=== PATIENT | male | born 1950 | race Caucasian/White ===

== ENCOUNTER 2016-12-21 23:02 | Inpatient (IN) | payer MEDICARE, OTHER ==
[2016-12-21] MEDS ORDERED: SODIUM CHLORIDE 0.9% 1,000 ML IV SCH (23:45)
--- NOTE | 2016-12-21 23:51 | ED ---
Abdominal Pain HPI - General Chief Complaint: Abdominal Pain Stated Complaint: abd pain Time Seen by Provider: 12/21/16 23:02 Source: patient, RN/MD, EMS, RN notes reviewed, old records reviewed Mode of arrival: EMS Limitations: no limitations - History of Present Illness Initial Comments: This is a 66-year-old male who was transferred from [facility] after it was discovered that he had a perforated viscus. Patient complained of abdominal pain earlier today he was seen at [facility] a workup was done those lab work was within normal limits he was found have free air under the diaphragm. CT was done and showed evidence of thickening of the sigmoid colon this may be the possible etiology. He was given IV antibiotics and transferred here for further evaluation. I did discuss case with Dr. Irwin. Patient has arrived and I did review all of his lab work and x-rays. Patient does state his pain is about 5/10 in severity his other complaints at this time he does have multiple history of joint replacements but no major medical issues. MD Complaint: abdominal pain, other - Related Data Home Medications Medication Instructions Recorded Confirmed Ascorbic Acid [Vitamin C] 1,000 mg PO DAILY 12/21/16 12/21/16 Aspirin 81 mg PO DAILY 12/21/16 12/21/16 Atorvastatin [Lipitor] 40 mg PO HS 12/21/16 12/21/16 Cholecalciferol [Vitamin D3] 5,000 unit PO DAILY 12/21/16 12/21/16 Glucosamine Sulfate 2,000 mg PO DAILY 12/21/16 12/21/16 Loratadine-Pseudoeph 10-240 mg 1 tab PO DAILY 12/21/16 12/21/16 [Claritin-D 24 Hr] Naproxen Sodium [Aleve] 220 mg PO DAILY 12/21/16 12/21/16 Pyridoxine [Vitamin B-6] 50 mg PO DAILY 12/21/16 12/21/16 Sildenafil Citrate [Sildenafil] 20 mg PO ONCE PRN 12/21/16 12/21/16 Vitamin E 1,000 unit PO DAILY 12/21/16 12/21/16 amLODIPine BESYLATE/BENAZEPRIL 1 cap PO DAILY 12/21/16 12/21/16 [amLODIPine BESYLATE/BENAZEPRIL 5-10 mg] Allergies Allergy/AdvReac Type Severity Reaction Status Date / Time amoxicillin Allergy Unknown Verified 12/21/16 23:25 Childhood Penicillins Allergy Unknown Verified 12/21/16 23:24 Childhood Review of Systems ROS Statement: Those systems with pertinent positive or pertinent negative responses have been documented in the HPI. ROS Other: All systems not noted in ROS Statement are negative. Past Medical History History of Any Multi-Drug Resistant Organisms: None Reported Past Psychological History: No Psychological Hx Reported Smoking Status: Never smoker Past Alcohol Use History: None Reported Past Drug Use History: None Reported General Exam - General Exam Comments Initial Comments: This is a well-developed well-nourished awake alert oriented 3 male he does have an NG tube in place an IV in place. Limitations: no limitations General appearance: alert, in no apparent distress Head exam: Present: atraumatic, normocephalic, normal inspection Eye exam: Present: normal appearance, PERRL, EOMI. Absent: scleral icterus, conjunctival injection, periorbital swelling ENT exam: Present: normal exam, mucous membranes moist, other (Nasogastric tube as mentioned) Neck exam: Present: normal inspection. Absent: tenderness, meningismus, lymphadenopathy Respiratory exam: Present: normal lung sounds bilaterally. Absent: respiratory distress, wheezes, rales, rhonchi, stridor Cardiovascular Exam: Present: regular rate, normal rhythm, normal heart sounds. Absent: systolic murmur, diastolic murmur, rubs, gallop, clicks GI/Abdominal exam: Present: soft, tenderness (Mild lower abdominal tenderness no guarding or rebound.), normal bowel sounds. Absent: distended, guarding, rebound, rigid Rectal exam: Present: deferred Extremities exam: Present: normal inspection, full ROM, normal capillary refill. Absent: tenderness, pedal edema, joint swelling, calf tenderness Back exam: Present: normal inspection Neurological exam: Present: alert, oriented X3, CN II-XII intact Psychiatric exam: Present: normal affect, normal mood Skin exam: Present: warm, dry, intact, normal color. Absent: rash Course Vital Signs 12/21/16 23:08 Temperature 98.8 F Pulse Rate 75 Respiratory 22 Rate Blood Pressure 110/67 O2 Sat by Pulse 98 Oximetry Medical Decision Making - Medical Decision Making I did discuss the findings with Dr. Irwin the patient will be taken the operating room for exploratory laparotomy. The CAT scan was done at [place] the written report was reviewed the radiology department currently is unable to load the disc into our system. Disposition Clinical Impression: Perforated viscus, Acute abdomen Disposition: ADMITTED IP TO THIS HOSP Condition: Serious
[2016-12-21] MEDS ORDERED: HYDROmorphone 1 MG/ML 1 ML SYRINGE IVP STA (23:52)
[2016-12-21] MEDS ORDERED: NALOXONE 0.4 MG/ML 1 ML VIAL IV PRN (23:59)
[2016-12-22] MEDS ORDERED: IV FLUID CONTINUATION 1,000 ML IV ONE ×2 (00:35)
[2016-12-22] MEDS ORDERED: LIDOCAINE 1% INJ 10MG/ML (20 ML MDV) ONE (00:44)
[2016-12-22] MEDS ORDERED: ROCURONIUM BROMIDE 10 MG/ML 10 ML VIAL IV ONE (00:44)
[2016-12-22] MEDS ORDERED: HEPARIN SODIUM,PORCINE 5,000 UNIT/ML 1 ML VIAL ONE (00:44)
[2016-12-22] MEDS ORDERED: ONDANSETRON 4 MG/2 ML VIAL ONE (00:44)
[2016-12-22] MEDS ORDERED: fentaNYL (PF) 50 MCG/ML 2 ML AMP ONE (00:44)
[2016-12-22] MEDS ORDERED: SUCCINYLCHOLINE CHLORIDE 100 MG/5 ML SYR IV ONE (00:44)
[2016-12-22] MEDS ORDERED: PHENYLEPHRINE-0.9% NACL SYG 1 MG/10 ML SYRINGE ONE (00:44)
[2016-12-22] MEDS ORDERED: KETOROLAC 30 MG/ML 1 ML VIAL ONE (00:44)
[2016-12-22] MEDS ORDERED: MIDAZOLAM 2 MG/2 ML VIAL ONE (00:44)
[2016-12-22] MEDS ORDERED: DEXAMETHASONE SOD PHOS (MDV) 100 MG/10 ML VIAL ONE (00:44)
[2016-12-22] MEDS ORDERED: PROPOFOL 10 MG/ML 20 ML VIAL IV ONE (00:44)
--- NOTE | 2016-12-22 00:46 | P.GSHP ---
History of Present Illness H&P Date: 12/22/16 Chief Complaint: Abdominal pain 66 years old male presented with acute onset of abdominal pain around 3 PM. Pain is described as severe, 10 out of 10. No nausea or vomiting. Patient has known inguinal hernias but chose not to have surgery. Denies any fever or chills or rigors. Last colonoscopy several years ago which was normal as per patient. He went to the Hospital around 5 PM and had computed tomography scan of the abdomen and pelvis which showed free air and hence transferred to [facility] for further management - Review of Systems Comment: Constitutional: Denies fever, weight loss or loss of appetite HEENT: No difficulty in vision or hearing. Denies dysphagia. Cardiovascular: Denies chest pain, palpitations, dizziness, shortness of breath. Respiratory: No cough or shortness of breath Gastrointestinal: Last bowel movement was 2 days ago Genitourinary: No urinary incontinence, hematuria or dysuria Neurologic: No seizures, denies weakness in upper or lower extremities Past Medical History History of Any Multi-Drug Resistant Organisms: None Reported Past Psychological History: No Psychological Hx Reported Smoking Status: Never smoker Past Alcohol Use History: None Reported Past Drug Use History: None Reported Medications and Allergies Home Medications Medication Instructions Recorded Confirmed Type Ascorbic Acid [Vitamin C] 1,000 mg PO DAILY 12/21/16 12/21/16 History Aspirin 81 mg PO DAILY 12/21/16 12/21/16 History Atorvastatin [Lipitor] 40 mg PO HS 12/21/16 12/21/16 History Cholecalciferol [Vitamin D3] 5,000 unit PO DAILY 12/21/16 12/21/16 History Glucosamine Sulfate 2,000 mg PO DAILY 12/21/16 12/21/16 History Loratadine-Pseudoeph 10-240 mg 1 tab PO DAILY 12/21/16 12/21/16 History [Claritin-D 24 Hr] Naproxen Sodium [Aleve] 220 mg PO DAILY 12/21/16 12/21/16 History Pyridoxine [Vitamin B-6] 50 mg PO DAILY 12/21/16 12/21/16 History Sildenafil Citrate [Sildenafil] 20 mg PO ONCE PRN 12/21/16 12/21/16 History Vitamin E 1,000 unit PO DAILY 12/21/16 12/21/16 History amLODIPine BESYLATE/BENAZEPRIL 1 cap PO DAILY 12/21/16 12/21/16 History [amLODIPine BESYLATE/BENAZEPRIL 5-10 mg] Allergies Allergy/AdvReac Type Severity Reaction Status Date / Time amoxicillin Allergy Unknown Verified 12/21/16 23:25 Childhood Penicillins Allergy Unknown Verified 12/21/16 23:24 Childhood Surgical - Exam Vital Signs Temp Pulse Resp BP Pulse Ox 98.8 F 75 22 110/67 98 12/21/16 23:08 12/21/16 23:08 12/21/16 23:08 12/21/16 23:08 12/21/16 23:08 General: Patient is alert and oriented to time, place and person and cooperative with exam and in acute distress secondary to pain HEENT: No pallor, no icterus Chest: Bilateral equal breath sounds present. No wheezes, no crackles. Cardiovascular: Regular rate and rhythm. Abdomen: Markedly distended abdomen with guarding and rigidity and diffuse peritonitis.Bilateral nonreducible inguinal hernia Neurologic: Cranial nerves II-XII intact. Strength upper and lower extremities 5/5. Results - Imaging CT scan - abdomen: other (Computed tomography scan abdomen and pelvis reviewed from [facility]. Free intra-abdominal air. Bilateral large inguinal hernia containing colon with fecal stasis.) Assessment and Plan (1) Acute abdomen Status: Acute (2) Perforated viscus Status: Acute (3) Peritonitis (acute) generalized Status: Acute (4) Inguinal hernia of left side with obstruction Status: Acute Plan: Patient examining ED Acute abdomen with generalized peritonitis with hollow viscus perforation, known bilateral inguinal hernias Plan for exploratory laparotomy, possible bowel resection, possible ostomy, possible second look surgery with wound VAC application Informed consent obtained from the patient and after explaining the risks, benefits and potential complications including bleeding, infection, intra- abdominal abscess, prolonged ventilation, ICU admission, pulmonary and cardiac perioperative complications. IV antibiotics Chavez catheter insertion Heparin 5000 units subcu injection 1 Bilateral SCDs
[2016-12-22] MEDS ORDERED: HEPARIN SODIUM,PORCINE 5,000 UNIT/ML 1 ML VIAL SQ STA (00:47)
[2016-12-22] MEDS ORDERED: ONDANSETRON 4 MG/2 ML VIAL IVP PRN (00:50)
[2016-12-22] MEDS ORDERED: METOCLOPRAMIDE 5 MG/ML 2 ML VIAL IVP PRN (00:50)
[2016-12-22] MEDS: metroNIDAZOLE-NS PMX 500 MG in SALINE 1 100ML.BAG IVPB SCH ×4 (01:26→23:40)
[2016-12-22] MEDS: LEVOFLOXACIN 750MG-D5W PMX 750 MG in DEXTROSE/WATER 1 150ML.BAG IVPB SCH ×2 (01:27→22:10)
[2016-12-22] MEDS ORDERED: LACTATED RINGERS 1,000 ML IV ONE ×7 (01:30→11:37)
--- NOTE | 2016-12-22 03:06 | P.OP ---
Date of Procedure: 12/22/16 Preoperative Diagnosis: 1. Perforated hollow viscus 2. Diffuse abdominal peritonitis 3. Sepsis secondary to above 4. Bilateral inguinal hernia Postoperative Diagnosis: Same Procedure(s) Performed: Exploratory laparotomy Washout of abdomen using 9 L of irrigation Armani procedure(sigmoid colectomy and end ostomy) Anesthesia: MAGDALENA Surgeon: Melida Irwin Estimated Blood Loss (ml): 100 IV fluids (ml): 100 Pathology: other Condition: other (ASA 3) Disposition: PACU Indications for Procedure: 66 years old male presenting with acute onset of abdominal pain for 1 day duration presents with generalized abdominal peritonitis. Computed tomography scan which was done at [facility] showed free air and bilateral inguinal hernias. Informed consent obtained from patient and family and he elected to undergo exploratory laparotomy, possible bowel resection, possible ostomy and all indicated procedures Operative Findings: 2 cm open defect in the sigmoid colon with gross contamination of abdominal cavity with stool in all 4 quadrants Both inguinal hernia were reduced at induction of anesthesia Description of Procedure: The patient was brought to the operating room and placed in supine position with both arms out. Gen. anesthesia with endotracheal intubation was performed. A timeout was performed to verify correct patient, correct procedure and correct site. Patient was confirmed to receive perioperative IV antibiotics and heparin 5000 units subcutaneous injection. Bilateral SCDs were placed. A Chavez catheter was inserted under sterile aseptic precautions The abdomen was prepped with ChloraPrep. Ioban dressing was applied. A vertical midline incision was made and was deepened through the subcutaneous tissue and the fascia was opened in the midline. There was gross fecal contamination with stool in all 4 quadrants of the peritoneal cavity. Aerobic and anaerobic cultures sent. A hole was immediately identified in the sigmoid colon which measured approximately 2 cm. A segmental resection was performed using DAYAN 75. The mesocolon was taken using LigaSure device. Attention was then focused towards washout of the abdomen. All solid gross stool particles were evacuated. 9 L of warm saline irrigation was used to wash out the abdominal cavity including hepatorenal and splenorenal fossa is and perihepatic and perisplenic spaces. Nasogastric tube was checked to be in good position. Bilateral inguinal hernias identified but no incarceration or obstruction noted. The small bowel was run from ligament of Treitz to terminal ileum. Large amount of fecal matter throughout the colon. An opening was made in the rectus fascia in the left lower quadrant. The muscle fibers was split along its longitudinal directions. The posterior rectus sheath was also divided. The proximal end of the stapled colon was brought out through this opening to mature descending colon ostomy. The fascia was closed using double-stranded PDS 2. The subcutaneous tissue was washed with additional 1 L of normal saline. No wound protection device was used since there was gross contamination to begin with. A Blue drain was left in the subcutis tissue and spike were applied. The stapled end of the descending colon was opened up using Bovie electrocautery. The ostomy was matured using interrupted sutures of 3-0 Vicryl. A finger could be easily allowed through the ostomy beyond the fascia. An ostomy bag was applied. Clean dressings were applied in the midline. The sponge, instrument and needle count were correct 2. Patient tolerated procedure well and was taken to post anesthetic care unit in stable condition
[2016-12-22 05:33] LABS: Aty Lym Flag Moderate; CH 31.6; CHCM 31.3; HCT 42.4 % (39.0-53.0); HDW 2.38; HGB 13.3 gm/dL (13.0-17.5); Immature Gran Flag Marked; MCH 31.9 pg (25.0-35.0); MCHC 31.4 g/dL (31.0-37.0); MCV 101.5 fL (80.0-100.0); Macrocytosis Slight; Mean Platelet Volume 6.8; RBC 4.18 m/uL (4.30-5.90); RDW 13.8 % (11.5-15.5); WBC (Perox) 2.12
[2016-12-22] MEDS ORDERED: ACETAMINOPHEN IV (For NPO) 1,000 MG/100 ML VIAL IVPB ONE ×2 (05:59→12:02)
[2016-12-22] MEDS: ACETAMINOPHEN IV (For NPO) 1,000 MG in EMPTY BAG 1 BAG IVPB SCH ×4 (06:04→23:39)
[2016-12-22 06:16] LABS: Anion Gap 9 mmol/L; Calcium 8.2 mg/dL (8.4-10.2); Carbon Dioxide 17 mmol/L (22-30); Chloride 112 mmol/L (98-107); Glucose 90 mg/dL (74-99); Non-African American GFR(MDRD) >60 (>60 ml/min/1.73 sqM); Sodium 138 mmol/L (137-145); Total Bilirubin 1.6 mg/dL (0.2-1.3); Total Protein 4.5 g/dL (6.3-8.2)
[2016-12-22 06:19] LABS: Add Differential Manual Differential
[2016-12-22 06:29] LABS: Band Neutrophils % 34.5 %; Nucleated Red Blood Cells 0 /100 WBC (0-0); Total Cells Counted 200
[2016-12-22 06:30] LABS: Manual Review Performed
[2016-12-22 06:49] LABS: Potassium 4.3 mmol/L (3.5-5.1)
[2016-12-22 06:50] LABS: ALT 44 U/L (21-72); AST 39 U/L (17-59); Alkaline Phosphatase 58 U/L (38-126); Blood Urea Nitrogen 22 mg/dL (9-20)
[2016-12-22] MEDS ORDERED: HEPARIN SODIUM,PORCINE 5,000 UNIT/ML 1 ML VIAL SQ ONE (07:03)
[2016-12-22] MEDS ORDERED: PROPOFOL 10 MG/ML 50 ML VIAL IV ONE (07:06)
[2016-12-22] MEDS ORDERED: ALVIMOPAN 12 MG CAPSULE PO ONE (07:40)
[2016-12-22] MEDS: LACTATED RINGERS 1,000 ML IV SCH ×3 (07:58→16:34)
[2016-12-22] MEDS: ALVIMOPAN 12 MG CAPSULE PO SCH ×2 (09:00→22:09)
[2016-12-22] MEDS: FAMOTIDINE 20 MG/2 ML VIAL IV SCH ×2 (09:00→22:10)
[2016-12-22] MEDS ORDERED: SILDENAFIL 20 MG TAB PO PRN (09:42)
[2016-12-22 09:48] LABS: Glucose,Whole Blood 82 mg/dL (75-99)
[2016-12-22] MEDS ORDERED: SODIUM CHLORIDE 0.9% 1,000 ML IV ONE (09:58)
--- NOTE | 2016-12-22 10:11 | P.CNPUL ---
History of Present Illness Consult date: 12/22/16 Reason for consult: other Chief complaint: Perforated viscus, sepsis. History of present illness: This is a 66-year-old male who presented to the emergency department and [place]. He apparently was found have a perforated viscus. He was transferred down from [place] to our ER where he was evaluated and he had surgery yesterday. There is air under the diaphragm. The patient apparently had a colostomy with a Schreiber's procedure for the perforation. The concern here is that he will develop peritonitis and sepsis. He is currently extended stay area. On nasal O2 and receiving fluids. I didn't ask the nurse Gurdeep to give another liter of fluid. He is borderline hypotensive. His respiratory status is stable though. He appears to have a history of hyperlipidemia as well as hypertension. Review of Systems A 12 point review of system is positive for abdominal pain. The rest of the 12 point review of system is unremarkable. Past Medical History History of Any Multi-Drug Resistant Organisms: None Reported Past Psychological History: No Psychological Hx Reported Smoking Status: Never smoker Past Alcohol Use History: None Reported Past Drug Use History: None Reported Medications and Allergies Home Medications Medication Instructions Recorded Confirmed Type Ascorbic Acid [Vitamin C] 1,000 mg PO DAILY 12/21/16 12/21/16 History Aspirin 81 mg PO DAILY 12/21/16 12/21/16 History Atorvastatin [Lipitor] 40 mg PO HS 12/21/16 12/21/16 History Cholecalciferol [Vitamin D3] 5,000 unit PO DAILY 12/21/16 12/21/16 History Glucosamine Sulfate 2,000 mg PO DAILY 12/21/16 12/21/16 History Loratadine-Pseudoeph 10-240 mg 1 tab PO DAILY 12/21/16 12/21/16 History [Claritin-D 24 Hr] Naproxen Sodium [Aleve] 220 mg PO DAILY 12/21/16 12/21/16 History Pyridoxine [Vitamin B-6] 50 mg PO DAILY 12/21/16 12/21/16 History Sildenafil Citrate [Sildenafil] 20 mg PO ONCE PRN 12/21/16 12/21/16 History Vitamin E 1,000 unit PO DAILY 12/21/16 12/21/16 History amLODIPine BESYLATE/BENAZEPRIL 1 cap PO DAILY 12/21/16 12/21/16 History [amLODIPine BESYLATE/BENAZEPRIL 5-10 mg] Allergies Allergy/AdvReac Type Severity Reaction Status Date / Time amoxicillin Allergy Unknown Verified 12/21/16 23:25 Childhood Penicillins Allergy Unknown Verified 12/21/16 23:24 Childhood Physical Exam Osteopathic Statement: *. No significant issues noted on an osteopathic structural exam other than those noted in the History and Physical/Consult. Vitals: Vital Signs Temp Pulse Resp BP Pulse Ox 12/22/16 09:30 90 16 97/58 93 L 12/22/16 08:30 86 16 86/53 94 L 12/22/16 07:22 85 18 81/53 93 L 12/22/16 06:24 86 16 90/53 90 L 12/22/16 05:37 85 16 83/57 93 L 12/22/16 04:30 84 16 93/57 94 L 12/22/16 04:15 84 16 100/62 94 L 12/22/16 04:00 80 16 98/59 94 L 12/22/16 03:45 85 16 107/60 95 12/22/16 03:30 84 16 110/60 94 L 12/22/16 03:15 88 16 108/55 94 L 12/22/16 02:59 97.9 F 94 16 116/63 97 Intake and Output 12/21/16 12/22/16 12/22/16 22:59 06:59 14:59 Intake Total 4050 400 Output Total 500 100 Balance 3550 300 Intake: IV 4050 400 Output: Urine 400 100 Estimated Blood Loss 100 No acute distress, lying in bed. Nasal O2 in place. Appears no acute distress. HEENT examination is unremarkable. Mucous members are moist. No oral lesions. Neck supple. Full range of motion. No adenopathy or thyromegaly. Cardiovascular examination reveals regular rhythm rate. S1-S2 normal. No S3- S4 murmur. Lungs are relatively clear. A few scattered rhonchi. No wheezes. Abdomen soft. No bowel sounds. Extremities are intact. No cyanosis clubbing or edema. Skin is without rash or lesion Neurologic examination is brief but nonfocal. Results - Laboratory Findings CBC and BMP: 12/22/16 05:14 12/22/16 05:14 Abnormal lab findings: Abnormal Labs 12/22/16 12/22/16 05:14 05:14 WBC 2.0 L* RBC 4.18 L MCV 101.5 H Plt Count 117 L Neutrophils # (Manual) 1.2 L Lymphocytes # (Manual) 0.4 L Chloride 112 H Carbon Dioxide 17 L BUN 22 H Calcium 8.2 L Total Bilirubin 1.6 H Total Protein 4.5 L Albumin 2.3 L - Diagnostic Findings Chest x-ray: image reviewed Assessment and Plan (1) Acute abdomen Status: Acute (2) Perforated viscus Status: Acute (3) Peritonitis (acute) generalized Status: Acute Plan: Plan The patient will be transferred up to the ICU for better monitoring and observation. Were concerned about sepsis and peritonitis. I asked the nurse to give him a liter of saline. His blood pressure is borderline about 90 systolic. Continue to watch very carefully. Medications labs and x-rays are all reviewed. Time with Patient: Greater than 30
[2016-12-22] MEDS: HEPARIN SODIUM,PORCINE 5,000 UNIT/ML 1 ML VIAL SQ SCH ×3 (11:44→23:40)
[2016-12-22] MEDS ORDERED: DEXTROSE 50%-WATER 50 ML SYRINGE IVP ONE (12:05)
[2016-12-22 12:06] LABS: Glucose,Whole Blood 63 mg/dL (75-99)
[2016-12-22 12:22] LABS: Glucose,Whole Blood 115 mg/dL (75-99)
--- NOTE | 2016-12-22 14:20 | P.PN ---
Subjective Principal diagnosis: S/P xlap, sigmoid colon resection and Schreiber procedure POD#0 S/P Xlap, sigmoid colectomy and end ostomy BP borderline 90-110 systolic. Pain is well controlled. UO improved after IV fluid bolus Objective - Vital Signs Vital signs: Vital Signs Temp 97.9 F 12/22/16 02:59 Pulse 87 12/22/16 13:22 Resp 18 12/22/16 13:22 BP 104/63 12/22/16 13:22 Pulse Ox 94 L 12/22/16 13:10 Intake & Output 12/21/16 12/22/16 12/22/16 18:59 06:59 18:59 Intake Total 4050 1400 Output Total 500 400 Balance 3550 1000 Intake: IV 4050 1400 Output: Urine 400 400 Estimated Blood Loss 100 - Exam Chest: Bilateral breath sounds present CVS: No tachycardia Abdomen: Ostomy -edematous, no output Neville catheter in place - Labs CBC & Chem 7: 12/22/16 05:14 12/22/16 05:14 Labs: Abnormal Lab Results - Last 24 Hours (Table) 12/22/16 12/22/16 12/22/16 Range/Units 05:14 05:14 12:03 WBC 2.0 L* (3.8-10.6) k/uL RBC 4.18 L (4.30-5.90) m/uL MCV 101.5 H (80.0-100.0) fL Plt Count 117 L (150-450) k/uL Neutrophils # (Manual) 1.2 L (1.3-7.7) k/uL Lymphocytes # (Manual) 0.4 L (1.0-4.8) k/uL Chloride 112 H (98-107) mmol/L Carbon Dioxide 17 L (22-30) mmol/L BUN 22 H (9-20) mg/dL POC Glucose (mg/dL) 63 L (75-99) mg/dL Calcium 8.2 L (8.4-10.2) mg/dL Total Bilirubin 1.6 H (0.2-1.3) mg/dL Total Protein 4.5 L (6.3-8.2) g/dL Albumin 2.3 L (3.5-5.0) g/dL 12/22/16 Range/Units 12:19 WBC (3.8-10.6) k/uL RBC (4.30-5.90) m/uL MCV (80.0-100.0) fL Plt Count (150-450) k/uL Neutrophils # (Manual) (1.3-7.7) k/uL Lymphocytes # (Manual) (1.0-4.8) k/uL Chloride (98-107) mmol/L Carbon Dioxide (22-30) mmol/L BUN (9-20) mg/dL POC Glucose (mg/dL) 115 H (75-99) mg/dL Calcium (8.4-10.2) mg/dL Total Bilirubin (0.2-1.3) mg/dL Total Protein (6.3-8.2) g/dL Albumin (3.5-5.0) g/dL Microbiology - Last 24 Hours (Table) 12/22/16 02:26 Anaerobic Culture - Preliminary Peritoneal Fluid 12/22/16 02:26 Wound Culture - Preliminary Peritoneal Fluid Assessment and Plan (1) Acute abdomen Status: Acute (2) Perforated viscus Status: Acute (3) Peritonitis (acute) generalized Status: Acute (4) Inguinal hernia of left side with obstruction Status: Acute Plan: 1. Continue IVF @150cc/hr 2. Bilateral SCDs 3. Heparin SQ every 8 hrly 4. Continue Levo and Flagyl IV. Cultures pending 5. Transfer to [facility] 6. ID following 7. OK for ice chips and popsicles 8. COntinue NG 7. SINDHU [place] in am
[2016-12-22] MEDS: cefTRIAXone 2,000 MG in SODIUM CHLORIDE 0.9% 100 ML IVPB SCH (17:32)
[2016-12-22 17:48] LABS: Glucose,Whole Blood 77 mg/dL (75-99)
[2016-12-22] MEDS: ATORVASTATIN 40 MG TAB PO SCH (22:09)
--- NOTE | 2016-12-22 22:41 | CONS ---
DATE OF CONSULTATION: 12/22/2016 REASON FOR CONSULTATION: Medical management requested Dr. Irwin. CONSULTATION: This is a pleasant 66-year-old patient being followed by Dr. Landrum. Patient for 3 days was having trouble having a bowel movement and yesterday developed increasingly severe abdominal pain. No nausea. No fever. Landed up in [facility]. CT scan showed free air. Patient was transferred down here. Exploratory laparotomy revealed perforated sigmoid diverticulitis with fecal contamination. Patient did have a Armani's procedure done. Post procedure patient has an NG tube in place, a colostomy bag. Patient is rather hypotensive; received fluid boluses and was transferred out of the surgical floor. Patient is currently lying in bed, awake. He will answer questions. Getting IV fluids. Allowed to have popsicles. Patient's chronic stable medical conditions include hyperlipidemia, hypertension, osteoarthritis. Denies any cardiac history. REVIEW OF SYSTEMS: CONSTITUTIONAL: Tired. HEENT: None. RESPIRATORY: None. CARDIOVASCULAR: None. GASTROINTESTINAL: As above. GENITOURINARY: None. MUSCULOSKELETAL: Aches and pains in the joints, especially in the hands and knees. DERMATOLOGICAL: None. HEMATOLOGICAL: None. LYMPHATICS: None. PSYCHIATRY: None. NEUROLOGICAL: None. PAST HISTORY: 1. Hyperlipidemia. 2. Hypertension. 3. Osteoarthritis. PAST SURGICAL HISTORY: 1. Joint replacement. 2. Bilateral total hips. 3. Left knee arthroscopy. 4. Right shoulder. SOCIAL HISTORY: . Patient is not a smoker. Alcohol occasionally. Does auto repair. FAMILY HISTORY: Parents were healthy. HOME MEDICATIONS: 1. Sildenafil 20 mg p.r.n. 2. Claritin D one tablet p.o. daily. 3. Amlodipine/benazepril 5/10 one tablet p.o. daily. 4. Vitamin D3 5000 units p.o. daily. 5. Lipitor 40 mg at bedtime. 6. Vitamin C 1000 mg p.o. daily. 7. Vitamin B6 50 mg p.o. daily. 8. Aleve 220 mg p.o. daily. 9. Glucosamine 2000 mg p.o. daily. 10. Aspirin 81 mg p.o. daily. ALLERGIES: 1. MORPHINE. 2. PENICILLIN. On examination, temperature 98.8, pulse 75, respiration 22, blood pressure 110/57, pulse ox 98% on 2 L. GENERAL APPEARANCE: Average build. Lying in bed. Tired-appearing. EYES: Pupils equal. Conjunctivae normal. HEENT: External appearance of nose and ears normal. Oral cavity with dry mucous membranes. NG tube in place. NECK: JVD not raised. Mass not palpable. RESPIRATORY: Effort normal. Lungs are clear. CARDIOVASCULAR: First and second sounds normal. No edema. ABDOMEN: Some tenderness present. Bowel sounds are sluggish. Colostomy bag in place. Incision in place. LYMPHATIC: No lymph node palpable in neck or axillae. PSYCHIATRY: Alert and oriented x3. Mood and affect normal. NEUROLOGICAL: Pupils equal. Cranial nerves grossly intact. MUSCULOSKELETAL: Evidence of osteoarthritis, especially in the hands and knees. INVESTIGATIONS: White count 2, hemoglobin 13.3, platelets 117. Potassium 4.3. BUN 22, creatinine 1. Total bilirubin 1.6. Albumin 2.3. ASSESSMENT: 1. Colonic perforation leading to peritoneal contamination leading up to Armani's procedure/sigmoid colectomy and end colostomy. 2. Hyperlipidemia. 3. Essential hypertension. 4. Primary osteoarthritis, especially in the hands and knees. 5. Hypoalbuminemia; could be an acute phase reactant. 6. Patient has low white count; leukopenia that could be from sepsis. Low platelets, but given that patient has also got low platelets, it could be from sepsis. 7. Hypotensive shock from perforated bowel. PLAN: Patient is on IV Levaquin, IV Flagyl, ceftriaxone. I think Levaquin and Flagyl will suffice. Will discuss with Dr. Juarez. Patient's Zestril will be maintained. Will hold off patient's Norvasc for right now. Pain control is in place. Patient will given Venodynes for DVT prophylaxis. Will also discontinue patient's Claritin D. Care was discussed with the patient. Thank you, Dr. Irwin.
[2016-12-23 00:53] LABS: Glucose,Whole Blood 76 mg/dL (75-99)
[2016-12-23] MEDS: LACTATED RINGERS 1,000 ML IV SCH ×4 (04:03→18:53)
[2016-12-23 05:43] LABS: Glucose,Whole Blood 77 mg/dL (75-99)
[2016-12-23 08:02] LABS: CH 32.1; CHCM 34.1; HCT 38.4 % (39.0-53.0); HDW 2.62; HGB 13.2 gm/dL (13.0-17.5); Immature Gran Flag Marked; MCH 32.6 pg (25.0-35.0); MCHC 34.4 g/dL (31.0-37.0); Mean Platelet Volume 6.9; RBC 4.05 m/uL (4.30-5.90); RDW 14.1 % (11.5-15.5); WBC 5.9 k/uL (3.8-10.6); WBC (Perox) 6.57
[2016-12-23 08:04] LABS: ALT 46 U/L (21-72); AST 42 U/L (17-59); Alkaline Phosphatase 84 U/L (38-126); Anion Gap 7 mmol/L; Blood Urea Nitrogen 25 mg/dL (9-20); Calcium 8.2 mg/dL (8.4-10.2); Carbon Dioxide 22 mmol/L (22-30); Chloride 109 mmol/L (98-107); Glucose 70 mg/dL (74-99); Non-African American GFR(MDRD) >60 (>60 ml/min/1.73 sqM); Potassium 4.2 mmol/L (3.5-5.1); Sodium 138 mmol/L (137-145); Total Bilirubin 0.7 mg/dL (0.2-1.3); Total Protein 4.6 g/dL (6.3-8.2)
[2016-12-23 08:06] LABS: MCV 94.9 fL (80.0-100.0)
[2016-12-23 08:46] LABS: Add Differential Manual Differential
[2016-12-23 08:51] LABS: Nucleated Red Blood Cells 0 /100 WBC (0-0); Total Cells Counted 100
[2016-12-23 08:52] LABS: Manual Review Performed; RBC Morphology Normal; Toxic Vacuolation Present
[2016-12-23] MEDS ORDERED: amLODIPine 5 MG TAB PO SCH (09:00)
[2016-12-23] MEDS: HEPARIN SODIUM,PORCINE 5,000 UNIT/ML 1 ML VIAL SQ SCH ×2 (09:28→18:08)
[2016-12-23] MEDS: ALVIMOPAN 12 MG CAPSULE PO SCH ×2 (09:28→22:32)
[2016-12-23] MEDS: LISINOPRIL 10 MG TAB PO SCH (09:29)
[2016-12-23] MEDS: FAMOTIDINE 20 MG/2 ML VIAL IV SCH ×2 (09:29→22:32)
[2016-12-23] MEDS: metroNIDAZOLE-NS PMX 500 MG in SALINE 1 100ML.BAG IVPB SCH ×2 (09:40→18:07)
--- NOTE | 2016-12-23 09:53 | CONS ---
DATE OF CONSULTATION: 12/22/2016 REASON FOR CONSULTATION: Secondary peritonitis. HISTORY OF PRESENT ILLNESS: The patient is a 66 -year-old male who presented to the [facility] ER with acute onset of abdominal pain that staretd around 3 in the afternoon. The patient did have pain, severe, sharp, 5-6 out of 10 and no significant radiation. The patient denied significant nausea or vomiting with it and had no significant diarrhea or constipation. With these symptoms the patient presented to the [facility] ER where the patient has been evaluated by the ER physician. Patient subsequently has been taken to the OR by Dr. Irwin. He was noticed to have perforated sigmoid diverticulitis with diffuse abdominal peritonitis. The patient is status post exploratory laparotomy with wash out of abdominal atwood procedure. The patient has been resuscitated with IV fluids. Of note, patient did have history of PENICILLIN AND AMOXICILLIN ALLERGIES and hence he was given Levaquin and Flagyl for antibiotic and ID was consulted for further recommendation regarding management of antibiotic therapy. REVIEW OF SYSTEMS: CONSTITUTIONAL: Positive for weakness and denies high-grade fever. EYES: No complaint. ENT: No complaint. RESPIRATORY: No complaint. CARDIOVASCULAR: No complaint. GENITOURINARY: No complaint. GASTROINTESTINAL: As per HPI. MUSCULOSKELETAL: No complaint. INTEGUMENTARY: No complaint. PSYCHOLOGICAL: No complaint. ENDOCRINE: No complaint. NEUROLOGIC: No complaint. PAST MEDICAL HISTORY: Hypertension, hyperlipidemia, osteoarthritis. PAST SURGICAL HISTORY: Positive for left knee arthroscopy and right shoulder surgery. SOCIAL HISTORY: The patient is , lives with his , occasionally drinks. No smoking or any drug use. FAMILY HISTORY: No pertinent findings were noticed. ALLERGIES: MORPHINE AND PENICILLIN REACTION IS UNKNOWN. Medications include the patient is currently on: 1. Levaquin. 2. Flagyl. 3. Lipitor. 4. Vitamin D3. 5. Claritin. 6. Aspirin. 7. Duoneb. On examination, blood pressure 94/54 with a pulse of 88, temperature 99.5. He is 94% on 2 L nasal cannula. General description is an elderly male lying in bed in no distress. No tachypnea or accessory muscle of respiration use. HEENT examination, no pallor. There is no scleral icterus. Oral mucosa membranes dry. NECK: Trachea central. There is no thyromegaly. LUNGS: Unlabored breathing. Clear to auscultation anteriorly. HEART: S1, S2 regular rate and rhythm. ABDOMEN: Soft, mild tenderness in the lower quadrant area. No guarding or rigidity. EXTREMITIES: No edema of feet. Skin examination: No rash or mass palpable. NEUROLOGICAL: The patient is awake, alert and oriented x3. Mood and affect normal. LABS: Hemoglobin is 13. White count of 2. BUN of 22 with a creatinine 1.0, electrolytes have been normal. Peritoneal culture obtained, currently pending. DIAGNOSTIC IMPRESSION AND PLAN: 1. Patient admitted to hospital with sepsis and secondary peritonitis from perforated sigmoid diverticulitis. The likely organism will be gram-negative both aerobes and anaerobes in a patient who has not been on antibiotics recently, could be more likely a sensitive pathogen. 2. Patient does have PENICILLIN AND AMOXICILLIN ALLERGIES limiting the number of antibiotics that could be safe to use. PLAN: 1. We will add Rocephin 2 grams IV piggyback daily , it is safe for use in a patient with HISTORY OF PENICILLIN ALLERGIES with unknown reaction. 2. Continue the patient on Flagyl. 3. Will follow up on the clinical condition and cultures to further adjust the medication if needed. Thank you for this consultation. Will follow this patient along with you. AYO
--- NOTE | 2016-12-23 10:14 | P.PN ---
Subjective 66-year-old male who I saw yesterday to extended care. He status post exploratory laparotomy for perforated viscus. He apparently had a colostomy and Schreiber's procedure. Anyway the patient's doing reasonably well. Done on the third floor. NG tube in place. Not receiving any supplemental oxygen. I did tell him the importance of using the incentive spirometer. Initially he was given a come to the ICU but he apparently state and became very stable with his blood pressure and was transferred down to the third floor. I will see him today and then sign off. We'll be available to see him in the future should you need our service. Objective - Vital Signs Vital signs: Vital Signs Temp 98.8 F 12/23/16 07:00 Pulse 102 H 12/23/16 07:00 Resp 16 12/23/16 07:00 BP 122/75 12/23/16 07:00 Pulse Ox 93 L 12/23/16 07:00 Intake & Output 12/22/16 12/23/16 12/23/16 18:59 06:59 18:59 Intake Total 1400 800 Output Total 760 830 Balance 640 -30 Weight 79.379 kg Intake: IV 1400 Intake, IV Titration 800 Amount cefTRIAXone 2,000 mg In 800 Sodium Chloride 0.9% 100 ml @ 100 mls/hr IVPB Q24H [facility] Rx#:[id number] Output: Gastric Drainage 300 Urine 460 830 Uretheral (Chavez) 650 - Exam No acute distress, oriented 3. HEENT examination is grossly unremarkable. Mucous membranes are moist. NG tube in place. Neck supple. Full range of motion. No adenopathy. Cardiovascular examination reveals regular rhythm rate. S1-S2 normal. Lungs are clear breath sounds are equal. No wheezes rhonchi or crackles. Abdomen soft. Extremities are intact. No cyanosis clubbing or edema. Skin without rash. Neurologic examination is prepared nonfocal. - Labs CBC & Chem 7: 12/23/16 06:50 12/23/16 06:50 Labs: Abnormal Lab Results - Last 24 Hours (Table) 12/22/16 12/22/16 12/23/16 Range/Units 12:03 12:19 06:50 RBC 4.05 L (4.30-5.90) m/uL Hct 38.4 L (39.0-53.0) % Plt Count 138 L (150-450) k/uL Lymphocytes # (Manual) 0.4 L (1.0-4.8) k/uL Chloride (98-107) mmol/L BUN (9-20) mg/dL Glucose (74-99) mg/dL POC Glucose (mg/dL) 63 L 115 H (75-99) mg/dL Calcium (8.4-10.2) mg/dL Total Protein (6.3-8.2) g/dL Albumin (3.5-5.0) g/dL 12/23/16 Range/Units 06:50 RBC (4.30-5.90) m/uL Hct (39.0-53.0) % Plt Count (150-450) k/uL Lymphocytes # (Manual) (1.0-4.8) k/uL Chloride 109 H (98-107) mmol/L BUN 25 H (9-20) mg/dL Glucose 70 L (74-99) mg/dL POC Glucose (mg/dL) (75-99) mg/dL Calcium 8.2 L (8.4-10.2) mg/dL Total Protein 4.6 L (6.3-8.2) g/dL Albumin 2.4 L (3.5-5.0) g/dL Microbiology - Last 24 Hours (Table) 12/22/16 02:26 Gram Stain - Preliminary Peritoneal Fluid Wound Culture - Preliminary Group D Enterococcus 12/22/16 02:26 Anaerobic Culture - Preliminary Peritoneal Fluid Assessment and Plan (1) Acute abdomen Status: Acute (2) Perforated viscus Status: Acute (3) Peritonitis (acute) generalized Status: Acute Plan: Plan The patient will be transferred up to the ICU for better monitoring and observation. Were concerned about sepsis and peritonitis. I asked the nurse to give him a liter of saline. His blood pressure is borderline about 90 systolic. Continue to watch very carefully. Medications labs and x-rays are all reviewed. Plan dated 12/23/2016 We recommend that the patient continue to use incentive spirometer. He she uses every hour while awake. We'll continue to follow only as needed. The patient seemed to do relatively well. Initially a problem with low blood pressure. He received adequate lying him. After that, his blood pressure was more in the normal range. Again see only as needed. Thank you in advance for allowing us to participate in the care of this patient. Time with Patient: Less than 30
--- NOTE | 2016-12-23 10:43 | P.PN ---
Subjective Principal diagnosis: S/P xlap, sigmoid colon resection and Schreiber procedure POD#1 S/P Xlap, sigmoid colectomy and end ostomy BP normal. Pain is well controlled. UO improved after IV fluid bolus. No output in ostomy. Tolerating ice chips. Leukopenia secondary shola sepsis , now resolved. Objective - Vital Signs Vital signs: Vital Signs Temp 98.8 F 12/23/16 07:00 Pulse 102 H 12/23/16 07:00 Resp 16 12/23/16 07:00 BP 122/75 12/23/16 07:00 Pulse Ox 93 L 12/23/16 07:00 Intake & Output 12/22/16 12/23/16 12/23/16 18:59 06:59 18:59 Intake Total 1400 800 Output Total 760 830 Balance 640 -30 Weight 79.379 kg Intake: IV 1400 Intake, IV Titration 800 Amount cefTRIAXone 2,000 mg In 800 Sodium Chloride 0.9% 100 ml @ 100 mls/hr IVPB Q24H [facility] Rx#:[id number] Output: Gastric Drainage 300 Urine 460 830 Uretheral ([place]eville) 650 - Exam Chest: Bilateral breath sounds present CVS: No tachycardia Abdomen: Ostomy -edematous, no output . Incision- haydee drain+ Neville catheter in place - Labs CBC & Chem 7: 12/23/16 06:50 12/23/16 06:50 Labs: Abnormal Lab Results - Last 24 Hours (Table) 12/22/16 12/22/16 12/23/16 Range/Units 12:03 12:19 06:50 RBC 4.05 L (4.30-5.90) m/uL Hct 38.4 L (39.0-53.0) % Plt Count 138 L (150-450) k/uL Lymphocytes # (Manual) 0.4 L (1.0-4.8) k/uL Chloride (98-107) mmol/L BUN (9-20) mg/dL Glucose (74-99) mg/dL POC Glucose (mg/dL) 63 L 115 H (75-99) mg/dL Calcium (8.4-10.2) mg/dL Total Protein (6.3-8.2) g/dL Albumin (3.5-5.0) g/dL 12/23/16 Range/Units 06:50 RBC (4.30-5.90) m/uL Hct (39.0-53.0) % Plt Count (150-450) k/uL Lymphocytes # (Manual) (1.0-4.8) k/uL Chloride 109 H (98-107) mmol/L BUN 25 H (9-20) mg/dL Glucose 70 L (74-99) mg/dL POC Glucose (mg/dL) (75-99) mg/dL Calcium 8.2 L (8.4-10.2) mg/dL Total Protein 4.6 L (6.3-8.2) g/dL Albumin 2.4 L (3.5-5.0) g/dL Microbiology - Last 24 Hours (Table) 12/22/16 02:26 Gram Stain - Preliminary Peritoneal Fluid Wound Culture - Preliminary Group D Enterococcus 12/22/16 02:26 Anaerobic Culture - Preliminary Peritoneal Fluid Assessment and Plan (1) Acute abdomen Status: Acute (2) Perforated viscus Status: Acute (3) Peritonitis (acute) generalized Status: Acute (4) Inguinal hernia of left side with obstruction Status: Acute Plan: 1. Continue IVF @150cc/hr 2. Bilateral SCDs 3. Heparin SQ every 8 hrly 4. Cultures - enteroccus 5. Transfer to [facility] 6. ID following 7. OK for ice chips and popsicles 8. COntinue NG 7. DC neville 8. PT/OT 9. Ostomy nurse consult 10. DC NG and start CLD once ostomy has output.
[2016-12-23 11:45] LABS: Glucose,Whole Blood 87 mg/dL (75-99)
[2016-12-23] MEDS ORDERED: PYRIDOXINE 50 MG TAB PO SCH (12:00)
[2016-12-23] MEDS: HYDROmorphone 1 MG/ML 1 ML SYRINGE IVP PRN ×2 (12:20→22:40)
--- NOTE | 2016-12-23 15:30 | CDI ---
In responding to this query, please exercise your independent professional judgment. The [facility] Coding Staff and Clinical Documentation Specialists appreciate your assistance in clarifying documentation, maintaining compliance with coding guidelines, accurately documenting patients condition and capturing severity of illness. The fact that a question is asked does not imply that any particular answer is desired or expected. Communication forms are a method of clarifying documentation and are not made part of the Legal Health Record. Thank you in advance for your clarification. Last Revision, July 2015 Paz Patel [address] [facility] [place] [address] Documentation Clarification Form Date: 12/23/2016 3:24:00 PM From: Allison Garcia Admit Date: 12/22/2016 12:00:00 AM Patient Name: Mario Ren Visit Number: [id number] Dr. Pastor Thomas History/Risk Factors: Bowel Surgery Perforated bowel NPO Clinical Indicators: Labs on admission: Albumin 2.3, Total Protein 4.5 Labs on admission: Albumin 2.4, Total Protein 4.6 Current BMI: 25.8 Treatment: Lab monitoring: In your professional opinion, can you please clarify if these findings signify one of the following conditions? Mild Protein Malnutrition Mild Protein-Calorie Malnutrition Moderate Protein Malnutrition Moderate Protein-Calorie Malnutrition Severe Protein Malnutrition Severe Protein-Calorie Malnutrition Malnutrition following GI surgery Other condition, please specify Unable to determine Please document in your progress notes and discharge summary in order to capture severity of illness and risk of mortality. Include clinical findings that support your diagnosis. FYI: Press F11 to launch patient chart. ____+_ Place X here if this finding has no clinical significance, is not applicable or if you are not able to provide any additional documentation. ALEJOD
[2016-12-23 17:24] LABS: Glucose,Whole Blood 71 mg/dL (75-99)
[2016-12-23] MEDS: DILTIAZEM 125 MG in SODIUM CHLORIDE 0.9% 100 ML IV SCH (18:34)
[2016-12-23] MEDS: cefTRIAXone 2,000 MG in SODIUM CHLORIDE 0.9% 100 ML IVPB SCH (18:49)
[2016-12-23 21:07] LABS: Glucose,Whole Blood 68 mg/dL (75-99)
[2016-12-23 21:39] LABS: Glucose,Whole Blood 84 mg/dL (75-99)
[2016-12-23] MEDS ORDERED: IV VANCOMYCIN PER PHARMACY 1 EACH MISC MISCELLANE PRN (21:53)
[2016-12-23] MEDS: ATORVASTATIN 40 MG TAB PO SCH (22:32)
[2016-12-23] MEDS: VANCOMYCIN 1,500 MG in SODIUM CHLORIDE 0.9% 250 ML IVPB SCH (22:33)
[2016-12-24 00:10] LABS: Glucose,Whole Blood 71 mg/dL (75-99)
[2016-12-24] MEDS: HEPARIN SODIUM,PORCINE 5,000 UNIT/ML 1 ML VIAL SQ SCH ×4 (01:17→23:20)
[2016-12-24] MEDS: metroNIDAZOLE-NS PMX 500 MG in SALINE 1 100ML.BAG IVPB SCH ×4 (01:17→23:20)
[2016-12-24 06:41] LABS: Glucose,Whole Blood 80 mg/dL (75-99)
[2016-12-24] MEDS: LACTATED RINGERS 1,000 ML IV SCH ×3 (06:57→10:53)
[2016-12-24] MEDS: DILTIAZEM 125 MG in SODIUM CHLORIDE 0.9% 100 ML IV SCH ×2 (06:59→10:51)
[2016-12-24] MEDS: HYDROmorphone 1 MG/ML 1 ML SYRINGE IVP PRN (07:31)
[2016-12-24] MEDS: LEVOFLOXACIN 750MG-D5W PMX 750 MG in DEXTROSE/WATER 1 150ML.BAG IVPB SCH (08:36)
[2016-12-24] MEDS ORDERED: LORATADINE-PSEUDOEPH 5-120 MG 1 EACH TAB.ER.12H PO SCH (09:00)
[2016-12-24] MEDS: FAMOTIDINE 20 MG/2 ML VIAL IV SCH ×2 (09:31→20:39)
[2016-12-24] MEDS: VANCOMYCIN 1,500 MG in SODIUM CHLORIDE 0.9% 250 ML IVPB SCH ×2 (09:56→20:40)
[2016-12-24] MEDS: ALVIMOPAN 12 MG CAPSULE PO SCH ×2 (09:57→20:39)
[2016-12-24] MEDS: LISINOPRIL 10 MG TAB PO SCH (09:57)
--- NOTE | 2016-12-24 10:15 | PN ---
DATE OF SERVICE: 12/23/2016 REASON FOR FOLLOWUP: Abdominal abscess from perforated sigmoid diverticulitis. INTERVAL HISTORY: The patient is afebrile, has been breathing comfortably. Denies any significant chest pain or cough. Abdominal pain is currently controlled with pain medication. Did have NG in and was passing gas. On examination, blood pressure 105/67, pulse of 85, temperature 98.9. He is 92% on 2L nasal cannula. General description is an elderly male, lying in bed in no distress. RESPIRATORY SYSTEM: Unlabored breathing. Clear to auscultation anteriorly. HEART: S1, S2. Regular rate and rhythm. ABDOMEN: Soft. No tenderness. EXTREMITIES: No edema of the feet. LABS: Hemoglobin is 13.1, white count of 5.9. BUN of 25, creatinine 1.14. The abdominal culture now showing Enterococcus . DIAGNOSTIC IMPRESSION AND PLAN: Patient with an abdominal abscess from sigmoid diverticulitis, status post diverting colostomy. Culture now showing Enterococcus. THE PATIENT IS ALLERGIC TO PENICILLIN. Will add vancomycin, pharmacy to dose, in addition to Rocephin and Flagyl and will continue to monitor his clinical course closely. MTDD
--- NOTE | 2016-12-24 10:28 | P.PN ---
Subjective Patient is a 66-year-old gentleman postop day #2 exploratory lap sigmoid colectomy and Schreiber's procedure the patient was noted on the floor to be tachycardic and he was transferred to a monitored unit. The patient is followed by medicine for some irregular heartbeat and tachycardia. He remains hemodynamically stable with a blood pressure of 125/75. The patient has no complaints. He has not yet passed flatus and his ostomy. Objective - Vital Signs Vital signs: Vital Signs Temp 99.5 F 12/24/16 04:00 Pulse 117 H 12/24/16 04:00 Resp 18 12/24/16 04:00 BP 125/75 12/24/16 04:00 Pulse Ox 92 L 12/24/16 04:00 Intake & Output 12/23/16 12/24/16 12/24/16 18:59 06:59 18:59 Intake Total 1754.167 Output Total 800 525 400 Balance -800 1229.167 -400 Weight 79.379 kg 86.1 kg Intake: IV 1630 Diltiazem 125 mg In 80 Sodium Chloride 0.9% 100 ml @ 10 MG/HR 10 mls/hr IV .[id number] [facility] Rx#: [id number] Lactated Ringers 1,000 ml 1200 @ 150 mls/hr IV .[id number] [facility] Rx#:[id number] Vancomycin 1,500 mg In 250 Sodium Chloride 0.9% 250 ml @ 125 mls/hr IVPB Q12HR [facility] Rx#:[id number] metroNIDAZOLE-NS PMX 500 100 mg In Saline 1 100ml.bag @ 100 mls/hr IVPB Q8HR [facility] Rx#:[id number] Intake, IV Titration 124.167 Amount Diltiazem 125 mg In 124.167 Sodium Chloride 0.9% 100 ml @ 10 MG/HR 10 mls/hr IV .[id number] [facility] Rx#: [id number] Output: Gastric Drainage 100 Urine 800 525 300 Uretheral (Chavez) 400 Other: Voiding Method Urinal Urinal # Voids 1 - Constitutional General appearance: Present: average body habitus, no acute distress - Respiratory Details: Decreased breath sounds at the bases - Cardiovascular Details: medicine heartbeat with some tachycardia patient is to be followed by medicine - Gastrointestinal Gastrointestinal Comment(s): Ostomy pink Incision clean and dry General gastrointestinal: Present: decreased bowel sounds - Psychiatric Psychiatric: Present: A&O x's 3, appropriate affect, intact judgment & insight - Labs CBC & Chem 7: 12/23/16 06:50 12/23/16 06:50 Labs: Abnormal Lab Results - Last 24 Hours (Table) 12/23/16 12/23/16 12/24/16 Range/Units 17:21 20:54 00:06 POC Glucose (mg/dL) 71 L 68 L 71 L (75-99) mg/dL Microbiology - Last 24 Hours (Table) 12/22/16 16:43 Blood Culture - Preliminary Blood No Growth after 24 hours 12/22/16 02:26 Gram Stain - Preliminary Peritoneal Fluid Wound Culture - Preliminary Group D Enterococcus Assessment and Plan Plan: Impression/plan: 1. 66-year-old gentleman status post Schreiber's procedure for perforated viscus 2. Tachycardia with some irregular heartbeat followed by medicine 3. Ostomy pink no flatus at this time ostomy nurse consult placed 4. Await return of bowel function
--- NOTE | 2016-12-24 11:09 | PN ---
DATE OF SERVICE: 12/23/2016 PRESENTING COMPLAINT: Abdominal surgery. INTERVAL HISTORY: This is a patient who presented with perforated sigmoid colon resulting in a Armani's procedure. Patient has a NG tube in place. I saw this patient earlier today. Abdominal binder in place. Patient has got a colostomy bag in place. Tired, lying in bed. Review of systems done for constitutional, cardiovascular, GI, pulmonary; relevant findings as above. Current medications are reviewed that include IV ceftriaxone, Flagyl, vanco. On examination, temperature 98.9, pulse 85, respirations 16, blood pressure 105/67, pulse ox 92% on 2 L. GENERAL APPEARANCE: Lying in bed, tired-appearing. EYES: Pupils equal, conjunctivae normal. NECK: JVD not raised. Mass not palpable. Respiratory effort normal. LUNGS: Clear. CARDIOVASCULAR: First and second sounds normal. No edema. ABDOMEN: Some tenderness present, colostomy bag in place. Bowel sounds sluggish. PSYCHIATRY: Alert and oriented x3. Mood and affect normal. INVESTIGATIONS: White count 5.9, potassium 4.2. BUN 25, creatinine 1.14. Accu-Cheks noted. ASSESSMENT: 1. Colonic perforation leading to peritoneal contamination leading up to Armani's procedure with end colostomy and sigmoid colectomy. 2. Hyperlipidemia. 3. Essential hypertension. 4. Primary osteoarthritis in multiple joints in hands and knees. 5. Hypoalbuminemia, likely an acute phase reactant. 6. Leukopenia likely from sepsis. 7. Thrombocytopenia, likely from sepsis. 8. Hypotensive shock from perforated bowel on presentation. PLAN: Continue current medication and treatment plan. Antibiotics, fluids. ( ) call that patient's heart rate was irregular, ( ) for the EKG that came back to be atrial flutter fibrillation with heart rate going up to 120. Patient being transferred up to cardiology/selective floor with consultation to Cardiology.
[2016-12-24 12:06] LABS: Glucose,Whole Blood 97 mg/dL (75-99)
[2016-12-24] MEDS: DEXTROSE 5%-0.9% NACL 1,000 ML IV SCH (14:06)
--- NOTE | 2016-12-24 14:42 | P.CRDCN ---
History of Present Illness Consult date: 12/24/16 Reason for Consult (text): New A-fib with RVR Chief complaint: abdominal pain History of present illness: A pleasant 66-year-old gentleman with a history of hypertension. Presented to Dr. Koch emergency department with complaints of abdominal pain and was found to have free air in his abdomen. Was transferred to [facility] and underwent sigmoid colon resection with Armani procedure and colostomy. Cardiology was consulted yesterday evening after the patient was found to be in atrial fibrillation with rapid ventricular response. He was transferred to the telemetry unit and started on a Cardizem drip. He remains in atrial fibrillation with a heart rate of low 100s to 110's. Upon examination, patient is sitting up in a chair. He is feeling fairly well has minimal complaints of abdominal incisional pain. He does have an NG tube to low intermittent suction for which she is complaining of some throat discomfort from. He has been taking oral medications however is nothing by mouth otherwise. He denies complaints of palpitations, shortness of breath, chest discomfort, or syncope.. He did have some complaints of lightheadedness upon arising this morning when he got up to get into a chair. He is not currently anticoagulated. Past Medical History Past Medical History: Hyperlipidemia, Hypertension, Osteoarthritis (OA) Additional Past Medical History / Comment(s): arthritis bilateral hips/hands, bilateral inguinal hernias History of Any Multi-Drug Resistant Organisms: None Reported Past Surgical History: Bowel Resection, Joint Replacement, Orthopedic Surgery Additional Past Surgical History / Comment(s): 12/22/16 Exploratory lapartomy for perforated hollow viscus, diffuse abdominal peritonitis/sepsis secondary to this-abdominal washout/atwood's procedure with colectomy and end ostomy. Other hx: Bilateral total hips, colonoscopies, L knee arthroscopy, R shoulder had Ecoli infection-surgery to clean it out. Past Anesthesia/Blood Transfusion Reactions: No Reported Reaction Past Psychological History: No Psychological Hx Reported Additional Psychological History / Comment(s): Pt resides with his spouse. He uses no assistive device. He is independent. He drives. Smoking Status: Never smoker Past Alcohol Use History: Occasional Past Drug Use History: None Reported - Past Family History Father Family Medical History: No Reported History Additional Family Medical History / Comment(s): Father was healthy. He at the age of 82yrs. Mother Family Medical History: Cancer Additional Family Medical History / Comment(s): Mother had lymphoma. She of throat cancer at the age of 83yrs. Medications and Allergies Home Medications Medication Instructions Recorded Confirmed Type Ascorbic Acid [Vitamin C] 1,000 mg PO DAILY 12/21/16 12/21/16 History Aspirin 81 mg PO DAILY 12/21/16 12/21/16 History Atorvastatin [Lipitor] 40 mg PO HS 12/21/16 12/21/16 History Cholecalciferol [Vitamin D3] 5,000 unit PO DAILY 12/21/16 12/21/16 History Glucosamine Sulfate 2,000 mg PO DAILY 12/21/16 12/21/16 History Loratadine-Pseudoeph 10-240 mg 1 tab PO DAILY 12/21/16 12/21/16 History [Claritin-D 24 Hr] Naproxen Sodium [Aleve] 220 mg PO DAILY 12/21/16 12/21/16 History Pyridoxine [Vitamin B-6] 50 mg PO DAILY 12/21/16 12/21/16 History Sildenafil Citrate [Sildenafil] 20 mg PO ONCE PRN 12/21/16 12/21/16 History Vitamin E 1,000 unit PO DAILY 12/21/16 12/21/16 History amLODIPine BESYLATE/BENAZEPRIL 1 cap PO DAILY 12/21/16 12/21/16 History [amLODIPine BESYLATE/BENAZEPRIL 5-10 mg] Allergies Allergy/AdvReac Type Severity Reaction Status Date / Time amoxicillin Allergy Unknown Verified 12/21/16 23:25 Childhood Penicillins Allergy Unknown Verified 12/21/16 23:24 Childhood Physical Exam Vitals: Vital Signs Temp Pulse Pulse Resp BP Pulse Ox 12/24/16 12:00 97.5 F L 118 H 18 124/70 93 L 12/24/16 08:00 98.3 F 122 H 18 129/74 91 L 12/24/16 04:00 99.5 F 117 H 18 125/75 92 L 12/24/16 00:00 99.0 F 128 H 18 110/70 92 L 12/23/16 20:00 100.3 F H 134 H 20 118/71 92 L 12/23/16 18:15 160 H 16 136/73 90 L 12/23/16 15:00 98.9 F 85 16 105/67 92 L Intake and Output 12/23/16 12/24/16 12/24/16 22:59 06:59 14:59 Intake Total 1754.167 38.667 Output Total 400 525 400 Balance -400 1229.167 -361.333 Intake: IV 1630 Diltiazem 125 mg In 80 Sodium Chloride 0.9% 100 ml @ 10 MG/HR 10 mls/hr IV .[id number] [facility] Rx#: [id number] Lactated Ringers 1,000 ml 1200 @ 150 mls/hr IV .[id number] [facility] Rx#:[id number] Vancomycin 1,500 mg In 250 Sodium Chloride 0.9% 250 ml @ 125 mls/hr IVPB Q12HR [facility] Rx#:[id number] metroNIDAZOLE-NS PMX 500 100 mg In Saline 1 100ml.bag @ 100 mls/hr IVPB Q8HR [facility] Rx#:[id number] Intake, IV Titration 124.167 38.667 Amount Diltiazem 125 mg In 124.167 38.667 Sodium Chloride 0.9% 100 ml @ 10 MG/HR 10 mls/hr IV .[id number] [facility] Rx#: [id number] Output: Gastric Drainage 100 Urine 400 525 300 Other: Voiding Method Urinal Urinal # Voids 1 Weight 79.379 kg 86.1 kg PHYSICAL EXAMINATION: HEENT: Head is atraumatic, normocephalic. Pupils equal, round. Neck is supple. There is no elevated jugular venous pressure. HEART EXAMINATION: Heart sounds irregularly irregular, S1 and S2 normal. No murmur or gallop heard. CHEST EXAMINATION: Lungs are clear to auscultation and precussion. No chest wall tenderness is noted on palpation or with deep breathing. ABDOMEN: Soft, nontender. NG tube to low intermittent suction. No organomegaly noted. EXTREMITIES: 2+ peripheral pulses with no evidence of peripheral edema and no calf tenderness noted. NEUROLOGIC patient is awake, alert and oriented x3. . Results 12/23/16 06:50 12/23/16 06:50 Current Medications Generic Name Dose Route Start Last Admin Trade Name Freq PRN Reason Stop Dose Admin Acetaminophen 325 mg 12/23/16 21:20 Tylenol Tab PO Q4HR PRN Fever and/ or Mild Pain Alvimopan 12 mg 12/22/16 09:00 12/24/16 09:57 Entereg PO 12/28/16 21:01 12 mg BID [facility] Administration Atorvastatin Calcium 40 mg 12/22/16 21:00 12/23/16 22:32 Lipitor PO 40 mg HS [facility] Administration Famotidine 20 mg 12/22/16 09:00 12/24/16 09:31 Pepcid IV 12/24/16 23:59 20 mg BID [facility] Administration Famotidine 20 mg 12/25/16 09:00 Pepcid PO BID [facility] Heparin Sodium (Porcine) 5,000 unit 12/22/16 08:00 12/24/16 09:31 Heparin SQ 5,000 unit Q8HR [facility] Administration Hydromorphone HCl 1 mg 12/22/16 00:50 12/24/16 07:31 Dilaudid IVP 1 mg Q3HR PRN Administration Severe Pain Metronidazole 500 mg/ IV 100 mls @ 100 mls/hr 12/22/16 01:00 12/24/16 09:31 Solution IVPB 100 mls/hr Q8HR [facility] Administration Ceftriaxone Sodium 2,000 mg/ 100 mls @ 100 mls/hr 12/22/16 17:00 12/23/16 18: 49 Sodium Chloride IVPB 100 mls/hr Q24H [facility] Administration Diltiazem HCl 125 mg/ Sodium 125 mls @ 10 mls/hr 12/23/16 18:15 12/24/16 10: 51 Chloride IV 10 mg/hr .[id number] [facility] 10 mls/hr Protocol Administration 10 MG/HR Vancomycin HCl 1,500 mg/ 250 mls @ 125 mls/hr 12/23/16 22:00 12/24/16 09:56 Sodium Chloride IVPB 125 mls/hr Q12HR [facility] Administration Dextrose/Sodium Chloride 1,000 mls @ 100 mls/hr 12/24/16 13:00 12/24/16 14:06 Dextrose 5%-Ns Iv Soln IV 100 mls/hr .Q10H [facility] Administration Lisinopril 10 mg 12/23/16 09:00 12/24/16 09:57 Zestril PO 10 mg DAILY [facility] Administration Metoclopramide HCl 10 mg 12/22/16 00:50 Reglan IVP Q6HR PRN Nausea and Vomiting Metoprolol Tartrate 25 mg 12/24/16 14:15 Lopressor PO BID [facility] Miscellaneous Information 0 each 12/25/16 08:00 Vancomycin Trough Due MISCELLANE 12/25/16 08:01 DIRECTED ONE Naloxone HCl 0.2 mg 12/21/16 23:59 Narcan IV Q2M PRN Opioid Reversal Ondansetron HCl 4 mg 12/22/16 00:50 Zofran IVP Q8HR PRN Nausea And Vomiting Intake and Output 12/23/16 12/24/16 12/24/16 22:59 06:59 14:59 Intake Total 1754.167 38.667 Output Total 400 525 400 Balance -400 1229.167 -361.333 Intake: IV 1630 Diltiazem 125 mg In 80 Sodium Chloride 0.9% 100 ml @ 10 MG/HR 10 mls/hr IV .[id number] [facility] Rx#: [id number] Lactated Ringers 1,000 ml 1200 @ 150 mls/hr IV .[id number] [facility] Rx#:[id number] Vancomycin 1,500 mg In 250 Sodium Chloride 0.9% 250 ml @ 125 mls/hr IVPB Q12HR [facility] Rx#:[id number] metroNIDAZOLE-NS PMX 500 100 mg In Saline 1 100ml.bag @ 100 mls/hr IVPB Q8HR [facility] Rx#:[id number] Intake, IV Titration 124.167 38.667 Amount Diltiazem 125 mg In 124.167 38.667 Sodium Chloride 0.9% 100 ml @ 10 MG/HR 10 mls/hr IV .[id number] [facility] Rx#: [id number] Output: Gastric Drainage 100 Urine 400 525 300 Other: Voiding Method Urinal Urinal # Voids 1 Weight 79.379 kg 86.1 kg 12/23/16 06:50 12/23/16 06:50 EKG Interpretations (text) Atrial fibrillation with rapid ventricular response Assessment and Plan Plan: Assessment and plan #1 abdominal pain, perforated viscus, status post sigmoid colon resection #2 hypertension #3 new onset atrial fibrillation with rapid ventricular response, this was discovered less than 24 hours ago therefore unable to determine whether it is paroxysmal, persistent or chronic. From cardiology's standpoint, we'll obtain a 2-D echo. We will start the patient on metoprolol 25 mg by mouth twice a day. We will start anticoagulation when cleared by the surgical team. Further recommendations to follow. FI[facility] GROWER note has been reviewed, I agree with a documented findings and plan of care. Patient was seen and examined.
--- NOTE | 2016-12-24 15:42 | ECHOF ---
Referral Reason:A-fib MEASUREMENTS -------- HEIGHT: 175.3 cm WEIGHT: 85.7 kg BP: 140/60 RVIDd: 2.5 cm (< 3.3) IVSd: 1.0 cm (0.6 - 1.1) LVIDd: 4.1 cm (3.9 - 5.3) LVPWd: 1.2 cm (0.6 - 1.1) IVSs: 1.5 cm LVIDs: 2.9 cm LVPWs: 1.2 cm LA Diam: 4.1 cm (2.7 - 3.8) Ao Diam: 3.4 cm (2.0 - 3.7) AV Cusp: 2.0 cm (1.5 - 2.6) LA Diam: 3.6 cm (2.7 - 3.8) MV EXCURSION: 19.089 mm (> 18.000) MV EF SLOPE: 98 mm/s (70 - 150) EPSS: 0.5 cm RAP: 5.00 mmHg RVSP: 40.91 mmHg FINDINGS -------- Atrial fibrillation. This was a technically good study. Left ventricular wall thickness is normal. Overall left ventricular systolic function is normal with, an EF between 60 - 65 %. The right ventricle is normal in size. The left atrial size is normal. The right atrial size is normal. There is mild aortic valve sclerosis. There is no evidence of aortic regurgitation. Mild mitral annular calcification present. Mild mitral regurgitation is present. Mild tricuspid regurgitation present. There is mild pulmonary hypertension. The right ventricular systolic pressure, as measured by Doppler, is 40.91mmHg. Trace/mild (physiologic) pulmonic regurgitation. The aortic root size is normal. There is no pericardial effusion. CONCLUSIONS -------- 1. Left ventricular wall thickness is normal. 2. There is no pericardial effusion. 3. Overall left ventricular systolic function is normal with, an EF between 60 - 65 %. 4. There is mild aortic valve sclerosis. 5. Mild mitral annular calcification present. 6. Mild mitral regurgitation is present. 7. Mild tricuspid regurgitation present. 8. There is mild pulmonary hypertension. 9. The right ventricular systolic pressure, as measured by Doppler, is 40.91mmHg. 10. Trace/mild (physiologic) pulmonic regurgitation. NURSES' AIDE: Louisa Guo RDCS
[2016-12-24] MEDS: METOPROLOL TARTRATE 25 MG TAB PO SCH ×2 (16:08→20:39)
--- NOTE | 2016-12-24 16:23 | PN ---
DATE OF SERVICE: 12/24/2016 PRESENTING COMPLAINT: Abdominal surgery. INTERVAL HISTORY: This is a patient with perforated sigmoid colon resulting in Armani procedure, has an NG tube in place. Patient moved to selective/cardiology floor for atrial fibrillation on the Cardizem drip. Patient has passed some flatus in colostomy bag. is at the bedside. NG tube remains in place. Sitting up in chair. Review of systems done for constitutional, GI, pulmonary; relevant findings as above. The patient had felt a bit dizzy earlier when this happened. Current medications are reviewed and include: 1. IV ceftriaxone. 2. IV Cardizem. 3. IV Flagyl and 4. Vancomycin. On examination, temperature 99, pulse 120, respiration 18, blood pressure 125/75, pulse ox 92% on 4L. GENERAL APPEARANCE: Sitting up in a chair. EYES: Pupils equal. Conjunctivae normal. NECK: JVD not raised. Mass not palpable. RESPIRATORY: Effort normal. LUNGS: Decreased breath sounds. CARDIOVASCULAR: Heart sounds irregular. No edema. ABDOMEN: Tender. Colostomy bag in place. Bowel sounds are sluggish. PSYCHIATRIC: Alert and oriented x3. Mood and affect normal. ENT: NG tube in place. INVESTIGATIONS: Accu-Cheks are noted, low side. ASSESSMENT: 1. Colonic perforation leading to peritoneal contamination leading up to Armani procedure with end colostomy and sigmoid colectomy. 2. Hyperlipidemia. 3. Essential hypertension. 4. Primary osteoarthritis in multiple joints and hands and knees. 5. Hypoalbuminemia, an acute phase reactant. 6. Leukopenia from sepsis. 7. Thrombocytopenia from sepsis. 8. Hypotensive shock from perforated bowel on presentation. 9. New onset atrial fibrillation with rate uncontrolled. PLAN: Continue current medication and treatment plan. Since sugars are running low, will switch the patient to D5W from LR. Continue with antibiotics. Continue with IV Cardizem drip. Cardiology was consulted.
[2016-12-24] MEDS: cefTRIAXone 2,000 MG in SODIUM CHLORIDE 0.9% 100 ML IVPB SCH (17:10)
[2016-12-24 18:05] LABS: Glucose,Whole Blood 93 mg/dL (75-99)
[2016-12-24] MEDS: ATORVASTATIN 40 MG TAB PO SCH (20:39)
[2016-12-24] MEDS: ACETAMINOPHEN TAB 325 MG TAB PO PRN (23:20)
[2016-12-25] MEDS: DEXTROSE 5%-0.9% NACL 1,000 ML IV SCH ×2 (00:22→13:51)
[2016-12-25 01:49] LABS: Glucose,Whole Blood 117 mg/dL (75-99)
[2016-12-25 06:16] LABS: Glucose,Whole Blood 110 mg/dL (75-99)
[2016-12-25 07:21] LABS: Anion Gap 7 mmol/L; Blood Urea Nitrogen 20 mg/dL (9-20); Calcium 7.9 mg/dL (8.4-10.2); Carbon Dioxide 22 mmol/L (22-30); Chloride 112 mmol/L (98-107); Glucose 109 mg/dL (74-99); Non-African American GFR(MDRD) >60 (>60 ml/min/1.73 sqM); Potassium 3.3 mmol/L (3.5-5.1); Sodium 141 mmol/L (137-145)
--- NOTE | 2016-12-25 07:27 | P.PN ---
Subjective Patient is a 66-year-old gentleman postop day #3 exploratory lap sigmoid colectomy and Schreiber's procedure the patient was noted on the floor to be tachycardic and he was transferred to a monitored unit. Patient is noted to have atrial fibrillation and is being followed by cardiology. The patient is on a Cardizem drip. The patient has passed flatus and has a small amount of stool in his ostomy. Objective - Vital Signs Vital signs: Vital Signs Temp 99.5 F 12/25/16 04:00 Pulse 108 H 12/25/16 04:00 Resp 16 12/25/16 04:00 BP 111/75 12/25/16 04:00 Pulse Ox 90 L 12/25/16 04:00 Intake & Output 12/24/16 12/25/16 12/25/16 18:59 06:59 18:59 Intake Total 2198.667 1270 Output Total 1225 600 200 Balance 973.667 670 -200 Weight 86.8 kg Intake: IV 2160 1270 Dextrose 5%-0.9% NaCl 1, 300 950 000 ml @ 100 mls/hr IV . Q10H [facility] Rx#:[id number] Diltiazem 125 mg In 110 95 Sodium Chloride 0.9% 100 ml @ 10 MG/HR 10 mls/hr IV .[id number] [facility] Rx#: [id number] Lactated Ringers 1,000 ml 1200 @ 150 mls/hr IV .[id number] [facility] Rx#:[id number] Vancomycin 1,500 mg In 250 125 Sodium Chloride 0.9% 250 ml @ 125 mls/hr IVPB Q12HR [facility] Rx#:[id number] cefTRIAXone 2,000 mg In 100 Sodium Chloride 0.9% 100 ml @ 100 mls/hr IVPB Q24H [facility] Rx#:[id number] metroNIDAZOLE-NS PMX 500 200 100 mg In Saline 1 100ml.bag @ 100 mls/hr IVPB Q8HR [facility] Rx#:[id number] Intake, IV Titration 38.667 Amount Diltiazem 125 mg In 38.667 Sodium Chloride 0.9% 100 ml @ 10 MG/HR 10 mls/hr IV .[id number] [facility] Rx#: [id number] Output: Gastric Drainage 300 Urine 925 600 200 Other: Voiding Method Urinal # Voids 1 - Constitutional General appearance: Present: average body habitus, no acute distress - Respiratory Details: Decreased breath sounds at bases - Cardiovascular Details: Atrial fibrillation on a Cardizem drip, have discussed anticoagulation will most likely wait till tomorrow Heart sounds: normal: S1, S2 - Gastrointestinal Gastrointestinal Comment(s): Ostomy pink positive flatus and stool in ostomy bag Incision clean and dry General gastrointestinal: Present: decreased bowel sounds - Psychiatric Psychiatric: Present: A&O x's 3, appropriate affect, intact judgment & insight - Labs CBC & Chem 7: 12/23/16 06:50 12/23/16 06:50 Labs: Abnormal Lab Results - Last 24 Hours (Table) 12/25/16 12/25/16 Range/Units 01:47 06:14 POC Glucose (mg/dL) 117 H 110 H (75-99) mg/dL Microbiology - Last 24 Hours (Table) 12/22/16 16:43 Blood Culture - Preliminary Blood No Growth after 48 hours 12/22/16 02:26 Gram Stain - Final Peritoneal Fluid Wound Culture - Final Enterococcus faecalis Assessment and Plan Plan: Impression/plan: 1. 66-year-old gentleman status post Schreiber's procedure for perforated viscus 2. Atrial fibrillation/followed by cardiology 3. Ostomy pink positive flatus and small amount of stool 4. We will clamp NG tube and if tolerates will DC 5. Have discussed anticoagulation will most likely start this tomorrow 6. Potassium replacement for potassium of 3.3
[2016-12-25] MEDS ORDERED: Potassium Replacement Protocol 1 EACH MISC MISCELLANE PRN (07:30)
[2016-12-25 07:58] LABS: Basophils % (A) 0 %; CH 31.9; Eosinophils % (A) 0 %; HCT 37.1 % (39.0-53.0); HDW 2.68; Luc # (Auto) 0.19; Luc % (Auto) 2; Lymphocytes # (A) 0.5 k/uL (1.0-4.8); Lymphocytes % (A) 5 %; MCH 31.4 pg (25.0-35.0); MCHC 32.2 g/dL (31.0-37.0); MCV 97.5 fL (80.0-100.0); Mean Platelet Volume 7.7; Monocytes # (A) 0.6 k/uL (0-1.0); Monocytes % (A) 5 %; Neutrophils # (A) 10.4 k/uL (1.3-7.7); Neutrophils % (A) 88 %; RBC 3.81 m/uL (4.30-5.90); RDW 14.6 % (11.5-15.5); WBC 11.7 k/uL (3.8-10.6); WBC (Perox) 12.38
[2016-12-25] MEDS ORDERED: VANCOMYCIN TROUGH DUE 1 EACH MISC MISCELLANE ONE ×2 (08:00→20:00)
[2016-12-25] MEDS: LISINOPRIL 10 MG TAB PO SCH (08:42)
[2016-12-25] MEDS: METOPROLOL TARTRATE 25 MG TAB PO SCH ×3 (08:42→20:47)
[2016-12-25] MEDS: FAMOTIDINE 20 MG TAB PO SCH ×2 (08:42→20:48)
[2016-12-25] MEDS: HEPARIN SODIUM,PORCINE 5,000 UNIT/ML 1 ML VIAL SQ SCH ×2 (08:42→16:30)
[2016-12-25] MEDS: ALVIMOPAN 12 MG CAPSULE PO SCH ×2 (08:42→20:48)
[2016-12-25] MEDS: metroNIDAZOLE-NS PMX 500 MG in SALINE 1 100ML.BAG IVPB SCH ×2 (08:43→16:30)
[2016-12-25] MEDS: POTASSIUM CHLORIDE 10 MEQ, LIDOCAINE 2% INJ 10 MG in SODIUM CHLORIDE 0.9% 100 ML IV SCH ×4 (08:43→18:56)
[2016-12-25] MEDS: VANCOMYCIN 1,500 MG in SODIUM CHLORIDE 0.9% 250 ML IVPB SCH ×2 (09:57→22:00)
--- NOTE | 2016-12-25 12:33 | XR ---
EXAMINATION TYPE: XR chest 2V DATE OF EXAM: 12/25/2016 12:23 PM COMPARISON: NONE HISTORY: Shortness of breath and abdominal pain TECHNIQUE: Frontal and lateral views of the chest are obtained. FINDINGS: Bilateral small layering pleural effusions, right greater than left obscuring the hemidiap hragms and costophrenic angles identified. Additionally there is mild pulmonary vascular congestion a nd cardiac enlargement. There is elevation of the right minor fissure from right hemithorax volume lo ss and right perihilar atelectasis. Right apical pleural parenchymal scarring is noted. Subtle nodular opacity measuring approximately 1.3 cm present overlying the posterior fourth rib and scapula in the left midlung and is not identifiable on the lateral image. Enteric tube courses beyond the hemidiaphragms with its radiolucent portion also beyond the gastroesophageal junction and its di stal aspect projecting off of the distal field of view. Degenerative changes are appreciated of the t horacic spine, glenohumeral joints, and acromioclavicular joints. IMPRESSION: 1. Mild pulmonary vascular congestion, small layering pleural effusions, and cardiomegaly favoring de compensated congestive heart failure. 2. Nodular opacity in the left upper lung measuring approximately 1.[address] thorax is re commended for further evaluation. 3. Enteric tube placed beyond the distal [id number] with its radiolucent portion beyond the gastro esophageal junction, appropriately placed.
[2016-12-25 12:45] LABS: Glucose,Whole Blood 112 mg/dL (75-99)
[2016-12-25] MEDS: DILTIAZEM 125 MG in SODIUM CHLORIDE 0.9% 100 ML IV SCH (14:00)
[2016-12-25] MEDS: ACETAMINOPHEN TAB 325 MG TAB PO PRN ×2 (16:34→22:08)
[2016-12-25 16:36] LABS: Glucose,Whole Blood 106 mg/dL (75-99)
[2016-12-25] MEDS: cefTRIAXone 2,000 MG in SODIUM CHLORIDE 0.9% 100 ML IVPB SCH ×2 (17:46→18:55)
--- NOTE | 2016-12-25 19:35 | P.PN ---
Subjective Principal diagnosis: Perforated viscus , colostomy, atrial fibrillation and congestive heart failure This patient is admitted with acute abdomen and ruptured viscus. Patient underwent surgery. Patient also developed atrial fibrillation with RVR. Patient is currently being maintained on IV Cardizem and also by mouth metoprolol. Patient appeared to be tachypneic. Is a lungs show scattered rales and rhonchi. Chest x-ray showed evidence of CHF and pleural effusions. I 'm going Back the IV fluids to 50 mL an hour. I'm going to give him a dose of Lasix 40 mg. Patient is also slightly hypokalemic. Will give additional potassium supplements. Additional dose of Lasix to be followed depending upon the response. BMP in a.m. His echo Cardigan showed good LV function. He is a CHF could be from fluid overload and also diastolic dysfunction Objective - Vital Signs Vital signs: Vital Signs Temp 99 F 12/25/16 17:53 Pulse 101 H 12/25/16 16:00 Resp 16 12/25/16 16:00 BP 130/81 12/25/16 16:00 Pulse Ox 94 L 12/25/16 16:00 Intake & Output 12/25/16 12/25/16 12/26/16 06:59 18:59 06:59 Intake Total 1270 1450 Output Total 600 775 Balance 670 675 Weight 86.8 kg Intake: IV 1270 1325 Dextrose 5%-0.9% NaCl 1, 950 700 000 ml @ 100 mls/hr IV . Q10H [facility] Rx#:[id number] Diltiazem 125 mg In 95 75 Sodium Chloride 0.9% 100 ml @ 10 MG/HR 10 mls/hr IV .[id number] [facility] Rx#: [id number] Potassium Chloride 10 meq 200 Lidocaine 2% Inj 10 mg In Sodium Chloride 0.9% 100 ml @ 100 mls/hr IV Q1HR [facility] Rx#:[id number] Vancomycin 1,500 mg In 125 250 Sodium Chloride 0.9% 250 ml @ 125 mls/hr IVPB Q12HR [facility] Rx#:[id number] metroNIDAZOLE-NS PMX 500 100 100 mg In Saline 1 100ml.bag @ 100 mls/hr IVPB Q8HR [facility] Rx#:[id number] Intake, IV Titration 125 Amount Diltiazem 125 mg In 125 Sodium Chloride 0.9% 100 ml @ 10 MG/HR 10 mls/hr IV .[id number] [facility] Rx#: [id number] Output: Urine 600 725 Stool 50 Other: Voiding Method Urinal # Voids 1 - Exam GENERAL EXAM: Patient is alert and oriented and he appears to be tachypneic and in mild distress HEENT: Normocephalic. Normal reaction of pupils, equal size, normal range of extraocular motion. No erythema or exudates in the throat. NECK: No masses, no nuchal rigidity. CHEST: No chest wall deformity. LUNGS: Diminished breath sounds with scattered rhonchi and rales HEART: Regular heart sounds ABDOMEN: Postsurgical SKIN: No rashes CENTRAL NERVOUS SYSTEM: No focal deficits. EXTREMITIES: No cyanosis, clubbing or edema. - Labs CBC & Chem 7: 12/25/16 06:42 12/25/16 15:44 Labs: Abnormal Lab Results - Last 24 Hours (Table) 12/25/16 12/25/16 12/25/16 Range/Units 01:47 06:14 06:42 WBC (3.8-10.6) k/uL RBC (4.30-5.90) m/uL Hgb (13.0-17.5) gm/dL Hct (39.0-53.0) % Plt Count (150-450) k/uL Neutrophils # (1.3-7.7) k/uL Lymphocytes # (1.0-4.8) k/uL Potassium 3.3 L (3.5-5.1) mmol/L Chloride 112 H (98-107) mmol/L Glucose 109 H (74-99) mg/dL POC Glucose (mg/dL) 117 H 110 H (75-99) mg/dL Calcium 7.9 L (8.4-10.2) mg/dL 12/25/16 12/25/16 12/25/16 Range/Units 06:42 12:43 16:34 WBC 11.7 H (3.8-10.6) k/uL RBC 3.81 L (4.30-5.90) m/uL Hgb 12.0 L (13.0-17.5) gm/dL Hct 37.1 L (39.0-53.0) % Plt Count 148 L (150-450) k/uL Neutrophils # 10.4 H (1.3-7.7) k/uL Lymphocytes # 0.5 L (1.0-4.8) k/uL Potassium (3.5-5.1) mmol/L Chloride (98-107) mmol/L Glucose (74-99) mg/dL POC Glucose (mg/dL) 112 H 106 H (75-99) mg/dL Calcium (8.4-10.2) mg/dL Microbiology - Last 24 Hours (Table) 12/22/16 16:43 Blood Culture - Preliminary Blood No Growth after 72 hours 12/22/16 02:26 Anaerobic Culture - Final Peritoneal Fluid Anaerobic Gm Negative Bacilli Anaerobic Gm Negative Bacilli#2 Assessment and Plan (1) Acute diastolic CHF (congestive heart failure) Status: Acute (2) Postoperative atrial fibrillation Status: Acute (3) Perforated viscus Status: Acute (4) Peritonitis (acute) generalized Status: Acute Plan: Will cut back on IV fluids. We'll give him one dose of IV Lasix 40 mg. Correct hypokalemia. Further recommendations will depend upon the clinical course. Follow-up chest x-ray and BMP tomorrow
[2016-12-25] MEDS ORDERED: FUROSEMIDE 10 MG/ML 4 ML VIAL IV STA (19:52)
[2016-12-25] MEDS: ATORVASTATIN 40 MG TAB PO SCH (20:48)
--- NOTE | 2016-12-25 21:18 | PN ---
DATE OF SERVICE: 12/25/2016 PRESENTING COMPLAINT: Abdominal surgery. INTERVAL HISTORY: This is a patient with perforated sigmoid colon resulting in Armani's procedure, has been in atrial fibrillation. NG-tube remains in place. Patient has passed some flatus through the colostomy bag. Still weak and tired. Lying in bed. Review of systems done for constitutional, cardiovascular, GI, pulmonary; relevant findings as above. Current medications are reviewed that include IV Cardizem and IV vancomycin, ( ) and ceftriaxone. On examination, temperature 98.3, pulse 87, respiration 16, blood pressure 123/79, pulse ox 96% on 4 liters. GENERAL APPEARANCE: Sitting in bed awake. EYES: Pupils equal. Conjunctivae normal. HEENT: NG tube in place. RESPIRATORY: Effort normal. LUNGS: Diminished breath sounds. CARDIOVASCULAR: Heart sounds irregular. No edema. ABDOMEN: Tender, colostomy bag in place. Bowel sounds sluggish. PSYCHIATRY: Alert and oriented x3. Mood and affect tired -appearing. INVESTIGATIONS: White count 11.7, hemoglobin 12. Potassium 3.3. BUN and creatinine are normal. Accu-Cheks are noted. ASSESSMENT: 1. Sigmoid perforation leading to ( ) contamination leading to Armani procedure with end colostomy. 2. Hyperlipidemia. 3. Essential hypertension. 4. Primary osteoarthritis multiple joints of the hands and knees. 5. Hypoalbuminemia because of acute phase reactant. 6. Leukopenia from sepsis. 7. Thrombocytopenia from sepsis. 8. Hypertension. 9. ( ) perforated bowel on presentation. 10. New onset atrial fibrillation, rate better controlled. PLAN: Continue with IV antibiotics. Also patient on Cardizem drip and p.o. Lopressor. Heart rate is , controlled. Anticoagulation per cardiology. Follow.
[2016-12-25] MEDS: POTASSIUM CHLORIDE 10 MEQ, LIDOCAINE 2% INJ 10 MG in SODIUM CHLORIDE 0.9% 100 ML IVPB SCH (22:02)
[2016-12-25 23:26] LABS: Glucose,Whole Blood 101 mg/dL (75-99)
[2016-12-26] MEDS: POTASSIUM CHLORIDE 10 MEQ, LIDOCAINE 2% INJ 10 MG in SODIUM CHLORIDE 0.9% 100 ML IVPB SCH (00:06)
[2016-12-26] MEDS: DILTIAZEM 125 MG in SODIUM CHLORIDE 0.9% 100 ML IV SCH ×2 (00:08→08:20)
[2016-12-26] MEDS: HEPARIN SODIUM,PORCINE 5,000 UNIT/ML 1 ML VIAL SQ SCH ×2 (00:09→08:20)
[2016-12-26] MEDS: metroNIDAZOLE-NS PMX 500 MG in SALINE 1 100ML.BAG IVPB SCH ×3 (00:10→16:35)
[2016-12-26 07:08] LABS: Anion Gap 8 mmol/L; Carbon Dioxide 23 mmol/L (22-30); Chloride 112 mmol/L (98-107); Non-African American GFR(MDRD) >60 (>60 ml/min/1.73 sqM); Sodium 143 mmol/L (137-145)
[2016-12-26 07:22] LABS: Glucose,Whole Blood 98 mg/dL (75-99)
[2016-12-26 07:29] LABS: Blood Urea Nitrogen 23 mg/dL (9-20); Potassium 4.6 mmol/L (3.5-5.1)
[2016-12-26] MEDS: DEXTROSE 5%-0.9% NACL 1,000 ML IV SCH ×2 (07:46→08:13)
--- NOTE | 2016-12-26 08:28 | P.PN ---
Subjective Principal diagnosis: S/P xlap, sigmoid colon resection and Schreiber procedure S/P Xlap, sigmoid colectomy and end ostomy Afib on Cardizem drip. Congestive heart failure - on lasix Leukopenia secondary to sepsis , now resolved. Ostomy working well Objective - Vital Signs Vital signs: Vital Signs Temp 97.9 F 12/26/16 04:00 Pulse 111 H 12/26/16 04:00 Resp 22 12/26/16 04:00 BP 126/84 12/26/16 04:00 Pulse Ox 93 L 12/26/16 04:00 Intake & Output 12/25/16 12/26/16 12/26/16 18:59 06:59 18:59 Intake Total 1450 1070.667 Output Total 775 2600 450 Balance 675 -1529.333 -450 Weight 85.8 kg Intake: IV 1325 1020 Dextrose 5%-0.9% NaCl 1, 700 450 000 ml @ 50 mls/hr IV . Q20H [facility] Rx#:[id number] Diltiazem 125 mg In 75 45 Sodium Chloride 0.9% 100 ml @ 10 MG/HR 10 mls/hr IV .[id number] [facility] Rx#: [id number] Potassium Chloride 10 meq 200 300 Lidocaine 2% Inj 10 mg In Sodium Chloride 0.9% 100 ml @ 100 mls/hr IV Q1HR [facility] Rx#:[id number] Vancomycin 1,500 mg In 250 125 Sodium Chloride 0.9% 250 ml @ 125 mls/hr IVPB Q12HR [facility] Rx#:[id number] cefTRIAXone 2,000 mg In 100 Sodium Chloride 0.9% 100 ml @ 100 mls/hr IVPB Q24H [facility] Rx#:[id number] metroNIDAZOLE-NS PMX 500 100 mg In Saline 1 100ml.bag @ 100 mls/hr IVPB Q8HR [facility] Rx#:[id number] Intake, IV Titration 125 50.667 Amount Diltiazem 125 mg In 125 50.667 Sodium Chloride 0.9% 100 ml @ 10 MG/HR 10 mls/hr IV .[id number] [facility] Rx#: [id number] Output: Urine 725 2500 Stool 50 100 450 - Exam Chest: Bilateral breath sounds present, decreased at bases CVS:A fib Abdomen: Ostomy -stool present . Incision- haydee drain+ Extremities: No edema - Labs CBC & Chem 7: 12/25/16 06:42 12/26/16 05:57 Labs: Abnormal Lab Results - Last 24 Hours (Table) 12/25/16 12/25/16 12/25/16 Range/Units 12:43 16:34 23:25 Chloride (98-107) mmol/L BUN (9-20) mg/dL POC Glucose (mg/dL) 112 H 106 H 101 H (75-99) mg/dL 12/26/16 Range/Units 05:57 Chloride 112 H (98-107) mmol/L BUN 23 H (9-20) mg/dL POC Glucose (mg/dL) (75-99) mg/dL Microbiology - Last 24 Hours (Table) 12/22/16 16:43 Blood Culture - Preliminary Blood No Growth after 72 hours 12/22/16 02:26 Anaerobic Culture - Final Peritoneal Fluid Anaerobic Gm Negative Bacilli Anaerobic Gm Negative Bacilli#2 Assessment and Plan (1) Acute abdomen Status: Acute (2) Perforated viscus Status: Acute (3) Peritonitis (acute) generalized Status: Acute (4) Inguinal hernia of left side with obstruction Status: Acute (5) Acute diastolic CHF (congestive heart failure) Status: Acute (6) Postoperative atrial fibrillation Status: Acute Plan: 1. Heplock IV 2. Bilateral SCDs 3. Heparin SQ every 8 hrly 4. Cultures - enteroccus 5. Lasix IV 6. ID following - ? oral antibiotics at dicharge 7. Regular diet 8. Incentive spirometry use
[2016-12-26] MEDS: LISINOPRIL 10 MG TAB PO SCH (08:29)
[2016-12-26] MEDS: ALVIMOPAN 12 MG CAPSULE PO SCH (08:30)
[2016-12-26] MEDS: FAMOTIDINE 20 MG TAB PO SCH ×2 (08:30→22:05)
[2016-12-26] MEDS: METOPROLOL TARTRATE 25 MG TAB PO SCH (08:30)
[2016-12-26] MEDS ORDERED: DOCUSATE 100 MG CAP PO SCH (09:00)
--- NOTE | 2016-12-26 09:05 | XR ---
EXAMINATION TYPE: XR chest 2V DATE OF EXAM: 12/26/2016 8:57 AM COMPARISON: Chest x-ray from yesterday. HISTORY: Shortness of breath. History of recent surgery. TECHNIQUE: Frontal and lateral views of the chest are obtained. FINDINGS: There is interval removal of nasogastric tube. There is persistent bibasilar opacity consi stent with small to moderate-sized bilateral pleural effusions and associated bibasilar atelectasis a nd/or infiltrate. Upper lungs remain clear without pneumothorax. Nodular opacity left upper lung on p rior study laterally is not as well seen on current exam. Would still advise nonemergent CT evaluatio n. Cardiac silhouette size is stable and within normal limits. Multilevel spurring in the spine is pr esent. There are gas prominent bowel loops with air-fluid levels in the visualized abdomen, favor pos toperative ileus. IMPRESSION: Persistent small to moderate-sized bilateral pleural effusions with associated bibasilar atelectasis and/or infiltrate, consider fluid overload state. No significant change from one day cyn ier.
[2016-12-26] MEDS: VANCOMYCIN 1,500 MG in SODIUM CHLORIDE 0.9% 250 ML IVPB SCH ×2 (09:57→22:04)
[2016-12-26] MEDS ORDERED: METOPROLOL TARTRATE 25 MG TAB PO ONE (10:15)
--- NOTE | 2016-12-26 10:28 | PN ---
DATE OF SERVICE: 12/25/2016 Reason for follow-up is abdominal abscess and secondary peritonitis. INTERVAL HISTORY: The patient did have low grade fever. However, currently the patient is afebrile. Has been breathing comfortably. Does have significant pain in the abdominal pain. No nausea, vomiting. Denies any chest pain or shortness of breath or cough. On examination, blood pressure 133/82 with a pulse 104, temperature 98.3. He is 93% on 4 L nasal cannula. GENERAL DESCRIPTION: Elderly male lying in bed in no distress. RESPIRATORY SYSTEM: Unlabored breathing. Clear to auscultation anteriorly. HEART: S1, S2. Regular rate and rhythm. ABDOMEN: Soft, no tenderness. LABS: Hemoglobin 12.7, White count 11.7, BUN of 20 with a creatinine 0.97. The abdominal cultures and anaerobic gram-negative bacilli in addition to Enterococcus faecalis that is sensitive. DIAGNOSTIC IMPRESSION AND PLAN: Patient with abdominal abscess polymicrobial from ruptured diverticulitis. PLAN: At this time is to continue the patient on the vancomycin and also Flagyl in view of his PENICILLIN ALLERGY. The patient will likely need a PICC line and outpatient antibiotic as we do not have any oral option available for the Enterococcus faecalis. Family present at beside. Their questions were answered. AYO
[2016-12-26] MEDS: FUROSEMIDE 40 MG TAB PO SCH (11:05)
[2016-12-26 11:51] LABS: Glucose,Whole Blood 87 mg/dL (75-99)
--- NOTE | 2016-12-26 13:39 | P.PN ---
Subjective Principal diagnosis: Perforated viscus , colostomy, atrial fibrillation and congestive heart failure This patient is admitted with acute abdomen and ruptured viscus. Patient underwent surgery. Patient also developed atrial fibrillation with RVR, he continues to be in atrial fibrillation this morning, heart rate in the the 90s to low 100s. We will discontinue the IV Cardizem and increase the beta marly to 50 mg by mouth 3 times a day. We will also start the patient on oral Lasix today. I did speak with Dr. omid zepeda regarding anticoagulation, patient will be initiated on Eliquis 5 mg one tablet by mouth twice a day today. Patient seen and examined, sitting up in the chair at bedside overall feeling much better today. Objective - Vital Signs Vital signs: Vital Signs Temp 98.0 F 12/26/16 08:00 Pulse 97 12/26/16 08:00 Resp 22 12/26/16 08:44 BP 127/86 12/26/16 08:00 Pulse Ox 90 L 12/26/16 08:44 Intake & Output 12/25/16 12/26/16 12/26/16 18:59 06:59 18:59 Intake Total 1450 1070.667 41 Output Total 775 2600 650 Balance 675 -1529.333 -609 Weight 85.8 kg Intake: IV 1325 1020 Dextrose 5%-0.9% NaCl 1, 700 450 000 ml @ 50 mls/hr IV . Q20H [facility] Rx#:[id number] Diltiazem 125 mg In 75 45 Sodium Chloride 0.9% 100 ml @ 10 MG/HR 10 mls/hr IV .[id number] [facility] Rx#: [id number] Potassium Chloride 10 meq 200 300 Lidocaine 2% Inj 10 mg In Sodium Chloride 0.9% 100 ml @ 100 mls/hr IV Q1HR [facility] Rx#:[id number] Vancomycin 1,500 mg In 250 125 Sodium Chloride 0.9% 250 ml @ 125 mls/hr IVPB Q12HR [facility] Rx#:[id number] cefTRIAXone 2,000 mg In 100 Sodium Chloride 0.9% 100 ml @ 100 mls/hr IVPB Q24H [facility] Rx#:[id number] metroNIDAZOLE-NS PMX 500 100 mg In Saline 1 100ml.bag @ 100 mls/hr IVPB Q8HR [facility] Rx#:[id number] Intake, IV Titration 125 50.667 41 Amount Diltiazem 125 mg In 125 50.667 41 Sodium Chloride 0.9% 100 ml @ 10 MG/HR 10 mls/hr IV .[id number] [facility] Rx#: [id number] Output: Urine 725 2500 Stool 50 100 650 - Exam PHYSICAL EXAMINATION: HEENT: Head is atraumatic, normocephalic. Pupils equal, round. Neck is supple. There is no elevated jugular venous pressure. HEART EXAMINATION: S1 and S2 irregularly irregular CHEST EXAMINATION: Lungs reveal fine rales to bilateral bases ABDOMEN: Soft, mild generalized tenderness, post surgical. Bowel sounds are heard. No organomegaly noted. EXTREMITIES: 2+ peripheral pulses with no evidence of peripheral edema and no calf tenderness noted. NEUROLOGIC patient is awake, alert and oriented -3. . - Labs CBC & Chem 7: 12/25/16 06:42 12/26/16 05:57 Labs: Abnormal Lab Results - Last 24 Hours (Table) 12/25/16 12/25/16 12/26/16 Range/Units 16:34 23:25 05:57 Chloride 112 H (98-107) mmol/L BUN 23 H (9-20) mg/dL POC Glucose (mg/dL) 106 H 101 H (75-99) mg/dL Microbiology - Last 24 Hours (Table) 12/22/16 16:43 Blood Culture - Preliminary Blood No Growth after 72 hours 12/22/16 02:26 Anaerobic Culture - Final Peritoneal Fluid Anaerobic Gm Negative Bacilli Anaerobic Gm Negative Bacilli#2 Assessment and Plan (1) Acute abdomen Status: Acute (2) Acute diastolic CHF (congestive heart failure) Status: Acute (3) Perforated viscus Status: Acute (4) Peritonitis (acute) generalized Status: Acute (5) Postoperative atrial fibrillation Status: Acute Plan: From cardiology's perspective, we will change the patient over to oral diuretics today. Increase beta marly to 50 mg by mouth 3 times a day, discontinue Cardizem drip. We will also start the patient on Eliquis 5 mg one tablet by mouth twice a day. Check lytes BUN and creatinine in the morning. DNP note has been reviewed, I agree with a documented findings and plan of care. Patient was seen and examined.
[2016-12-26] MEDS: APIXABAN 5 MG TAB PO SCH ×2 (15:01→22:05)
[2016-12-26] MEDS: METOPROLOL TARTRATE 50 MG TAB PO SCH ×2 (16:35→22:05)
[2016-12-26] MEDS: cefTRIAXone 2,000 MG in SODIUM CHLORIDE 0.9% 100 ML IVPB SCH (17:53)
[2016-12-26] MEDS: FUROSEMIDE 10 MG/ML 4 ML VIAL IV SCH ×2 (17:54→22:05)
[2016-12-26 17:57] LABS: Anion Gap 8 mmol/L; Blood Urea Nitrogen 21 mg/dL (9-20); Calcium 7.6 mg/dL (8.4-10.2); Carbon Dioxide 23 mmol/L (22-30); Chloride 107 mmol/L (98-107); Glucose 111 mg/dL (74-99); Magnesium 1.8 mg/dL (1.6-2.3); Non-African American GFR(MDRD) >60 (>60 ml/min/1.73 sqM); Sodium 138 mmol/L (137-145)
[2016-12-26 18:02] LABS: Potassium 2.9 mmol/L (3.5-5.1)
[2016-12-26 18:21] LABS: Glucose,Whole Blood 122 mg/dL (75-99)
[2016-12-26] MEDS: POTASSIUM CHLORIDE ER 20 MEQ TAB.ER PO SCH ×3 (18:49→23:54)
[2016-12-26] MEDS: ATORVASTATIN 40 MG TAB PO SCH (22:05)
[2016-12-27] MEDS: metroNIDAZOLE-NS PMX 500 MG in SALINE 1 100ML.BAG IVPB SCH ×3 (01:16→19:52)
--- NOTE | 2016-12-27 06:39 | PN ---
DATE OF SERVICE: 12/26/2016 PRESENTING COMPLAINT: Abdominal surgery. INTERVAL HISTORY: The patient with perforated sigmoid colon resulting in Armani procedure. Patient remains in atrial fibrillation though controlled. NG tube out. Patient's diet has been advanced. Patient made stool in the ileostomy bag, has been up to the bathroom. Review of systems done for constitutional, cardiovascular, GI, pulmonary; relevant findings as above. Current medications are reviewed that include IV ceftriaxone, IV Flagyl, IV vancomycin. For rate control the patient is on Lopressor. Cardizem drip is off. On examination, temperature 98.5, pulse 98, respiratory 22, blood pressure 114/79, pulse ox 92% on 2 liters. GENERAL APPEARANCE: Sitting on the bed awake. EYES: Pupils equal. Conjunctivae normal. NECK: JVD not raised. RESPIRATORY: Decreased breath sounds. CARDIOVASCULAR: Heart sounds irregular, no edema. ABDOMEN: Some tenderness. Colostomy bag in place. Stool in place. Bowel sounds are present. PSYCHIATRY: Alert and oriented x3. Mood and affect normal. INVESTIGATIONS: Potassium 4.6. BUN 23, creatinine 1.47. Accu-Cheks are noted. ASSESSMENT: 1. Sigmoid perforation leading to peritoneal contamination leading to Armani procedure and colostomy. Patient now having stool in the bag. 2. Hyperlipidemia. 3. Essential hypertension. 4. Primary osteoarthritis of multiple joints of the hands and knees. 5. Hypoalbuminemia because of acute phase reactant. 6. Leukopenia from sepsis. 7. Thrombocytopenia from sepsis. 8. New onset atrial fibrillation now persistent. 9. Bilateral pleural effusion, probably from IV fluids and the patient probably from being in atrial fibrillation. PLAN: Continue current medication and treatment plan. Heart rate is better controlled. Anticoagulation as per Cardiology. Care was discussed with the patient. Chest x-ray reviewed by me shows bilateral pleural effusion. Will give the patient IV Lasix one dose now and one dose in the morning. Hopefully this will improve patient's pulse ox.
[2016-12-27 06:40] LABS: Glucose,Whole Blood 93 mg/dL (75-99)
[2016-12-27 07:01] LABS: Anion Gap 10 mmol/L; Blood Urea Nitrogen 23 mg/dL (9-20); Calcium 7.8 mg/dL (8.4-10.2); Carbon Dioxide 26 mmol/L (22-30); Chloride 103 mmol/L (98-107); Glucose 92 mg/dL (74-99); Non-African American GFR(MDRD) >60 (>60 ml/min/1.73 sqM); Sodium 139 mmol/L (137-145)
--- NOTE | 2016-12-27 08:59 | PN ---
DATE OF SERVICE: 12/26/2016 Reason for follow up is secondary peritonitis from ruptured bowel. INTERVAL HISTORY: Patient is afebrile. Has been breathing comfortably. Denies any significant chest pain. No cough. No abdominal pain. No nausea, vomiting or any diarrhea. On examination, blood pressure 129/53 with a pulse of 120, temperature 97.6. He is 91% on 1 L nasal cannula. General description is an elderly male lying in bed in no distress. RESPIRATORY SYSTEM: Unlabored breathing. Clear to auscultation anteriorly. HEART: S1, S2. Regular rate and rhythm. ABDOMEN: Soft, no tenderness. LABS: BUN of 21, creatinine 1.03. The peritoneal fluid culture with Enterococcus faecalis and ( ) bacilli. DIAGNOSTIC IMPRESSION AND PLAN: Patient with polymicrobial abdominal abscess from ruptured sigmoid diverticulitis, status post diverting colostomy and drainage of the abscess and the patient is ALLERGIC TO PENICILLIN. Hence, we cannot use Unasyn or oral Augmentin on discharge. Patient will get a PICC line and will be continued on IV vancomycin, pharmacy to dose, another 2 weeks along with oral Cipro and Flagyl. Continue supportive care.
[2016-12-27] MEDS: POTASSIUM CHLORIDE ER 20 MEQ TAB.ER PO SCH ×4 (09:22→23:30)
[2016-12-27] MEDS: APIXABAN 5 MG TAB PO SCH (09:22)
[2016-12-27] MEDS: FUROSEMIDE 40 MG TAB PO SCH (09:23)
[2016-12-27] MEDS: FAMOTIDINE 20 MG TAB PO SCH ×2 (09:23→21:48)
[2016-12-27] MEDS: METOPROLOL TARTRATE 50 MG TAB PO SCH ×3 (09:23→21:48)
[2016-12-27] MEDS: LISINOPRIL 10 MG TAB PO SCH (10:05)
[2016-12-27] MEDS: VANCOMYCIN 1,500 MG in SODIUM CHLORIDE 0.9% 250 ML IVPB SCH ×2 (10:42→21:48)
[2016-12-27 11:33] LABS: Glucose,Whole Blood 125 mg/dL (75-99)
[2016-12-27] MEDS: MAGNESIUM SULFATE-D5W PMX 1 GM in DEXTROSE/WATER 1 100ML.BAG IVPB SCH ×2 (12:19→17:42)
--- NOTE | 2016-12-27 15:20 | PN ---
DATE OF SERVICE: 12/27/2016 Reason for followup is abdominal abscess. INTERVAL HISTORY: The patient is afebrile. Has been breathing comfortably. Denies significant chest pain, no cough. No abdominal pain, nausea, vomiting or any diarrhea. On examination, blood pressure 103/59 with a pulse of 100, temperature 98, he is 95% on 1 L nasal cannula. General description is an elderly male, lying in bed in no distress. RESPIRATORY SYSTEM: Unlabored breathing. Clear to auscultation anteriorly. HEART: S1, S2, regular rate and rhythm. ABDOMEN: Soft, no tenderness. LABS: BUN of 23 with a creatinine of 1.19 with urine cultures with Enterococcus faecalis and anaerobic gram-negative. DIAGNOSTIC IMPRESSION AND PLAN: Patient with polymicrobial abdominal abscess secondary to Diverticulitis, status post sigmoid diverting colostomy. Patient allergic to PENICILLIN and has been on vancomycin which she will need to continue for another 10 days to 2 weeks. A PICC line to be placed as the patient is already on Eliquis, to conform with the Cardiology that we can hold Eliquis for another 24 hours, so he is going to get a PICC line tomorrow. Rocephin to continue and Flagyl will be switch to p.o. for the same duration with outpatient followup. AYO
--- NOTE | 2016-12-27 15:37 | P.PN ---
Subjective Principal diagnosis: Perforated viscus , colostomy, atrial fibrillation and congestive heart failure This patient is admitted with acute abdomen and ruptured viscus. Patient underwent surgery. Patient also developed atrial fibrillation with RVR, he continues to be in atrial fibrillation this morning, heart rate in the the 90s, patient did have one episode where his heart rate went up into the 120s. May back down to the 90 range. Patient was initiated on Eliquis yesterday, the plan is for him to have a PICC line placed tomorrow therefore the Eliquis has been placed on hold. We will resume the following his PICC line placement. Potassium level today 3.0, creatinine 1.1. Overall the patient feels very well. Remaining afebrile. Objective - Vital Signs Vital signs: Vital Signs Temp 98.9 F 12/27/16 04:00 Pulse 104 H 12/27/16 11:07 Resp 18 12/27/16 11:07 BP 103/59 12/27/16 11:07 Pulse Ox 95 12/27/16 11:07 Intake & Output 12/26/16 12/27/16 12/27/16 18:59 06:59 18:59 Intake Total 1528 575 950 Output Total 2775 3550 400 Balance -1247 -2975 550 Weight 82.4 kg Intake: IV 157 575 350 Dextrose 5%-0.9% NaCl 1, 18 000 ml @ 50 mls/hr IV . Q20H [facility] Rx#:[id number] Invasive Line 4 10 Vancomycin 1,500 mg In 129 475 250 Sodium Chloride 0.9% 250 ml @ 125 mls/hr IVPB Q12HR [facility] Rx#:[id number] metroNIDAZOLE-NS PMX 500 100 100 mg In Saline 1 100ml.bag @ 100 mls/hr IVPB Q8HR [facility] Rx#:[id number] Intake, IV Titration 41 Amount Diltiazem 125 mg In 41 Sodium Chloride 0.9% 100 ml @ 10 MG/HR 10 mls/hr IV .[id number] [facility] Rx#: [id number] Oral 1330 600 Output: Urine 300 3075 200 Stool 2475 475 200 Other: Voiding Method Urinal Urinal Urinal # Voids 7 1 - Exam PHYSICAL EXAMINATION: HEENT: Head is atraumatic, normocephalic. Pupils equal, round. Neck is supple. There is no elevated jugular venous pressure. HEART EXAMINATION: S1 and S2 irregularly irregular CHEST EXAMINATION: Lungs reveal fine rales to bilateral bases ABDOMEN: Soft, mild generalized tenderness, post surgical. Bowel sounds are heard. No organomegaly noted. EXTREMITIES: 2+ peripheral pulses with no evidence of peripheral edema and no calf tenderness noted. NEUROLOGIC patient is awake, alert and oriented -3. . - Labs CBC & Chem 7: 12/25/16 06:42 12/27/16 05:47 Labs: Abnormal Lab Results - Last 24 Hours (Table) 12/26/16 12/26/16 12/27/16 Range/Units 17:33 18:18 05:47 Potassium 2.9 L* 3.0 L* (3.5-5.1) mmol/L BUN 21 H 23 H (9-20) mg/dL Glucose 111 H (74-99) mg/dL POC Glucose (mg/dL) 122 H (75-99) mg/dL Calcium 7.6 L 7.8 L (8.4-10.2) mg/dL 12/27/16 Range/Units 11:31 Potassium (3.5-5.1) mmol/L BUN (9-20) mg/dL Glucose (74-99) mg/dL POC Glucose (mg/dL) 125 H (75-99) mg/dL Calcium (8.4-10.2) mg/dL Microbiology - Last 24 Hours (Table) 12/22/16 16:43 Blood Culture - Preliminary Blood No Growth after 96 hours Assessment and Plan (1) Acute abdomen Status: Acute (2) Acute diastolic CHF (congestive heart failure) Status: Acute (3) Perforated viscus Status: Acute (4) Peritonitis (acute) generalized Status: Acute (5) Postoperative atrial fibrillation Status: Acute Plan: From cardiology's perspective, continue current dose of diuretics. Continue current dose of beta marly 50 mg by mouth 3 times a day. Replace potassium. Hold Eliquis until the PICC line is placed and then resume it following. DNP note has been reviewed, I agree with a documented findings and plan of care. Patient was seen and examined.
[2016-12-27 16:27] LABS: Glucose,Whole Blood 131 mg/dL (75-99)
[2016-12-27] MEDS: cefTRIAXone 2,000 MG in SODIUM CHLORIDE 0.9% 100 ML IVPB SCH (19:53)
--- NOTE | 2016-12-27 20:54 | PN ---
DATE OF SERVICE: 12/27/2016 PRESENTING COMPLAINT: Abdominal surgery. INTERVAL HISTORY: The patient presented with a perforated sigmoid colon resulting in a Armani's procedure. Patient remains in atrial fibrillation, uncontrolled. NG tube is out. Patient's diet has been advanced. Patient is making stool in the colostomy bag and has been up to the bathroom. Review of systems done for constitutional, cardiovascular, GI, pulmonary; relevant findings as above. Current medications reviewed include: 1. IV ceftriaxone. 2. IV Flagyl. 3. IV vancomycin. 4. For rate control, the patient is currently on Lopressor. On exam, temperature 98.9, pulse 83, respirations 18, blood pressure 94/70, pulse ox 95% on 1 L nasal cannula. GENERAL APPEARANCE: Patient is awake, sitting up, eating his lunch. EYES: Pupils equal. Conjunctivae normal. NECK: JVD not raised. RESPIRATORY: Decreased breath sounds bilaterally. CARDIOVASCULAR: Heart sounds are irregular. No edema. ABDOMEN: Some tenderness. Colostomy bag in place. Stool is in the bag. Bowel sounds are present. PSYCHIATRY: Alert and oriented x3. Mood and affect normal. INVESTIGATIONS: White blood cell count 11.7, hemoglobin 12.0. Sodium 139, potassium 3.0, for which it was supplemented. INR 1.4. BUN 26, creatinine 1.19. ASSESSMENT: 1. Sigmoid perforation leading to peritoneal contamination leading to Armani's procedure and colostomy. Patient is now having stool in the colostomy bag. 2. Hyperlipidemia. 3. Essential hypertension. 4. Primary osteoarthritis of multiple joints of the hands and knees. 5. Hypoalbuminemia because of acute-phase reactant. 6. Leukopenia from sepsis. 7. Thrombocytopenia from sepsis. 8. New-onset atrial fibrillation, uncontrolled. Currently on metoprolol. 9. Bilateral pleural effusion, probably from IV fluid and the patient being in atrial fibrillation; today has shown improvement. PLAN: Continue current medication and treatment plan. Heart rate is better controlled but still remains uncontrolled. Anticoagulation per Cardiology. Care was discussed with the patient. Chest x-ray reviewed and shows bilateral pleural effusion with some improvement.
[2016-12-27 21:24] LABS: Glucose,Whole Blood 96 mg/dL (75-99)
[2016-12-27 21:40] LABS: Magnesium 2.1 mg/dL (1.6-2.3); Potassium 3.2 mmol/L (3.5-5.1)
[2016-12-27] MEDS: ATORVASTATIN 40 MG TAB PO SCH (21:48)
[2016-12-27] MEDS: HYDROcodone/APAP 5-325MG 1 EACH TAB PO PRN (21:49)
[2016-12-28] MEDS: metroNIDAZOLE-NS PMX 500 MG in SALINE 1 100ML.BAG IVPB SCH ×2 (00:15→08:41)
[2016-12-28] MEDS: POTASSIUM CHLORIDE ER 20 MEQ TAB.ER PO SCH ×3 (00:16→10:57)
[2016-12-28 06:22] LABS: Glucose,Whole Blood 102 mg/dL (75-99)
[2016-12-28 07:49] LABS: Anion Gap 9 mmol/L; Blood Urea Nitrogen 27 mg/dL (9-20); Calcium 7.7 mg/dL (8.4-10.2); Carbon Dioxide 23 mmol/L (22-30); Chloride 105 mmol/L (98-107); Glucose 86 mg/dL (74-99); Non-African American GFR(MDRD) 59 (>60 ml/min/1.73 sqM); Potassium 3.4 mmol/L (3.5-5.1); Sodium 137 mmol/L (137-145)
[2016-12-28] MEDS: FUROSEMIDE 40 MG TAB PO SCH (09:17)
[2016-12-28] MEDS: FAMOTIDINE 20 MG TAB PO SCH ×2 (09:17→21:43)
[2016-12-28] MEDS: METOPROLOL TARTRATE 50 MG TAB PO SCH ×3 (09:18→21:43)
[2016-12-28] MEDS: LISINOPRIL 10 MG TAB PO SCH (09:18)
[2016-12-28] MEDS: VANCOMYCIN 1,500 MG in SODIUM CHLORIDE 0.9% 250 ML IVPB SCH ×2 (10:56→21:43)
--- NOTE | 2016-12-28 15:43 | P.PN ---
Subjective Principal diagnosis: Perforated viscus , colostomy, atrial fibrillation and congestive heart failure This patient is admitted with acute abdomen and ruptured viscus. Patient underwent surgery. Patient also developed atrial fibrillation with RVR, he continues to be in atrial fibrillation this morning, heart rate in the the 90s, patient did have one episode where his heart rate went up into the 120s. May back down to the 90 range. Patient was initiated on Eliquis , which is now on hold, , the plan is for him to have a PICC line placed today. We will resume the following his PICC line placement. Juan Manuel for possible discharge home tomorrow if stable. Objective - Vital Signs Vital signs: Vital Signs Temp 99.4 F 12/28/16 12:00 Pulse 73 12/28/16 12:00 Resp 16 12/28/16 12:00 BP 109/70 12/28/16 12:00 Pulse Ox 95 12/28/16 12:00 Intake & Output 12/27/16 12/28/16 12/28/16 18:59 06:59 18:59 Intake Total 1240 950 480 Output Total 700 1000 600 Balance 540 -50 -120 Weight 84.6 kg Intake: IV 350 350 Vancomycin 1,500 mg In 250 250 Sodium Chloride 0.9% 250 ml @ 125 mls/hr IVPB Q12HR [facility] Rx#:[id number] metroNIDAZOLE-NS PMX 500 100 100 mg In Saline 1 100ml.bag @ 100 mls/hr IVPB Q8HR [facility] Rx#:[id number] Intake, IV Titration 50 Amount Magnesium Sulfate-D5w Pmx 50 1 gm In Dextrose/Water 1 100ml.bag @ 100 mls/hr IVPB Q1H [facility] Rx#: [id number] Oral 840 600 480 Output: Urine 500 600 600 Stool 200 400 Other: Voiding Method Urinal Urinal # Voids 1 1 - Exam PHYSICAL EXAMINATION: HEENT: Head is atraumatic, normocephalic. Pupils equal, round. Neck is supple. There is no elevated jugular venous pressure. HEART EXAMINATION: S1 and S2 irregularly irregular CHEST EXAMINATION: Lungs reveal fine rales to bilateral bases ABDOMEN: Soft, mild generalized tenderness, post surgical. Bowel sounds are heard. No organomegaly noted. EXTREMITIES: 2+ peripheral pulses with no evidence of peripheral edema and no calf tenderness noted. NEUROLOGIC patient is awake, alert and oriented -3. . - Labs CBC & Chem 7: 12/25/16 06:42 12/28/16 13:09 Labs: Abnormal Lab Results - Last 24 Hours (Table) 12/27/16 12/27/16 12/28/16 Range/Units 16:25 21:15 06:20 Potassium 3.2 L (3.5-5.1) mmol/L BUN (9-20) mg/dL POC Glucose (mg/dL) 131 H 102 H (75-99) mg/dL Calcium (8.4-10.2) mg/dL 12/28/16 Range/Units 06:48 Potassium 3.4 L (3.5-5.1) mmol/L BUN 27 H (9-20) mg/dL POC Glucose (mg/dL) (75-99) mg/dL Calcium 7.7 L (8.4-10.2) mg/dL Microbiology - Last 24 Hours (Table) 12/22/16 16:43 Blood Culture - Preliminary Blood No Growth after 120 hours Assessment and Plan (1) Acute abdomen Status: Acute (2) Acute diastolic CHF (congestive heart failure) Status: Acute (3) Perforated viscus Status: Acute (4) Peritonitis (acute) generalized Status: Acute (5) Postoperative atrial fibrillation Status: Acute Plan: From cardiology's perspective, continue current dose of diuretics. Continue current dose of beta marly 50 mg by mouth 3 times a day. . Hold Eliquis until the PICC line is placed and then resume it following. DNP note has been reviewed, I agree with a documented findings and plan of care. Patient was seen and examined.
[2016-12-28] MEDS: cefTRIAXone 2,000 MG in SODIUM CHLORIDE 0.9% 100 ML IVPB SCH (15:47)
[2016-12-28] MEDS: metroNIDAZOLE 500 MG TAB PO SCH (15:47)
[2016-12-28] MEDS: HYDROcodone/APAP 5-325MG 1 EACH TAB PO PRN (18:33)
--- NOTE | 2016-12-28 19:00 | PN ---
DATE OF SERVICE: 12/28/2016 PRESENTING COMPLAINT: Abdominal surgery. INTERVAL HISTORY: The patient presented with a perforated sigmoid colon resulting in a Armani's procedure. Patient is currently in sinus rhythm, rate in the 80s. NG tube is out. Patient's diet has been advanced and he is tolerating it well. Patient is making stool in the colostomy bag and patient been up to the bathroom. Review of systems done for constitutional, cardiovascular, GI, pulmonary; relevant findings as above. Current medications include IV ceftriaxone, IV Flagyl, IV vancomycin and Lopressor. On exam, temperature 99.2, pulse 78, respiratory rate 16, blood pressure 115/72, pulse ox 92% on room air. GENERAL APPEARANCE: Patient is awake. His is at the bedside. Lying down in bed. Looks comfortable. EYES: Pupils equal. Conjunctivae normal. NECK: JVD not raised. RESPIRATORY: Decreased breath sounds bilaterally. CARDIOVASCULAR: Heart sounds are regular. No edema. ABDOMEN: Some tenderness. Colostomy bag in place. Stool in the bag. Bowel sounds present. Serous drainage on dressing. PSYCHIATRY: Alert and oriented x3. Mood and affect are normal. INVESTIGATIONS: Wound culture performed on 12/22/16 revealing Enterococcus faecalis, for which he is receiving antibiotic treatment. All other lab values are within normal limits. ASSESSMENT: 1. Sigmoid perforation leading to peritoneal contamination leading to Armani's procedure and colostomy. Patient is now having stool in the colostomy bag. 2. Hyperlipidemia. 3. Essential hypertension. 4. Primary osteoarthritis of multiple joints of the hands and knees. 5. Hypoalbuminemia because of acute-phase reactant. 6. Leukopenia from sepsis. 7. Thrombocytopenia from sepsis. 8. New-onset atrial fibrillation, uncontrolled, currently in normal sinus rhythm. Remains on metoprolol. 9. Bilateral pleural effusions, probably from IV fluid and the patient being in atrial fibrillation. Again, patient is in sinus rhythm. X-ray shows improvement. PLAN: Continue current medication and treatment plan. Heart rate is better controlled today and in sinus rhythm. Anticoagulation per Cardiology. Care was discussed with the patient and his . Chest x-ray reviewed and shows bilateral pleural effusions with some improvement. A history and physical was performed on the patient by me/nurse practitioner and attending/Dr. Thomas. The relevant points of the history/physical/diagnoses/plan were discussed and are as dictated above.
--- NOTE | 2016-12-28 21:08 | PN ---
DATE OF SERVICE: 12/27/2016 ADDENDUM: This patient was seen and examined by me. The patient was also seen and examined by nurse practitioner Ms. Cade. The relevant points of the history, physical, diagnoses and plan were discussed with the nurse practitioner and are as dictated in her progress note.
[2016-12-28] MEDS: ATORVASTATIN 40 MG TAB PO SCH (21:43)
[2016-12-29] MEDS: metroNIDAZOLE 500 MG TAB PO SCH ×4 (01:19→23:04)
[2016-12-29] MEDS: HYDROcodone/APAP 5-325MG 1 EACH TAB PO PRN (01:22)
[2016-12-29] MEDS: ACETAMINOPHEN TAB 325 MG TAB PO PRN ×2 (03:02→12:10)
--- NOTE | 2016-12-29 07:14 | PN ---
DATE OF SERVICE: 12/28/2016 Reason for followup is abdominal abscess. INTERVAL HISTORY: The patient is afebrile. Has been breathing comfortably. PICC line could not be placed today as he received Eliquis yesterday. It is scheduled for tomorrow. Patient denies significant chest pain or shortness of breath or cough. No abdominal pain. He is complaining of swelling in his scrotal area. On examination, blood pressure is 115/72 with a pulse of 78. Temperature of 99.2. He is 92% on room air. General description is an elderly male, up in the chair in no distress. RESPIRATORY SYSTEM: Unlabored breathing. Clear to auscultation anteriorly. HEART: S1, S2. Regular rate and rhythm. ABDOMEN: Soft, no tenderness. LABS: BUN of 27 with a creatinine of 1.23. The peritoneal fluid with anaerobic gram-negative bacilli. IMPRESSION AND PLAN: Patient with polymicrobial abdominal abscess from ruptured diverticulitis, status post diverting colostomy. Culture positive for enterococcus faecalis penicillin sensitive along with anaerobic. The patient is allergic to PENICILLIN as the patient is currently on Rocephin, Flagyl and vancomycin. He will get a PICC line tomorrow to continue IV Vanco. Rocephin and Flagyl will switch to p.o. for the same duration with a close outpatient followup. Continue supportive care.
[2016-12-29] MEDS ORDERED: VANCOMYCIN TROUGH DUE 1 EACH MISC MISCELLANE ONE ×2 (08:00→20:00)
[2016-12-29] MEDS: FAMOTIDINE 20 MG TAB PO SCH ×2 (08:05→23:04)
[2016-12-29] MEDS: METOPROLOL TARTRATE 50 MG TAB PO SCH ×3 (08:05→23:04)
[2016-12-29] MEDS: FUROSEMIDE 40 MG TAB PO SCH (08:05)
[2016-12-29 09:42] LABS: Anion Gap 10 mmol/L; Blood Urea Nitrogen 27 mg/dL (9-20); Calcium 7.8 mg/dL (8.4-10.2); Carbon Dioxide 22 mmol/L (22-30); Chloride 105 mmol/L (98-107); Glucose 95 mg/dL (74-99); Non-African American GFR(MDRD) >60 (>60 ml/min/1.73 sqM); Potassium 3.7 mmol/L (3.5-5.1); Sodium 137 mmol/L (137-145)
--- NOTE | 2016-12-29 09:46 | XR ---
EXAMINATION TYPE: XR chest 2V DATE OF EXAM: 12/29/2016 9:18 AM COMPARISON: 12/26/2016 HISTORY: 66 year-old male shortness of breath TECHNIQUE: Frontal and lateral views FINDINGS: Lung volumes are low with trace effusions, slightly improved from prior exam. Adjacent basilar opacit ies especially on the left. Heart is normal size. Pulmonary vasculature and aorta within normal limit s. IMPRESSION: Hypoventilatory changes with trace effusions. Adjacent atelectasis and/or consolidation particularly on the left. Findings show some improvement from 12/26/2016.
[2016-12-29 10:09] LABS: CH 31.5; CHCM 32.7; HCT 39.4 % (39.0-53.0); HDW 2.83; HGB 12.8 gm/dL (13.0-17.5); MCH 31.5 pg (25.0-35.0); MCHC 32.5 g/dL (31.0-37.0); MCV 96.9 fL (80.0-100.0); Mean Platelet Volume 7.5; RBC 4.06 m/uL (4.30-5.90); RDW 14.8 % (11.5-15.5); WBC 23.7 k/uL (3.8-10.6)
[2016-12-29] MEDS: VANCOMYCIN 1,500 MG in SODIUM CHLORIDE 0.9% 250 ML IVPB SCH ×3 (10:39→23:00)
[2016-12-29] MEDS ORDERED: RX INFO: IV CONTRAST WAS GIVEN 1 EACH MISC MISCELLANE PRN ×2 (11:53→12:16)
--- NOTE | 2016-12-29 11:58 | P.PN ---
Subjective Principal diagnosis: Perforated viscus Patient is tolerating well. No nausea or vomiting and tolerating a regular diet. Having normal bowel movements. Frequent loose stool Objective - Vital Signs Vital signs: Vital Signs Temp 100.3 F H 12/29/16 08:00 Pulse 74 12/29/16 08:00 Resp 18 12/29/16 08:00 BP 98/55 12/29/16 08:00 Pulse Ox 93 L 12/29/16 08:00 Intake & Output 12/28/16 12/29/16 12/29/16 18:59 06:59 18:59 Intake Total 805 250 180 Output Total 1400 300 250 Balance -595 -50 -70 Weight 84.7 kg Intake: IV 325 250 Dextrose 5%-0.9% NaCl 1, 0 000 ml @ 50 mls/hr IV . Q20H [facility] Rx#:[id number] Vancomycin 1,500 mg In 125 250 Sodium Chloride 0.9% 250 ml @ 125 mls/hr IVPB Q12HR [facility] Rx#:[id number] cefTRIAXone 2,000 mg In 100 Sodium Chloride 0.9% 100 ml @ 100 mls/hr IVPB Q24H [facility] Rx#:[id number] metroNIDAZOLE-NS PMX 500 100 mg In Saline 1 100ml.bag @ 100 mls/hr IVPB Q8HR [facility] Rx#:[id number] Oral 480 180 Output: Urine 1400 250 Stool 300 Other: Voiding Method Urinal Urinal # Voids 1 - Constitutional General appearance: Present: cooperative - EENT Eyes: Present: PERRLA - Gastrointestinal Gastrointestinal Comment(s): incisions are healing well , abommen is soft. General gastrointestinal: Present: soft - Labs CBC & Chem 7: 12/29/16 08:39 12/29/16 08:39 Labs: Abnormal Lab Results - Last 24 Hours (Table) 12/29/16 12/29/16 Range/Units 08:39 08:39 WBC 23.7 H (3.8-10.6) k/uL RBC 4.06 L (4.30-5.90) m/uL Hgb 12.8 L (13.0-17.5) gm/dL BUN 27 H (9-20) mg/dL Calcium 7.8 L (8.4-10.2) mg/dL Microbiology - Last 24 Hours (Table) 12/22/16 16:43 Blood Culture - Final Blood No Growth after 144 hours Assessment and Plan (1) Leukocytosis Status: Acute (2) Acute abdomen Status: Acute Plan: Doing well. New onset fever and leukopcytosis Will repeat CT scan of abdomen and pelvis Await Picc line. await Dr Sen input
[2016-12-29] MEDS: LISINOPRIL 10 MG TAB PO SCH (12:10)
--- NOTE | 2016-12-29 12:48 | P.PN ---
Subjective Principal diagnosis: Perforated viscus , colostomy, atrial fibrillation and congestive heart failure This patient is admitted with acute abdomen and ruptured viscus. Patient underwent surgery. Patient also developed atrial fibrillation with RVR, he is currently in normal sinus rhythm with a heart rate in the 80s. May back down to the 90 range. Patient was initiated on Eliquis , which is now on hold, , the plan is for him to have a PICC line placed today. And is having diarrhea stools. We will resume the following his PICC line placement. Chest x-ray was repeated today which show significant improvement. Objective - Vital Signs Vital signs: Vital Signs Temp 100.3 F H 12/29/16 08:00 Pulse 74 12/29/16 08:00 Resp 18 12/29/16 08:00 BP 98/55 12/29/16 08:00 Pulse Ox 93 L 12/29/16 08:00 Intake & Output 12/28/16 12/29/16 12/29/16 18:59 06:59 18:59 Intake Total 805 250 180 Output Total 1400 300 250 Balance -595 -50 -70 Weight 84.7 kg Intake: IV 325 250 Dextrose 5%-0.9% NaCl 1, 0 000 ml @ 50 mls/hr IV . Q20H [facility] Rx#:[id number] Vancomycin 1,500 mg In 125 250 Sodium Chloride 0.9% 250 ml @ 125 mls/hr IVPB Q12HR [facility] Rx#:[id number] cefTRIAXone 2,000 mg In 100 Sodium Chloride 0.9% 100 ml @ 100 mls/hr IVPB Q24H [facility] Rx#:[id number] metroNIDAZOLE-NS PMX 500 100 mg In Saline 1 100ml.bag @ 100 mls/hr IVPB Q8HR [facility] Rx#:[id number] Oral 480 180 Output: Urine 1400 250 Stool 300 Other: Voiding Method Urinal Urinal # Voids 1 - Exam PHYSICAL EXAMINATION: HEENT: Head is atraumatic, normocephalic. Pupils equal, round. Neck is supple. There is no elevated jugular venous pressure. HEART EXAMINATION: S1 and S2 irregularly irregular CHEST EXAMINATION: Lungs reveal fine rales to bilateral bases ABDOMEN: Soft, mild generalized tenderness, post surgical. Bowel sounds are heard. No organomegaly noted. EXTREMITIES: 2+ peripheral pulses with no evidence of peripheral edema and no calf tenderness noted. NEUROLOGIC patient is awake, alert and oriented -3. . - Labs CBC & Chem 7: 12/29/16 08:39 12/29/16 08:39 Labs: Abnormal Lab Results - Last 24 Hours (Table) 12/29/16 12/29/16 Range/Units 08:39 08:39 WBC 23.7 H (3.8-10.6) k/uL RBC 4.06 L (4.30-5.90) m/uL Hgb 12.8 L (13.0-17.5) gm/dL BUN 27 H (9-20) mg/dL Calcium 7.8 L (8.4-10.2) mg/dL Microbiology - Last 24 Hours (Table) 12/22/16 16:43 Blood Culture - Final Blood No Growth after 144 hours Assessment and Plan (1) Acute abdomen Status: Acute (2) Acute diastolic CHF (congestive heart failure) Status: Acute (3) Perforated viscus Status: Acute (4) Peritonitis (acute) generalized Status: Acute (5) Postoperative atrial fibrillation Status: Acute Plan: From cardiology's perspective, continue current dose of diuretics. Continue current dose of beta marly 50 mg by mouth 3 times a day. . Hold Eliquis until the PICC line is placed and then resume it following. DNP note has been reviewed, I agree with a documented findings and plan of care. Patient was seen and examined.
[2016-12-29] MEDS ORDERED: LIDOCAINE 2% INJ 20 MG/ML SQ ONE (12:58)
[2016-12-29] MEDS: IOHEXOL 350 MG/ML 25 ML BOTTLE (ORAL USE) PO PRN ×2 (13:32→14:30)
--- NOTE | 2016-12-29 14:01 | IR ---
PICC LINE PLACEMENT: HISTORY: Infection requiring long-term antibiotic therapy PROCEDURE: Ultrasound and fluoroscopic guidance of PICC line placement. COMPLICATIONS: None ANESTHESIA: 1. 1% Lidocaine locally. FINDINGS/TECHNIQUE: The procedure was explained to the patient. The risks, complications, benefits and alternatives were discussed and any questions were answered. Informed consent was obtained. The patient was placed supine on the fluoroscopic table and prepped and draped in the usual sterile fas ion. Utilizing a 21 gauge needle and sonographic and fluoroscopic guidance, access in the vein was achieved and there is placement of a 0.018 guidewire. The vein is patent. A 4-F sheath was placed o rosio the guidewire. The guidewire and dilator were removed and a 4-F. PICC line was placed through th e sheath with the tip at the level of the SVC. The sheath was removed, the catheter was flushed and sutured into position. The patient was stable throughout the procedure and remained stable upon disc harge from the Department of Radiology. The vein puncture was patent under ultrasound. A jones scale image was obtained to document patency of the vein punctured. All elements of the maximal barrier technique were utilized. FLUOROSCOPY TIME: 2.3 minute IMPRESSION: Successful PICC line placement under ultrasound and fluoroscopic guidance.
[2016-12-29] MEDS: cefTRIAXone 2,000 MG in SODIUM CHLORIDE 0.9% 100 ML IVPB SCH (15:59)
--- NOTE | 2016-12-29 18:29 | CT ---
CT CHEST FOR PULMONARY EMBOLISM. EXAMINATION TYPE: CT angio chest DATE OF EXAM: 12/29/2016 3:30 PM INDICATION: Difficulty breathing CT DLP: 2255.00 mGycm, Automated exposure control for dose reduction was used. CONTRAST: Patient injected with 100 mL of Omnipaque 350. COMPARISON: NONE TECHNIQUE: CT of the chest is performed on a spiral scan at 2 mm thick sections. Study is performed with intravenous contrast timed for evaluation for pulmonary embolism. This will limit additional po rtions of the evaluation. 3-D MIP images reconstructed by the technologist are reviewed on the compu ter in the coronal and sagittal planes. FINDINGS: No persistent filling defects are evident to suggest an acute pulmonary embolism. No mediastinal or hilar adenopathy enlarged by CT criteria is evident. There are a few scattered sma ll lymph nodes present. The ascending aorta diameter at the level of the main pulmonary artery is 3.5 cm. The main pulmonary artery diameter at the bifurcation is 2.5 cm. Small bilateral pleural effusions are present. There is consolidation at the posterior dependent lung bases bilaterally. Correlate for compressive atelectasis. Pneumonia is not excluded. Limited CT sections are obtained through the upper abdomen. There is a cyst superior lateral wall lef t kidney measuring 1.7 cm in diameter and -2 Hounsfield units. IMPRESSIONS: 1. No acute pulmonary embolism. 2. Small bilateral pleural effusions with adjacent compressive atelectasis
--- NOTE | 2016-12-29 18:43 | CT ---
EXAMINATION TYPE: CT abdomen pelvis w con DATE OF EXAM: 12/29/2016 3:30 PM COMPARISON: NONE INDICATION: Leukocytosis difficulty breathing abdominal pain DLP: 2255.00 mGycm, Automated exposure control for dose reduction was used. CONTRAST: 100 mL of Omnipaque 350. Study performed with Oral Contrast TECHNIQUE: Axial images were obtained from above the diaphragm to the pubic rami in the axial plane a t 5 mm thick sections. Reconstructed images are reviewed on the computer in the coronal plane. FINDINGS: Limited CT sections are obtained the lung bases. Small bilateral pleural effusions are present. Geetha cent compressive atelectasis is likely present. Note is made of coronary artery calcification.. CT ABDOMEN: Liver: Normal Spleen: Normal Pancreas: Normal Adrenal glands: The adrenal glands are normal. Gallbladder: Normal Kidneys: No masses are evident. No hydronephrosis is present. There is a 1.8 cm cyst on the superio r lateral left kidney measuring -2 Hounsfield units. Left kidney is otherwise unremarkable. Right kid karyna contains a punctate cortical renal cysts. Delayed images were obtained through the kidneys, whic h remain unremarkable. Aorta: Vascular calcification is within the aorta. Inferior vena cava: Normal. There is perineum umbilical inflammatory change. Small amount of air is present at this location. Thi s appears to be a recent incision with surgical skin spike remaining present anteriorly. CT PELVIS: There are some prominent small bowel loops containing fluid within the lower pelvis. The small bowel loops are dilated and are suggestive for some ileus or partial obstruction. There is a large hypodense collection within the left anterior hemipelvis adjacent to small bowel loo ps. This tracks inferior to the ostomy site into the midline pelvis. The lobular extensions extending the posterior mid pelvis and possibly to the right hemipelvis. This appears to extend bilaterally in to the inguinal regions. Small amount of wall enhancement is evident. No contrast appears to be with in the structures. The differential could include abscess and seroma. This anterior portion below the ostomy extending towards the midline area measures 5.3 x 8.8 cm. Small amount of low-density collect ion is adjacent to small bowel loop within the right hemipelvis cannot be clearly identified as commu nicating with the additional suspicious areas. There are loops of bowel which are incompletely distended or lack oral contrast limiting their evalu ation. Colostomy is in the anterior right lower quadrant. Appendix: Normal as visualized. Urinary bladder: Decompressed and cannot be evaluated. This is further limited by significant beam bello rdening artifact lateral hip prostheses. Genitourinary structures: Prostate has limited evaluation. No obvious hypertrophy is evident Osseous structures: Bilateral hip prostheses are present. IMPRESSIONS: 1. Large lobular hypodensity suspicious for abscess along the anterior left abdomen extending into t he midline pelvis and into the bilateral inguinal regions. Some extension across the midline may be p resent into the right lower hemipelvis. Differential diagnosis could include seroma. This appears to be loculated suggesting ascites to be unlikely.
[2016-12-29] MEDS: APIXABAN 5 MG TAB PO SCH (22:47)
[2016-12-29] MEDS: ATORVASTATIN 40 MG TAB PO SCH (23:03)
[2016-12-30 06:31] LABS: INR 1.4 (<1.1); Prothrombin Time 14.1 sec (9.0-12.0)
[2016-12-30 06:32] LABS: Anion Gap 5 mmol/L; Blood Urea Nitrogen 22 mg/dL (9-20); Calcium 7.8 mg/dL (8.4-10.2); Carbon Dioxide 25 mmol/L (22-30); Chloride 105 mmol/L (98-107); Glucose 91 mg/dL (74-99); Non-African American GFR(MDRD) 59 (>60 ml/min/1.73 sqM); Potassium 3.5 mmol/L (3.5-5.1); Sodium 135 mmol/L (137-145)
--- NOTE | 2016-12-30 07:38 | P.PN ---
Subjective Principal diagnosis: Perforated viscus Patient is tolerating well. No nausea or vomiting and tolerating a regular diet. Having normal bowel movements. Frequent loose stool . She had a computed tomography scan yesterday which revealed intra-abdominal abscess Objective - Vital Signs Vital signs: Vital Signs Temp 98.7 F 12/30/16 00:00 Pulse 80 12/30/16 04:00 Resp 18 12/30/16 04:00 BP 106/59 12/30/16 04:00 Pulse Ox 91 L 12/30/16 04:00 Intake & Output 12/29/16 12/30/16 12/30/16 18:59 06:59 18:59 Intake Total 580 510 Output Total 1250 Balance -670 510 Weight 84.7 kg 84 kg Intake: IV 350 Vancomycin 1,500 mg In 250 Sodium Chloride 0.9% 250 ml @ 125 mls/hr IVPB Q12HR [facility] Rx#:[id number] cefTRIAXone 2,000 mg In 100 Sodium Chloride 0.9% 100 ml @ 100 mls/hr IVPB Q24H [facility] Rx#:[id number] Intake, IV Titration 160 Amount Sodium Chloride 0.9% 1, 160 000 ml As IV .[facility] Rx#:[id number] Oral 580 Output: Urine 600 Stool 650 Other: Voiding Method Urinal Urinal - Constitutional General appearance: Present: average body habitus - Gastrointestinal Gastrointestinal Comment(s): The abdomen is soft mildly distended ostomy is viable healthy with solidifying stool incision is clean and healthy General gastrointestinal: Present: soft - Labs CBC & Chem 7: 12/29/16 08:39 12/30/16 06:10 Labs: Abnormal Lab Results - Last 24 Hours (Table) 12/29/16 12/29/16 12/30/16 Range/Units 08:39 08:39 06:10 WBC 23.7 H (3.8-10.6) k/uL RBC 4.06 L (4.30-5.90) m/uL Hgb 12.8 L (13.0-17.5) gm/dL PT (9.0-12.0) sec Sodium 135 L (137-145) mmol/L BUN 27 H 22 H (9-20) mg/dL Calcium 7.8 L 7.8 L (8.4-10.2) mg/dL 12/30/16 Range/Units 06:10 WBC (3.8-10.6) k/uL RBC (4.30-5.90) m/uL Hgb (13.0-17.5) gm/dL PT 14.1 H (9.0-12.0) sec Sodium (137-145) mmol/L BUN (9-20) mg/dL Calcium (8.4-10.2) mg/dL Assessment and Plan (1) Leukocytosis Status: Acute (2) Acute abdomen Status: Acute Plan: Due to the fact that he has large abscess in the abdomen I recommended a CT- guided drainage of the abscess. Interventional radiology has been consulted further recommendations to follow pending the cultures.
--- NOTE | 2016-12-30 07:55 | PN ---
DATE OF SERVICE: 12/29/2016 PRESENTING COMPLAINT: Abdominal surgery. INTERVAL HISTORY: The patient presented with a perforated sigmoid colon resulting in a Armani's procedure. The patient is currently in sinus rhythm rate in the 80s. Patient's diet has been advanced and he is tolerating it well. Patient is making stool in the colostomy bag and patient has been up to the bathroom. Patient appears more tachypneic today. Additionally patient is febrile and has experienced a bump in his white blood cell count on today's lab work. Review of systems is done for constitutional, cardiovascular, GI, pulmonary, relevant findings as above. Current medications include IV ceftriaxone, IV Flagyl, IV vancomycin and Lopressor. PHYSICAL EXAMINATION: VITAL SIGNS: 102.4 temperature, pulse 87, respirations 18, blood pressure 105/59, oxygen saturation 92% on room air. GENERAL APPEARANCE: Patient is awake, alert, taking care of daily needs in the bathroom on arrival. is at the bedside assisting him. Patient lying in the bed. Appears to have more respiratory effort required today, appears tachypneic. EYES: Pupils equal. Conjunctivae normal. NECK: JVD not raised. RESPIRATORY: Decreased breath sounds bilaterally. Patient tachypneic. CARDIOVASCULAR: Heart sounds are regular. No edema. ABDOMEN: Some tenderness noted. Incisional area closed with spike. Slight redness noted to some of the spike. Distal portion of the incision has a little bit of drainage out and small dressing noted to the distal end of the incision. PSYCHIATRY: Alert and oriented x3. Mood and affect are normal. INVESTIGATIONS: White blood cell count 23.7, hemoglobin 12.8. Basic metabolic panel within normal limits. Chest CTA pending. Chest x-ray reveals trace effusions, atelectasis, some consolidation on the left. There is some improvement from 12/26/2016 exam. ASSESSMENT: 1. Sigmoid perforation leading to peritoneal contamination leading to Armani's procedure and colostomy. Patient is now having stool in the colostomy bag. 2. Hyperlipidemia. 3. Essential hypertension. 4. Primary osteoarthritis of multiple joints of the hands and knees. 5. Hypoalbuminemia because of acute phase reactant. 6. Leukocytosis secondary to sepsis. 7. Thrombocytopenia secondary to sepsis. 8. New onset atrial fibrillation, now controlled. Patient is in normal sinus rhythm, heart rate in the 80s. Patient remains on metoprolol. 9. Bilateral pleural effusions, likely from IV fluid and the patient being in atrial fibrillation, which has resolved at this point. Current x-ray shows improvement. 10. Sepsis. Patient has new onset fevers, elevated white blood cell count and was noted to be tachypneic today. Infectious Disease continues to follow the patient. PLAN: Continue current medication and treatment plan. Heart rate is controlled and is in normal sinus rhythm. Anticoagulation per Cardiology. Antibiotics will continue to be managed by Infectious Disease. Care was discussed with the patient and his . History and physical was performed on the patient by me/nurse practitioner and attending/Dr. Thomas. The relevant points of history/physical/diagnoses/plan were discussed and are as dictated above.
[2016-12-30] MEDS: metroNIDAZOLE 500 MG TAB PO SCH ×2 (08:10→16:52)
[2016-12-30] MEDS: APIXABAN 5 MG TAB PO SCH ×2 (08:10→20:26)
[2016-12-30] MEDS: METOPROLOL TARTRATE 50 MG TAB PO SCH ×3 (08:11→20:27)
[2016-12-30] MEDS: LISINOPRIL 10 MG TAB PO SCH (08:11)
[2016-12-30] MEDS: FUROSEMIDE 40 MG TAB PO SCH (08:11)
[2016-12-30] MEDS: FAMOTIDINE 20 MG TAB PO SCH ×2 (08:11→20:27)
--- NOTE | 2016-12-30 09:08 | PN ---
DATE OF SERVICE: 12/29/2016 Reason for follow up is abdominal abscess, polymicrobial. INTERVAL HISTORY: The patient is spiking a fever of 101 to 102 degrees Fahrenheit. He has been complaining of some vague abdominal pain, but no nausea, no vomiting. Denies significant chest pain or shortness of breath or cough and no significant urinary symptoms. On examination, blood pressure 105/57 with a pulse of 87, temperature of 102.4. He is 92% on room air. General description is an elderly male lying in bed in no distress. HEENT EXAMINATION: Pallor, oral mucosa membrane dry. LUNGS: Unlabored breathing. Clear to auscultation anteriorly. HEART: S1, S2. Regular rate and rhythm. ABDOMEN: Soft, slightly distended. No guarding or rigidity. LABS: Hemoglobin is 12.2 with white count 23.7 with BUN of 27 and creatinine 1.13. DIAGNOSTIC IMPRESSION AND PLAN: Patient with polymicrobial abdominal abscess, status post diverting colostomy. Culture with Enterococcus faecalis and aerobic gram-negative now with a new fever. We did order a repeat blood culture. The patient also had a CT angiogram that was negative for pulmonary embolism; however, CT scan abdomen was suspicious for abscess that is more likely the etiology of his new fever and elevated white count. Blood cultures has already been repeated. Patient will likely need drainage of this abscess which should be sent for cultures in order to cure this infection. Continue with the Lisao, Rocio and yl while awaiting for the repeat culture to finalize. Overall prognosis remains to be guarded. Continue supportive care.
--- NOTE | 2016-12-30 14:38 | CT ---
EXAMINATION TYPE: CT guided abscess drainage DATE OF EXAM: 12/30/2016 2:25 PM COMPARISON: NONE HISTORY: Abscess drainage tube placement CT DLP: 723 mGycm The procedure is discussed with the patient, the risks, complications, benefits and alternatives, wer e discussed and any questions were answered. Informed consent was obtained. The patient is placed p christina on the CT table, prepped and draped in the usual sterile fashion. Utilizing a 22-gauge Chiba needle access into the abdominal fluid collection was achieved.. There wa s immediate return of pus. Sample sent to pathology. There is placement of a guidewire. Subsequent se rial dilation to an 8 Jordanian catheter and placement of an 8 Jordanian drainage catheter. Repeat imaging demonstrated ideal placement of a catheter. . All elements of maximal barrier technique were utilized. The patient remained stable throughout t he procedure with no immediate postprocedural complication. IMPRESSION: 1. Successful CT guided abdominal abscess drainage catheter insertion.
--- NOTE | 2016-12-30 15:13 | P.PN ---
Subjective Principal diagnosis: Perforated viscus , colostomy, atrial fibrillation and congestive heart failure This patient is admitted with acute abdomen and ruptured viscus. Patient underwent surgery. Patient also developed atrial fibrillation with RVR, he is currently in normal sinus rhythm with a heart rate in the 80s. . Patient was initiated on Eliquis , which is now on hold, , and had a PICC line placed, now there is suspicion of an abscess which will need to be drained. Eliquis remains on hold. We will follow this patient with you on an as-needed basis only, once he is cleared from a GI perspective the Eliquis will need to be resumed. Objective - Vital Signs Vital signs: Vital Signs Temp 98.8 F 12/30/16 12:00 Pulse 74 12/30/16 13:25 Resp 16 12/30/16 13:41 BP 119/69 12/30/16 13:41 Pulse Ox 94 L 12/30/16 13:41 Intake & Output 12/29/16 12/30/16 12/30/16 18:59 06:59 18:59 Intake Total 580 510 Output Total 1250 800 Balance -670 510 -800 Weight 84.7 kg 84 kg Intake: IV 350 Vancomycin 1,500 mg In 250 Sodium Chloride 0.9% 250 ml @ 125 mls/hr IVPB Q12HR [facility] Rx#:[id number] cefTRIAXone 2,000 mg In 100 Sodium Chloride 0.9% 100 ml @ 100 mls/hr IVPB Q24H [facility] Rx#:[id number] Intake, IV Titration 160 Amount Sodium Chloride 0.9% 1, 160 000 ml As IV [facility] Rx#:[id number] Oral 580 Output: Urine 600 800 Stool 650 Other: Voiding Method Urinal Urinal Urinal # Voids 2 - Exam PHYSICAL EXAMINATION: HEENT: Head is atraumatic, normocephalic. Pupils equal, round. Neck is supple. There is no elevated jugular venous pressure. HEART EXAMINATION: S1 and S2 irregularly irregular CHEST EXAMINATION: Lungs reveal fine rales to bilateral bases ABDOMEN: Soft, mild generalized tenderness, post surgical. Bowel sounds are heard. No organomegaly noted. EXTREMITIES: 2+ peripheral pulses with no evidence of peripheral edema and no calf tenderness noted. NEUROLOGIC patient is awake, alert and oriented -3. . - Labs CBC & Chem 7: 12/29/16 08:39 12/30/16 06:10 Labs: Abnormal Lab Results - Last 24 Hours (Table) 12/30/16 12/30/16 Range/Units 06:10 06:10 PT 14.1 H (9.0-12.0) sec Sodium 135 L (137-145) mmol/L BUN 22 H (9-20) mg/dL Calcium 7.8 L (8.4-10.2) mg/dL Assessment and Plan (1) Acute abdomen Status: Acute (2) Acute diastolic CHF (congestive heart failure) Status: Acute (3) Perforated viscus Status: Acute (4) Peritonitis (acute) generalized Status: Acute (5) Postoperative atrial fibrillation Status: Acute Plan: From cardiology's perspective, continue current dose of diuretics. Continue current dose of beta marly 50 mg by mouth 3 times a day. . And you to hold Eliquis until cleared by GI service. We will follow in an as-needed basis only , please don't hesitate to call with any questions. DNP note has been reviewed, I agree with a documented findings and plan of care. Patient was seen and examined.
[2016-12-30] MEDS: DAPTOmycin 500 MG in SODIUM CHLORIDE 0.9% 50 ML IV SCH (16:43)
[2016-12-30] MEDS: MEROPENEM 1 GM in SODIUM CHLORIDE 0.9% 100 ML IVPB SCH ×2 (17:27→23:29)
[2016-12-30] MEDS ORDERED: VANCOMYCIN 1,500 MG in SODIUM CHLORIDE 0.9% 250 ML IVPB SCH (18:00)
--- NOTE | 2016-12-30 18:06 | P.PN ---
Progress Note - Text Patient seen and evaluated. He reports hunger. His is at bedside. He has moderate flatus and stool in his stoma. Plan to resume regular diet. Continue with CT guided drain.
--- NOTE | 2016-12-30 20:23 | PN ---
DATE OF SERVICE: 12/30/2016 PRESENTING COMPLAINT: Abdominal surgery. INTERVAL HISTORY: Patient presented with a perforated sigmoid colon resulting in a Armani's procedure. Today the patient is in sinus rhythm, heart rate in the 80s. Diet advanced and patient is tolerating well. Patient is making stool in the colostomy bag and patient has been up to the bathroom. Patient appears less tachypneic today. Patient is lying in bed. No acute distress noted or voiced. On 12/29 patient developed a fever and had an elevation in his white blood cell count. On further examination it was discovered on CT scan patient had an abscess which is likely the cause of his current white blood cell count rise and fever. Patient is expecting to have this abscess drained later on today, 12/30/2016. Review of systems is done for constitutional, cardiovascular, GI, pulmonary; relevant findings as above. Current medications include: 1. IV ceftriaxone. 2. IV Flagyl. 3. IV vancomycin. 4. Lopressor. PHYSICAL EXAMINATION: VITAL SIGNS: Temperature 98.8, pulse 64, respiratory rate 18, blood pressure 126/68, oxygen saturation 92% on room air. GENERAL APPEARANCE: Patient is awake, alert, lying in the bed. No acute distress noted or voiced. EYES: Pupils equal. Conjunctivae normal. NECK: JVD not raised. Mass not palpable. RESPIRATORY: Decreased breath sounds bilaterally. CARDIOVASCULAR: S1, S2 are regular. No edema. ABDOMEN: Some tenderness noted. Incisional area closed with spike. Some redness around the spike noted. No drainage noted. Distal portion of the incision has scant amount of drainage out and a small dressing noted to the distal ( ) incision. Colostomy bag to the left abdominal wall with brown stool enclosed. PSYCHIATRY: Alert and oriented x3. Mood and affect are normal. INVESTIGATIONS: Sodium 135. Calcium 7.8. CT-guided abscess drainage procedure performed with successful placement of catheter insertion. ASSESSMENT: 1. Sigmoid perforation leading to peritoneal contamination leading to Armani's procedure and colostomy. Patient is now having stool in the colostomy bag. 2. Hyperlipidemia. 3. Essential hypertension. 4. Primary osteoarthritis of multiple joints of the hands and knees. 5. Hypoalbuminemia because of acute-phase reactant. 6. Leukocytosis secondary to sepsis. 7. Thrombocytopenia secondary to sepsis. 8. New-onset atrial fibrillation, now controlled. Patient continues to be in normal sinus rhythm, heart rate in the 60s. Patient remains on metoprolol and Cardiology continues to follow. 9. Bilateral pleural effusions, likely from IV fluid and the patient being in atrial fibrillation, which has resolved at this point. Current x-ray shows improvement. 10. Sepsis. Patient had new-onset fevers, elevated white blood cell count and was noted to be tachypneic on 12/29/2016. CT scan revealed an abscess, for which the patient was taken to Interventional Radiology and a CT-guided drainage was performed with a catheter insertion today, 12/30/2016. Infectious Disease continues to follow the patient and manage antibiotic coverage. PLAN: Continue current medication and treatment plan. Heart rate is controlled and Cardiology continues to follow and manage treatment. Anticoagulation per cardiology recommendations. Antibiotics will continue to be managed by Infectious Disease. Care was discussed with the patient. Patient was seen and examined by me, nurse practitioner, and attending, Dr. Thomas. The relevant points of the history, physical, diagnoses and plan were discussed and are as dictated above.
--- NOTE | 2016-12-30 22:51 | PN ---
DATE OF SERVICE: 12/30/2016 REASON FOR FOLLOWUP: Abdominal abscess. INTERVAL HISTORY: The patient is afebrile. The patient is status post CT-guided drainage of the abdominal abscess with removal of about 80 mL of pus that has been sent for cultures. the patient tolerated the procedure. Painful abdomen, currently controlled. Denies significant chest pain or shortness of breath or cough. On examination, blood pressure is 117/58 with a pulse of 79, temperature 97. He is 91% on room air. General description is an elderly male, lying in bed in no distress. RESPIRATORY SYSTEM: Unlabored breathing. Clear to auscultation anteriorly. HEART: S1 and S2 with regular rate and rhythm. ABDOMEN: Soft. Some tenderness in the lower abdominal area. The drainage tube with serosanguineous fluid LABS: A BUN of 22 with a creatinine 1.23. Stool for C. diff. is negative. DIAGNOSTIC IMPRESSION AND PLAN: Patient with abdominal abscess, polymicrobial, from a perforated diverticulitis, status post diverting colostomy, now with course complicated by development of another abscess and that has been CT-guided drained at this time. Antibiotic will be brought up to meropenem and daptomycin to cover for the pathogen that was not covered with the previous antibiotic regimen of Rocephin and vancomycin. Antibiotic will be further adjusted on the basis of the repeated cultures. Overall prognosis continues to be guarded. Continue supportive care. MTDD
[2016-12-30] MEDS: ACETAMINOPHEN TAB 325 MG TAB PO PRN (23:41)
[2016-12-31 03:43] LABS: Basophils % (A) 0 %; CH 31.8; CHCM 34.4; Eosinophils # (A) 0.1 k/uL (0-0.7); Eosinophils % (A) 1 %; HCT 32.7 % (39.0-53.0); HDW 3.01; HGB 11.1 gm/dL (13.0-17.5); Luc # (Auto) 0.38; Luc % (Auto) 2; Lymphocytes # (A) 0.9 k/uL (1.0-4.8); Lymphocytes % (A) 6 %; MCH 31.5 pg (25.0-35.0); MCHC 33.9 g/dL (31.0-37.0); MCV 93.1 fL (80.0-100.0); Mean Platelet Volume 7.5; Monocytes # (A) 0.7 k/uL (0-1.0); Monocytes % (A) 4 %; Neutrophils # (A) 14.2 k/uL (1.3-7.7); Neutrophils % (A) 87 %; RBC 3.51 m/uL (4.30-5.90); RDW 14.7 % (11.5-15.5); WBC 16.3 k/uL (3.8-10.6); WBC (Perox) 16.55
[2016-12-31 04:02] LABS: Anion Gap 4 mmol/L; Blood Urea Nitrogen 23 mg/dL (9-20); Calcium 7.7 mg/dL (8.4-10.2); Carbon Dioxide 23 mmol/L (22-30); Chloride 106 mmol/L (98-107); Glucose 102 mg/dL (74-99); Non-African American GFR(MDRD) >60 (>60 ml/min/1.73 sqM); Potassium 3.3 mmol/L (3.5-5.1); Sodium 133 mmol/L (137-145)
[2016-12-31] MEDS: metroNIDAZOLE 500 MG TAB PO SCH ×3 (05:42→17:23)
[2016-12-31] MEDS: MEROPENEM 1 GM in SODIUM CHLORIDE 0.9% 100 ML IVPB SCH ×2 (10:05→17:22)
[2016-12-31] MEDS: HYDROcodone/APAP 5-325MG 1 EACH TAB PO PRN ×3 (10:05→18:58)
[2016-12-31] MEDS: LISINOPRIL 10 MG TAB PO SCH (10:05)
[2016-12-31] MEDS: FAMOTIDINE 20 MG TAB PO SCH (10:07)
[2016-12-31] MEDS: FUROSEMIDE 40 MG TAB PO SCH (10:07)
[2016-12-31] MEDS: POTASSIUM CHLORIDE ER 20 MEQ TAB.ER PO SCH ×2 (10:07→10:54)
[2016-12-31] MEDS: METOPROLOL TARTRATE 50 MG TAB PO SCH ×2 (10:07→17:23)
--- NOTE | 2016-12-31 11:34 | PN ---
DATE OF SERVICE: 12/29/2016 ADDENDUM TO PROGRESS NOTE: I talked with the patient and his . I did tell them I was concerned about his tachypnea and hence will order a CT angiogram of the chest to rule out PE. Also I was concerned about his abdominal distention, jump in his white count, fever; more of a sepsis picture. Earlier CT scan of the abdomen and pelvis was ordered by Surgery. Patient wanted to go home. I told him he needs to stay back until he gets better, which is more important. Will follow.
[2016-12-31 11:39] LABS: Glucose,Whole Blood 100 mg/dL (75-99)
--- NOTE | 2016-12-31 11:59 | P.PN ---
Subjective Principal diagnosis: Perforated viscus The patient is a 66-year-old gentleman status post Schreiber's procedure by Dr. Irwin. He had developed intra-abdominal fluid collection which had been drained yesterday. He reports doing much better today than yesterday. His ostomy is working. He is tolerating regular diet. No reports of fevers or chills. He reports somewhat increased energy. Objective - Vital Signs Vital signs: Vital Signs Temp 99.5 F 12/31/16 09:17 Pulse 70 12/31/16 09:17 Resp 12 12/31/16 09:17 BP 111/56 12/31/16 09:17 Pulse Ox 95 12/31/16 09:17 Intake & Output 12/30/16 12/31/16 12/31/16 18:59 06:59 18:59 Intake Total 240 440 Output Total 1200 850 Balance -960 -410 Weight 84.5 kg Intake: IV 240 NS @ 20 240 Intake, IV Titration 100 Amount Meropenem 1 gm In Sodium 100 Chloride 0.9% 100 ml @ 200 mls/hr IVPB Q8HR [facility] Rx#:[id number] Oral 240 100 Output: Urine 1200 850 Other: Voiding Method Urinal # Voids 1 - Exam GENERAL: Well developed and in no acute distress. Pleasant. HEENT: No sclera icterus. Extraocular movements grossly intact. Moist buccal mucosa. Head is atraumatic, normocephalic. Hears conversational speech. No nasal drainage. Has hoarse voice. NECK: Supple without lymphadenopathy. No JV distention. CHEST: Non-labored respirations and equal bilateral excursions. CARDIOVASCULAR: Palpable 2+ radial pulses. ABDOMEN: Soft, nontender. Nondistended. Ostomy pink patent and viable. Stool and air in ostomy bag. CT-guided drain with minimal yellow output. MUSCULOSKELETAL: No clubbing, cyanosis or edema. NEUROLOGIC: No focal or lateralizing signs. PSYCH: Appropriate affect. Alert and oriented to person, place and time. - Labs CBC & Chem 7: 12/31/16 03:28 12/31/16 03:28 Labs: Abnormal Lab Results - Last 24 Hours (Table) 12/31/16 12/31/16 12/31/16 Range/Units 03:28 03:28 11:38 WBC 16.3 H (3.8-10.6) k/uL RBC 3.51 L (4.30-5.90) m/uL Hgb 11.1 L (13.0-17.5) gm/dL Hct 32.7 L (39.0-53.0) % Neutrophils # 14.2 H (1.3-7.7) k/uL Lymphocytes # 0.9 L (1.0-4.8) k/uL Sodium 133 L (137-145) mmol/L Potassium 3.3 L (3.5-5.1) mmol/L BUN 23 H (9-20) mg/dL Glucose 102 H (74-99) mg/dL POC Glucose (mg/dL) 100 H (75-99) mg/dL Calcium 7.7 L (8.4-10.2) mg/dL Microbiology - Last 24 Hours (Table) 12/30/16 13:30 Gram Stain - Preliminary Aspirate Body Fluid Culture - Preliminary 12/30/16 13:30 Anaerobic Culture - Preliminary Abdominal Fluid 12/29/16 14:01 Blood Culture - Preliminary Blood No Growth after 24 hours 12/29/16 13:53 Blood Culture - Preliminary Blood No Growth after 24 hours Assessment and Plan (1) Intra-abdominal collection Status: Acute (2) Leukocytosis Status: Acute (3) Perforated viscus Status: Acute (4) Peritonitis (acute) generalized Status: Acute Plan: 1. Continue with diet. 2. He has new hypokalemia. Correction via oral and IV route advised as he takes daily lasix. 3. Leukocytosis trending downward. 4. Disposition home pending management of oral versus IV antibiotic as well as resolution of leukocytosis. 5. Pending disposition in 3 to 4 days and discussed with patient. I am rounding on behalf of Dr. Irwin.
[2016-12-31] MEDS: 0.9% NACL WITH KCL 40 MEQ/L 1,000 ML IV SCH (13:40)
[2016-12-31] MEDS: DAPTOmycin 500 MG in SODIUM CHLORIDE 0.9% 50 ML IV SCH (13:40)
[2016-12-31] MEDS: APIXABAN 5 MG TAB PO SCH ×2 (14:13→22:28)
[2016-12-31 15:11] LABS: Phosphorous 3.2 mg/dL (2.5-4.5)
[2016-12-31 17:20] LABS: Glucose,Whole Blood 91 mg/dL (75-99)
[2016-12-31 21:31] LABS: Glucose,Whole Blood 116 mg/dL (75-99)
--- NOTE | 2016-12-31 21:45 | P.PN ---
Progress Note - Text I was called to bedside by the nurse where the patient developed copious amount of purulent drainage from the inferior portion of his midline incision. His is at bedside. Patient seems oriented to self however not oriented to time and place. Patient is status post CT-guided drainage 2 days ago with minimal outputs coming out of the drain. He is postop day #10 status post exploratory laparotomy and Schreiber's procedure. At bedside, 6 spike of the inferior edge was discontinued. Immediately martha non-malodorous purulent drainage was obtained. Inferior edge of wound probed with sterile Q-tip and anaerobic and aerobic cultures were sent. We'll obtain stat CT of the abdomen and pelvis with oral contrast only. Care plan was described to the and nurse which includes imaging study. Plan for wound exploration, drainage of wound and/or intra-abdominal abscess and possible exploratory laparotomy with placement of wound VAC. Additionally, placement of a LITA drain with moderate abdominal washout will be performed. Overall condition is guarded.
[2016-12-31] MEDS: IOHEXOL 350 MG/ML 25 ML BOTTLE (ORAL USE) PO PRN ×2 (22:10→23:02)
[2017-01-01] MEDS: FAMOTIDINE 20 MG TAB PO SCH ×2 (00:03→06:51)
[2017-01-01] MEDS: METOPROLOL TARTRATE 50 MG TAB PO SCH ×3 (00:03→17:41)
[2017-01-01] MEDS: HYDROcodone/APAP 5-325MG 1 EACH TAB PO PRN ×2 (00:04→08:03)
[2017-01-01] MEDS: metroNIDAZOLE 500 MG TAB PO SCH ×2 (00:05→06:51)
[2017-01-01] MEDS: MEROPENEM 1 GM in SODIUM CHLORIDE 0.9% 100 ML IVPB SCH ×3 (00:06→18:32)
--- NOTE | 2017-01-01 00:07 | CT ---
EXAM: CT Abdomen and Pelvis Without Intravenous Contrast CLINICAL HISTORY: Reason: pelvic abscess TECHNIQUE: Axial computed tomography images of the abdomen and pelvis without intravenous contrast. CTDI is 14.60 mGy and DLP is 780.90 mGy-cm This CT exam was performed using one or more of the following dose reduction techniques: automated exposure control, adjustment of the mA and/or kV according to patient size, and/or use of iterative reconstruction technique. COMPARISON: 12/29/16 CT with oral and IV contrast FINDINGS: Lower thorax: There are again small bilateral pleural effusions with underlying atelectasis/infiltrates, and coronary artery calcification. ABDOMEN: Liver: Stable unenhanced liver including small calcification posteriorly within the right lobe. Gallbladder and bile ducts: Stable. No calcified stones. No gross ductal dilation. Pancreas: Stable. No gross ductal dilation. Spleen: Stable. No splenomegaly. Adrenals: Stable. No mass. Kidneys and ureters: Stable unenhanced kidneys including posterior left upper pole renal cyst. No obstructing stones. No hydronephrosis. Stomach and bowel: There are again postsurgical changes in the midline anterior abdominal wall with overlying skin spike, and status post diverting left lower quadrant colostomy. No current evidence of intestinal obstruction. Mild small bowel wall thickening in the mid to lower abdomen and pelvis is unchanged, and may be reactive. Appendix: No findings to suggest acute appendicitis. PELVIS: Bladder: Grossly unremarkable. No stones. Reproductive: Unremarkable as visualized. ABDOMEN and PELVIS: Intraperitoneal space: Interval placement of left pelvic pigtail drainage catheter, with decrease in amount of loculated fluid that was better seen with IV and oral contrast on the prior CT. There is still fluid extending into bilateral inguinal hernias. Bones/joints: There is again artifact with imaging through the pelvis due to bilateral hip replacement hardware. There is again extensive heterotopic ossification about both hips, right more so than left. Advanced multilevel degenerative changes are again seen along with previous lumbar spine surgery, and minor listhesis at L2-3 and L4-5. Vasculature: No abdominal aortic aneurysm. Lymph nodes: No bulky adenopathy. IMPRESSION: 1. Allowing for absence of IV and oral contrast, decreasing amount of loculated fluid within the pelvis following placement of drainage catheter, as above. 2. The balance of the exam is otherwise essentially unchanged.
[2017-01-01] MEDS: POTASSIUM CHLORIDE ER 20 MEQ TAB.ER PO SCH ×3 (06:48→21:58)
[2017-01-01] MEDS: LISINOPRIL 10 MG TAB PO SCH (06:51)
[2017-01-01 07:12] LABS: Basophils % (A) 0 %; CH 31.4; CHCM 33.2; Eosinophils # (A) 0.2 k/uL (0-0.7); Eosinophils % (A) 1 %; HCT 33.1 % (39.0-53.0); HDW 2.84; HGB 10.9 gm/dL (13.0-17.5); Luc # (Auto) 0.41; Luc % (Auto) 3; Lymphocytes # (A) 0.9 k/uL (1.0-4.8); Lymphocytes % (A) 7 %; MCH 31.2 pg (25.0-35.0); MCHC 32.8 g/dL (31.0-37.0); MCV 95.2 fL (80.0-100.0); Mean Platelet Volume 7.1; Monocytes # (A) 0.8 k/uL (0-1.0); Monocytes % (A) 6 %; Neutrophils # (A) 10.7 k/uL (1.3-7.7); Neutrophils % (A) 83 %; RBC 3.48 m/uL (4.30-5.90); RDW 14.8 % (11.5-15.5)
[2017-01-01 07:22] LABS: Anion Gap 6 mmol/L; Blood Urea Nitrogen 23 mg/dL (9-20); Calcium 7.9 mg/dL (8.4-10.2); Carbon Dioxide 23 mmol/L (22-30); Chloride 108 mmol/L (98-107); Glucose 89 mg/dL (74-99); Magnesium 1.9 mg/dL (1.6-2.3); Non-African American GFR(MDRD) >60 (>60 ml/min/1.73 sqM); Phosphorous 3.1 mg/dL (2.5-4.5); Potassium 4.6 mmol/L (3.5-5.1); Sodium 137 mmol/L (137-145)
[2017-01-01] MEDS: 0.9% NACL WITH KCL 40 MEQ/L 1,000 ML IV SCH ×2 (08:02→18:44)
--- NOTE | 2017-01-01 10:28 | P.PN ---
Subjective Principal diagnosis: Perforated viscus The patient is a 66-year-old gentleman status post Schreiber's procedure. He had martha pus emanating from his lower abdominal incision. Wound was probed at bedside with compromise of fascial integrity. Nothing is coming out a CT- guided drain. He has moderate new erythema along the bilateral groin and left flank and thigh. No reports of nausea or vomiting yesterday. Objective - Vital Signs Vital signs: Vital Signs Temp 99.1 F 01/01/17 08:00 Pulse 67 01/01/17 08:00 Resp 16 01/01/17 08:00 BP 107/65 01/01/17 08:00 Pulse Ox 92 L 01/01/17 08:00 Intake & Output 12/31/16 01/01/17 01/01/17 18:59 06:59 18:59 Intake Total 375 240 Output Total 1700 900 550 Balance -1325 -660 -550 Weight 84.4 kg Intake: IV 375 0.9% NaCl with KCl 40 Meq 375 /l 1,000 ml @ 75 mls/hr IV [id number] Rx#: [id number] Oral 240 Output: Drainage 0 0 Left Lower Abdomen 0 0 Urine 1300 900 400 Stool 400 150 Other: Voiding Method Urinal Urinal # Voids 1 - Exam GENERAL: Well developed and in no acute distress. Pleasant. HEENT: No sclera icterus. Extraocular movements grossly intact. Moist buccal mucosa. Head is atraumatic, normocephalic. Hears conversational speech. No nasal drainage. Has hoarse voice. NECK: Supple without lymphadenopathy. No JV distention. CHEST: Non-labored respirations and equal bilateral excursions. CARDIOVASCULAR: Palpable 2+ radial pulses. ABDOMEN: Martha purulence non-malodorous drainage from lower midline incision. Erythema along the bilateral groin and increased erythema along the left thigh and flank. CT-guided drainage with minimal output. Lower abdomen moderately tender. MUSCULOSKELETAL: No clubbing, cyanosis. NEUROLOGIC: No focal or lateralizing signs. Cranial nerves II-12 grossly intact. PSYCH: Alert and oriented to person. - Labs CBC & Chem 7: 01/01/17 06:41 01/01/17 06:41 Labs: Abnormal Lab Results - Last 24 Hours (Table) 12/31/16 12/31/16 01/01/17 Range/Units 11:38 21:30 06:41 WBC (3.8-10.6) k/uL RBC (4.30-5.90) m/uL Hgb (13.0-17.5) gm/dL Hct (39.0-53.0) % Neutrophils # (1.3-7.7) k/uL Lymphocytes # (1.0-4.8) k/uL Chloride 108 H (98-107) mmol/L BUN 23 H (9-20) mg/dL POC Glucose (mg/dL) 100 H 116 H (75-99) mg/dL Calcium 7.9 L (8.4-10.2) mg/dL 01/01/17 Range/Units 06:41 WBC 13.0 H (3.8-10.6) k/uL RBC 3.48 L (4.30-5.90) m/uL Hgb 10.9 L (13.0-17.5) gm/dL Hct 33.1 L (39.0-53.0) % Neutrophils # 10.7 H (1.3-7.7) k/uL Lymphocytes # 0.9 L (1.0-4.8) k/uL Chloride (98-107) mmol/L BUN (9-20) mg/dL POC Glucose (mg/dL) (75-99) mg/dL Calcium (8.4-10.2) mg/dL Microbiology - Last 24 Hours (Table) 12/29/16 14:01 Blood Culture - Preliminary Blood No Growth after 48 hours 12/29/16 13:53 Blood Culture - Preliminary Blood No Growth after 48 hours 12/30/16 13:30 Gram Stain - Preliminary Aspirate Body Fluid Culture - Preliminary - Imaging and Cardiology CT scan - abdomen: report reviewed, image reviewed CT scan - pelvis: report reviewed, image reviewed (Moderate artifact from bilateral hip replacement otherwise fluid collection identified of the left flank and tracking into the bilateral inguinal area consistent with abscess) Assessment and Plan (1) Intra-abdominal collection Status: Acute (2) Leukocytosis Status: Acute (3) Perforated viscus Status: Acute (4) Peritonitis (acute) generalized Status: Acute (5) Intra-abdominal abscess Status: Acute Plan: 1. His is at bedside. He has moderate purulent drainage along the lower midline. CT of the abdomen pelvis consistent with a persistent fluid collection. Fluid collection was tracking and emanating to his lower midline incision and bilateral groin. 2. Surgical intervention with wound exploration with abdominal washout and placement of wound VAC was also described in detail. Possibility of being in the intensive care unit and being on the ventilator was also described. Placement of drains were also reviewed. The had demonstrated understanding of the care plan as well as the patient. 3. Continue with broad-spectrum antibiotics per infectious disease. I'm rounding on behalf of Dr. Irwin.
[2017-01-01] MEDS ORDERED: PROPOFOL 10 MG/ML 20 ML VIAL IV ONE (11:04)
[2017-01-01] MEDS ORDERED: fentaNYL (PF) 50 MCG/ML 2 ML AMP ONE (11:04)
[2017-01-01] MEDS ORDERED: MIDAZOLAM 2 MG/2 ML VIAL ONE (11:04)
[2017-01-01] MEDS ORDERED: NEOSTIGMINE 1 MG/ML 10 ML VIAL ONE (11:04)
[2017-01-01] MEDS ORDERED: ePHEDrine 50 MG/ML 1 ML AMP ONE (11:04)
[2017-01-01] MEDS ORDERED: SUCCINYLCHOLINE CHLORIDE 100 MG/5 ML SYR IV ONE (11:04)
[2017-01-01] MEDS ORDERED: GLYCOPYRROLATE 0.2 MG/ML 2 ML VIAL ONE (11:04)
[2017-01-01] MEDS ORDERED: ROCURONIUM BROMIDE 10 MG/ML 10 ML VIAL IV ONE (11:04)
[2017-01-01] MEDS ORDERED: PHENYLEPHRINE-0.9% NACL SYG 1 MG/10 ML SYRINGE ONE (11:04)
[2017-01-01] MEDS ORDERED: IV FLUID CONTINUATION 1,000 ML IV ONE (11:06)
[2017-01-01] MEDS ORDERED: LACTATED RINGERS 1,000 ML IV ONE ×3 (12:05→14:25)
[2017-01-01 14:13] LABS: ABG Base Excess -3.4 mmol/L; ABG HCO3 21 mmol/L (21-25); ABG Oxygen Saturation 97.2 % (94-97); ABG PCO2 37 mmHg (35-45); ABG PH 7.37 (7.35-7.45); ABG PO2 87 mmHg (83-108)
[2017-01-01] MEDS: HYDROmorphone 1 MG/ML 1 ML SYRINGE IVP ONE ×4 (14:58→15:36)
[2017-01-01] MEDS: FUROSEMIDE 40 MG TAB PO SCH (15:06)
[2017-01-01] MEDS: APIXABAN 5 MG TAB PO SCH (15:06)
--- NOTE | 2017-01-01 15:06 | P.PCN ---
Date of Procedure: 01/01/17 Preoperative Diagnosis: History of sepsis, intra-abdominal abscess, wound dehiscence, history of perforated diverticulitis, history of descending colostomy status Postoperative Diagnosis: Same, multiple intra-abdominal abscesses Procedure(s) Performed: Exploratory laparotomy with lysis of adhesions, drainage of multiple intra- abdominal and interloop abscesses, placement of Luisito-Schroeder drain, placement of PREVENA wound VAC system Anesthesia: MAGDALENA Surgeon: Sara Ayoub Estimated Blood Loss (ml): 200 Pathology: other (Aerobic and anaerobic culture) Condition: critical Disposition: ICU Operative Findings: Immediate purulent drainage along the inferior aspect of the incision. Fascial separation would martha purulence emanating from multiple intra-abdominal abscesses. Multiple areas of adhesion with high risk of small bowel obstruction all lysed. No evidence of small bowel or large bowel leak identified or new perforation.
--- NOTE | 2017-01-01 16:07 | OP ---
DATE OF SERVICE: 01/01/2017 SURGEON: RADHA GONZALEZ MD PREOPERATIVE DIAGNOSES: 1. Personal history of sepsis secondary to perforated viscus. 2. History of intra-abdominal abscess failed CT-guided drainage. 3. History of perforated sigmoid diverticulitis with intra-abdominal abscess. 4. History of descending colostomy status. 5. Hypertension. 6. Osteoarthritis. POSTOPERATIVE DIAGNOSES: 7. Personal history of sepsis secondary to perforated viscus. 8. History of intra-abdominal abscess failed CT-guided drainage. 9. History of perforated sigmoid diverticulitis with intra-abdominal abscess. 10. History of descending colostomy status. 11. Hypertension. 12. Osteoarthritis. 13. Multiple intra-abdominal abscesses along the left lower quadrant and right lower quadrant and lower abdomen. 14. Multiple intra-abdominal peritoneal adhesions. OPERATION: 1. Exploratory laparotomy with extensive lysis of adhesions, over 2.5 hrs 2. Drainage of multiple intra-abdominal and intraloop abscess along the right lower quadrant, left lower quadrant and lower midline. 3. Placement of #19 Luisito-Schroeder drain along the pelvis. 4. Placement of Prevena wound VAC incisional system. ANESTHESIA: General. ESTIMATED BLOOD LOSS: 20 mL. SPECIMENS REMOVED: Aerobic, anaerobic culture intra-abdominal abscesses. CONDITION: Critical. DISPOSITION: To the ICU. FINDINGS: 1. Immediate purulent drainage along the inferior aspect of the incision. 2. Fascial separation with martha purulence emanating from the intra-abdominal cavity. 3. Multiple areas of peritoneal adhesions, with high risk of small bowel obstruction which were all lysed. 4. No evidence of small bowel or large bowel leak identified or new perforation. INDICATIONS: Mairo Ren is a 66-year-old gentleman who presented emergently to the hospital approximately 10 days ago with perforated diverticulitis. He had underwent a Armani's procedure. In fact, he had developed abscess including sepsis. White count was well over 20+ thousand. CT-guided drain was performed approximately 2 days ago, however, within 24 hours, he started to develop new onset purulent drain of the lower midline also consistent with food-like particle highly suspicious for intra-abdominal leak or perforation. Given his imaging studies which was also performed, surgical intervention was described as he had failed CT-guided drainage. Risks of bleeding, infection, need for small bowel resection, placement in the intensive care unit as well as wound VAC system was also described at length to the family. Informed consent was obtained. DESCRIPTION: Patient was brought to the operating room, laid in supine position. After general induction, the abdomen had been prepped and draped in standard sterile fashion. To address his colostomy site, Coloplast was removed and covered with sterile 4 x 4 gauze and then covered with Tegaderm. The rest of the abdomen was also covered with Ioban. A Chavez catheter including nasogastric tube was placed. The patient was on scheduled IV antibiotics as well. Initial attention was brought to the midline whereby the spike were discontinued. The inferior portion of the wound had already been previously discontinued of the first series of 6 spike whereby moderate pus and non-malodorous drainage was identified. The wound was opened using blunt dissection. The fascia of the midline wound was explored, however, along the inferior aspect, martha purulent drainage was identified emanating deep from the abdominal space. At that point the sutures of his midline incision were cut and released. Dense phlegmon reaction of the omentum to the anterior abdominal wall was identified. Carefully the abdomen was entered such that the dense loculations as well as adhesions of the small bowel to the abdominal wall were taken down. Immediately along the right lower quadrant lateral aspect a martha purulent pocket was identified. The space of the cecum was found and the terminal ileum was identified and explored. In a retrograde fashion, the small bowel was mobilized using a combination of blunt including minimal sharp dissection using electro- Bovie cautery energy source. No enterotomies had occurred during this process. Along the lower midline of the incision and pelvis, a dense phlegmonous reaction was found whereby the small bowel was adherent to the defunctionalized rectum at the staple line. A separate interloop abscess of the small bowel was found along the mesentery which was also lysed and freed. Along the right lower quadrant, dense phlegmonous reaction consistent with his extremely large abscess was found. The pigtail catheter was also found; however, not within the space or cavity. The pigtail catheter suture was cut and was discontinued. Next, the rest of the small bowel was carefully evaluated in an antegrade fashion whereby the ligament of Treitz was palpated. Again, dense adhesions were found, especially of the left upper quadrant and left lower quadrant. Carefully the small bowel was bluntly dissected free from its interloop adhesions. At the descending colostomy site, no evidence of leak was found at that portion. The rest of the small bowel serosa again was carefully visualized for any full-thickness enterotomy for which none were found. All abscess pockets were completely decompressed. The abdominal cavity was then copiously irrigated with 6 liters of warm normal saline solution. Of the abscess pocket, a pulse lavage was placed along the abdominal wall to clear the fibrinous exudate. Next, a round #19 drain was entered along the right lower quadrant and placed within the deep pelvis. The previous bilateral inguinal hernias were found to be completely reduced. After the abdominal cavity was completely irrigated, the patient was under complete neuromuscular blockade and relaxed to allow for abdominal closure. His initial peak area pressure was at least 19. Upon closure his peak air abdominal pressures went up to 24. Careful communication with anesthesia providers was performed to minimize risk for abdominal compartment syndrome. The abdomen was closed using double-stranded 0-PDS. The thickness of the subcutaneous tissue was copiously irrigated with at least another 2 liters of normal saline using pulse lavage. 50 mL of hydrogen peroxide was also used. The wound was once again pulse lavaged. As the spike have been discontinued, interrupted 2-0 Vicryl and 2-0 Monocryl was placed along the umbilicus and as to gently reapproximate the wound. A Prevena wound VAC system was secured and placed over the length of the incision. Along the LITA drain site, 2-0 nylon was placed to tack the skin and LITA tubing. Please note that the nasogastric tube had been palpated within the stomach prior to closure of the abdomen as well. At the end of this procedure, needle, sponge, and instrument counts had been verified correct by the surgical orderly. The patient had tolerated the procedure well and was taken to the postanesthesia care unit in stable condition. Aerobic, anaerobic cultures were also sent. Intraoperative findings including multiple abscesses of the abdomen were described to the patient's family. Given the patient's emergent surgery from his index operation he was at risk for re-exploration which they had understood and had been communicated. Separately, I have recommended the patient to be transferred to the intensive care unit as to minimize risk for abdominal compartment syndrome. Should he do well then he will be transferred to a surgical floor. AYO
[2017-01-01] MEDS: MORPHINE SULFATE 4 MG/ML SYRINGE IVP ONE ×2 (16:10→16:17)
[2017-01-01 17:16] LABS: Glucose,Whole Blood 116 mg/dL (75-99)
[2017-01-01] MEDS ORDERED: SODIUM CHLORIDE 0.9% 2,000 ML IV ONE (17:46)
[2017-01-01] MEDS: HYDROmorphone 1 MG/ML 1 ML SYRINGE IVP PRN ×2 (17:53→21:55)
[2017-01-01] MEDS: DAPTOmycin 500 MG in SODIUM CHLORIDE 0.9% 50 ML IV SCH (18:32)
[2017-01-01] MEDS: SODIUM CHLORIDE 0.9% 1,000 ML IV SCH (18:33)
[2017-01-01] MEDS ORDERED: SODIUM CHLORIDE 0.9% 1,000 ML IV ONE (21:37)
[2017-01-01] MEDS ORDERED: NOREPINEPHRIN 16 MG-0.9%NS PMX 16 MG/250 ML ML IV SCH (21:45)
[2017-01-01] MEDS ORDERED: Magnesium Replacement Protocol 1 EACH MISC MISCELLANE PRN (21:53)
[2017-01-01] MEDS ORDERED: Phosphorus Replacement Protoco 1 EACH MISC MISCELLANE PRN (21:53)
[2017-01-02] MEDS: HYDROmorphone 1 MG/ML 1 ML SYRINGE IVP PRN ×9 (00:16→22:58)
[2017-01-02 00:20] LABS: Glucose,Whole Blood 95 mg/dL (75-99)
[2017-01-02] MEDS: MEROPENEM 1 GM in SODIUM CHLORIDE 0.9% 100 ML IVPB SCH ×4 (00:21→23:25)
[2017-01-02] MEDS: HEPARIN SODIUM,PORCINE 5,000 UNIT/ML 1 ML VIAL SQ SCH ×3 (00:21→15:10)
[2017-01-02] MEDS: METOPROLOL TARTRATE 50 MG TAB PO SCH ×3 (00:22→15:10)
[2017-01-02] MEDS: INSULIN LISPRO (humaLOG) 300 UNIT/3 ML VIAL SQ SCH ×4 (00:22→18:32)
[2017-01-02] MEDS: SODIUM CHLORIDE 0.9% 1,000 ML IV SCH ×3 (01:00→21:01)
[2017-01-02] MEDS: metroNIDAZOLE-NS PMX 500 MG in SALINE 1 100ML.BAG IVPB SCH ×3 (01:06→15:10)
[2017-01-02 01:09] LABS: Appearance,Urine Clear (Clear); Bilirubin,Urine Negative (Negative); Glucose,Urine (UA) Negative (Negative); Ketones,Urine Negative (Negative); Leukocyte Esterase,Urine Trace (Negative); Mucus,Urine Rare /hpf; Nitrite,Urine Negative (Negative); PH, Urine 5.5 (5.0-8.0); Particle Count 1686; Protein,Urine Trace (Negative); RBC,Urine 1 /hpf (0-5); Specific Gravity,Urine 1.013 (1.001-1.035); UA Billing (MACRO vs. MICRO) MICRO; Urobilinogen,Urine <2.0 mg/dL (<2.0)
[2017-01-02 05:02] LABS: Basophils # (A) 0.1 k/uL (0-0.2); Basophils % (A) 0 %; CH 31.6; CHCM 33.1; Eosinophils % (A) 0 %; HCT 41.8 % (39.0-53.0); HDW 2.93; HGB 13.6 gm/dL (13.0-17.5); Luc # (Auto) 0.49; Luc % (Auto) 2; Lymphocytes # (A) 0.8 k/uL (1.0-4.8); Lymphocytes % (A) 3 %; MCH 31.3 pg (25.0-35.0); MCHC 32.6 g/dL (31.0-37.0); Monocytes # (A) 1.7 k/uL (0-1.0); Monocytes % (A) 6 %; Neutrophils # (A) 27.8 k/uL (1.3-7.7); Neutrophils % (A) 90 %; RBC 4.35 m/uL (4.30-5.90); RDW 14.7 % (11.5-15.5); WBC (Perox) 30.79
[2017-01-02 05:24] LABS: Anion Gap 9 mmol/L; Blood Urea Nitrogen 25 mg/dL (9-20); Calcium 7.1 mg/dL (8.4-10.2); Carbon Dioxide 16 mmol/L (22-30); Chloride 113 mmol/L (98-107); Glucose 114 mg/dL (74-99); Magnesium 1.6 mg/dL (1.6-2.3); Non-African American GFR(MDRD) 55 (>60 ml/min/1.73 sqM); Phosphorous 4.6 mg/dL (2.5-4.5); Potassium 5.7 mmol/L (3.5-5.1); Sodium 138 mmol/L (137-145)
[2017-01-02] MEDS ORDERED: SODIUM CHLORIDE 0.9% 1,000 ML IV ONE ×4 (06:00→15:54)
[2017-01-02 06:03] LABS: Glucose,Whole Blood 101 mg/dL (75-99)
[2017-01-02] MEDS: MAGNESIUM SULFATE-D5W PMX 1 GM in DEXTROSE/WATER 1 100ML.BAG IVPB SCH ×2 (07:16→09:23)
--- NOTE | 2017-01-02 08:45 | XR ---
EXAMINATION TYPE: XR chest 1V DATE OF EXAM: 01/02/2017 6:43 AM HISTORY: surgery. REFERENCE: Previous study dated 12/29/2016. FINDINGS: An NG tube is been passed. Its tip is within the stomach. The patient has taken a poor inspiration. The heart is upper limits of normal in size. There are smal l bilateral effusions. There is atelectatic change at both lung bases. IMPRESSION: 1. POOR INSPIRATION. 2. BORDERLINE CARDIOMEGALY. 3. SMALL, BILATERAL EFFUSIONS. 4. BIBASILAR ATELECTASIS.
[2017-01-02] MEDS: POTASSIUM CHLORIDE ER 20 MEQ TAB.ER PO SCH (09:24)
[2017-01-02] MEDS: PANTOPRAZOLE 40 MG/10 ML VIAL IVP SCH (09:39)
[2017-01-02 12:48] LABS: Glucose,Whole Blood 110 mg/dL (75-99)
[2017-01-02 13:58] LABS: Hemoglobin A1C 5.4 % (4.2-6.1)
--- NOTE | 2017-01-02 14:59 | P.PN ---
Subjective Principal diagnosis: Abdominal sepsis This is a 66-year-old white male who is status post exploratory laparotomy for perforated viscus back on the of this month. Patient was seen by Dr. Juarez on consultation, and he eventually signed off the patient. Patient has been on antibiotics all along, and apparently , on 01/01/2017, patient developed intra-abdominal abscess and he required exploratory laparotomy again, lysis of adhesions, drainage of multiple intra-abdominal and interloop abscesses, placement of the Luisito-Schroeder drain, placement of wound VAC system. Postoperatively, patient was transferred back to the intensive care unit, and I was asked to see him on consultation. Patient is presently on levo fed at 15 g , and he is receiving fluids at 100 mL per hour. He is also on antibiotics, he seems to be stable from the pulmonary perspective, no cough no wheezing no shortness of breath, hence I recommended more fluid boluses, hoping I could cut down the levo fed to a lower dose. Urine output seems to be also marginal. Antibiotics seem to be appropriate. Labs were all reviewed, his lactic acid was 2.7, CBC showed leukocytosis with WBC count of 31.0. Patient is not in any form of respiratory distress at present. Renal profile was also noted to be slightly abnormal with BUN of 25 creatinine of 1.30. Objective - Vital Signs Vital signs: Vital Signs Temp 98.1 F 01/02/17 12:00 Pulse 86 01/02/17 14:00 Resp 20 01/02/17 14:00 BP 101/53 01/02/17 14:00 Pulse Ox 92 L 01/02/17 14:00 Intake & Output 01/01/17 01/02/17 01/02/17 18:59 06:59 18:59 Intake Total 4450 4376.235 3140.507 Output Total 2085 491 513 Balance 2365 3885.235 2627.507 Weight 93.3 kg 93.3 kg Intake: IV 3450 3275 925 DAPTOmycin 500 mg In 50 Sodium Chloride 0.9% 50 ml @ 100 mls/hr IV Q24H [facility] Rx#:[id number] Meropenem 1 gm In Sodium 100 10 100 Chloride 0.9% 100 ml @ 200 mls/hr IVPB Q8HR [facility] Rx#:[id number] NS @ 20 65 25 Sodium Chloride 0.9% 1, 100 3200 800 000 ml @ 100 mls/hr IV . Q10H [facility] Rx#:[id number] Intake, IV Titration 1000 1341.974 5383.507 Amount Norepinephrin 16 mg-0.9% 1.235 115.507 Ns Pmx 16 mg In 250 ml @ Titrate IV .Q0M [facility] Rx#: [id number] Sodium Chloride 0.9% 1, 1000 000 ml @ 999 mls/hr IV . Q1H1M [facility] Rx#:[id number] Sodium Chloride 0.9% 1, 1000 000 ml @ 999 mls/hr IV . Q1H1M [facility] Rx#:[id number] Sodium Chloride 0.9% 2, 1000 1000 000 ml @ 999 mls/hr IV . Q2H1M [facility] Rx#:[id number] metroNIDAZOLE-NS PMX 500 100 100 mg In Saline 1 100ml.bag @ 100 mls/hr IVPB Q8HR [facility] Rx#:[id number] Output: Drainage 0 50 20 Left Lower Abdomen 0 Right Lower Abdomen 50 20 Urine 1700 401 453 Stool 185 40 40 Estimated Blood Loss 200 Other: Voiding Method Indwelling Catheter Indwelling Catheter Indwelling Catheter ABP, PAP, CO, CI - Last Documented Arterial Blood Pressure 101/56 - Exam Physical Exam: Revealed a 66-year-old in no distress. HEENT:[Neck is supple.] [No neck masses.] [No thyromegaly.] [No JVD.] Chest: [Clear throughout, no crackles, no rhonchi, no wheezes.] Cardiac Exam: [Normal S1 and S2, no S3 gallop, no murmur.] Abdomen: Postsurgical, slightly tender, wound VAC is noted in place, colostomy is also noted to be intact, and LITA drain also noted. Extremities: [No clubbing, no edema, no cyanosis.] Neurological Exam: [No focal neurologic deficit.] - Labs CBC & Chem 7: 01/02/17 04:45 01/02/17 04:45 Labs: Abnormal Lab Results - Last 24 Hours (Table) 01/01/17 01/01/17 01/02/17 Range/Units 17:13 21:45 04:45 WBC (3.8-10.6) k/uL Plt Count (150-450) k/uL Neutrophils # (1.3-7.7) k/uL Lymphocytes # (1.0-4.8) k/uL Monocytes # (0-1.0) k/uL ABG Lactic Acid (0.5-1.6) mmol/L Potassium 5.7 H (3.5-5.1) mmol/L Chloride 113 H (98-107) mmol/L Carbon Dioxide 16 L (22-30) mmol/L BUN 25 H (9-20) mg/dL Creatinine 1.30 H (0.66-1.25) mg/dL Glucose 114 H (74-99) mg/dL POC Glucose (mg/dL) 116 H (75-99) mg/dL Calcium 7.1 L (8.4-10.2) mg/dL Phosphorus 4.6 H (2.5-4.5) mg/dL Urine Protein Trace H (Negative) Ur Leukocyte Esterase Trace H (Negative) Urine Mucus Rare H (None) /hpf 01/02/17 01/02/17 01/02/17 Range/Units 04:45 04:45 06:01 WBC 31.0 H* (3.8-10.6) k/uL Plt Count 497 H (150-450) k/uL Neutrophils # 27.8 H (1.3-7.7) k/uL Lymphocytes # 0.8 L (1.0-4.8) k/uL Monocytes # 1.7 H (0-1.0) k/uL ABG Lactic Acid 2.1 H (0.5-1.6) mmol/L Potassium (3.5-5.1) mmol/L Chloride (98-107) mmol/L Carbon Dioxide (22-30) mmol/L BUN (9-20) mg/dL Creatinine (0.66-1.25) mg/dL Glucose (74-99) mg/dL POC Glucose (mg/dL) 101 H (75-99) mg/dL Calcium (8.4-10.2) mg/dL Phosphorus (2.5-4.5) mg/dL Urine Protein (Negative) Ur Leukocyte Esterase (Negative) Urine Mucus (None) /hpf 01/02/17 01/02/17 Range/Units 11:30 12:47 WBC (3.8-10.6) k/uL Plt Count (150-450) k/uL Neutrophils # (1.3-7.7) k/uL Lymphocytes # (1.0-4.8) k/uL Monocytes # (0-1.0) k/uL ABG Lactic Acid 2.7 H* (0.5-1.6) mmol/L Potassium (3.5-5.1) mmol/L Chloride (98-107) mmol/L Carbon Dioxide (22-30) mmol/L BUN (9-20) mg/dL Creatinine (0.66-1.25) mg/dL Glucose (74-99) mg/dL POC Glucose (mg/dL) 110 H (75-99) mg/dL Calcium (8.4-10.2) mg/dL Phosphorus (2.5-4.5) mg/dL Urine Protein (Negative) Ur Leukocyte Esterase (Negative) Urine Mucus (None) /hpf Microbiology - Last 24 Hours (Table) 01/01/17 21:45 Urine Culture - Preliminary Urine,Catheterized 12/30/16 13:30 Gram Stain - Preliminary Aspirate Body Fluid Culture - Preliminary Gram Positive Bacilli Isolated 12/30/16 13:30 Anaerobic Culture - Preliminary Abdominal Fluid Clostridium species 12/31/16 21:00 Gram Stain - Preliminary Incision Wound Culture - Preliminary 01/01/17 14:00 Gram Stain - Preliminary Peritoneal Fluid Body Fluid Culture - Preliminary 01/01/17 14:00 Anaerobic Culture - Preliminary Peritoneal Fluid 12/29/16 14:01 Blood Culture - Preliminary Blood No Growth after 72 hours 12/29/16 13:53 Blood Culture - Preliminary Blood No Growth after 72 hours Assessment and Plan Plan: Impression: 1 acute abdominal sepsis and septic shock requiring Levophed and abdominal abscess requiring exploratory laparotomy, lysis of adhesions, drainage oh multiple intra-abdominal and interloop abscesses, placement of LITA drain, placement of wound VAC system. Postoperative day #1. 2 status post exploratory laparotomy, Armani's procedure sigmoid colectomy and end ostomy, for perforated hollow viscus on 12/22/2016. 3 postoperative atrial fibrillation 4 history of diastolic congestive heart failure Recommendation: Continue present supportive care measures, fluid boluses will be given hopefully will help discontinue norepinephrine today, continue antibiotics patient is presently on daptomycin and Merrem is also on Flagyl. Continue GI and DVT prophylaxis. Incentive spirometry, and we'll continue to follow. Critical care time is 34 minutes. Time with Patient: Greater than 30
[2017-01-02] MEDS: DAPTOmycin 500 MG in SODIUM CHLORIDE 0.9% 50 ML IV SCH (15:25)
[2017-01-02 15:37] LABS: ALT 35 U/L (21-72); AST 34 U/L (17-59); Alkaline Phosphatase 65 U/L (38-126); Anion Gap 8 mmol/L; Blood Urea Nitrogen 27 mg/dL (9-20); Calcium 7.1 mg/dL (8.4-10.2); Carbon Dioxide 19 mmol/L (22-30); Chloride 115 mmol/L (98-107); Glucose 111 mg/dL (74-99); Magnesium 2.3 mg/dL (1.6-2.3); Non-African American GFR(MDRD) 53 (>60 ml/min/1.73 sqM); Potassium 5.3 mmol/L (3.5-5.1); Sodium 142 mmol/L (137-145); Total Bilirubin 0.9 mg/dL (0.2-1.3); Total Protein 4.3 g/dL (6.3-8.2)
--- NOTE | 2017-01-02 17:14 | P.PN ---
Subjective Principal diagnosis: Perforated viscus The patient is a 66-year-old gentleman status post Schreiber's procedure. He was taken back to the operating room yesterday for multiple intra-abdominal abscesses including wound dehiscence with martha purulence. He is now postop day 1. Intraoperative findings included marked intestinal adhesions with early features of small bowel obstruction. Multiple intra-abdominal adhesions were drain and the abdomen was copiously irrigated. Within 24 hours he received over 9 L of fluid. He is in the intensive care unit with pressors. Additionally, he's being monitored in intensive candidate for abdominal compartment syndrome as he is high risk. His is at bedside. He reports his abdominal pain is well-controlled. Urine output is over 40-50 mL an hour with moderate fluid boluses. Objective - Vital Signs Vital signs: Vital Signs Temp 98.1 F 01/02/17 12:00 Pulse 88 01/02/17 17:00 Resp 28 H 01/02/17 17:00 BP 96/61 01/02/17 17:00 Pulse Ox 92 L 01/02/17 17:00 Intake & Output 01/01/17 01/02/17 01/02/17 18:59 06:59 18:59 Intake Total 4450 4376.235 5811.304 Output Total 2085 491 993 Balance 2365 3885.235 4818.304 Weight 93.3 kg 93.3 kg Intake: IV 3450 3275 1375 DAPTOmycin 500 mg In 50 50 Sodium Chloride 0.9% 50 ml @ 100 mls/hr IV Q24H [facility] Rx#:[id number] Meropenem 1 gm In Sodium 100 10 200 Chloride 0.9% 100 ml @ 200 mls/hr IVPB Q8HR [facility] Rx#:[id number] NS @ 20 65 25 Sodium Chloride 0.9% 1, 100 3200 1100 000 ml @ 100 mls/hr IV . Q10H [facility] Rx#:[id number] Intake, IV Titration 1000 9230.689 7976.304 Amount Norepinephrin 16 mg-0.9% 1.235 118.304 Ns Pmx 16 mg In 250 ml @ Titrate IV .Q0M [facility] Rx#: [id number] Sodium Chloride 0.9% 1, 1000 000 ml @ 999 mls/hr IV . Q1H1M [facility] Rx#:[id number] Sodium Chloride 0.9% 1, 1000 000 ml @ 999 mls/hr IV . Q1H1M [facility] Rx#:[id number] Sodium Chloride 0.9% 1, 1997 000 ml @ 999 mls/hr IV . Q1H1M [facility] Rx#:[id number] Sodium Chloride 0.9% 2, 1000 1000 000 ml @ 999 mls/hr IV . Q2H1M [facility] Rx#:[id number] metroNIDAZOLE-NS PMX 500 100 200 mg In Saline 1 100ml.bag @ 100 mls/hr IVPB Q8HR [facility] Rx#:[id number] Oral 120 Output: Gastric Drainage 200 Drainage 0 50 30 Left Lower Abdomen 0 Right Lower Abdomen 50 30 Urine 1700 401 683 Stool 185 40 80 Estimated Blood Loss 200 Other: Voiding Method Indwelling Catheter Indwelling Catheter Indwelling Catheter ABP, PAP, CO, CI - Last Documented Arterial Blood Pressure 79/58 - Exam GENERAL: Well developed and in no acute distress. Pleasant. HEENT: No sclera icterus. Extraocular movements grossly intact. Moist buccal mucosa. Head is atraumatic, normocephalic. Hears conversational speech. No nasal drainage. Has hoarse voice. NECK: Supple without lymphadenopathy. No JV distention. CHEST: Non-labored respirations and equal bilateral excursions. CARDIOVASCULAR: Palpable 2+ radial pulses. ABDOMEN: Decreased redness along the left flank and upper thigh. LITA serosanguineous. Ostomy pink patent and functioning with fluid. Minimal flatus. Midline incision intact with Prevena wound VAC with minimal serosanguineous draining. No cellulitis or increased tenderness along the midline incision. MUSCULOSKELETAL: No clubbing, cyanosis. Moderate edema of the proximal hands 2 + for moderate fluid boluses. NEUROLOGIC: No focal or lateralizing signs. Cranial nerves II-12 grossly intact. PSYCH: Alert and oriented to person. - Labs CBC & Chem 7: 01/02/17 04:45 01/02/17 15:14 Labs: Abnormal Lab Results - Last 24 Hours (Table) 01/01/17 01/01/17 01/02/17 Range/Units 17:13 21:45 04:45 WBC (3.8-10.6) k/uL Plt Count (150-450) k/uL Neutrophils # (1.3-7.7) k/uL Lymphocytes # (1.0-4.8) k/uL Monocytes # (0-1.0) k/uL ABG Lactic Acid (0.5-1.6) mmol/L Potassium 5.7 H (3.5-5.1) mmol/L Chloride 113 H (98-107) mmol/L Carbon Dioxide 16 L (22-30) mmol/L BUN 25 H (9-20) mg/dL Creatinine 1.30 H (0.66-1.25) mg/dL Glucose 114 H (74-99) mg/dL POC Glucose (mg/dL) 116 H (75-99) mg/dL Plasma Lactic Acid Yonny (0.7-2.0) mmol/L Calcium 7.1 L (8.4-10.2) mg/dL Phosphorus 4.6 H (2.5-4.5) mg/dL Total Protein (6.3-8.2) g/dL Albumin (3.5-5.0) g/dL Urine Protein Trace H (Negative) Ur Leukocyte Esterase Trace H (Negative) Urine Mucus Rare H (None) /hpf 01/02/17 01/02/17 01/02/17 Range/Units 04:45 04:45 06:01 WBC 31.0 H* (3.8-10.6) k/uL Plt Count 497 H (150-450) k/uL Neutrophils # 27.8 H (1.3-7.7) k/uL Lymphocytes # 0.8 L (1.0-4.8) k/uL Monocytes # 1.7 H (0-1.0) k/uL ABG Lactic Acid 2.1 H (0.5-1.6) mmol/L Potassium (3.5-5.1) mmol/L Chloride (98-107) mmol/L Carbon Dioxide (22-30) mmol/L BUN (9-20) mg/dL Creatinine (0.66-1.25) mg/dL Glucose (74-99) mg/dL POC Glucose (mg/dL) 101 H (75-99) mg/dL Plasma Lactic Acid Yonny (0.7-2.0) mmol/L Calcium (8.4-10.2) mg/dL Phosphorus (2.5-4.5) mg/dL Total Protein (6.3-8.2) g/dL Albumin (3.5-5.0) g/dL Urine Protein (Negative) Ur Leukocyte Esterase (Negative) Urine Mucus (None) /hpf 01/02/17 01/02/17 01/02/17 Range/Units 11:30 12:47 15:14 WBC (3.8-10.6) k/uL Plt Count (150-450) k/uL Neutrophils # (1.3-7.7) k/uL Lymphocytes # (1.0-4.8) k/uL Monocytes # (0-1.0) k/uL ABG Lactic Acid 2.7 H* (0.5-1.6) mmol/L Potassium 5.3 H (3.5-5.1) mmol/L Chloride 115 H (98-107) mmol/L Carbon Dioxide 19 L (22-30) mmol/L BUN 27 H (9-20) mg/dL Creatinine 1.34 H (0.66-1.25) mg/dL Glucose 111 H (74-99) mg/dL POC Glucose (mg/dL) 110 H (75-99) mg/dL Plasma Lactic Acid Yonny (0.7-2.0) mmol/L Calcium 7.1 L (8.4-10.2) mg/dL Phosphorus (2.5-4.5) mg/dL Total Protein 4.3 L (6.3-8.2) g/dL Albumin 1.8 L (3.5-5.0) g/dL Urine Protein (Negative) Ur Leukocyte Esterase (Negative) Urine Mucus (None) /hpf 01/02/17 Range/Units 15:14 WBC (3.8-10.6) k/uL Plt Count (150-450) k/uL Neutrophils # (1.3-7.7) k/uL Lymphocytes # (1.0-4.8) k/uL Monocytes # (0-1.0) k/uL ABG Lactic Acid (0.5-1.6) mmol/L Potassium (3.5-5.1) mmol/L Chloride (98-107) mmol/L Carbon Dioxide (22-30) mmol/L BUN (9-20) mg/dL Creatinine (0.66-1.25) mg/dL Glucose (74-99) mg/dL POC Glucose (mg/dL) (75-99) mg/dL Plasma Lactic Acid Yonny 2.2 H* (0.7-2.0) mmol/L Calcium (8.4-10.2) mg/dL Phosphorus (2.5-4.5) mg/dL Total Protein (6.3-8.2) g/dL Albumin (3.5-5.0) g/dL Urine Protein (Negative) Ur Leukocyte Esterase (Negative) Urine Mucus (None) /hpf Microbiology - Last 24 Hours (Table) 12/29/16 14:01 Blood Culture - Preliminary Blood No Growth after 96 hours 12/29/16 13:53 Blood Culture - Preliminary Blood No Growth after 96 hours 01/01/17 21:45 Urine Culture - Preliminary Urine,Catheterized 12/30/16 13:30 Gram Stain - Preliminary Aspirate Body Fluid Culture - Preliminary Gram Positive Bacilli Isolated 12/30/16 13:30 Anaerobic Culture - Preliminary Abdominal Fluid Clostridium species 12/31/16 21:00 Gram Stain - Preliminary Incision Wound Culture - Preliminary 01/01/17 14:00 Gram Stain - Preliminary Peritoneal Fluid Body Fluid Culture - Preliminary 01/01/17 14:00 Anaerobic Culture - Preliminary Peritoneal Fluid Assessment and Plan (1) Intra-abdominal collection Status: Acute (2) Leukocytosis Status: Acute (3) Perforated viscus Status: Acute (4) Peritonitis (acute) generalized Status: Acute (5) Intra-abdominal abscess Status: Acute Plan: 1. His white blood cell count was over 30,000 consistent with reactive leukocytosis. Clinically has not had any recent fevers. 2. He is on pressors which is slowly being weaned as he is now volume repleted. 3. May have ice chips and popsicles. However continue nasogastric tube decompression. 4. He is at high risk for abdominal compartment syndrome however urine output has been moderate of over 40-50 mL without Lasix. 5. Please continue with intensive care unit assessment as his condition and prognosis is guarded. Care plan has been thoroughly discussed with the patient and his at bedside. All questions and concerns were addressed. I'm rounding on behalf of Dr. Irwin.
[2017-01-02 18:00] LABS: Glucose,Whole Blood 112 mg/dL (75-99)
[2017-01-02 18:30] LABS: Glucose,Whole Blood 83 mg/dL (75-99)
--- NOTE | 2017-01-02 21:03 | PN ---
DATE OF SERVICE: 01/02/2017 REASON FOR FOLLOWUP: Abdominal abscess and sepsis. INTERVAL HISTORY: The patient was taken back to the OR by Dr. Ayoub yesterday, where the patient underwent exploratory laparotomy with extensive lysis of adhesions and drainage of multiple intra-abdominal abscesses along the right upper quadrant. The patient did have wound cultures obtained and has been admitted to the ICU, where the patient has been borderline hypotensive and was started on Levophed after multiple fluid boluses. The patient, though, remains afebrile except for a fever of 101.3 on 12/31. Patient denies significant chest pain or cough. Abdominal pain is currently controlled with pain medication. On examination, blood pressure is 115/63 with a pulse of 103, temperature 98. He is 92% on 4 L nasal cannula. General description is an elderly male lying in bed in no distress. RESPIRATORY SYSTEM: Unlabored breathing. Clear to auscultation anteriorly. HEART: S1, S2. Regular rate and rhythm. ABDOMEN: Soft. Slightly distended. LITA drain has serosanguineous secretions. LABS: BUN of 27 with a creatinine 1.34. Cultures repeated showing clostridium species and Gram-positive bacilli. DIAGNOSTIC IMPRESSION AND PLAN: Patient with multiple abdominal abscesses, status post OR with drainage of the abscesses. Patient's previous cultures did grow a penicillin-sensitive and anaerobic Gram-negative the patient has been broadly treated. Antibiotic was adjusted to Meropenem, daptomycin and Flagyl. That will be continued while awaiting for the culture to finalize. Overall prognosis remains guarded. Continue supportive care. [facility]
[2017-01-03] MEDS: metroNIDAZOLE-NS PMX 500 MG in SALINE 1 100ML.BAG IVPB SCH ×3 (00:04→18:30)
[2017-01-03] MEDS: HEPARIN SODIUM,PORCINE 5,000 UNIT/ML 1 ML VIAL SQ SCH ×3 (00:06→15:38)
[2017-01-03 00:07] LABS: Glucose,Whole Blood 106 mg/dL (75-99)
[2017-01-03] MEDS: INSULIN LISPRO (humaLOG) 300 UNIT/3 ML VIAL SQ SCH ×4 (00:07→18:38)
[2017-01-03] MEDS: METOPROLOL TARTRATE 50 MG TAB PO SCH ×4 (00:07→23:51)
[2017-01-03] MEDS: HYDROmorphone 1 MG/ML 1 ML SYRINGE IVP PRN ×6 (00:36→23:40)
[2017-01-03 04:49] LABS: Basophils % (A) 0 %; CH 31.4; CHCM 32.2; Eosinophils # (A) 0.1 k/uL (0-0.7); Eosinophils % (A) 0 %; HDW 2.89; HGB 10.8 gm/dL (13.0-17.5); Luc # (Auto) 0.32; Luc % (Auto) 2; Lymphocytes # (A) 0.6 k/uL (1.0-4.8); Lymphocytes % (A) 4 %; MCHC 33.6 g/dL (31.0-37.0); MCV 98.1 fL (80.0-100.0); Mean Platelet Volume 7.1; Monocytes % (A) 6 %; Neutrophils # (A) 15.4 k/uL (1.3-7.7); Neutrophils % (A) 89 %; RBC 3.26 m/uL (4.30-5.90); RDW 14.7 % (11.5-15.5); WBC 17.5 k/uL (3.8-10.6); WBC (Perox) 17.08
[2017-01-03 05:06] LABS: Glucose,Whole Blood 95 mg/dL (75-99)
[2017-01-03 05:06] LABS: Anion Gap 6 mmol/L; Blood Urea Nitrogen 25 mg/dL (9-20); Calcium 7.4 mg/dL (8.4-10.2); Carbon Dioxide 19 mmol/L (22-30); Chloride 116 mmol/L (98-107); Glucose 94 mg/dL (74-99); Magnesium 2.2 mg/dL (1.6-2.3); Non-African American GFR(MDRD) >60 (>60 ml/min/1.73 sqM); Phosphorous 3.7 mg/dL (2.5-4.5); Potassium 4.7 mmol/L (3.5-5.1); Sodium 141 mmol/L (137-145)
[2017-01-03] MEDS: PANTOPRAZOLE 40 MG/10 ML VIAL IVP SCH (07:59)
[2017-01-03] MEDS: MEROPENEM 1 GM in SODIUM CHLORIDE 0.9% 100 ML IVPB SCH ×2 (07:59→18:30)
[2017-01-03] MEDS: SODIUM CHLORIDE 0.9% 1,000 ML IV SCH ×2 (08:00→15:37)
--- NOTE | 2017-01-03 08:05 | XR ---
EXAMINATION TYPE: XR chest 1V DATE OF EXAM: 01/03/2017 6:31 AM COMPARISON: Previous chest x-ray dated first of January 2017 HISTORY: NG tube, abnormal chest x-ray, postop TECHNIQUE: Single frontal view of the chest is obtained. FINDINGS: NG tube is stable, tip is in the left upper quadrant. Heart size may be accentuated by rot ation. Lung volumes are low when the patient is rotated. Bibasilar increased density again noted. The re is no pneumothorax. There are overlying cardiac leads. Right-sided PICC line is present, distal ti p likely at the level of the confluence of the left and right innominate vein. IMPRESSION: Rotated expiratory exam, probable basilar atelectasis, possible associated effusions, co rrelate to exclude pneumonia, follow-up is recommended.
[2017-01-03 11:12] LABS: Glucose,Whole Blood 94 mg/dL (75-99)
[2017-01-03 11:52] LABS: Glucose,Whole Blood 391 mg/dL (75-99)
[2017-01-03] MEDS: ACETAMINOPHEN IV (For NPO) 1,000 MG in EMPTY BAG 1 BAG IVPB SCH ×2 (15:37→18:30)
[2017-01-03] MEDS: DAPTOmycin 500 MG in SODIUM CHLORIDE 0.9% 50 ML IV SCH (15:37)
--- NOTE | 2017-01-03 16:09 | P.PN ---
Subjective Principal diagnosis: Abdominal sepsis This is a 66-year-old white male who is status post exploratory laparotomy for perforated viscus back on the of this month. Patient was seen by Dr. Juarez on consultation, and he eventually signed off the patient. Patient has been on antibiotics all along, and apparently , on 01/01/2017, patient developed intra-abdominal abscess and he required exploratory laparotomy again, lysis of adhesions, drainage of multiple intra-abdominal and interloop abscesses, placement of the Luisito-Schroeder drain, placement of wound VAC system. Postoperatively, patient was transferred back to the intensive care unit, and I was asked to see him on consultation. Patient is presently on levo fed at 15 g , and he is receiving fluids at 100 mL per hour. He is also on antibiotics, he seems to be stable from the pulmonary perspective, no cough no wheezing no shortness of breath, hence I recommended more fluid boluses, hoping I could cut down the levo fed to a lower dose. Urine output seems to be also marginal. Antibiotics seem to be appropriate. Labs were all reviewed, his lactic acid was 2.7, CBC showed leukocytosis with WBC count of 31.0. Patient is not in any form of respiratory distress at present. Renal profile was also noted to be slightly abnormal with BUN of 25 creatinine of 1.30. Patient was reevaluated today on 01/03/2017, seems to be doing well, feeling much better, denies any shortness of breath no cough no wheezing and no abdominal pain. All his labs were reviewed. Renal profile is improving. WBC count is 17.5. Hemoglobin is 10.8. Agent is not requiring any pressors at this point. He remains on antibiotics for his abdominal sepsis. Abdominal fluid is positive for Clostridium species and the gram-positive bacilli. Objective - Vital Signs Vital signs: Vital Signs Temp 99.3 F 01/03/17 11:00 Pulse 93 01/03/17 15:00 Resp 24 01/03/17 15:00 BP 109/69 01/03/17 15:00 Pulse Ox 96 01/03/17 15:00 Intake & Output 01/02/17 01/03/17 01/03/17 18:59 06:59 18:59 Intake Total 5915.695 1400 800 Output Total 1163 1220 1240 Balance 4752.695 180 -440 Weight 93.3 kg 95.7 kg 95.7 kg Intake: IV 1475 1300 800 DAPTOmycin 500 mg In 50 Sodium Chloride 0.9% 50 ml @ 100 mls/hr IV Q24H [facility] Rx#:[id number] Meropenem 1 gm In Sodium 200 100 100 Chloride 0.9% 100 ml @ 200 mls/hr IVPB Q8HR [facility] Rx#:[id number] NS @ 20 25 Sodium Chloride 0.9% 1, 1200 1200 700 000 ml @ 100 mls/hr IV . Q10H [facility] Rx#:[id number] Intake, IV Titration 4320.695 100 Amount Norepinephrin 16 mg-0.9% 122.695 Ns Pmx 16 mg In 250 ml @ Titrate IV .Q0M [facility] Rx#: [id number] Sodium Chloride 0.9% 1, 1000 000 ml @ 999 mls/hr IV . Q1H1M [facility] Rx#:[id number] Sodium Chloride 0.9% 1, 1000 000 ml @ 999 mls/hr IV . Q1H1M [facility] Rx#:[id number] Sodium Chloride 0.9% 1, 1998 000 ml @ 999 mls/hr IV . Q1H1M [facility] Rx#:[id number] metroNIDAZOLE-NS PMX 500 200 100 mg In Saline 1 100ml.bag @ 100 mls/hr IVPB Q8HR [facility] Rx#:[id number] Oral 120 Output: Gastric Drainage 250 Drainage 30 45 Right Lower Abdomen 30 45 Urine 883 1170 1095 Stool 50 100 Other: Voiding Method Indwelling Catheter Indwelling Catheter Indwelling Catheter # Voids 1 ABP, PAP, CO, CI - Last Documented Arterial Blood Pressure 79/58 - Exam Physical Exam: Revealed a 66-year-old in no distress. HEENT:[Neck is supple.] [No neck masses.] [No thyromegaly.] [No JVD.] Chest: [Clear throughout, no crackles, no rhonchi, no wheezes.] Cardiac Exam: [Normal S1 and S2, no S3 gallop, no murmur.] Abdomen: Postsurgical, slightly tender, wound VAC is noted in place, colostomy is also noted to be intact, and LITA drain also noted. Extremities: [No clubbing, no edema, no cyanosis.] Neurological Exam: [No focal neurologic deficit.] - Labs CBC & Chem 7: 01/03/17 04:34 01/03/17 04:34 Labs: Abnormal Lab Results - Last 24 Hours (Table) 01/02/17 01/03/17 01/03/17 Range/Units 17:59 00:05 04:34 WBC 17.5 H (3.8-10.6) k/uL RBC 3.26 L (4.30-5.90) m/uL Hgb 10.8 L (13.0-17.5) gm/dL Hct 32.0 L (39.0-53.0) % Neutrophils # 15.4 H (1.3-7.7) k/uL Lymphocytes # 0.6 L (1.0-4.8) k/uL Chloride (98-107) mmol/L Carbon Dioxide (22-30) mmol/L BUN (9-20) mg/dL POC Glucose (mg/dL) 112 H 106 H (75-99) mg/dL Calcium (8.4-10.2) mg/dL 01/03/17 01/03/17 Range/Units 04:34 11:50 WBC (3.8-10.6) k/uL RBC (4.30-5.90) m/uL Hgb (13.0-17.5) gm/dL Hct (39.0-53.0) % Neutrophils # (1.3-7.7) k/uL Lymphocytes # (1.0-4.8) k/uL Chloride 116 H (98-107) mmol/L Carbon Dioxide 19 L (22-30) mmol/L BUN 25 H (9-20) mg/dL POC Glucose (mg/dL) 391 H (75-99) mg/dL Calcium 7.4 L (8.4-10.2) mg/dL Microbiology - Last 24 Hours (Table) 12/29/16 13:53 Blood Culture - Preliminary Blood No Growth after 120 hours 12/31/16 21:00 Gram Stain - Final Incision Wound Culture - Final 01/01/17 21:45 Urine Culture - Final Urine,Catheterized 12/31/16 21:00 Anaerobic Culture - Preliminary Abdomen 01/02/17 06:15 Blood Culture - Preliminary Blood No Growth after 24 hours 01/02/17 05:50 Blood Culture - Preliminary Blood No Growth after 24 hours 01/01/17 14:00 Gram Stain - Preliminary Peritoneal Fluid Body Fluid Culture - Preliminary 12/29/16 14:01 Blood Culture - Preliminary Blood No Growth after 96 hours 12/30/16 13:30 Gram Stain - Preliminary Aspirate Body Fluid Culture - Preliminary Gram Positive Bacilli Isolated Assessment and Plan Plan: Impression: 1 acute abdominal sepsis and septic shock requiring Levophed and abdominal abscess requiring exploratory laparotomy, lysis of adhesions, drainage oh multiple intra-abdominal and interloop abscesses, placement of LITA drain, placement of wound VAC system. Postoperative day # 2. 2 status post exploratory laparotomy, Armani's procedure sigmoid colectomy and end ostomy, for perforated hollow viscus on 12/22/2016. 3 postoperative atrial fibrillation 4 history of diastolic congestive heart failure 5 positive wound culture for Enterococcus faecalis, sensitive to vancomycin and also sensitive to ampicillin. Sensitive to daptomycin. positive abdominal fluid for Clostridium species Recommendation: Continue present supportive care measures, off norepinephrine, no more fluid boluses boluses are necessary . continue antibiotics patient is presently on daptomycin and Merrem is also on Flagyl. Continue GI and DVT prophylaxis. Incentive spirometry, and we'll continue to follow. Martha transferred to a medical surgical floor. Time with Patient: Less than 30
[2017-01-03 18:36] LABS: Glucose,Whole Blood 83 mg/dL (75-99)
--- NOTE | 2017-01-03 22:20 | PN ---
DATE OF SERVICE: 01/03/2017 REASON FOR FOLLOWUP: Abdominal sepsis. INTERVAL HISTORY: The patient is afebrile. He has been breathing comfortably. Feels slightly better. Denies significant chest pain. Occasional cough. Abdominal pain is currently controlled. No nausea. No vomiting. NG is still in. On examination, blood pressure is 109/69 with a pulse of 93, temperature 98. He is 96% on 4 L nasal cannula. General description is a middle-aged male lying in bed in no distress. RESPIRATORY SYSTEM: Unlabored breathing. Clear to auscultation anteriorly. HEART: S1, S2. Regular rate and rhythm. ABDOMEN: Soft. Mildly distended. EXTREMITIES: No edema of the feet. LABS: Hemoglobin 10.8, white count 17.5 with a BUN of 25, creatinine 1.20. Cultures are currently showing clostridium species and Gram-positive bacilli. DIAGNOSTIC IMPRESSION AND PLAN: Patient with an abdominal abscess in a patient with initial admission to hospital with perforated diverticulitis, status post diverting colostomy. Initial culture was Enterococcus faecalis and aerobic Gram-negative, now with an absence that needs to be redrained. Cultures now show clostridium. Currently on Meropenem and daptomycin. That can be continued along with Flagyl, adjusting antibiotics further based on the culture report. Continue supportive care.
[2017-01-04] MEDS: metroNIDAZOLE-NS PMX 500 MG in SALINE 1 100ML.BAG IVPB SCH ×3 (00:20→17:53)
[2017-01-04] MEDS: HEPARIN SODIUM,PORCINE 5,000 UNIT/ML 1 ML VIAL SQ SCH ×3 (00:20→15:45)
[2017-01-04] MEDS: MEROPENEM 1 GM in SODIUM CHLORIDE 0.9% 100 ML IVPB SCH ×4 (00:20→23:41)
[2017-01-04 00:21] LABS: Glucose,Whole Blood 90 mg/dL (75-99)
[2017-01-04] MEDS: INSULIN LISPRO (humaLOG) 300 UNIT/3 ML VIAL SQ SCH ×4 (00:30→18:21)
[2017-01-04] MEDS: SODIUM CHLORIDE 0.9% 1,000 ML IV SCH ×4 (00:31→20:32)
[2017-01-04] MEDS: HYDROmorphone 1 MG/ML 1 ML SYRINGE IVP PRN ×5 (04:34→20:29)
[2017-01-04] MEDS: ACETAMINOPHEN IV (For NPO) 1,000 MG in EMPTY BAG 1 BAG IVPB SCH ×2 (06:11→07:39)
[2017-01-04 06:13] LABS: Glucose,Whole Blood 135 mg/dL (75-99)
[2017-01-04 07:41] LABS: Basophils % (A) 0 %; CH 31.1; CHCM 31.8; Eosinophils # (A) 0.1 k/uL (0-0.7); Eosinophils % (A) 1 %; HCT 31.7 % (39.0-53.0); HDW 2.74; HGB 10.1 gm/dL (13.0-17.5); Luc # (Auto) 0.26; Luc % (Auto) 2; Lymphocytes # (A) 0.5 k/uL (1.0-4.8); Lymphocytes % (A) 3 %; MCH 31.2 pg (25.0-35.0); MCHC 31.8 g/dL (31.0-37.0); MCV 98.3 fL (80.0-100.0); Mean Platelet Volume 7.1; Monocytes # (A) 0.7 k/uL (0-1.0); Monocytes % (A) 5 %; Neutrophils # (A) 13.7 k/uL (1.3-7.7); Neutrophils % (A) 90 %; RBC 3.22 m/uL (4.30-5.90); RDW 14.9 % (11.5-15.5); WBC 15.3 k/uL (3.8-10.6); WBC (Perox) 15.65
[2017-01-04] MEDS: PANTOPRAZOLE 40 MG/10 ML VIAL IVP SCH (07:47)
[2017-01-04 07:57] LABS: Anion Gap 8 mmol/L; Blood Urea Nitrogen 24 mg/dL (9-20); Calcium 7.7 mg/dL (8.4-10.2); Carbon Dioxide 20 mmol/L (22-30); Chloride 116 mmol/L (98-107); Glucose 97 mg/dL (74-99); Magnesium 2.3 mg/dL (1.6-2.3); Non-African American GFR(MDRD) >60 (>60 ml/min/1.73 sqM); Phosphorous 2.8 mg/dL (2.5-4.5); Potassium 4.2 mmol/L (3.5-5.1); Sodium 144 mmol/L (137-145)
[2017-01-04 10:03] VITALS: BMI 31.1
[2017-01-04] MEDS: METOPROLOL TARTRATE 50 MG TAB PO SCH ×3 (10:08→23:40)
--- NOTE | 2017-01-04 11:46 | P.PN ---
Subjective 66-year-old male being seen on rounds currently is sitting up in a chair nasal gastric tube in place put out 200 mL last night. Additionally patient has a wound VAC in place with an indwelling Chavez catheter. Patients being followed by multiple consulting physicians recommendations reviewed noted and appreciated. Patient is status post exploratory laparotomy for perforated vicus on December 22. Patient developed intra-abdominal abscess and did require exploratory laparotomy again with lysis of adhesions and drainage of multiple intra- abdominal and interloop abscess with placement of Luisito-Schroeder drains, and a wound VAC system. Postop patient was transferred to the intensive care unit was monitored closely. Initially the patient was on levo as well as fluid boluses. Patient was monitored closely in the ICU pressors were able to be titrated off and patient was able to be transferred out of the ICU on January 03 to a stepdown surgical unit. Abdominal fluid obtained was positive for clostridium and gram-positive bacilli. Patients being followed by infectious disease. Labs this morning white count 15.3 hemoglobin 10.1 electrolytes within normal limits Objective - Vital Signs Vital signs: Vital Signs Temp 98.8 F 01/03/17 18:00 Pulse 86 01/03/17 19:00 Resp 18 01/03/17 19:00 BP 114/66 01/03/17 19:00 Pulse Ox 96 01/03/17 19:00 Intake & Output 01/03/17 01/04/17 01/04/17 18:59 06:59 18:59 Intake Total 880 1160 Output Total 2480 1200 Balance -1600 -40 Weight 95.7 kg 95.7 kg Intake: IV 880 1060 Meropenem 1 gm In Sodium 100 100 Chloride 0.9% 100 ml @ 200 mls/hr IVPB Q8HR [facility] Rx#:[id number] Sodium Chloride 0.9% 1, 780 960 000 ml @ 80 mls/hr IV . [id number] [facility] Rx#:[id number] Intake, IV Titration 100 Amount metroNIDAZOLE-NS PMX 500 100 mg In Saline 1 100ml.bag @ 100 mls/hr IVPB Q8HR [facility] Rx#:[id number] Output: Gastric Drainage 650 200 Drainage 75 Right Lower Abdomen 75 Urine 1605 1000 Stool 150 Other: Voiding Method Indwelling Catheter Indwelling Catheter # Voids 1 1 ABP, PAP, CO, CI - Last Documented Arterial Blood Pressure 79/58 - Exam Physical exam 66-year-old male being seen sitting up in a chair is an alert oriented 3 Lungs diminished at the bases otherwise adequate air movement currently on 4 L nasal cannula using ISS achieving 1000 Heart S1-S2 audible regular denying chest pain Abdomen surgical tenderness with a wound VAC in place ostomy stoma pain LITA drain in place nasal gastric tube in place indwelling Chavez catheter in place abdominal binder in place Extremities below the knee IVA hose in place a trace pedal edema - Labs CBC & Chem 7: 01/04/17 07:02 01/04/17 07:02 Labs: Abnormal Lab Results - Last 24 Hours (Table) 01/03/17 01/04/17 01/04/17 Range/Units 11:50 06:04 07:02 WBC 15.3 H (3.8-10.6) k/uL RBC 3.22 L (4.30-5.90) m/uL Hgb 10.1 L (13.0-17.5) gm/dL Hct 31.7 L (39.0-53.0) % Neutrophils # 13.7 H (1.3-7.7) k/uL Lymphocytes # 0.5 L (1.0-4.8) k/uL Chloride (98-107) mmol/L Carbon Dioxide (22-30) mmol/L BUN (9-20) mg/dL POC Glucose (mg/dL) 391 H 135 H (75-99) mg/dL Calcium (8.4-10.2) mg/dL 01/04/17 Range/Units 07:02 WBC (3.8-10.6) k/uL RBC (4.30-5.90) m/uL Hgb (13.0-17.5) gm/dL Hct (39.0-53.0) % Neutrophils # (1.3-7.7) k/uL Lymphocytes # (1.0-4.8) k/uL Chloride 116 H (98-107) mmol/L Carbon Dioxide 20 L (22-30) mmol/L BUN 24 H (9-20) mg/dL POC Glucose (mg/dL) (75-99) mg/dL Calcium 7.7 L (8.4-10.2) mg/dL Microbiology - Last 24 Hours (Table) 01/02/17 06:15 Blood Culture - Preliminary Blood No Growth after 48 hours 01/02/17 05:50 Blood Culture - Preliminary Blood No Growth after 48 hours 01/01/17 14:00 Anaerobic Culture - Preliminary Peritoneal Fluid 01/01/17 14:00 Gram Stain - Preliminary Peritoneal Fluid Body Fluid Culture - Preliminary 12/29/16 14:01 Blood Culture - Preliminary Blood No Growth after 120 hours 12/29/16 13:53 Blood Culture - Preliminary Blood No Growth after 120 hours 12/31/16 21:00 Gram Stain - Final Incision Wound Culture - Final 01/01/17 21:45 Urine Culture - Final Urine,Catheterized 12/31/16 21:00 Anaerobic Culture - Preliminary Abdomen Assessment and Plan Plan: Impression Present on admission abdominal pain acute with l sepsis and septic shock requiring Levophed and abdominal abscess requiring exploratory laparotomy, lysis of adhesions, drainage oh multiple intra-abdominal and interloop abscesses , placement of LITA drain, placement of wound VAC system. status post exploratory laparotomy, Armani's procedure sigmoid colectomy and end ostomy, for perforated hollow viscus on 12/22/2016. postoperative atrial fibrillation history of diastolic congestive heart failure with no evidence of decompensation positive wound culture for Enterococcus faecalis, sensitive to vancomycin and also sensitive to ampicillin. Sensitive to daptomycin. positive abdominal fluid for Clostridium species Status post Schreiber's procedure taken back to the operating room for multiple inner abdominal abscess including wound dehiscence with Jarret purulence Intraoperative findings included marked intestinal adhesions with early features of a small bowel obstruction Interabdominal abscess Acute peritonitis generalized Plan Remove the indwelling Hcavez catheter now Start TPN for nutritional support Continue recommendations from all consulting physicians Ostomy care as ordered Increase activity as tolerated Increase the use of the incentive spirometer Titrate the O2 down keep the sats greater than 90% DVT and GI prophylaxis Further recommendations pending The above dictated assessment and findings were discussed with dr anthony. Impression and the plan of care have been dictated as directed. Tanesha Lozano nurse practitioner acting as a scribe for dr anthony
[2017-01-04 12:52] LABS: Glucose,Whole Blood 80 mg/dL (75-99)
--- NOTE | 2017-01-04 13:40 | XR ---
EXAMINATION TYPE: XR chest 1V DATE OF EXAM: 01/04/2017 1:02 PM COMPARISON: Prior chest x-ray 03 Jan 2017 HISTORY: Status post abdominal surgery, NG tube TECHNIQUE: Single frontal view of the chest is obtained. FINDINGS: No significant interval change. Lung volumes are low. There may be basilar atelectasis and associated effusions, correlate to exclude pneumonia. No evident pneumothorax. PICC line is stable. NG tube remains with the distal tip overlying the left upper quadrant. IMPRESSION: Basilar atelectasis and possible associated effusions. Correlate to exclude pneumonia.
[2017-01-04] MEDS ORDERED: MVI, ADULT NO.4 WITH VIT K 10 ML, TRACE (CONC-1ML/DOSE) 1 ML in AMINO ACID 5%-D25W+LYTE... IV SCH ×3 (14:00)
[2017-01-04] MEDS ORDERED: FAT EMULSION 20% 250 ML IV SCH (14:00)
--- NOTE | 2017-01-04 15:28 | P.PN ---
Subjective Principal diagnosis: Abdominal sepsis This is a 66-year-old white male who is status post exploratory laparotomy for perforated viscus back on the of this month. Patient was seen by Dr. Juarez on consultation, and he eventually signed off the patient. Patient has been on antibiotics all along, and apparently , on 01/01/2017, patient developed intra-abdominal abscess and he required exploratory laparotomy again, lysis of adhesions, drainage of multiple intra-abdominal and interloop abscesses, placement of the Luisito-Schroeder drain, placement of wound VAC system. Postoperatively, patient was transferred back to the intensive care unit, and I was asked to see him on consultation. Patient is presently on levo fed at 15 g , and he is receiving fluids at 100 mL per hour. He is also on antibiotics, he seems to be stable from the pulmonary perspective, no cough no wheezing no shortness of breath, hence I recommended more fluid boluses, hoping I could cut down the levo fed to a lower dose. Urine output seems to be also marginal. Antibiotics seem to be appropriate. Labs were all reviewed, his lactic acid was 2.7, CBC showed leukocytosis with WBC count of 31.0. Patient is not in any form of respiratory distress at present. Renal profile was also noted to be slightly abnormal with BUN of 25 creatinine of 1.30. Patient was reevaluated today on 01/03/2017, seems to be doing well, feeling much better, denies any shortness of breath no cough no wheezing and no abdominal pain. All his labs were reviewed. Renal profile is improving. WBC count is 17.5. Hemoglobin is 10.8. Agent is not requiring any pressors at this point. He remains on antibiotics for his abdominal sepsis. Abdominal fluid is positive for Clostridium species and the gram-positive bacilli. The patient is seen again today 01/04/2017 on the surgical floor. He is awake and alert in no acute distress. He is sitting up in the chair at the bedside. Nasogastric tube remains in place. He denies any nausea. His still having a significant amount of output. His abdominal fluid was positive for Clostridium species and creatinine positive bacilli and he is currently on daptomycin, meropenem and Flagyl. He denies any worsening shortness of breath, cough or congestion. He is working well with the incentive spirometer and pulling approximately 1000 mL's. He is maintaining O2 saturations in the low 90s on 4 L /m per nasal cannula. He is afebrile. Hemodynamically stable. Objective - Vital Signs Vital signs: Vital Signs Temp 97.9 F 01/04/17 08:29 Pulse 86 01/04/17 08:29 Resp 16 01/04/17 08:29 BP 138/54 01/04/17 08:29 Pulse Ox 92 L 01/04/17 08:29 Intake & Output 01/03/17 01/04/17 01/04/17 18:59 06:59 18:59 Intake Total 880 1160 Output Total 2480 1200 650 Balance -1600 -40 -650 Weight 95.7 kg 95.7 kg Intake: IV 880 1060 Meropenem 1 gm In Sodium 100 100 Chloride 0.9% 100 ml @ 200 mls/hr IVPB Q8HR [facility] Rx#:[id number] Sodium Chloride 0.9% 1, 780 960 000 ml @ 80 mls/hr IV . [id number] [facility] Rx#:[id number] Intake, IV Titration 100 Amount metroNIDAZOLE-NS PMX 500 100 mg In Saline 1 100ml.bag @ 100 mls/hr IVPB Q8HR [facility] Rx#:[id number] Output: Gastric Drainage 650 200 Drainage 75 Right Lower Abdomen 75 Urine 1605 1000 650 Uretheral (Chavez) 500 Stool 150 Other: Voiding Method Indwelling Catheter Indwelling Catheter # Voids 1 1 ABP, PAP, CO, CI - Last Documented Arterial Blood Pressure 79/58 - Exam GENERAL EXAM: Alert, active, comfortable in no apparent distress. HEAD: Normocephalic. EYES: Normal reaction of pupils, equal size. NOSE: Nasogastric tube secured in place. Clear with pink turbinates. THROAT: No erythema or exudates. NECK: No masses, no JVD. CHEST: No chest wall deformity. LUNGS: Equal air entry with no crackles, wheeze, rhonchi or dullness. CVS: S1 and S2 normal with no audible mumurs, regular rhythm. ABDOMEN: Abdominal dressing dry and intact.. SPINE: No scoliosis or deformity SKIN: No rashes CENTRAL NERVOUS SYSTEM: No focal deficits, tone is normal in all 4 extremities. Extremities: There is trace peripheral edema. No clubbing, no cyanosis. Peripheral pulses are intact. - Labs CBC & Chem 7: 01/04/17 07:02 01/04/17 07:02 Labs: Abnormal Lab Results - Last 24 Hours (Table) 01/04/17 01/04/17 01/04/17 Range/Units 06:04 07:02 07:02 WBC 15.3 H (3.8-10.6) k/uL RBC 3.22 L (4.30-5.90) m/uL Hgb 10.1 L (13.0-17.5) gm/dL Hct 31.7 L (39.0-53.0) % Neutrophils # 13.7 H (1.3-7.7) k/uL Lymphocytes # 0.5 L (1.0-4.8) k/uL Chloride 116 H (98-107) mmol/L Carbon Dioxide 20 L (22-30) mmol/L BUN 24 H (9-20) mg/dL POC Glucose (mg/dL) 135 H (75-99) mg/dL Calcium 7.7 L (8.4-10.2) mg/dL Microbiology - Last 24 Hours (Table) 12/30/16 13:30 Anaerobic Culture - Final Abdominal Fluid Clostridium septicum 01/02/17 06:15 Blood Culture - Preliminary Blood No Growth after 48 hours 01/02/17 05:50 Blood Culture - Preliminary Blood No Growth after 48 hours 01/01/17 14:00 Anaerobic Culture - Preliminary Peritoneal Fluid 01/01/17 14:00 Gram Stain - Preliminary Peritoneal Fluid Body Fluid Culture - Preliminary 12/29/16 14:01 Blood Culture - Preliminary Blood No Growth after 120 hours 12/29/16 13:53 Blood Culture - Preliminary Blood No Growth after 120 hours 12/31/16 21:00 Gram Stain - Final Incision Wound Culture - Final 01/01/17 21:45 Urine Culture - Final Urine,Catheterized 12/31/16 21:00 Anaerobic Culture - Preliminary Abdomen Assessment and Plan Plan: Impression: 1 acute abdominal sepsis and septic shock requiring Levophed and abdominal abscess requiring exploratory laparotomy, lysis of adhesions, drainage oh multiple intra-abdominal and interloop abscesses, placement of LITA drain, placement of wound VAC system. 2 status post exploratory laparotomy, Armani's procedure sigmoid colectomy and end ostomy, for perforated hollow viscus on 12/22/2016. 3 postoperative atrial fibrillation 4 history of diastolic congestive heart failure 5 positive wound culture for Enterococcus faecalis, sensitive to vancomycin and also sensitive to ampicillin. Sensitive to daptomycin. positive abdominal fluid for Clostridium species Plan: The patient was seen and evaluated by Dr. Morales. His chest x-ray and labs were reviewed. We've again encourage increased use of the incentive spirometer and cough and deep breathing exercises. We'll increase his activity as tolerated. We'll continue with his current medications. We'll continue to follow.
--- NOTE | 2017-01-04 15:31 | PN ---
DATE OF SERVICE: 01/04/2017 Reason for followup is abdominal abscess. INTERVAL HISTORY: The patient is afebrile. Has been breathing comfortably. Denies significant chest pain, abdominal pain is currently controlled with pain medication. No output within the colostomy bag. Still has the NG. On examination, blood pressure 132/54 with a pulse of 86, temperature 97.9, he is 92% on 4 L nasal cannula. General description is an elderly male, lying in bed in no distress. RESPIRATORY SYSTEM: Unlabored breathing. Clear to auscultation anteriorly. HEART: S1, S2, regular rate and rhythm. ABDOMEN: Soft. LITA drain with serosanguineous secretion LABS: Hemoglobin is 10.1, white count of 15.2 with a BUN of 24, creatinine 0.98. Blood culture has been negative. Abdominal fluid cultures currently pending. DIAGNOSTIC IMPRESSION AND PLAN: Patient with abdominal abscess, did have laparotomy, status post drainage of the abscess, waiting for the repeat culture to finalize. Patient responded to the antibiotic in the form of Merrem and Flagyl will be continued, adjusting it further on the basis of the culture report. Continue supportive care. AYO
[2017-01-04] MEDS: DAPTOmycin 500 MG in SODIUM CHLORIDE 0.9% 50 ML IV SCH (15:44)
[2017-01-04 19:12] LABS: Glucose,Whole Blood 129 mg/dL (75-99)
[2017-01-05 01:12] LABS: Glucose,Whole Blood 135 mg/dL (75-99)
[2017-01-05] MEDS: metroNIDAZOLE-NS PMX 500 MG in SALINE 1 100ML.BAG IVPB SCH ×3 (01:13→17:47)
[2017-01-05] MEDS: HYDROmorphone 1 MG/ML 1 ML SYRINGE IVP PRN ×4 (01:13→12:21)
[2017-01-05] MEDS: INSULIN LISPRO (humaLOG) 300 UNIT/3 ML VIAL SQ SCH ×4 (01:14→17:49)
[2017-01-05] MEDS: HEPARIN SODIUM,PORCINE 5,000 UNIT/ML 1 ML VIAL SQ SCH ×4 (01:14→23:15)
[2017-01-05 06:08] LABS: Glucose,Whole Blood 118 mg/dL (75-99)
[2017-01-05] MEDS: SODIUM CHLORIDE 0.9% 1,000 ML IV SCH (07:14)
[2017-01-05] MEDS: PANTOPRAZOLE 40 MG/10 ML VIAL IVP SCH (07:23)
[2017-01-05] MEDS: MEROPENEM 1 GM in SODIUM CHLORIDE 0.9% 100 ML IVPB SCH ×3 (07:23→23:15)
[2017-01-05] MEDS: METOPROLOL TARTRATE 50 MG TAB PO SCH ×3 (07:24→23:19)
[2017-01-05 07:38] LABS: Basophils % (A) 0 %; CH 31.4; CHCM 33.1; Eosinophils # (A) 0.2 k/uL (0-0.7); Eosinophils % (A) 1 %; HCT 30.1 % (39.0-53.0); HDW 2.94; HGB 9.8 gm/dL (13.0-17.5); Luc # (Auto) 0.36; Luc % (Auto) 3; Lymphocytes # (A) 0.6 k/uL (1.0-4.8); Lymphocytes % (A) 5 %; MCH 31.2 pg (25.0-35.0); MCHC 32.6 g/dL (31.0-37.0); MCV 95.6 fL (80.0-100.0); Mean Platelet Volume 6.8; Monocytes # (A) 0.6 k/uL (0-1.0); Monocytes % (A) 5 %; Neutrophils # (A) 9.9 k/uL (1.3-7.7); Neutrophils % (A) 85 %; RBC 3.15 m/uL (4.30-5.90); RDW 14.7 % (11.5-15.5); WBC 11.6 k/uL (3.8-10.6); WBC (Perox) 11.33
[2017-01-05 07:47] LABS: Anion Gap 5 mmol/L; Blood Urea Nitrogen 21 mg/dL (9-20); Calcium 7.8 mg/dL (8.4-10.2); Carbon Dioxide 23 mmol/L (22-30); Chloride 115 mmol/L (98-107); Glucose 120 mg/dL (74-99); Magnesium 2.3 mg/dL (1.6-2.3); Non-African American GFR(MDRD) >60 (>60 ml/min/1.73 sqM); Phosphorous 2.6 mg/dL (2.5-4.5); Potassium 3.8 mmol/L (3.5-5.1); Sodium 143 mmol/L (137-145)
[2017-01-05 07:56] LABS: Ionized Calcium 5.2 mg/dL (4.5-5.3)
--- NOTE | 2017-01-05 09:31 | XR ---
EXAMINATION TYPE: XR chest 1V DATE OF EXAM: 01/05/2017 7:38 AM COMPARISON: 01/04/2017 HISTORY: Pneumonia TECHNIQUE: Single frontal view of the chest is obtained. FINDINGS: Bilateral subsegmental consolidation and small effusion. Right-sided PICC line and NG tube noted. Heart mildly enlarged. No pneumothorax or overt failure. Arthropathy of the shoulders. IMPRESSION: 1. Stable bilateral lower lobe infiltrate and small effusion.
--- NOTE | 2017-01-05 11:24 | P.PN ---
<Tanesha Lozano M - Last Filed: 01/05/17 11:20> Subjective 66-year-old male being seen currently sitting up in a chair. Pleasant cooperative oriented 3 no new events noted during the night. Patient states pain medication effective for pain control. There is stooling from the ostomy. Less nasal gastric drainage noted. Patient's tolerating popsicles. Wound VAC is in place. The discharge plan is in progress when medically stable patient plans on going to subacute rehab PT OT participating in the care Patient is status post exploratory laparotomy for perforated vicus on December 22. Patient developed intra-abdominal abscess and did require exploratory laparotomy again with lysis of adhesions and drainage of multiple intra- abdominal and interloop abscess with placement of Luisito-Schroeder drains, and a wound VAC system. Postop patient was transferred to the intensive care unit was monitored closely. Initially the patient was on levo as well as fluid boluses. Patient was monitored closely in the ICU pressors were able to be titrated off and patient was able to be transferred out of the ICU on January 03 to a stepdown surgical unit. Abdominal fluid obtained was positive for clostridium and gram-positive bacilli. Patients being followed by infectious disease. Objective - Vital Signs Vital signs: Vital Signs Temp 98.6 F 01/05/17 07:42 Pulse 77 01/05/17 10:06 Resp 16 01/05/17 07:42 BP 138/81 01/05/17 10:06 Pulse Ox 93 L 01/05/17 07:42 Intake & Output 01/04/17 01/05/17 01/05/17 18:59 06:59 18:59 Intake Total 1172 Output Total 1375 935 200 Balance -1375 237 -200 Weight 95.7 kg Intake: IV 220 Meropenem 1 gm In Sodium 100 Chloride 0.9% 100 ml @ 200 mls/hr IVPB Q8HR [facility] Rx#:[id number] Sodium Chloride 0.9% 1, 120 000 ml @ 80 mls/hr IV . [id number] [facility] Rx#:[id number] Intake, IV Titration 712 Amount Fat Emulsion 20% 250 ml @ 252 21 mls/hr IV MoWeFr@0900 [facility] Rx#:[id number] Mvi, Adult No.4 with Vit 360 K 10 ml Trace (Conc-1Ml/ Dose) 1 ml In Amino Acid 5%-D25w+Lytes*E* 1,000 ml @ 60 mls/hr IV .[id number] [facility] Rx#:[id number] metroNIDAZOLE-NS PMX 500 100 mg In Saline 1 100ml.bag @ 100 mls/hr IVPB Q8HR [facility] Rx#:[id number] Oral 240 Output: Gastric Drainage 50 0 Drainage 25 10 Right Lower Abdomen 25 10 Urine 1300 925 200 Uretheral (Chavez) 1000 Other: # Voids 1 ABP, PAP, CO, CI - Last Documented Arterial Blood Pressure 79/58 - Exam Physical exam 66-year-old male sitting up in a chair pleasant cooperative oriented 3 Lungs essentially clear adequate air movement. Pulse ox sat on room air greater than 90% no cough noted Heart S1-S2 audible regular denying chest pain Abdomen abdominal binder in place ostomy left lower quadrant stooling noted in the ostomy bag decreased scrotal edema noted nasal gastric tube in place tolerating popsicles urinating no difficulty Extremities below-knee IVA hose and placed decrease edema to the bilateral lower extremities - Labs CBC & Chem 7: 01/05/17 06:53 01/05/17 06:53 Labs: Abnormal Lab Results - Last 24 Hours (Table) 01/04/17 01/05/17 01/05/17 Range/Units 19:09 01:09 06:05 WBC (3.8-10.6) k/uL RBC (4.30-5.90) m/uL Hgb (13.0-17.5) gm/dL Hct (39.0-53.0) % Neutrophils # (1.3-7.7) k/uL Lymphocytes # (1.0-4.8) k/uL Chloride (98-107) mmol/L BUN (9-20) mg/dL Glucose (74-99) mg/dL POC Glucose (mg/dL) 129 H 135 H 118 H (75-99) mg/dL Calcium (8.4-10.2) mg/dL 01/05/17 01/05/17 Range/Units 06:53 06:53 WBC 11.6 H (3.8-10.6) k/uL RBC 3.15 L (4.30-5.90) m/uL Hgb 9.8 L (13.0-17.5) gm/dL Hct 30.1 L (39.0-53.0) % Neutrophils # 9.9 H (1.3-7.7) k/uL Lymphocytes # 0.6 L (1.0-4.8) k/uL Chloride 115 H (98-107) mmol/L BUN 21 H (9-20) mg/dL Glucose 120 H (74-99) mg/dL POC Glucose (mg/dL) (75-99) mg/dL Calcium 7.8 L (8.4-10.2) mg/dL Microbiology - Last 24 Hours (Table) 01/02/17 06:15 Blood Culture - Preliminary Blood No Growth after 72 hours 01/02/17 05:50 Blood Culture - Preliminary Blood No Growth after 72 hours 01/01/17 14:00 Gram Stain - Preliminary Peritoneal Fluid Body Fluid Culture - Preliminary 12/29/16 14:01 Blood Culture - Final Blood No Growth after 144 hours 12/30/16 13:30 Gram Stain - Final Aspirate Body Fluid Culture - Final Gram Positive Bacilli Isolated 12/29/16 13:53 Blood Culture - Final Blood No Growth after 144 hours 12/30/16 13:30 Anaerobic Culture - Final Abdominal Fluid Clostridium septicum Assessment and Plan Plan: Impression Present on admission abdominal pain acute with l sepsis and septic shock requiring Levophed and abdominal abscess requiring exploratory laparotomy, lysis of adhesions, drainage oh multiple intra-abdominal and interloop abscesses , placement of LITA drain, placement of wound VAC system. status post exploratory laparotomy, Armani's procedure sigmoid colectomy and end ostomy, for perforated hollow viscus on 12/22/2016. postoperative atrial fibrillation history of diastolic congestive heart failure with no evidence of decompensation positive wound culture for Enterococcus faecalis, sensitive to vancomycin and also sensitive to ampicillin. Sensitive to daptomycin. positive abdominal fluid for Clostridium species Status post Schreiber's procedure taken back to the operating room for multiple inner abdominal abscess including wound dehiscence with Jarret purulence Intraoperative findings included marked intestinal adhesions with early features of a small bowel obstruction Interabdominal abscess Acute peritonitis generalized Plan Clamped nasogastric tubes start clear liquid diet monitor the response Start TPN for nutritional support Continue recommendations from all consulting physicians Ostomy care as ordered Increase activity as tolerated Increase the use of the incentive spirometer Titrate the O2 down keep the sats greater than 90% DVT and GI prophylaxis IV antibiotics as ordered currently on Flagyl and meropenem per recommendations of infectious disease Further recommendations pending The above dictated assessment and findings were discussed with dr anthony. Impression and the plan of care have been dictated as directed. Tanesha Lozano nurse practitioner acting as a scribe for dr anthony <Melida Anthony - Last Filed: 01/05/17 16:31> Objective - Vital Signs Vital signs: Vital Signs Temp 96.9 F L 01/05/17 14:52 Pulse 85 01/05/17 14:52 Resp 16 01/05/17 14:52 BP 156/99 01/05/17 14:52 Pulse Ox 93 L 01/05/17 14:52 Intake & Output 01/04/17 01/05/17 01/05/17 18:59 06:59 18:59 Intake Total 1172 Output Total 1375 935 200 Balance -1375 237 -200 Weight 95.7 kg Intake: IV 220 Meropenem 1 gm In Sodium 100 Chloride 0.9% 100 ml @ 200 mls/hr IVPB Q8HR [facility] Rx#:[id number] Sodium Chloride 0.9% 1, 120 000 ml @ 80 mls/hr IV . [id number] [facility] Rx#:[id number] Intake, IV Titration 712 Amount Fat Emulsion 20% 250 ml @ 252 21 mls/hr IV MoWeFr@0900 [facility] Rx#:[id number] Mvi, Adult No.4 with Vit 360 K 10 ml Trace (Conc-1Ml/ Dose) 1 ml In Amino Acid 5%-D25w+Lytes*E* 1,000 ml @ 60 mls/hr IV .[id number] [facility] Rx#:[id number] metroNIDAZOLE-NS PMX 500 100 mg In Saline 1 100ml.bag @ 100 mls/hr IVPB Q8HR [facility] Rx#:[id number] Oral 240 Output: Gastric Drainage 50 0 Drainage 25 10 Right Lower Abdomen 25 10 Urine 1300 925 200 Uretheral (Chavez) 1000 Other: # Voids 1 ABP, PAP, CO, CI - Last Documented Arterial Blood Pressure 79/58 - Labs CBC & Chem 7: 01/05/17 06:53 01/05/17 06:53 Labs: Abnormal Lab Results - Last 24 Hours (Table) 01/04/17 01/05/17 01/05/17 Range/Units 19:09 01:09 06:05 WBC (3.8-10.6) k/uL RBC (4.30-5.90) m/uL Hgb (13.0-17.5) gm/dL Hct (39.0-53.0) % Neutrophils # (1.3-7.7) k/uL Lymphocytes # (1.0-4.8) k/uL Chloride (98-107) mmol/L BUN (9-20) mg/dL Glucose (74-99) mg/dL POC Glucose (mg/dL) 129 H 135 H 118 H (75-99) mg/dL Calcium (8.4-10.2) mg/dL 01/05/17 01/05/17 01/05/17 Range/Units 06:53 06:53 11:39 WBC 11.6 H (3.8-10.6) k/uL RBC 3.15 L (4.30-5.90) m/uL Hgb 9.8 L (13.0-17.5) gm/dL Hct 30.1 L (39.0-53.0) % Neutrophils # 9.9 H (1.3-7.7) k/uL Lymphocytes # 0.6 L (1.0-4.8) k/uL Chloride 115 H (98-107) mmol/L BUN 21 H (9-20) mg/dL Glucose 120 H (74-99) mg/dL POC Glucose (mg/dL) >600 H (75-99) mg/dL Calcium 7.8 L (8.4-10.2) mg/dL 01/05/17 Range/Units 11:40 WBC (3.8-10.6) k/uL RBC (4.30-5.90) m/uL Hgb (13.0-17.5) gm/dL Hct (39.0-53.0) % Neutrophils # (1.3-7.7) k/uL Lymphocytes # (1.0-4.8) k/uL Chloride (98-107) mmol/L BUN (9-20) mg/dL Glucose (74-99) mg/dL POC Glucose (mg/dL) 116 H (75-99) mg/dL Calcium (8.4-10.2) mg/dL Microbiology - Last 24 Hours (Table) 12/31/16 21:00 Anaerobic Culture - Final Abdomen 01/02/17 06:15 Blood Culture - Preliminary Blood No Growth after 72 hours 01/02/17 05:50 Blood Culture - Preliminary Blood No Growth after 72 hours 01/01/17 14:00 Gram Stain - Preliminary Peritoneal Fluid Body Fluid Culture - Preliminary 12/29/16 14:01 Blood Culture - Final Blood No Growth after 144 hours 12/30/16 13:30 Gram Stain - Final Aspirate Body Fluid Culture - Final Gram Positive Bacilli Isolated 12/29/16 13:53 Blood Culture - Final Blood No Growth after 144 hours Assessment and Plan (1) Acute abdomen Status: Acute (2) Perforated viscus Status: Acute (3) Peritonitis (acute) generalized Status: Acute (4) Inguinal hernia of left side with obstruction Status: Acute (5) Acute diastolic CHF (congestive heart failure) Status: Acute (6) Postoperative atrial fibrillation Status: Acute Plan: Patient examined. Wound vac removed. Serous drainag from inferior part of the incision. Ostomy working well. Start diet. DC TPN. Discharge to rehab in 24 hrs with PICC line and IV abx. LITA drain has serous output. NG discontinued.
[2017-01-05 11:58] LABS: Glucose,Whole Blood 116 mg/dL (75-99)
[2017-01-05 11:58] LABS: Glucose,Whole Blood >600 mg/dL (75-99)
[2017-01-05] MEDS: POTASSIUM CHLORIDE 10 MEQ in WATER FOR INJECTION 1 100ML.BAG IVPB SCH ×2 (12:51→16:02)
--- NOTE | 2017-01-05 14:51 | P.PN ---
Subjective Principal diagnosis: Abdominal sepsis This is a 66-year-old white male who is status post exploratory laparotomy for perforated viscus back on the of this month. Patient was seen by Dr. Juarez on consultation, and he eventually signed off the patient. Patient has been on antibiotics all along, and apparently , on 01/01/2017, patient developed intra-abdominal abscess and he required exploratory laparotomy again, lysis of adhesions, drainage of multiple intra-abdominal and interloop abscesses, placement of the Luisito-Schroeder drain, placement of wound VAC system. Postoperatively, patient was transferred back to the intensive care unit, and I was asked to see him on consultation. Patient is presently on levo fed at 15 g , and he is receiving fluids at 100 mL per hour. He is also on antibiotics, he seems to be stable from the pulmonary perspective, no cough no wheezing no shortness of breath, hence I recommended more fluid boluses, hoping I could cut down the levo fed to a lower dose. Urine output seems to be also marginal. Antibiotics seem to be appropriate. Labs were all reviewed, his lactic acid was 2.7, CBC showed leukocytosis with WBC count of 31.0. Patient is not in any form of respiratory distress at present. Renal profile was also noted to be slightly abnormal with BUN of 25 creatinine of 1.30. Patient was reevaluated today on 01/03/2017, seems to be doing well, feeling much better, denies any shortness of breath no cough no wheezing and no abdominal pain. All his labs were reviewed. Renal profile is improving. WBC count is 17.5. Hemoglobin is 10.8. Agent is not requiring any pressors at this point. He remains on antibiotics for his abdominal sepsis. Abdominal fluid is positive for Clostridium species and the gram-positive bacilli. The patient is seen again today 01/04/2017 on the surgical floor. He is awake and alert in no acute distress. He is sitting up in the chair at the bedside. Nasogastric tube remains in place. He denies any nausea. His still having a significant amount of output. His abdominal fluid was positive for Clostridium species and creatinine positive bacilli and he is currently on daptomycin, meropenem and Flagyl. He denies any worsening shortness of breath, cough or congestion. He is working well with the incentive spirometer and pulling approximately 1000 mL's. He is maintaining O2 saturations in the low 90s on 4 L /m per nasal cannula. He is afebrile. Hemodynamically stable. The patient is seen again today 01/05/2017 on the surgical floor. He is currently sitting up in the chair at the bedside. He denies any worsening shortness of breath, cough or congestion. His nasogastric tube remains in place to suction. He is working well of the incentive spirometer and pulling approximately 1000 mL. He has no pulmonary complaints. Objective - Vital Signs Vital signs: Vital Signs Temp 98.6 F 01/05/17 07:42 Pulse 77 01/05/17 10:06 Resp 16 01/05/17 07:42 BP 138/81 01/05/17 10:06 Pulse Ox 94 L 01/05/17 11:41 Intake & Output 01/04/17 01/05/17 01/05/17 18:59 06:59 18:59 Intake Total 1172 Output Total 1375 935 200 Balance -1375 237 -200 Weight 95.7 kg Intake: IV 220 Meropenem 1 gm In Sodium 100 Chloride 0.9% 100 ml @ 200 mls/hr IVPB Q8HR [facility] Rx#:[id number] Sodium Chloride 0.9% 1, 120 000 ml @ 80 mls/hr IV . [id number] [facility] Rx#:[id number] Intake, IV Titration 712 Amount Fat Emulsion 20% 250 ml @ 252 21 mls/hr IV MoWeFr@0900 [facility] Rx#:[id number] Mvi, Adult No.4 with Vit 360 K 10 ml Trace (Conc-1Ml/ Dose) 1 ml In Amino Acid 5%-D25w+Lytes*E* 1,000 ml @ 60 mls/hr IV .[id number] [facility] Rx#:[id number] metroNIDAZOLE-NS PMX 500 100 mg In Saline 1 100ml.bag @ 100 mls/hr IVPB Q8HR [facility] Rx#:[id number] Oral 240 Output: Gastric Drainage 50 0 Drainage 25 10 Right Lower Abdomen 25 10 Urine 1300 925 200 Uretheral (Chavez) 1000 Other: # Voids 1 ABP, PAP, CO, CI - Last Documented Arterial Blood Pressure 79/58 - Exam GENERAL EXAM: Alert, active, comfortable in no apparent distress. HEAD: Normocephalic. EYES: Normal reaction of pupils, equal size. NOSE: Nasogastric tube secured in place. Clear with pink turbinates. THROAT: No erythema or exudates. NECK: No masses, no JVD. CHEST: No chest wall deformity. LUNGS: Equal air entry with no crackles, wheeze, rhonchi or dullness. CVS: S1 and S2 normal with no audible murmurs, regular rhythm. ABDOMEN: Abdominal dressing dry and intact. Wound VAC in place. LITA drain in place. Ostomy functioning SPINE: No scoliosis or deformity SKIN: No rashes CENTRAL NERVOUS SYSTEM: No focal deficits, tone is normal in all 4 extremities. Extremities: There is trace peripheral edema. No clubbing, no cyanosis. Peripheral pulses are intact. - Labs CBC & Chem 7: 01/05/17 06:53 01/05/17 06:53 Labs: Abnormal Lab Results - Last 24 Hours (Table) 01/04/17 01/05/17 01/05/17 Range/Units 19:09 01:09 06:05 WBC (3.8-10.6) k/uL RBC (4.30-5.90) m/uL Hgb (13.0-17.5) gm/dL Hct (39.0-53.0) % Neutrophils # (1.3-7.7) k/uL Lymphocytes # (1.0-4.8) k/uL Chloride (98-107) mmol/L BUN (9-20) mg/dL Glucose (74-99) mg/dL POC Glucose (mg/dL) 129 H 135 H 118 H (75-99) mg/dL Calcium (8.4-10.2) mg/dL 01/05/17 01/05/17 01/05/17 Range/Units 06:53 06:53 11:39 WBC 11.6 H (3.8-10.6) k/uL RBC 3.15 L (4.30-5.90) m/uL Hgb 9.8 L (13.0-17.5) gm/dL Hct 30.1 L (39.0-53.0) % Neutrophils # 9.9 H (1.3-7.7) k/uL Lymphocytes # 0.6 L (1.0-4.8) k/uL Chloride 115 H (98-107) mmol/L BUN 21 H (9-20) mg/dL Glucose 120 H (74-99) mg/dL POC Glucose (mg/dL) >600 H (75-99) mg/dL Calcium 7.8 L (8.4-10.2) mg/dL 01/05/17 Range/Units 11:40 WBC (3.8-10.6) k/uL RBC (4.30-5.90) m/uL Hgb (13.0-17.5) gm/dL Hct (39.0-53.0) % Neutrophils # (1.3-7.7) k/uL Lymphocytes # (1.0-4.8) k/uL Chloride (98-107) mmol/L BUN (9-20) mg/dL Glucose (74-99) mg/dL POC Glucose (mg/dL) 116 H (75-99) mg/dL Calcium (8.4-10.2) mg/dL Microbiology - Last 24 Hours (Table) 12/31/16 21:00 Anaerobic Culture - Final Abdomen 01/02/17 06:15 Blood Culture - Preliminary Blood No Growth after 72 hours 01/02/17 05:50 Blood Culture - Preliminary Blood No Growth after 72 hours 01/01/17 14:00 Gram Stain - Preliminary Peritoneal Fluid Body Fluid Culture - Preliminary 12/29/16 14:01 Blood Culture - Final Blood No Growth after 144 hours 12/30/16 13:30 Gram Stain - Final Aspirate Body Fluid Culture - Final Gram Positive Bacilli Isolated 12/29/16 13:53 Blood Culture - Final Blood No Growth after 144 hours 12/30/16 13:30 Anaerobic Culture - Final Abdominal Fluid Clostridium septicum Assessment and Plan Plan: Impression: 1 acute abdominal sepsis and septic shock requiring Levophed and abdominal abscess requiring exploratory laparotomy, lysis of adhesions, drainage oh multiple intra-abdominal and interloop abscesses, placement of LITA drain, placement of wound VAC system. 2 status post exploratory laparotomy, Armani's procedure sigmoid colectomy and end ostomy, for perforated hollow viscus on 12/22/2016. 3 postoperative atrial fibrillation 4 history of diastolic congestive heart failure 5 positive wound culture for Enterococcus faecalis, Sensitive to daptomycin. positive abdominal fluid for Clostridium species Plan: The patient was seen and evaluated by Dr. Morales. His chest x-ray and labs were reviewed. Stable bilateral lower lobe infiltrates with small effusion. We 've again encourage increased use of the incentive spirometer and cough and deep breathing exercises. We'll increase his activity as tolerated. We'll continue with his current medications. We'll continue to follow.
[2017-01-05] MEDS ORDERED: MVI, ADULT NO.4 WITH VIT K 10 ML, TRACE (CONC-1ML/DOSE) 1 ML in AMINO ACID 5%-D25W+LYTE... IV SCH ×3 (16:00)
[2017-01-05] MEDS: DAPTOmycin 500 MG in SODIUM CHLORIDE 0.9% 50 ML IV SCH (16:02)
[2017-01-05] MEDS: HYDROcodone/APAP 5-325MG 1 EACH TAB PO PRN ×2 (16:02→20:31)
[2017-01-05] MEDS ORDERED: HYDROcodone/APAP 5-325MG 1 EACH TAB PO PRN ×2 (16:28)
[2017-01-05 16:55] LABS: Glucose,Whole Blood 96 mg/dL (75-99)
[2017-01-05] MEDS ORDERED: ZOLPIDEM 10 MG TAB PO PRN (17:00)
--- NOTE | 2017-01-05 22:54 | PN ---
DATE OF SERVICE: 01/05/2017 REASON FOR FOLLOWUP: Abdominal abscess. INTERVAL HISTORY: The patient is afebrile, has been feeling better, breathing comfortably. His NG has been discontinued. Wound VAC has been discontinued as well as LITA. The patient was feeling slightly better. Denies any significant abdominal pain, nausea, vomiting or any diarrhea. On examination, blood pressure is 156/99 with a pulse of 85, temperature 96.9. He is 93% on room air. General description is an elderly male, lying in bed in no distress. RESPIRATORY SYSTEM: Unlabored breathing. Clear to auscultation anteriorly. HEART: S1, S2. Regular rate and rhythm. ABDOMEN: Soft. No tenderness. LABS: Hemoglobin 9.8, white count 11.6 with a BUN of 21, creatinine is 1.02. DIAGNOSTIC IMPRESSION AND PLAN: Patient with an abdominal abscess, status post surgical drainage. Culture with anaerobes and gram-positive bacilli. Previous culture with an improving gram-negative Enterococcus faecalis. Continue to cover with meropenem and daptomycin and Flagyl. As no VRE has been grown, will discontinue the daptomycin, keep the patient on meropenem and Flagyl with a transition to Invanz 1 g daily along with oral Flagyl for another 2 weeks with outpatient followup. Family present at beside. Their questions were answered. AYO
[2017-01-06] MEDS: metroNIDAZOLE-NS PMX 500 MG in SALINE 1 100ML.BAG IVPB SCH (00:51)
[2017-01-06] MEDS: HYDROcodone/APAP 5-325MG 1 EACH TAB PO PRN ×3 (03:34→19:15)
[2017-01-06 07:28] LABS: Glucose,Whole Blood 86 mg/dL (75-99)
--- NOTE | 2017-01-06 07:43 | XR ---
EXAMINATION TYPE: XR chest 1V DATE OF EXAM: 01/06/2017 7:34 AM COMPARISON: Prior chest x-ray four January 2017 HISTORY: Abnormal chest x-ray, effusion TECHNIQUE: Single frontal view of the chest is obtained. FINDINGS: Interval removal of the NG tube. Bibasilar density persists. No evident pneumothorax. Righ t-sided PICC line is stable. Lung volumes are low and there are overlying cardiac leads. IMPRESSION: Interval removal of NG tube. Basilar atelectasis and possible associated effusions. Ther e may be cardiomegaly. Correlate to exclude pneumonia.
[2017-01-06] MEDS: metroNIDAZOLE 500 MG TAB PO SCH ×2 (08:01→18:17)
[2017-01-06] MEDS: PANTOPRAZOLE 40 MG TABLET PO SCH (08:01)
[2017-01-06] MEDS: HEPARIN SODIUM,PORCINE 5,000 UNIT/ML 1 ML VIAL SQ SCH (08:01)
[2017-01-06] MEDS: METOPROLOL TARTRATE 50 MG TAB PO SCH ×3 (08:01→21:54)
[2017-01-06 08:21] LABS: Basophils % (A) 0 %; CH 31.3; CHCM 32.4; Eosinophils # (A) 0.2 k/uL (0-0.7); Eosinophils % (A) 1 %; HCT 31.7 % (39.0-53.0); HDW 2.78; HGB 9.8 gm/dL (13.0-17.5); Luc # (Auto) 0.42; Luc % (Auto) 3; Lymphocytes # (A) 0.8 k/uL (1.0-4.8); Lymphocytes % (A) 6 %; MCH 30.3 pg (25.0-35.0); MCHC 31.1 g/dL (31.0-37.0); MCV 97.3 fL (80.0-100.0); Mean Platelet Volume 6.8; Monocytes # (A) 0.5 k/uL (0-1.0); Monocytes % (A) 4 %; Neutrophils # (A) 10.7 k/uL (1.3-7.7); Neutrophils % (A) 85 %; RBC 3.25 m/uL (4.30-5.90); RDW 14.9 % (11.5-15.5); WBC 12.7 k/uL (3.8-10.6)
[2017-01-06 08:39] LABS: Ionized Calcium 5.1 mg/dL (4.5-5.3)
[2017-01-06 08:42] LABS: Anion Gap 4 mmol/L; Blood Urea Nitrogen 19 mg/dL (9-20); Calcium 7.4 mg/dL (8.4-10.2); Carbon Dioxide 23 mmol/L (22-30); Chloride 110 mmol/L (98-107); Glucose 85 mg/dL (74-99); Non-African American GFR(MDRD) >60 (>60 ml/min/1.73 sqM); Phosphorous 2.6 mg/dL (2.5-4.5); Potassium 4.1 mmol/L (3.5-5.1); Sodium 137 mmol/L (137-145)
[2017-01-06] MEDS: MEROPENEM 1 GM in SODIUM CHLORIDE 0.9% 100 ML IVPB SCH (09:25)
[2017-01-06] MEDS ORDERED: RX INFO: IV CONTRAST WAS GIVEN 1 EACH MISC MISCELLANE PRN (10:33)
[2017-01-06] MEDS ORDERED: IPRATROPIUM-ALBUTEROL 3 ML NEB INHALATION PRN (10:34)
[2017-01-06 11:55] LABS: Glucose,Whole Blood 101 mg/dL (75-99)
--- NOTE | 2017-01-06 12:02 | CT ---
EXAMINATION TYPE: CT chest angio for PE DATE OF EXAM: 01/06/2017 11:22 AM COMPARISON: Previous examination dated 12/29/2016. HISTORY: SOB CT DLP: 517 mGycm Automated exposure control for dose reduction was used. CONTRAST: CT Chest for pulmonary embolism performed with with IV Contrast, patient injected with 70 mL of Omnip aque 350. FINDINGS: There are bilateral effusions. These are enlarged slightly from the previous examination. T here is chronic consolidation at both lung bases. There is groundglass opacity in the anterior segmen t of the left upper lobe. This is more prominent than on the previous study. No parenchymal nodules a re seen. The major bronchi are patent. There is no significant axillary adenopathy. There is some shotty mediastinal and aortopulmonary wind ow lymphadenopathy. There is some minimal right hilar adenopathy. There is a small amount of thrombus in the right main pulmonary artery extending into the first order branches. There is also some adenopathy in one of the posterior right upper lobe arteries. The aorta is normal in caliber without evidence of dissection. The heart is not enlarged. There is no pericardial fluid. There is no evidence of right heart strain. Visualized upper abdominal structures are unremarkable. There is hypertrophic spondylosis within the dorsal spine. IMPRESSION: 1. THIS EXAMINATION IS POSITIVE FOR PULMONARY EMBOLUS ON THE RIGHT. 2. SLIGHT ENLARGEMENT IN THE PATIENT'S BILATERAL PLEURAL EFFUSIONS. 3. BIBASILAR AIRSPACE DISEASE WELL GROUNDGLASS OPACITY IN THE ANTERIOR SEGMENT OF THE LEFT UPPE R LOBE. 4. SHOTTY ADENOPATHY DESCRIBED. 5. DEGENERATIVE CHANGES WITHIN THE SPINE.
--- NOTE | 2017-01-06 12:37 | P.PN ---
<Tanesha Lozano - Last Filed: 01/06/17 12:26> Subjective 66-year-old being seen and examined this morning. Did note the patient had an episode where the pulse ox sats dropped into the 70s O2 was titrated up to keep the sats greater than 90. Patient stated he felt short of breath. Currently patient is on 4 L with facet documented at 91%. Posterior lung escobar diminished at the bases no crackles no wheezing noted. Patient denied chest pain. Patient did have a chest x-ray done at 6 AM this morning atelectasis possible associated effusions noted Patient was sent down for a CAT scan of the chest to rule out pulmonary emboli. The report indicated positive for pulmonary emboli on the right small amount of thrombus in the right main pulmonary artery extending into the first branch. Degenerative changes within the spine. Bibasilar airspace disease as well as groundglass opacities in the anterior segment of the left upper lobe. There is a slight enlargement in the patient's bilateral pleural effusions Patient is status post exploratory laparotomy for perforated vicus on December 22. Patient developed intra-abdominal abscess and did require exploratory laparotomy again with lysis of adhesions and drainage of multiple intra- abdominal and interloop abscess with placement of Luisito-Schroeder drains, and a wound VAC system. Postop patient was transferred to the intensive care unit was monitored closely. Initially the patient was on levo as well as fluid boluses. Patient was monitored closely in the ICU pressors were able to be titrated off and patient was able to be transferred out of the ICU on January 03 to a stepdown surgical unit. Abdominal fluid obtained was positive for clostridium and gram-positive bacilli. Patients being followed by infectious disease and pulmonary service. Objective - Vital Signs Vital signs: Vital Signs Temp 97.7 F 01/06/17 07:48 Pulse 88 01/06/17 12:11 Resp 17 01/06/17 07:48 BP 134/84 01/06/17 07:48 Pulse Ox 91 L 01/06/17 10:52 Intake & Output 01/05/17 01/06/17 01/06/17 18:59 06:59 18:59 Output Total 500 1065 1500 Balance -500 -1065 -1500 Output: Drainage 15 Right Lower Abdomen 15 Urine 995 346 7307 Stool 350 400 Other: Voiding Method Urinal ABP, PAP, CO, CI - Last Documented Arterial Blood Pressure 79/58 - Exam Physical exam 66-year-old male pleasant oriented 3 does not appear in any acute distress Lungs posterior diminished at the bases no crackles no wheezing currently on 4 L sats are documented at rest 91% patient does desat into the low 80s with activity on 4 L no cough noted Heart S1-S2 audible and regular Abdomen surgical dressing was removed by the surgeon this morning suture line well approximated LITA drain in place movement from the ostomy ostomy left lower quadrant tolerating diet no nausea urinating no difficulty decreased scrotal edema Extremities below the knee IVA hose with Venodyne's in place decrease edema to the lower extremities - Labs CBC & Chem 7: 01/06/17 07:36 01/06/17 07:36 Labs: Abnormal Lab Results - Last 24 Hours (Table) 01/06/17 01/06/17 01/06/17 Range/Units 07:36 07:36 11:53 WBC 12.7 H (3.8-10.6) k/uL RBC 3.25 L (4.30-5.90) m/uL Hgb 9.8 L (13.0-17.5) gm/dL Hct 31.7 L (39.0-53.0) % Neutrophils # 10.7 H (1.3-7.7) k/uL Lymphocytes # 0.8 L (1.0-4.8) k/uL Chloride 110 H (98-107) mmol/L POC Glucose (mg/dL) 101 H (75-99) mg/dL Calcium 7.4 L (8.4-10.2) mg/dL Microbiology - Last 24 Hours (Table) 01/02/17 06:15 Blood Culture - Preliminary Blood No Growth after 96 hours 01/02/17 05:50 Blood Culture - Preliminary Blood No Growth after 96 hours 01/01/17 14:00 Gram Stain - Final Peritoneal Fluid Body Fluid Culture - Final 12/31/16 21:00 Anaerobic Culture - Final Abdomen Assessment and Plan Plan: Impression Present on admission abdominal pain acute with sepsis and septic shock requiring Levophed Present on admission abdominal pain suspect due to abdominal abscess requiring exploratory laparotomy, lysis of adhesions, drainage oh multiple intra- abdominal and interloop abscesses, placement of LITA drain, placement of wound VAC system. Acute onset hypoxic respiratory failure postop suspect due to pulmonary emboli small amount of thrombus in the right main pulmonary artery per CAT scan of the chest done on January 06 status post exploratory laparotomy, Armani's procedure sigmoid colectomy and end ostomy, for perforated hollow viscus on 12/22/2016. postoperative atrial fibrillation resolved history of diastolic congestive heart failure with no evidence of decompensation positive wound culture for Enterococcus faecalis, sensitive to vancomycin and also sensitive to ampicillin. Sensitive to daptomycin. positive abdominal fluid for Clostridium species Status post Schreiber's procedure taken back to the operating room for multiple inner abdominal abscess including wound dehiscence with Jarret purulence Intraoperative findings included marked intestinal adhesions with early features of a small bowel obstruction Interabdominal abscess Acute peritonitis generalized resolved Plan We'll hold transferring patient Pulmonary recommends IV heparin drip for the pulmonary emboli to start monitor for 48 hours if tolerating could start Xarelto on Monday Continue recommendations from all consulting physicians Ostomy care as ordered Increase activity as tolerated Increase the use of the incentive spirometer Titrate the O2 down keep the sats greater than 90% DVT and GI prophylaxis IV antibiotics as ordered currently on Flagyl and meropenem per recommendations of infectious disease Further recommendations pending The above dictated assessment and findings were discussed with dr anthony. Impression and the plan of care have been dictated as directed. Tanesha Lozano nurse practitioner acting as a scribe for dr anthony <Melida Anthony - Last Filed: 01/06/17 14:54> Subjective Patient examined. SOB with decreased Spo2 to <80%. CTA chest- right PE and bilateral pleural effusion. Dressing changed- minimal drainage Ostomy working well. Regular diet On IV abx IV heparin drip. Change to oral anticoagulants in 24-48 hrs. Objective - Vital Signs Vital signs: Vital Signs Temp 97.7 F 01/06/17 07:48 Pulse 88 01/06/17 12:11 Resp 17 01/06/17 07:48 BP 134/84 01/06/17 07:48 Pulse Ox 91 L 01/06/17 10:52 Intake & Output 01/05/17 01/06/17 01/06/17 18:59 06:59 18:59 Output Total 500 1065 1500 Balance -500 -1065 -1500 Weight 95.7 kg Output: Drainage 15 Right Lower Abdomen 15 Urine 847 645 4225 Stool 350 400 Other: Voiding Method Urinal ABP, PAP, CO, CI - Last Documented Arterial Blood Pressure 79/58 - Labs CBC & Chem 7: 05/05/17 14:05 01/06/17 07:36 Labs: Abnormal Lab Results - Last 24 Hours (Table) 01/06/17 01/06/17 01/06/17 Range/Units 07:36 07:36 11:53 WBC 12.7 H (3.8-10.6) k/uL RBC 3.25 L (4.30-5.90) m/uL Hgb 9.8 L (13.0-17.5) gm/dL Hct 31.7 L (39.0-53.0) % Neutrophils # 10.7 H (1.3-7.7) k/uL Lymphocytes # 0.8 L (1.0-4.8) k/uL Chloride 110 H (98-107) mmol/L POC Glucose (mg/dL) 101 H (75-99) mg/dL Calcium 7.4 L (8.4-10.2) mg/dL 01/06/17 Range/Units 14:05 WBC 14.7 H (3.8-10.6) k/uL RBC 3.42 L (4.30-5.90) m/uL Hgb 10.6 L (13.0-17.5) gm/dL Hct 33.3 L (39.0-53.0) % Neutrophils # 12.9 H (1.3-7.7) k/uL Lymphocytes # 0.6 L (1.0-4.8) k/uL Chloride (98-107) mmol/L POC Glucose (mg/dL) (75-99) mg/dL Calcium (8.4-10.2) mg/dL Microbiology - Last 24 Hours (Table) 01/02/17 06:15 Blood Culture - Preliminary Blood No Growth after 96 hours 01/02/17 05:50 Blood Culture - Preliminary Blood No Growth after 96 hours 01/01/17 14:00 Gram Stain - Final Peritoneal Fluid Body Fluid Culture - Final 12/31/16 21:00 Anaerobic Culture - Final Abdomen Assessment and Plan (1) Acute abdomen Status: Acute (2) Perforated viscus Status: Acute (3) Peritonitis (acute) generalized Status: Acute (4) Inguinal hernia of left side with obstruction Status: Acute (5) Acute diastolic CHF (congestive heart failure) Status: Acute (6) Postoperative atrial fibrillation Status: Acute
[2017-01-06] MEDS: DAPTOmycin 500 MG in SODIUM CHLORIDE 0.9% 50 ML IV SCH (12:52)
[2017-01-06] MEDS ORDERED: ERTAPENEM 1 GM in SODIUM CHLORIDE 0.9% 50 ML IVPB STA (12:56)
[2017-01-06] MEDS ORDERED: HEPARIN SODIUM,PORCINE 5,000 UNIT/ML 1 ML VIAL IV PRN (13:32)
--- NOTE | 2017-01-06 14:11 | P.PN ---
Subjective Principal diagnosis: Abdominal sepsis This is a 66-year-old white male who is status post exploratory laparotomy for perforated viscus back on the of this month. Patient was seen by Dr. Juarez on consultation, and he eventually signed off the patient. Patient has been on antibiotics all along, and apparently , on 01/01/2017, patient developed intra-abdominal abscess and he required exploratory laparotomy again, lysis of adhesions, drainage of multiple intra-abdominal and interloop abscesses, placement of the Luisito-Schroeder drain, placement of wound VAC system. Postoperatively, patient was transferred back to the intensive care unit, and I was asked to see him on consultation. Patient is presently on levo fed at 15 g , and he is receiving fluids at 100 mL per hour. He is also on antibiotics, he seems to be stable from the pulmonary perspective, no cough no wheezing no shortness of breath, hence I recommended more fluid boluses, hoping I could cut down the levo fed to a lower dose. Urine output seems to be also marginal. Antibiotics seem to be appropriate. Labs were all reviewed, his lactic acid was 2.7, CBC showed leukocytosis with WBC count of 31.0. Patient is not in any form of respiratory distress at present. Renal profile was also noted to be slightly abnormal with BUN of 25 creatinine of 1.30. Patient was reevaluated today on 01/03/2017, seems to be doing well, feeling much better, denies any shortness of breath no cough no wheezing and no abdominal pain. All his labs were reviewed. Renal profile is improving. WBC count is 17.5. Hemoglobin is 10.8. Agent is not requiring any pressors at this point. He remains on antibiotics for his abdominal sepsis. Abdominal fluid is positive for Clostridium species and the gram-positive bacilli. The patient is seen again today 01/04/2017 on the surgical floor. He is awake and alert in no acute distress. He is sitting up in the chair at the bedside. Nasogastric tube remains in place. He denies any nausea. His still having a significant amount of output. His abdominal fluid was positive for Clostridium species and creatinine positive bacilli and he is currently on daptomycin, meropenem and Flagyl. He denies any worsening shortness of breath, cough or congestion. He is working well with the incentive spirometer and pulling approximately 1000 mL's. He is maintaining O2 saturations in the low 90s on 4 L /m per nasal cannula. He is afebrile. Hemodynamically stable. The patient is seen again today 01/05/2017 on the surgical floor. He is currently sitting up in the chair at the bedside. He denies any worsening shortness of breath, cough or congestion. His nasogastric tube remains in place to suction. He is working well of the incentive spirometer and pulling approximately 1000 mL. He has no pulmonary complaints. The patient is seen again today 01/06/2017 in follow-up on the surgical floor. He is currently resting quite comfortably in bed. He did have issues with oxygen desaturations well getting up in the chair with the staff. He does have some worsening shortness of breath with minimal activity. He is requiring 4 L/ m per nasal cannula to maintain O2 saturations in the low 90s. He has been hemodynamically stable. A CT angiogram was performed and he was found to have a right lung pulmonary embolism. Objective - Vital Signs Vital signs: Vital Signs Temp 97.7 F 01/06/17 07:48 Pulse 88 01/06/17 12:11 Resp 17 01/06/17 07:48 BP 134/84 01/06/17 07:48 Pulse Ox 91 L 01/06/17 10:52 Intake & Output 01/05/17 01/06/17 01/06/17 18:59 06:59 18:59 Output Total 500 1065 1500 Balance -500 -1065 -1500 Weight 95.7 kg Output: Drainage 15 Right Lower Abdomen 15 Urine 297 534 2341 Stool 350 400 Other: Voiding Method Urinal ABP, PAP, CO, CI - Last Documented Arterial Blood Pressure 79/58 - Exam GENERAL EXAM: Alert, active, comfortable in no apparent distress. HEAD: Normocephalic. EYES: Normal reaction of pupils, equal size. NOSE: Nasogastric tube secured in place. Clear with pink turbinates. THROAT: No erythema or exudates. NECK: No masses, no JVD. CHEST: No chest wall deformity. LUNGS: Equal air entry with no crackles, wheeze, rhonchi or dullness. CVS: S1 and S2 normal with no audible murmurs, regular rhythm. ABDOMEN: Abdominal dressing dry and intact. Wound VAC in place. LITA drain in place. Ostomy functioning SPINE: No scoliosis or deformity SKIN: No rashes CENTRAL NERVOUS SYSTEM: No focal deficits, tone is normal in all 4 extremities. Extremities: There is trace peripheral edema. No clubbing, no cyanosis. Peripheral pulses are intact. - Labs CBC & Chem 7: 01/06/17 07:36 01/06/17 07:36 Labs: Abnormal Lab Results - Last 24 Hours (Table) 01/06/17 01/06/17 01/06/17 Range/Units 07:36 07:36 11:53 WBC 12.7 H (3.8-10.6) k/uL RBC 3.25 L (4.30-5.90) m/uL Hgb 9.8 L (13.0-17.5) gm/dL Hct 31.7 L (39.0-53.0) % Neutrophils # 10.7 H (1.3-7.7) k/uL Lymphocytes # 0.8 L (1.0-4.8) k/uL Chloride 110 H (98-107) mmol/L POC Glucose (mg/dL) 101 H (75-99) mg/dL Calcium 7.4 L (8.4-10.2) mg/dL Microbiology - Last 24 Hours (Table) 01/02/17 06:15 Blood Culture - Preliminary Blood No Growth after 96 hours 01/02/17 05:50 Blood Culture - Preliminary Blood No Growth after 96 hours 01/01/17 14:00 Gram Stain - Final Peritoneal Fluid Body Fluid Culture - Final 12/31/16 21:00 Anaerobic Culture - Final Abdomen Assessment and Plan Plan: Impression: 1 acute abdominal sepsis and septic shock requiring Levophed and abdominal abscess requiring exploratory laparotomy, lysis of adhesions, drainage oh multiple intra-abdominal and interloop abscesses, placement of LITA drain, placement of wound VAC system. 2 status post exploratory laparotomy, Armani's procedure sigmoid colectomy and end ostomy, for perforated hollow viscus on 12/22/2016. 3 postoperative atrial fibrillation 4 history of diastolic congestive heart failure 5 positive wound culture for Enterococcus faecalis, Sensitive to daptomycin. positive abdominal fluid for Clostridium species #6 Acute hypoxic respiratory failure secondary to right lung pulmonary embolism , by basilar atelectasis and pleural effusions. Plan: The patient was seen and evaluated by Dr. Morales. His CT angiogram was reviewed. The patient will be initiated on IV heparin and eventually converted to possibly Xarelto once cleared by surgical services. We've again encouraged the increased use of the incentive spirometer and cough and deep breathing exercises. We will increase his activity as tolerated. We'll continue to follow.
[2017-01-06 14:19] LABS: INR 1.2 (<1.1); Prothrombin Time 11.8 sec (9.0-12.0)
[2017-01-06 14:24] LABS: Basophils % (A) 0 %; CH 31.1; CHCM 32.1; Eosinophils # (A) 0.1 k/uL (0-0.7); Eosinophils % (A) 1 %; HCT 33.3 % (39.0-53.0); HDW 2.75; HGB 10.6 gm/dL (13.0-17.5); Luc # (Auto) 0.33; Luc % (Auto) 2; Lymphocytes # (A) 0.6 k/uL (1.0-4.8); Lymphocytes % (A) 4 %; MCH 31.2 pg (25.0-35.0); MCV 97.5 fL (80.0-100.0); Mean Platelet Volume 6.8; Monocytes # (A) 0.7 k/uL (0-1.0); Monocytes % (A) 5 %; Neutrophils # (A) 12.9 k/uL (1.3-7.7); Neutrophils % (A) 88 %; RBC 3.42 m/uL (4.30-5.90); RDW 14.8 % (11.5-15.5); WBC 14.7 k/uL (3.8-10.6); WBC (Perox) 15.25
[2017-01-06] MEDS: HEPARIN SODIUM,PORCINE/D5W PMX 25,000 UNIT in DEXTROSE/WATER 1 500ML.BAG IV SCH (15:30)
[2017-01-06 17:33] LABS: Glucose,Whole Blood 117 mg/dL (75-99)
[2017-01-06 21:37] LABS: Glucose,Whole Blood 89 mg/dL (75-99)
[2017-01-07] MEDS: metroNIDAZOLE 500 MG TAB PO SCH ×3 (00:04→15:24)
[2017-01-07 05:45] LABS: Basophils % (A) 0 %; CH 31.3; CHCM 33.4; Eosinophils # (A) 0.2 k/uL (0-0.7); Eosinophils % (A) 2 %; HDW 2.88; HGB 10.4 gm/dL (13.0-17.5); Luc % (Auto) 3; Lymphocytes % (A) 7 %; MCH 31.7 pg (25.0-35.0); MCHC 33.5 g/dL (31.0-37.0); MCV 94.5 fL (80.0-100.0); Mean Platelet Volume 6.7; Monocytes # (A) 0.6 k/uL (0-1.0); Monocytes % (A) 5 %; Neutrophils # (A) 11.4 k/uL (1.3-7.7); Neutrophils % (A) 84 %; RBC 3.28 m/uL (4.30-5.90); RDW 14.7 % (11.5-15.5); WBC 13.6 k/uL (3.8-10.6); WBC (Perox) 13.71
[2017-01-07 07:12] LABS: Anion Gap 5 mmol/L; Blood Urea Nitrogen 17 mg/dL (9-20); Calcium 7.4 mg/dL (8.4-10.2); Carbon Dioxide 23 mmol/L (22-30); Chloride 107 mmol/L (98-107); Glucose 91 mg/dL (74-99); Magnesium 1.9 mg/dL (1.6-2.3); Non-African American GFR(MDRD) >60 (>60 ml/min/1.73 sqM); Potassium 3.7 mmol/L (3.5-5.1); Sodium 135 mmol/L (137-145)
--- NOTE | 2017-01-07 07:37 | PN ---
DATE OF SERVICE: 01/06/2017 Reason for follow-up is abdominal abscess. INTERVAL HISTORY: The patient is afebrile. He was noticed to be hypoxic with O2 sat down to 74. CT angiogram was done that came back positive for PE. Heparin has been started. The patient is breathing comfortably. Denies significant chest pain or cough. No significant abdominal pain, nausea or vomiting. He has been tolerating his oral intake. On examination, blood pressure is 134/80 with a pulse of 72, temperature 97.2. He is 97% on 4-L nasal cannula. General description is an elderly male up in the bed in no distress. RESPIRATORY SYSTEM: Unlabored breathing. Clear to auscultation anteriorly. HEART: S1, S2. Regular rate and rhythm. ABDOMEN: Soft. No tenderness. LABS: Hemoglobin is 10.6, white count 14.7. DIAGNOSTIC IMPRESSION AND PLAN: Patient with polymicrobial abdominal abscess. Culture has been positive for mostly aerobes and Clostridium. Antibiotic has been adjusted to Invanz 1 gram daily. That will be continued in addition to the oral Flagyl. Discontinue the daptomycin as no vancomycin-resistant enterococcus has been grown. Continue supportive care.
[2017-01-07 07:49] LABS: Glucose,Whole Blood 132 mg/dL (75-99)
[2017-01-07] MEDS: HEPARIN SODIUM,PORCINE/D5W PMX 25,000 UNIT in DEXTROSE/WATER 1 500ML.BAG IV SCH (09:46)
[2017-01-07] MEDS: PANTOPRAZOLE 40 MG TABLET PO SCH (09:53)
[2017-01-07] MEDS: METOPROLOL TARTRATE 50 MG TAB PO SCH ×2 (09:53→15:24)
[2017-01-07] MEDS: ERTAPENEM 1 GM in SODIUM CHLORIDE 0.9% 50 ML IVPB SCH (09:58)
[2017-01-07] MEDS: HYDROcodone/APAP 5-325MG 1 EACH TAB PO PRN ×2 (10:00→22:22)
[2017-01-07 11:39] LABS: Glucose,Whole Blood 219 mg/dL (75-99)
--- NOTE | 2017-01-07 12:04 | P.PN ---
Subjective Principal diagnosis: Abdominal sepsis This is a 66-year-old white male who is status post exploratory laparotomy for perforated viscus back on the of this month. Patient was seen by Dr. Juarez on consultation, and he eventually signed off the patient. Patient has been on antibiotics all along, and apparently , on 01/01/2017, patient developed intra-abdominal abscess and he required exploratory laparotomy again, lysis of adhesions, drainage of multiple intra-abdominal and interloop abscesses, placement of the Luisito-Schroeder drain, placement of wound VAC system. Postoperatively, patient was transferred back to the intensive care unit, and I was asked to see him on consultation. Patient is presently on levo fed at 15 g , and he is receiving fluids at 100 mL per hour. He is also on antibiotics, he seems to be stable from the pulmonary perspective, no cough no wheezing no shortness of breath, hence I recommended more fluid boluses, hoping I could cut down the levo fed to a lower dose. Urine output seems to be also marginal. Antibiotics seem to be appropriate. Labs were all reviewed, his lactic acid was 2.7, CBC showed leukocytosis with WBC count of 31.0. Patient is not in any form of respiratory distress at present. Renal profile was also noted to be slightly abnormal with BUN of 25 creatinine of 1.30. Patient was reevaluated today on 01/03/2017, seems to be doing well, feeling much better, denies any shortness of breath no cough no wheezing and no abdominal pain. All his labs were reviewed. Renal profile is improving. WBC count is 17.5. Hemoglobin is 10.8. Agent is not requiring any pressors at this point. He remains on antibiotics for his abdominal sepsis. Abdominal fluid is positive for Clostridium species and the gram-positive bacilli. The patient is seen again today 01/04/2017 on the surgical floor. He is awake and alert in no acute distress. He is sitting up in the chair at the bedside. Nasogastric tube remains in place. He denies any nausea. His still having a significant amount of output. His abdominal fluid was positive for Clostridium species and creatinine positive bacilli and he is currently on daptomycin, meropenem and Flagyl. He denies any worsening shortness of breath, cough or congestion. He is working well with the incentive spirometer and pulling approximately 1000 mL's. He is maintaining O2 saturations in the low 90s on 4 L /m per nasal cannula. He is afebrile. Hemodynamically stable. The patient is seen again today 01/05/2017 on the surgical floor. He is currently sitting up in the chair at the bedside. He denies any worsening shortness of breath, cough or congestion. His nasogastric tube remains in place to suction. He is working well of the incentive spirometer and pulling approximately 1000 mL. He has no pulmonary complaints. The patient is seen again today 01/06/2017 in follow-up on the surgical floor. He is currently resting quite comfortably in bed. He did have issues with oxygen desaturations well getting up in the chair with the staff. He does have some worsening shortness of breath with minimal activity. He is requiring 4 L/ m per nasal cannula to maintain O2 saturations in the low 90s. He has been hemodynamically stable. A CT angiogram was performed and he was found to have a right lung pulmonary embolism. The patient is seen again today 01/07/2017 in follow-up on the surgical floor. He is currently sitting up in a chair at the bedside. He is awake and alert in no acute distress. He denies any worsening shortness of breath, cough or congestion. He has been initiated on IV heparin for the right lung PE. He denies any hemoptysis. No chest pain. No palpitations, lightheadedness or dizziness. He is maintaining good O2 saturations in the mid 90s on 4 L/m per nasal cannula. He is working well with his incentive spirometer. He did have a temperature of 100.1 today. Currently on ertapenem and Flagyl. Infectious disease is following as well. Objective - Vital Signs Vital signs: Vital Signs Temp 100.1 F H 01/07/17 08:00 Pulse 85 01/07/17 08:00 Resp 18 01/07/17 08:00 BP 132/78 01/07/17 08:00 Pulse Ox 95 01/07/17 08:00 Intake & Output 01/06/17 01/07/17 01/07/17 18:59 06:59 18:59 Intake Total 342.810 1444.347 Output Total 2300 1280 515 Balance -2300 -1023.347 528.347 Weight 95.7 kg 91 kg Intake: IV 400 DAPTOmycin 500 mg In 400 Sodium Chloride 0.9% 50 ml @ 100 mls/hr IV Q24H [facility] Rx#:[id number] Intake, IV Titration 256.653 243.347 Amount Heparin Sodium,Porcine/ 256.653 243.347 D5w Pmx 25,000 unit In Dextrose/Water 1 500ml. bag @ 18 UNITS/KG/HR 34. 45 mls/hr IV .[id number] [facility] Rx#:[id number] Oral 400 Output: Drainage 30 15 Right Lower Abdomen 30 15 Urine 1300 850 500 Stool 1000 400 Other: # Voids 1 ABP, PAP, CO, CI - Last Documented Arterial Blood Pressure 79/58 - Exam GENERAL EXAM: Alert, active, comfortable in no apparent distress. HEAD: Normocephalic. EYES: Normal reaction of pupils, equal size. NOSE: Nasogastric tube secured in place. Clear with pink turbinates. THROAT: No erythema or exudates. NECK: No masses, no JVD. CHEST: No chest wall deformity. LUNGS: Equal air entry with no crackles, wheeze, rhonchi or dullness. CVS: S1 and S2 normal with no audible murmurs, regular rhythm. ABDOMEN: Abdominal dressing dry and intact. Wound VAC in place. LITA drain in place. Ostomy functioning SPINE: No scoliosis or deformity SKIN: No rashes CENTRAL NERVOUS SYSTEM: No focal deficits, tone is normal in all 4 extremities. Extremities: There is trace peripheral edema. No clubbing, no cyanosis. Peripheral pulses are intact. - Labs CBC & Chem 7: 01/07/17 05:22 01/07/17 05:22 Labs: Abnormal Lab Results - Last 24 Hours (Table) 01/06/17 01/06/17 01/06/17 Range/Units 14:05 17:29 21:46 WBC 14.7 H (3.8-10.6) k/uL RBC 3.42 L (4.30-5.90) m/uL Hgb 10.6 L (13.0-17.5) gm/dL Hct 33.3 L (39.0-53.0) % Neutrophils # 12.9 H (1.3-7.7) k/uL Lymphocytes # 0.6 L (1.0-4.8) k/uL APTT 89.7 H (22.0-30.0) sec Sodium (137-145) mmol/L POC Glucose (mg/dL) 117 H (75-99) mg/dL Calcium (8.4-10.2) mg/dL 01/07/17 01/07/17 01/07/17 Range/Units 05:22 05:22 05:22 WBC 13.6 H (3.8-10.6) k/uL RBC 3.28 L (4.30-5.90) m/uL Hgb 10.4 L (13.0-17.5) gm/dL Hct 31.0 L (39.0-53.0) % Neutrophils # 11.4 H (1.3-7.7) k/uL Lymphocytes # (1.0-4.8) k/uL APTT 105.2 H* (22.0-30.0) sec Sodium 135 L (137-145) mmol/L POC Glucose (mg/dL) (75-99) mg/dL Calcium 7.4 L (8.4-10.2) mg/dL 01/07/17 01/07/17 Range/Units 07:44 11:34 WBC (3.8-10.6) k/uL RBC (4.30-5.90) m/uL Hgb (13.0-17.5) gm/dL Hct (39.0-53.0) % Neutrophils # (1.3-7.7) k/uL Lymphocytes # (1.0-4.8) k/uL APTT (22.0-30.0) sec Sodium (137-145) mmol/L POC Glucose (mg/dL) 132 H 219 H (75-99) mg/dL Calcium (8.4-10.2) mg/dL Microbiology - Last 24 Hours (Table) 01/02/17 06:15 Blood Culture - Preliminary Blood No Growth after 120 hours 01/02/17 05:50 Blood Culture - Preliminary Blood No Growth after 120 hours Assessment and Plan Plan: Impression: 1 acute abdominal sepsis and septic shock requiring Levophed and abdominal abscess requiring exploratory laparotomy, lysis of adhesions, drainage oh multiple intra-abdominal and interloop abscesses, placement of LITA drain, placement of wound VAC system. 2 status post exploratory laparotomy, Armani's procedure sigmoid colectomy and end ostomy, for perforated hollow viscus on 12/22/2016. 3 postoperative atrial fibrillation 4 history of diastolic congestive heart failure 5 positive abdominal fluid culture for Enterococcus faecalis, gram-negative bacilli, Clostridium species and isolated gram-positive bacilli currently on ertapenem and Flagyl. #6 Acute hypoxic respiratory failure secondary to right lung pulmonary embolism , bibasilar atelectasis and pleural effusions. Plan: The patient was seen and evaluated by Dr. Morales. The patient was initiated on IV heparin and be eventually converted to possibly Xarelto once cleared by surgical services. We've again encouraged the increased use of the incentive spirometer and cough and deep breathing exercises. We will increase his activity as tolerated. We'll continue to follow.
--- NOTE | 2017-01-07 13:05 | P.PN ---
Subjective Principal diagnosis: PErforated diverticulitis Patient is s/p exploratory laparotomy and has had a PE. He is still short of breath but tolerating diet. Ambulation is limited. Pain is controlled. No nasuea Objective - Vital Signs Vital signs: Vital Signs Temp 100.1 F H 01/07/17 08:00 Pulse 85 01/07/17 08:00 Resp 18 01/07/17 08:00 BP 132/78 01/07/17 08:00 Pulse Ox 95 01/07/17 08:00 Intake & Output 01/06/17 01/07/17 01/07/17 18:59 06:59 18:59 Intake Total 361.325 7796.347 Output Total 2300 1280 515 Balance -2300 -1023.347 528.347 Weight 95.7 kg 91 kg Intake: IV 400 DAPTOmycin 500 mg In 400 Sodium Chloride 0.9% 50 ml @ 100 mls/hr IV Q24H [facility] Rx#:[id number] Intake, IV Titration 256.653 243.347 Amount Heparin Sodium,Porcine/ 256.653 243.347 D5w Pmx 25,000 unit In Dextrose/Water 1 500ml. bag @ 18 UNITS/KG/HR 34. 45 mls/hr IV .[id number] [facility] Rx#:[id number] Oral 400 Output: Drainage 30 15 Right Lower Abdomen 30 15 Urine 1300 850 500 Stool 1000 400 Other: # Voids 1 ABP, PAP, CO, CI - Last Documented Arterial Blood Pressure 79/58 - Constitutional General appearance: Present: cooperative - Respiratory Details: dyspnea - Cardiovascular Rhythm: regular - Gastrointestinal Gastrointestinal Comment(s): Ostomy fucnitonal and intact. Incision is clean dry and intact. - Labs CBC & Chem 7: 01/07/17 05:22 01/07/17 05:22 Labs: Abnormal Lab Results - Last 24 Hours (Table) 01/06/17 01/06/17 01/06/17 Range/Units 14:05 17:29 21:46 WBC 14.7 H (3.8-10.6) k/uL RBC 3.42 L (4.30-5.90) m/uL Hgb 10.6 L (13.0-17.5) gm/dL Hct 33.3 L (39.0-53.0) % Neutrophils # 12.9 H (1.3-7.7) k/uL Lymphocytes # 0.6 L (1.0-4.8) k/uL APTT 89.7 H (22.0-30.0) sec Sodium (137-145) mmol/L POC Glucose (mg/dL) 117 H (75-99) mg/dL Calcium (8.4-10.2) mg/dL 01/07/17 01/07/17 01/07/17 Range/Units 05:22 05:22 05:22 WBC 13.6 H (3.8-10.6) k/uL RBC 3.28 L (4.30-5.90) m/uL Hgb 10.4 L (13.0-17.5) gm/dL Hct 31.0 L (39.0-53.0) % Neutrophils # 11.4 H (1.3-7.7) k/uL Lymphocytes # (1.0-4.8) k/uL APTT 105.2 H* (22.0-30.0) sec Sodium 135 L (137-145) mmol/L POC Glucose (mg/dL) (75-99) mg/dL Calcium 7.4 L (8.4-10.2) mg/dL 01/07/17 01/07/17 Range/Units 07:44 11:34 WBC (3.8-10.6) k/uL RBC (4.30-5.90) m/uL Hgb (13.0-17.5) gm/dL Hct (39.0-53.0) % Neutrophils # (1.3-7.7) k/uL Lymphocytes # (1.0-4.8) k/uL APTT (22.0-30.0) sec Sodium (137-145) mmol/L POC Glucose (mg/dL) 132 H 219 H (75-99) mg/dL Calcium (8.4-10.2) mg/dL Microbiology - Last 24 Hours (Table) 01/02/17 06:15 Blood Culture - Preliminary Blood No Growth after 120 hours 01/02/17 05:50 Blood Culture - Preliminary Blood No Growth after 120 hours Assessment and Plan (1) Leukocytosis Status: Acute (2) Acute abdomen Status: Acute Plan: Patietn still has leukocytosis He is still short of breath. Ok to switch the heparin to xarelto Await placement. Await ID rec for outpatient abx.
--- NOTE | 2017-01-07 16:40 | P.PN ---
Subjective 66-year-old gentleman status post ex-lap for perforated viscus on 12/22/2016, take back on 01/01/2017 for intra-abdominal abscesses noted on a computed tomography scan of the abdomen pelvis underwent lysis of adhesions abdominal abscesses drainage. Patient had a ostomy LITA drains in place thereafter underwent a course in the intensive care unit. Patient was close to being discharge on 01/06/2017 however was noted to have multiple episodes of desaturations and was requiring 4 L of supplemental oxygen. Patient underwent a computed tomography scan of the chest and was noted to have a right-sided pulmonary embolism Today patient is seen at bedside was noted to be on 4 L of supplemental oxygen. Denies having any additional complaints Was able to tolerate his diet No previous history of bleeding was reported T-max of 100.1 Objective - Vital Signs Vital signs: Vital Signs Temp 98.7 F 01/07/17 15:00 Pulse 69 01/07/17 15:00 Resp 16 01/07/17 15:00 BP 119/71 01/07/17 15:00 Pulse Ox 99 01/07/17 15:00 Intake & Output 01/06/17 01/07/17 01/07/17 18:59 06:59 18:59 Intake Total 928.882 5166.347 Output Total 2300 1280 1610 Balance -2300 -1023.347 -566.653 Weight 95.7 kg 91 kg 91 kg Intake: IV 400 DAPTOmycin 500 mg In 400 Sodium Chloride 0.9% 50 ml @ 100 mls/hr IV Q24H [facility] Rx#:[id number] Intake, IV Titration 256.653 243.347 Amount Heparin Sodium,Porcine/ 256.653 243.347 D5w Pmx 25,000 unit In Dextrose/Water 1 500ml. bag @ 18 UNITS/KG/HR 34. 45 mls/hr IV .[id number] [facility] Rx#:[id number] Oral 400 Output: Drainage 30 60 Right Lower Abdomen 30 60 Urine 5796 281 8354 Stool 1000 400 Other: # Voids 2 ABP, PAP, CO, CI - Last Documented Arterial Blood Pressure 79/58 - Exam Lungs diminished breath sounds no rhonchi wheezing or crackles Heart slightly tachycardic no murmurs appreciated General he is alert oriented 3 in no distress Abdomen abdominal binder noted ostomy noted on the left side Chavez in place LITA drain in place in the right hemiabdomen Lower extremities 1+ pitting edema Neuro moves all 4 extremities focal deficits noted - Labs CBC & Chem 7: 01/07/17 05:22 01/07/17 05:22 Labs: Abnormal Lab Results - Last 24 Hours (Table) 01/06/17 01/06/17 01/07/17 Range/Units 17:29 21:46 05:22 WBC (3.8-10.6) k/uL RBC (4.30-5.90) m/uL Hgb (13.0-17.5) gm/dL Hct (39.0-53.0) % Neutrophils # (1.3-7.7) k/uL APTT 89.7 H (22.0-30.0) sec Sodium 135 L (137-145) mmol/L POC Glucose (mg/dL) 117 H (75-99) mg/dL Calcium 7.4 L (8.4-10.2) mg/dL 01/07/17 01/07/17 01/07/17 Range/Units 05:22 05:22 07:44 WBC 13.6 H (3.8-10.6) k/uL RBC 3.28 L (4.30-5.90) m/uL Hgb 10.4 L (13.0-17.5) gm/dL Hct 31.0 L (39.0-53.0) % Neutrophils # 11.4 H (1.3-7.7) k/uL APTT 105.2 H* (22.0-30.0) sec Sodium (137-145) mmol/L POC Glucose (mg/dL) 132 H (75-99) mg/dL Calcium (8.4-10.2) mg/dL 01/07/17 Range/Units 11:34 WBC (3.8-10.6) k/uL RBC (4.30-5.90) m/uL Hgb (13.0-17.5) gm/dL Hct (39.0-53.0) % Neutrophils # (1.3-7.7) k/uL APTT (22.0-30.0) sec Sodium (137-145) mmol/L POC Glucose (mg/dL) 219 H (75-99) mg/dL Calcium (8.4-10.2) mg/dL Microbiology - Last 24 Hours (Table) 01/02/17 06:15 Blood Culture - Preliminary Blood No Growth after 120 hours 01/02/17 05:50 Blood Culture - Preliminary Blood No Growth after 120 hours Assessment and Plan Plan: 1 septic shock from an intra-abdominal abscess #2 postoperative atrial ablation #3 acute exacerbation of congestive heart failure diastolic in nature #4 acute hypoxic respiratory failure secondary to pulmonary embolism #5 acute PE provoked plan Continue antibiotic therapy as recommended by infectious diseases. Discussed using's are also will start the patient on 15 mg by mouth twice a day for 21 days thereafter 20 mg daily. Titrate down oxygen as tolerated Continue inpatient management at this time.
[2017-01-07] MEDS: RIVAROXABAN 15 MG TAB PO SCH (18:29)
[2017-01-08] MEDS: metroNIDAZOLE 500 MG TAB PO SCH ×4 (00:10→23:40)
[2017-01-08] MEDS: METOPROLOL TARTRATE 50 MG TAB PO SCH ×4 (07:35→20:57)
[2017-01-08] MEDS: PANTOPRAZOLE 40 MG TABLET PO SCH (07:38)
[2017-01-08] MEDS: RIVAROXABAN 15 MG TAB PO SCH ×2 (07:38→16:30)
[2017-01-08 07:53] LABS: Anion Gap 4 mmol/L; Blood Urea Nitrogen 17 mg/dL (9-20); Calcium 7.7 mg/dL (8.4-10.2); Carbon Dioxide 24 mmol/L (22-30); Chloride 109 mmol/L (98-107); Glucose 82 mg/dL (74-99); Magnesium 1.9 mg/dL (1.6-2.3); Non-African American GFR(MDRD) >60 (>60 ml/min/1.73 sqM); Potassium 4.2 mmol/L (3.5-5.1); Sodium 137 mmol/L (137-145)
--- NOTE | 2017-01-08 08:08 | PN ---
DATE OF SERVICE: 01/07/2017 Reason for Follow-up: abdominal abscess. INTERVAL HISTORY: The patient did have a low grade fever this morning 100.1. However, the patient said , he did not have any chills with it. The patient denies significant chest pain or shortness of breath, cough. No abdominal pain. No nausea or vomiting or any diarrhea. On examination, blood pressure 119/71 with a pulse of 69, temperature 98.7. He is 99% on 4 L nasal cannula. General description is an elderly male, lying in bed in no distress. Respiratory system unlabored breathing. Clear to auscultation anteriorly. HEART: S1, S2. Regular rate and rhythm. ABDOMEN: Soft. No tenderness. LABS: Hemoglobin 10.4, white count 13.6 with a BUN of 17, creatinine 0.97. DIAGNOSTIC IMPRESSION AND PLAN: Patient with abdominal abscess. Culture has been predominantly gram negative and enterococcus, currently covered with zosyn and Flagyl that will be continued. Continue supportive care. MTDD
[2017-01-08] MEDS: ERTAPENEM 1 GM in SODIUM CHLORIDE 0.9% 50 ML IVPB SCH (08:45)
--- NOTE | 2017-01-08 11:16 | P.PN ---
Subjective Principal diagnosis: Abdominal sepsis This is a 66-year-old white male who is status post exploratory laparotomy for perforated viscus back on the of this month. Patient was seen by Dr. Juarez on consultation, and he eventually signed off the patient. Patient has been on antibiotics all along, and apparently , on 01/01/2017, patient developed intra-abdominal abscess and he required exploratory laparotomy again, lysis of adhesions, drainage of multiple intra-abdominal and interloop abscesses, placement of the Luisito-Schroeder drain, placement of wound VAC system. Postoperatively, patient was transferred back to the intensive care unit, and I was asked to see him on consultation. Patient is presently on levo fed at 15 g , and he is receiving fluids at 100 mL per hour. He is also on antibiotics, he seems to be stable from the pulmonary perspective, no cough no wheezing no shortness of breath, hence I recommended more fluid boluses, hoping I could cut down the levo fed to a lower dose. Urine output seems to be also marginal. Antibiotics seem to be appropriate. Labs were all reviewed, his lactic acid was 2.7, CBC showed leukocytosis with WBC count of 31.0. Patient is not in any form of respiratory distress at present. Renal profile was also noted to be slightly abnormal with BUN of 25 creatinine of 1.30. Patient was reevaluated today on 01/03/2017, seems to be doing well, feeling much better, denies any shortness of breath no cough no wheezing and no abdominal pain. All his labs were reviewed. Renal profile is improving. WBC count is 17.5. Hemoglobin is 10.8. Agent is not requiring any pressors at this point. He remains on antibiotics for his abdominal sepsis. Abdominal fluid is positive for Clostridium species and the gram-positive bacilli. The patient is seen again today 01/04/2017 on the surgical floor. He is awake and alert in no acute distress. He is sitting up in the chair at the bedside. Nasogastric tube remains in place. He denies any nausea. His still having a significant amount of output. His abdominal fluid was positive for Clostridium species and creatinine positive bacilli and he is currently on daptomycin, meropenem and Flagyl. He denies any worsening shortness of breath, cough or congestion. He is working well with the incentive spirometer and pulling approximately 1000 mL's. He is maintaining O2 saturations in the low 90s on 4 L /m per nasal cannula. He is afebrile. Hemodynamically stable. The patient is seen again today 01/05/2017 on the surgical floor. He is currently sitting up in the chair at the bedside. He denies any worsening shortness of breath, cough or congestion. His nasogastric tube remains in place to suction. He is working well of the incentive spirometer and pulling approximately 1000 mL. He has no pulmonary complaints. The patient is seen again today 01/06/2017 in follow-up on the surgical floor. He is currently resting quite comfortably in bed. He did have issues with oxygen desaturations well getting up in the chair with the staff. He does have some worsening shortness of breath with minimal activity. He is requiring 4 L/ m per nasal cannula to maintain O2 saturations in the low 90s. He has been hemodynamically stable. A CT angiogram was performed and he was found to have a right lung pulmonary embolism. The patient is seen again today 01/07/2017 in follow-up on the surgical floor. He is currently sitting up in a chair at the bedside. He is awake and alert in no acute distress. He denies any worsening shortness of breath, cough or congestion. He has been initiated on IV heparin for the right lung PE. He denies any hemoptysis. No chest pain. No palpitations, lightheadedness or dizziness. He is maintaining good O2 saturations in the mid 90s on 4 L/m per nasal cannula. He is working well with his incentive spirometer. He did have a temperature of 100.1 today. Currently on ertapenem and Flagyl. Infectious disease is following as well. On 01/08/2017, patient continues to do well, started on Xarelto yesterday, and heparin has been discontinued. Patient denies any shortness of breath no cough no wheezing, I believe discharge planning is in progress possibly to a detention tomorrow and rehab. No fever over the last 24 hours, and patient denies shortness of breath cough or wheezing no chest pain. Labs were reviewed he had a relatively normal basic metabolic profile. Objective - Vital Signs Vital signs: Vital Signs Temp 97.5 F L 01/08/17 07:48 Pulse 80 01/08/17 07:51 Resp 16 01/08/17 07:51 BP 129/77 01/08/17 07:48 Pulse Ox 96 01/08/17 07:48 Intake & Output 01/07/17 01/08/17 01/08/17 18:59 06:59 18:59 Intake Total 1043.347 Output Total 1610 550 500 Balance -566.653 -550 -500 Weight 91 kg 88.7 kg Intake: IV 400 DAPTOmycin 500 mg In 400 Sodium Chloride 0.9% 50 ml @ 100 mls/hr IV Q24H [facility] Rx#:[id number] Intake, IV Titration 243.347 Amount Heparin Sodium,Porcine/ 243.347 D5w Pmx 25,000 unit In Dextrose/Water 1 500ml. bag @ 18 UNITS/KG/HR 34. 45 mls/hr IV .[id number] [facility] Rx#:[id number] Oral 400 Output: Drainage 60 Right Lower Abdomen 60 Urine 1550 550 300 Stool 200 Other: Voiding Method Urinal # Voids 2 1 1 ABP, PAP, CO, CI - Last Documented Arterial Blood Pressure 79/58 - Exam GENERAL EXAM: Alert, active, comfortable in no apparent distress. HEAD: Normocephalic. EYES: Normal reaction of pupils, equal size. NOSE: Nasogastric tube secured in place. Clear with pink turbinates. THROAT: No erythema or exudates. NECK: No masses, no JVD. CHEST: No chest wall deformity. LUNGS: Equal air entry with no crackles, wheeze, rhonchi or dullness. CVS: S1 and S2 normal with no audible murmurs, regular rhythm. ABDOMEN: Abdominal dressing dry and intact. Wound VAC in place. LITA drain in place. Ostomy functioning SPINE: No scoliosis or deformity SKIN: No rashes CENTRAL NERVOUS SYSTEM: No focal deficits, tone is normal in all 4 extremities. Extremities: There is trace peripheral edema. No clubbing, no cyanosis. Peripheral pulses are intact. - Labs CBC & Chem 7: 01/07/17 05:22 01/08/17 06:20 Labs: Abnormal Lab Results - Last 24 Hours (Table) 01/07/17 01/08/17 Range/Units 11:34 06:20 Chloride 109 H (98-107) mmol/L POC Glucose (mg/dL) 219 H (75-99) mg/dL Calcium 7.7 L (8.4-10.2) mg/dL Microbiology - Last 24 Hours (Table) 01/02/17 06:15 Blood Culture - Final Blood No Growth after 144 hours 01/02/17 05:50 Blood Culture - Final Blood No Growth after 144 hours Assessment and Plan Plan: 1 acute abdominal sepsis and septic shock requiring Levophed and abdominal abscess requiring exploratory laparotomy, lysis of adhesions, drainage oh multiple intra-abdominal and interloop abscesses, placement of LITA drain, placement of wound VAC system. 2 status post exploratory laparotomy, Armani's procedure sigmoid colectomy and end ostomy, for perforated hollow viscus on 12/22/2016. 3 postoperative atrial fibrillation 4 history of diastolic congestive heart failure 5 positive abdominal fluid culture for Enterococcus faecalis, gram-negative bacilli, Clostridium species and isolated gram-positive bacilli currently on ertapenem and Flagyl. #6 Acute hypoxic respiratory failure secondary to right lung pulmonary embolism , bibasilar atelectasis and pleural effusions. Recommendation: Agree with the present treatment plan and agree with conversion of heparin to Xarelto, patient will be cleared for discharge planning in the morning. Treatment with Xarelto should be at least 3 months, maximum 6 months. Time with Patient: Less than 30
[2017-01-08] MEDS ORDERED: MAGNESIUM SULFATE-D5W PMX 1 GM in DEXTROSE/WATER 1 100ML.BAG IVPB ONE (11:24)
[2017-01-08] MEDS: FUROSEMIDE 10 MG/ML 4 ML VIAL IV SCH ×2 (11:56→17:53)
--- NOTE | 2017-01-08 17:53 | P.PN ---
Subjective Principal diagnosis: PErforated diverticulitis Patient is s/p exploratory laparotomy and has had a PE. He is still short of breath but tolerating diet.He is urinating frequently due to the lasix and his shortness of breath is slightly improved. intake is 50 % of tray only. Not a good appetite. Objective - Vital Signs Vital signs: Vital Signs Temp 96.5 F L 01/08/17 13:56 Pulse 72 01/08/17 13:56 Resp 16 01/08/17 13:56 BP 122/73 01/08/17 13:56 Pulse Ox 98 01/08/17 13:56 Intake & Output 01/07/17 01/08/17 01/08/17 18:59 06:59 18:59 Intake Total 1043.347 120 Output Total 9667 556 4618 Balance -566.653 -550 -2080 Weight 91 kg 88.7 kg Intake: IV 400 DAPTOmycin 500 mg In 400 Sodium Chloride 0.9% 50 ml @ 100 mls/hr IV Q24H [facility] Rx#:[id number] Intake, IV Titration 243.347 Amount Heparin Sodium,Porcine/ 243.347 D5w Pmx 25,000 unit In Dextrose/Water 1 500ml. bag @ 18 UNITS/KG/HR 34. 45 mls/hr IV .[id number] [facility] Rx#:[id number] Oral 400 120 Output: Drainage 60 Right Lower Abdomen 60 Urine 1679 649 7153 Stool 200 Other: Voiding Method Urinal # Voids 2 1 1 ABP, PAP, CO, CI - Last Documented Arterial Blood Pressure 79/58 - Constitutional General appearance: Present: cooperative. Absent: disheveled - Cardiovascular Rhythm: regular - Gastrointestinal Gastrointestinal Comment(s): Abdomen is soft, ostomy viable. Minimal serous Miller drainage - Labs CBC & Chem 7: 01/07/17 05:22 01/08/17 06:20 Labs: Abnormal Lab Results - Last 24 Hours (Table) 01/08/17 Range/Units 06:20 Chloride 109 H (98-107) mmol/L Calcium 7.7 L (8.4-10.2) mg/dL Microbiology - Last 24 Hours (Table) 01/02/17 06:15 Blood Culture - Final Blood No Growth after 144 hours 01/02/17 05:50 Blood Culture - Final Blood No Growth after 144 hours Assessment and Plan (1) Leukocytosis Status: Acute (2) Acute abdomen Status: Acute Plan: He is still short of breath but improved. ON xarelto Await placement. will need oral supplement.
[2017-01-08] MEDS: HYDROcodone/APAP 5-325MG 1 EACH TAB PO PRN (20:54)
[2017-01-09 01:58] VITALS: PULSE 77
--- NOTE | 2017-01-09 05:40 | PN ---
DATE OF SERVICE: 01/08/2017 PRESENTING COMPLAINT: Abdominal surgery. INTERVAL HISTORY: This is a 66-year-old gentleman who is status post exploratory laparotomy perforated viscus back on 12/22/2016. Patient then developed intra-abdominal abscesses postsurgery requiring a second exploratory laparotomy with lysis of adhesions and abscess drainage, LITA drain placement and wound VAC placement. On January 06, patient was found to have increasing shortness of breath with minimal activity, requiring 4 L nasal cannula. A CT angiogram was performed and he was found to have a right lung pulmonary embolism. Today the patient is sitting up in the chair at the bedside, no acute distress breathing comfortably. Review of systems is done for constitutional, cardiovascular, GI, pulmonary; relevant findings as above. CURRENT MEDICATIONS: [place], DuoNeb, metoprolol, Protonix, rivaroxaban, zolpidem. PHYSICAL EXAM: VITAL SIGNS: Temperature 98.5, pulse 78, respiratory rate 16, blood pressure 122/72, oxygen saturation 99% on 2 L nasal cannula. GENERAL APPEARANCE: Patient is awake, alert, sitting up in the chair at the bedside. No acute distress noted or voiced. EYES: Pupils equal. Conjunctivae normal. NECK: JVD not raised. Mass not palpable. RESPIRATORY: Decreased breath sounds bilaterally. CARDIOVASCULAR: S1, S2 are regular. +2 edema to bilateral lower extremities. ABDOMEN: Some tenderness noted. Incisional area closed with spike some redness noted. LITA drain noted. Binder in place. Colostomy bag to the left abdominal wall with brown stool enclosed inside the bag. PSYCHIATRY: Alert and oriented x3. Mood and affect are normal. INVESTIGATIONS: White blood cell count 13.6, down from 14.7 on 01/06/17. INR 1.2. Sodium 137. Blood cultures x2 on 01/02/17 negative for any growth. ASSESSMENT: 1. Sigmoid perforation leading to peritoneal contamination leading to acute abdominal sepsis, septic shock. Abdominal abscesses requiring exploratory laparotomy, lysis of adhesions, drainage of abscesses, LITA placement, and wound VAC placement. 2. Status post exploratory laparoscopy Armani's procedure done for sigmoid colectomy and end ostomy for perforated viscus dated 12/22/2016. 3. Postoperative atrial fibrillation. 4. Positive wound cultures for Enterococcus faecalis sensitive to daptomycin. Positive abdominal fluid culture for clostridium as well. 5. Acute hypoxic respiratory failure secondary to right lung pulmonary embolus. 6. Hyperlipidemia. 7. Essential hypertension. 8. Primary osteoarthritis of multiple joints of the hands and knees. PLAN: Continue current medications and treatment plan. Heart rate is controlled and is in normal sinus rhythm. Cardiology continues to follow. Anticoagulation to be switched to Xarelto per Surgery's preference. Antibiotics continue to be managed by Infectious Disease. Plan of care was discussed with the patient and patient is in agreement. Patient was seen and examined by nurse practitioner Joanne Cade and all elements of the case were discussed with attending, Dr. Thomas.
[2017-01-09 07:05] LABS: Basophils # (A) 0.1 k/uL (0-0.2); Basophils % (A) 1 %; CH 31.3; CHCM 32.2; Eosinophils # (A) 0.3 k/uL (0-0.7); Eosinophils % (A) 3 %; HCT 34.3 % (39.0-53.0); HDW 2.68; HGB 10.6 gm/dL (13.0-17.5); Luc # (Auto) 0.38; Luc % (Auto) 3; Lymphocytes # (A) 1.1 k/uL (1.0-4.8); Lymphocytes % (A) 10 %; MCH 30.3 pg (25.0-35.0); MCV 97.7 fL (80.0-100.0); Mean Platelet Volume 6.8; Monocytes # (A) 0.6 k/uL (0-1.0); Monocytes % (A) 5 %; Neutrophils # (A) 8.8 k/uL (1.3-7.7); Neutrophils % (A) 79 %; RBC 3.51 m/uL (4.30-5.90); RDW 14.9 % (11.5-15.5); WBC 11.1 k/uL (3.8-10.6); WBC (Perox) 11.47
[2017-01-09 07:12] LABS: Anion Gap 6 mmol/L; Blood Urea Nitrogen 18 mg/dL (9-20); Calcium 7.8 mg/dL (8.4-10.2); Carbon Dioxide 30 mmol/L (22-30); Chloride 102 mmol/L (98-107); Glucose 89 mg/dL (74-99); Magnesium 1.9 mg/dL (1.6-2.3); Non-African American GFR(MDRD) >60 (>60 ml/min/1.73 sqM); Phosphorous 3.3 mg/dL (2.5-4.5); Potassium 3.8 mmol/L (3.5-5.1); Sodium 138 mmol/L (137-145)
[2017-01-09] MEDS: metroNIDAZOLE 500 MG TAB PO SCH (07:19)
[2017-01-09] MEDS: RIVAROXABAN 15 MG TAB PO SCH (07:19)
[2017-01-09] MEDS: METOPROLOL TARTRATE 50 MG TAB PO SCH (07:19)
[2017-01-09] MEDS: ERTAPENEM 1 GM in SODIUM CHLORIDE 0.9% 50 ML IVPB SCH (07:19)
[2017-01-09] MEDS: PANTOPRAZOLE 40 MG TABLET PO SCH (07:19)
[2017-01-09 07:22] VITALS: BP 137/82; RESP 16; TEMP 98.5
--- NOTE | 2017-01-09 07:53 | PN ---
DATE OF SERVICE: 01/08/2017 Reason for follow-up: Abdominal abscess, polymicrobial. INTERVAL HISTORY: The patient is afebrile. Has been breathing comfortably. Denies any significant chest pain, cough, no abdominal pain. No nausea or vomiting. On examination, blood pressure 122/72 with a pulse of 68, temperature 98.5. He is 99% on 2 liters nasal cannula. General description is an elderly male up in the bed in no distress. RESPIRATORY SYSTEM: Unlabored breathing. Clear to auscultation anteriorly. HEART: S1, S2 regular rate and rhythm. ABDOMEN: Soft. No tenderness. LABS: BUN of 17 and creatinine 0.97. DIAGNOSTIC IMPRESSION AND PLAN: Patient with polymicrobial abdominal abscess, status post drainage. Blood culture repeat has been negative. Cultures from the abdominal cavity with a clostridium gram-negative aerobes and anaerobes and enterococcus. Currently on Invanz along with oral Flagyl and that will continue for another two weeks with outpatient follow-up. Family present at beside. Their questions were answered.
--- NOTE | 2017-01-09 11:23 | PN ---
DATE OF SERVICE: 01/08/2017 ATTENDING NOTE: This patient was seen by me yesterday on 01/08/17. Patient was seen and examined by me. Patient is status post perforated viscus. Patient feels better. Tolerating about 40 to 50% of his diet. Sitting up on a chair. Has some swelling of the legs. Colostomy bag is working. On examination, temperature 96.5, pulse 72, respirations 16, blood pressure 122/73, pulse ox 98% on room air. GENERAL APPEARANCE: Sitting up, comfortable. On examination, lungs decreased breath sounds. CARDIOVASCULAR: Heart sounds irregular. Some edema is present. ABDOMEN: Soft. Mild tenderness. A colostomy bag in place with stool. PSYCH: Alert and oriented x3. Mood and affect normal. INVESTIGATIONS: Potassium 4.2. BUN and creatinine are normal. The patient's chest CTA shows bilateral effusions, small amount of thrombus in the right main pulmonary artery. ASSESSMENT: 1. Primary osteoarthritis of multiple joints of the hands and knees. 2. Essential hypertension. 3. Hyperlipidemia. 4. Acute hypoxic respiratory failure, multifactorial, including pleural effusion. There is a small pulmonary embolism. 5. Persistent atrial fibrillation. 6. Sigmoid perforation leading to peritoneal contamination leading to acute abdominal sepsis, septic shock, present on admission. Also leading to abdominal abscess that required drainage, J-P drain remains in place and a wound VAC placement. 7. Armani's procedure done for sigmoid colectomy and end ostomy for perforated viscus on 12/22/16 PLAN: Continue current medication and treatment plan including antibiotics. We will give a small dose of Lasix in view of the fluid overload. Care was discussed with the patient. Also, I agree with the note of my nurse practitioner except for those changes in my note.
[2017-01-09] MEDS ORDERED: FUROSEMIDE 10 MG/ML 2 ML VIAL IV ONE (12:35)
--- NOTE | 2017-01-09 13:08 | P.DS ---
Providers Date of admission: 12/22/16 00:00 Expected date of discharge: 01/09/17 Attending physician: Melida Anthony Consults: 12/22/16 00:48 Consult Physician Routine Consulting Provider: Nadege Caraballo Consult Reason/Comments: peritonitis Do you want consulting provider notified?: Yes, Notify in am 12/22/16 02:54 Consult Physician Stat Consulting Provider: José Manuel Juarez Consult Reason/Comments: hypotension/ icu management Do you want consulting provider notified?: Yes 12/22/16 07:49 Consult Physician Routine Consulting Provider: Pastor Thomas Consult Reason/Comments: medical management Do you want consulting provider notified?: Already Contacted 12/24/16 10:49 Consult Physician Routine Consulting Provider: Anna Garcia Consult Reason/Comments: new onset afib Do you want consulting provider notified?: Already Contacted 01/02/17 08:53 Consult Physician Stat Consulting Provider: Sharon Morales Consult Reason/Comments: ICU management Do you want consulting provider notified?: Yes Primary care physician: [facility] Course: Patient is status post exploratory laparotomy for perforated vicus on December 22. Patient developed intra-abdominal abscess and did require exploratory laparotomy again with lysis of adhesions and drainage of multiple intra- abdominal and interloop abscess with placement of Luisito-Schroeder drains, and a wound VAC system. Postop patient was transferred to the intensive care unit was monitored closely. Initially the patient was on levo as well as fluid boluses. Patient was monitored closely in the ICU pressors were able to be titrated off and patient was able to be transferred out of the ICU on January 03 to a stepdown surgical unit. Abdominal fluid obtained was positive for clostridium and gram-positive bacilli. Patients being followed by infectious disease and pulmonary service Patient had an episode postop on the medical floor dropping oxygen saturation down into the 70s and 80s O2 needed to be titrated up. A CAT scan of the chest was performed it did show right lung pulmonary emboli. Patient was started on IV heparin was able to be started on Xarelto. The discharge plan was in progress. Patient was transferred on the january to [facility] facility was felt to be medically stable Impression Present on admission abdominal pain acute with l sepsis and septic shock requiring Levophed and abdominal abscess requiring exploratory laparotomy, lysis of adhesions, drainage oh multiple intra-abdominal and interloop abscesses , placement of LITA drain, placement of wound VAC system. New-onset during this hospitalization acute hypoxic respiratory failure secondary to a pulmonary emboli right lung desat oxygen patient down into the 70s status post exploratory laparotomy, Armani's procedure sigmoid colectomy and end ostomy, for perforated hollow viscus on 12/22/2016. Mild protein calorie malnutrition suspect due to poor caloric intake postoperative paroxysmal atrial fibrillation Chronic diastolic congestive heart failure with no evidence of decompensation positive wound culture for Enterococcus faecalis, positive abdominal fluid for Clostridium species Status post Schreiber's procedure taken back to the operating room for multiple inner abdominal abscess including wound dehiscence with Jarret purulence Intraoperative findings included marked intestinal adhesions with early features of a small bowel obstruction Interabdominal abscess Acute peritonitis generalized The above dictated assessment and findings were discussed with dr anthony Impression and the plan of care have been dictated as directed. Tanesha Lozano nurse practitioner acting as a scribe for dr anthony Patient Condition at Discharge: Serious Plan - Discharge Summary New Discharge Prescriptions: Docusate [Colace] 100 mg PO BID #30 capsule Ertapenem [INVanz] 1 gm IVPB Q24H #14 bag HYDROcodone/APAP 5-325MG [[place]ich 5-325] 1 tab PO Q4HR PRN #30 tab PRN Reason: Pain Rivaroxaban [Xarelto] 15 mg PO BID-W/MEALS #60 tab metroNIDAZOLE [Flagyl] 500 mg PO Q8HR #42 tab metroNIDAZOLE [Flagyl] 500 mg PO Q8HR #42 tab Discharge Medication List Aspirin 81 mg PO DAILY 12/21/16 [History] Atorvastatin [Lipitor] 40 mg PO HS 12/21/16 [History] Cholecalciferol [Vitamin D3] 5,000 unit PO DAILY 12/21/16 [History] Glucosamine Sulfate 2,000 mg PO DAILY 12/21/16 [History] Loratadine-Pseudoeph 10-240 mg [Claritin-D 24 Hour] 1 tab PO DAILY 12/21/16 [ History] Naproxen Sodium [Aleve] 220 mg PO DAILY 12/21/16 [History] Pyridoxine [Vitamin B-6] 50 mg PO DAILY 12/21/16 [History] Docusate [Colace] 100 mg PO BID #30 capsule 12/23/16 [Rx] HYDROcodone/APAP 5-325MG [Zurich 5-325] 1 tab PO Q4HR PRN #30 tab 12/23/16 [Rx] Ertapenem [INVanz] 1 gm IVPB Q24H #14 bag 01/06/17 [Rx] metroNIDAZOLE [Flagyl] 500 mg PO Q8HR #42 tab 01/06/17 [Rx] Ertapenem [INVanz] 1 gm IVPB DAILY vial 01/09/17 [Rx] Ipratropium-Albuterol Nebulize [Duoneb 0.5 mg-3 mg/3 ml Soln] 3 ml INHALATION RT -QID PRN #0 ampul.neb 01/09/17 [Rx] Rivaroxaban [Xarelto] 15 mg PO BID-W/MEALS #60 tab 01/09/17 [Rx] metroNIDAZOLE [Flagyl] 500 mg PO Q8HR #42 tab 01/09/17 [Rx] Follow up Appointment(s)/Referral(s): Melida Anthony MD [STAFF PHYSICIAN] - 01/10/17 1:00 pm Pavel Landrum MD [Primary Care Provider] - As Needed Nadege Caraballo MD [STAFF PHYSICIAN] - 01/19/17 9:45 am Patient Instructions/Handouts: Colostomy Care (DC), Colostomy Care (GEN) Activity/Diet/Wound Care/Special Instructions: OK to shower . No soaking bath. No heavy lifting more than 10 lbs for 6 weeks post surgery. No driving while taking narcotics for pain. May use ice packs for local pain relief Take Motrin 600 mg po TID after meals if pain is not controlled Use incentive spirometry 10 times an hour while awake Colostomy Care Instructions: Last pouching system change: 01.05.2017 Mr Ren to empty the pouch when it is 1/2 to 1/3 full in the bathroom The pouching system is to be changed every 3- 5 days unless otherwise directed Mr Ren will have three pouches and flanges for home use as follows: [employer] flange #[id number] [employer] pouch #[id number] Accessories of skin prep pads, ostomy powder and liquid ostomy deodrant. Mr Ren also will receive sample pouches and flanges from [employer] and accessories 3- 6 days after discharge date to his home. (expect these to arrive by 01/04/2017 or before) Mr Ren desires disposable pouches and precut flanges when appropriate time. Home Health Services please assist to make this arrangements for Mr Ren. Pt has a 30 day free prescription of xarelto in [facility] pharmacy, follow up with prescription clerk for samples for continued coverage. [facility] [phone] home antibiotics/ [facility] [phone] supplies will be delivered 12-28-2016 Patient is to have a repeat CAT scan of the abdomen and pelvis with IV contrast in 2 weeks the results to site Discharge Disposition: HOME WITH HOME HEALTH SERVICES
--- NOTE | 2017-01-09 21:46 | PN ---
DATE OF SERVICE: 01/09/2017 REASON FOR FOLLOWUP: Abdominal abscess. INTERVAL HISTORY: The patient is afebrile; has been breathing comfortably. Denies significant chest pain or shortness of breath or cough. No abdominal pain or nausea or vomiting. No diarrhea. On examination, blood pressure 137/82 with a pulse of 77, temperature 98.5. He is 90% on room air. General description is an elderly male up in the bed in no distress. RESPIRATORY SYSTEM: Unlabored breathing. Clear to auscultation anteriorly. HEART: S1, S2. Regular rate and rhythm. ABDOMEN: Soft. No tenderness. LABS: Hemoglobin is 10.6, white count 11.1 with a BUN of 18, creatinine 1.03. DIAGNOSTIC IMPRESSION AND PLAN: Patient with polymicrobial abdominal abscess, for which the patient will continue on Invanz 1 gram daily along with oral Flagyl for another 2 weeks. The patient needs a follow-up CT scan of the abdomen and pelvis with oral contrast followup as outpatient. Will discontinue antibiotic once the abscess has resolved. Family present at bedside. Their questions were answered.
--- NOTE | 2017-01-09 23:43 | PN ---
DATE OF SERVICE: 01/09/2017 PRESENTING COMPLAINT: Abdominal surgery. INTERVAL HISTORY: This is a 66-year-old gentleman who is status post exploratory laparotomy for a perforated viscus back on 12/22/2016. Patient developed intra-abdominal abscess post surgery requiring second exploratory laparotomy, lysis of adhesions and abscess drainage, LITA drain placement and wound V.A.C. placement. On January 06, 2017, patient was found to have increasing shortness of breath with minimal activity requiring [address] angiogram was performed and he was found to have a right lung pulmonary embolism. Today patient is lying in bed, getting settled for lunch. No acute distress noted. Breathing comfortably. Review of systems is done for constitutional, cardiovascular, GI, pulmonary; relevant findings as above. CURRENT MEDICATIONS: 1. [place]. 2. DuoNeb. 3. Metoprolol. 4. Protonix. 5. Rivaroxaban. 6. ( ). PHYSICAL EXAMINATION: VITAL SIGNS: Temperature 98.5, pulse 77, respiratory rate 16, blood pressure 137/82, oxygen saturation 96% on room air. GENERAL APPEARANCE: Patient is awake, alert, sitting up for lunch in his bed. No acute distress noted or voiced. EYES: Pupils equal. Conjunctivae normal. NECK: JVD not raised. Mass not palpable. RESPIRATORY: Decreased breath sounds bilaterally. LUNGS: Fair airway clearance. CARDIOVASCULAR: S1, S2 ( ) Plus two edema to bilateral lower extremities. ABDOMEN: Some tenderness noted. Incisional area closed with spike. Some redness noted. LITA drain, binder in place. Colostomy bag on the left abdominal wall with brown-green stool enclosed inside the bag. PSYCHIATRY: Alert and oriented x3. Mood and affect normal. INVESTIGATIONS: White blood cell count 11.1, hemoglobin 10.6, hematocrit 34.3, platelets 373. Basic metabolic panel within normal limits. Calcium 7.8. ASSESSMENT: 1. Primary osteoarthritis of multiple joints of the hands and knees. 2. Essential hypertension. 3. Hyperlipidemia. 4. Acute hypoxic respiratory failure, multifactorial, including pleural effusion. There is a small, pulmonary embolism. 5. Persistent atrial fibrillation. 6. Sigmoid perforation leading to peritoneal contamination leading to acute abdominal septic shock, present on admission; also leading to abdominal abscess that required drainage. LITA drain remains in place and wound V.A.C. placement. 7. Armani's procedure done for sigmoid colectomy and end-ostomy for perforated viscus on 12/22/16. PLAN: Continue current medication and treatment plan, including antibiotics. We gave a small dose of Lasix on 01/08/2017 secondary to fluid overload. Additional dose of Lasix will be provided today prior to patient's discharge. Plan of care was discussed with the patient. Patient was seen and examined by nurse practitioner Joanne Cade and all elements of the case were discussed with the attending, Dr. Thomas.
--- NOTE | 2017-01-10 14:03 | PN ---
DATE OF SERVICE: 01/09/2017 ATTENDING NOTE: This patient was seen and examined by me yesterday on 01/09/2017. I agree with the nose of my nurse practitioner, Ms. Cade. Any changes below. Patient doing better. Tolerating a diet. Patient did get some IV Lasix and the edema is gone. Overall feeling better. Some edema is still present. Breathing is improved. is at the bedside. Patient has been out of bed. On examination, LUNGS: Decreased breath sounds. CARDIOVASCULAR: First and second sounds normal. ABDOMEN: Soft. Mild tenderness. PSYCH: Alert and oriented x3. INVESTIGATIONS: White count 11.1, hemoglobin 10.6, potassium 3.8. ASSESSMENT: 1. Some fluid overload still present. 2. Status post sigmoid perforation and intra-abdominal abscess, status post being drained. PLAN: Will give one more dose of IV Lasix 20 mg. Care was discussed with the patient and . Other medications to continue. Patient should follow up with his family doctor.
--- NOTE | 2017-01-26 05:30 | PN ---
DATE OF SERVICE: 12/29/2016 ATTENDING NOTE: This patient was seen and examined by me on 12/29/16. I reviewed the note of my nurse practitioner, Ms. Cade, discussed and agree with the same. Patient is status post Armani's procedure. Patient has got stool in the bag. Tolerating some diet. On examination, afebrile, blood pressure 105/59, pulse 87, awake, lying in bed. LUNGS: Decreased breath sound. ABDOMEN: Some tenderness present. Minimal drainage from the distal end. White count is 23.7. ASSESSMENT: 1. Sigmoid perforation leading to peritoneal contamination leading to Armani procedure and colostomy. 2. Bilateral pleural effusion. 3. Atrial fibrillation. 4. Sepsis-like picture. PLAN: Antibiotics is to continue. Patient may need more ( ) studies. Will follow closely. Care discussed with the patient and the .
--- NOTE | 2017-01-26 23:43 | PN ---
DATE OF SERVICE: 12/27/2016 ATTENDING NOTE: This patient was seen and examined by me on 12/27/16. I reviewed the note of my nurse practitioner, Ms. Cade. I discussed it with her and agree with the same. Patient is status post sigmoid perforation leading to Armani procedure. Patient has been in atrial fibrillation, uncontrolled. NG tube is out. Has some stool in the colostomy bag. On examination, blood pressure 94/78, pulse ox 95% on 1 liter. RESPIRATORY: Effort increased. LUNGS: Decreased breath sounds bilaterally. ABDOMEN: Some tenderness present. Colostomy bag is present with some stool in it. Bowel sounds are present. INVESTIGATIONS: White count 11.7. ASSESSMENT: 1. Status post Armani procedure for sigmoid perforation. Now has a colostomy. 2. Atrial fibrillation, rate uncontrolled. PLAN: Continue current medication and treatment plan. Anticoagulation as per Cardiology. Care was discussed with the patient.
--- NOTE | 2017-01-27 07:10 | PN ---
DATE OF SERVICE: 12/28/2016 ATTENDING NOTE: This patient was seen and examined by me on 12/28/2016. I reviewed the note of my nurse practitioner, Ms. Cade. I discussed and agreed. This is a patient status post Armani's procedure. NG tube is out. Patient tolerating some diet. Making some stool in colostomy bag. On examination, temperature 99.2, blood pressure 115/72, pulse 92% on room air. Sitting up, awake. RESPIRATORY: Effort normal. LUNGS: Diminished breath bilaterally. CARDIOVASCULAR: Heart sounds irregular. No edema. ABDOMEN: Tenderness present. Colostomy bag in place. Some serous noted on the dressing. Wound cultures from 12/22 are revealing Enterococcus faecalis ASSESSMENT: 1. Armani's procedure for sigmoid perforation with colostomy bag in place. 2. Paroxysmal atrial fibrillation, uncontrolled rate, currently in sinus rhythm. 3. Bilateral pleural effusion, probably from IV fluids and patient being in atrial fibrillation. PLAN: Anticoagulation per Cardiology. Will give the patient IV Lasix, given the pleural fluid, patient definitely slow to respond. Follow.
--- NOTE | 2017-01-27 07:51 | PN ---
DATE OF SERVICE: 12/30/2016 ATTENDING NOTE: This patient was examined by me on 12/30/2016. I reviewed the progress noted by my nurse practitioner, Ms. Cade. Discussed and agreed the same. Patient is status post Armani's procedure for sigmoid perforation . Telemetry shows sinus rhythm, stool in the colostomy bag. Patient has spiked a fever with elevation in white count. CT scan is suggestive of an abscess. On examination, he had a fever yesterday. Blood pressure 126/68. GENERAL: Sitting up, tired-appearing. ABDOMEN: Tenderness noticed. Some drainage from the incision site, colostomy bag with stools. ASSESSMENT: 1. Armani's procedure for sigmoid perforation and colostomy bag in place. 2. Intra-abdominal abscess noted on the CT scan, awaiting to be ( ) drained. PLAN: Await drainage of the abscess. Antibiotics are to continue. Prognosis guarded. Will follow.
== END 2017-01-09 16:30 | DRG 853 ==
LOC: EC 23:02 → 4MS4W 12-22 → 6ICU 12-22 02:59 → 3SUR 12-22 14:17 → 6SEL 12-23 17:44 → 6ICU 01-01 14:51 → 3SUR 01-03 19:21
PROVIDERS: ADMIT Surgery; ATTEND Surgery
PROC: 0YQA0ZZ Repair Bilateral Inguinal Region, Open Approach (ICD-10-PCS; 2016-12-22)
PROC: 0DTN0ZZ Resection of Sigmoid Colon, Open Approach (ICD-10-PCS; 2016-12-22)
PROC: 0D1M0Z4 Bypass Descending Colon to Cutaneous, Open Approach (ICD-10-PCS; 2016-12-22)
PROC: 02HV33Z Insertion of Infusion Device into Superior Vena Cava, Percutaneous Approach (ICD-10-PCS; principal; 2016-12-29 12:45)
PROC: B5181ZA Fluoroscopy of Superior Vena Cava using Low Osmolar Contrast, Guidance (ICD-10-PCS; principal; 2016-12-29 12:45)
PROC: B548ZZA Ultrasonography of Superior Vena Cava, Guidance (ICD-10-PCS; principal; 2016-12-29 12:45)
PROC: 0W9G30Z Drainage of Peritoneal Cavity with Drainage Device, Percutaneous Approach (ICD-10-PCS; 2016-12-30)
PROC: 0DN80ZZ Release Small Intestine, Open Approach (ICD-10-PCS; 2017-01-01)
PROC: 3E1M38Z Irrigation of Peritoneal Cavity using Irrigating Substance, Percutaneous Approach (ICD-10-PCS; 2017-01-01)
DX: A41.9 Sepsis, unspecified organism (principal); R65.21 Severe sepsis with septic shock; I26.99 Other pulmonary embolism without acute cor pulmonale; J96.01 Acute respiratory failure with hypoxia; E44.1 Mild protein-calorie malnutrition; K57.20 Diverticulitis of large intestine with perforation and abscess without bleeding; I11.0 Hypertensive heart disease with heart failure; I50.32 Chronic diastolic (congestive) heart failure; I48.1 Persistent atrial fibrillation; J98.11 Atelectasis; T81.30XA Disruption of wound, unspecified, initial encounter; D69.59 Other secondary thrombocytopenia; E78.5 Hyperlipidemia, unspecified; E87.6 Hypokalemia; K66.0 Peritoneal adhesions (postprocedural) (postinfection); M15.9 Polyosteoarthritis, unspecified; K40.20 Bilateral inguinal hernia, without obstruction or gangrene, not specified as recurrent; B95.2 Enterococcus as the cause of diseases classified elsewhere; M19.91 Primary osteoarthritis, unspecified site; Z79.01 Long term (current) use of anticoagulants; Z79.2 Long term (current) use of antibiotics; Z79.82 Long term (current) use of aspirin; Z79.899 Other long term (current) drug therapy; Z88.0 Allergy status to penicillin
CPT/HCPCS: 36569; 71010; 71020; 71275; 74176; 74177; 75989; 76937; 77001; 77012; 80048; 80051; 80053; 80202; 81001; 82330; 82565; 82805; 83036; 83605; 83735; 84100; 84132; 84478; 84520; 85025; 85027; 85610; 85730; 87040; 87070; 87075; 87077; 87086; 87186; 87205; 87324; 88307; 93306; 94640; 94667; 94760; 96374; 99285

== ENCOUNTER → 2017-01-19 | Outpatient (CLI) | payer MEDICARE, OTHER ==
--- NOTE | 2017-01-19 12:38 | CT ---
EXAMINATION TYPE: CT abdomen pelvis wo con DATE OF EXAM: 01/19/2017 12:23 PM HISTORY: Peritoneal abscess, recent colectomy CT DLP: 389.6 mGycm. Automated Exposure Control for Dose Reduction was Utilized. TECHNIQUE: CT scan of the abdomen and pelvis is performed with oral but without IV contrast. COMPARISON: CT abdomen and pelvis December 31, 2016 FINDINGS: Within the limitations of a non-contrast study, the following observations are made. LUNG BASES: Linear scarring right lung base remains present. Elevated right hemidiaphragm is again se en. Coronary artery calcification is noted. LIVER/GB: Stable small calcification posterior right hepatic lobe on axial image 24 is presumed benig n. PANCREAS: No significant abnormality is seen. SPLEEN: No significant abnormality is seen. ADRENALS: No significant abnormality is seen. KIDNEYS: There is 1.5 cm simple appearing cyst laterally upper pole level left kidney on axial image 33 redemonstrated. BOWEL: The oral contrast does not reach terminal ileum level including evaluation of distal bowel sli ghtly suboptimal. There is redemonstration of left lower quadrant colostomy. There is remnant rectal pouch redemonstrated. No suspicious small or large bowel dilatation is present, distal contrast fille d small bowel loops in the pelvis are slightly more prominent but not significantly changed from prio r study. GENITAL ORGANS: Central zone calcifications are seen in normal size prostate gland. LYMPH NODES: No greater than 1cm abdominal or pelvic lymph nodes are appreciated. OSSEOUS STRUCTURES: Metallic hardware from bilateral hip arthroplasties is present, this causes adjac ent streak artifact limiting evaluation of pelvic structures. There is grade 1 retrolisthesis of L2 on L3 and grade 1 anterolisthesis of L4 on L5. Moderate multile magdiel disc space narrowing with vacuum disc phenomenon and spurring is present. OTHER: Interval removal of vertical skin spike in the midline of the lower abdomen. There is new he terogeneous soft tissue and calcific density presumed packing material related to open surgical wound or possibly interval surgery with sutures and developing scar tissue, clinical correlation advised. Interval removal of percutaneous drainage catheter, no significant residual fluid at this level in th e left anterior pelvis is identified IMPRESSION: Interval removal of percutaneous drainage catheter and resolution of left anterior pelvic fluid collection or abscess. No new suspicious fluid collection is noted.
== END | disposition home or self-care (01) ==
LOC: RADCTMAIN 10:20
PROVIDERS: ATTEND Internal Medicine Infectious Disease
DX: K65.1 Peritoneal abscess (principal); Z96.89 Presence of other specified functional implants
CPT/HCPCS: 74176

== ENCOUNTER 2017-08-01 06:23 | Day surgery (SDC) | payer MEDICARE, OTHER ==
[~2017-08-01 06:23] MED LIST: LACTATED RINGERS 1,000 ML IV SCH
[2017-08-01 07:12] VITALS: TEMP 97
[2017-08-01] MEDS ORDERED: PROPOFOL 10 MG/ML 20 ML VIAL IV ONE (07:24)
--- NOTE | 2017-08-01 07:59 | P.GSHP ---
History of Present Illness H&P Date: 08/01/17 66 yrs old male S/P Schreiber procedure for perforated sigmoid colon with fecal peritonitis, S/P reexploration with abdominal washout for intraabdominal abscess . He is tolerating regular diet. Ostomy is working well. . No new complaints. No fever, chills. Weight loss. Known bilateral groin hernias- no obstruction. No prior colonoscopy. Post op hypoxemia and CTA showed PE, treated with Xarelto. He also developed Afib in the post op period. ROS Constitutional: No fever, chills or rigors. No weight loss or loss of appetite. HEENT: No difficulty with hearing, vision and swallowing. Lymphatic: No axillary, inguinal and cervical swellings. Endocrine: No thyroid disorders. Denies history of diabetes. Respiratory: No chest pain, shortness of breath, and cough. No hemoptysis. Cardiovascular: No palpitations, irregular HR Gastrointestinal: Denies heartburn. No change in bowel habits. No nausea or vomiting. Genitourinary: No increase in urinary frequency or urgency. No hematuria. Musculoskeletal: No back pain, joint stiffness or pain. Neurologic: No history of seizure disorder and headaches. Psychiatric: Denies depression or anxiety . No suicidal ideation. Hematologic: Denies any abnormal mucosal bleeding or easy bruising. Past Medical History Past Medical History: Hyperlipidemia, Hypertension, Osteoarthritis (OA) Additional Past Medical History / Comment(s): arthritis bilateral hips/hands, bilateral inguinal hernias History of Any Multi-Drug Resistant Organisms: None Reported Past Surgical History: Bowel Resection, Joint Replacement, Orthopedic Surgery Additional Past Surgical History / Comment(s): 12/22/16 Exploratory lapartomy for perforated hollow viscus, diffuse abdominal peritonitis/sepsis secondary to this-abdominal washout/schreiber's procedure with colectomy and end ostomy. Other hx: Bilateral total hips, colonoscopies, L knee arthroscopy, R shoulder had Ecoli infection-surgery to clean it out. Past Anesthesia/Blood Transfusion Reactions: No Reported Reaction Past Psychological History: No Psychological Hx Reported Additional Psychological History / Comment(s): Pt resides with his spouse. He uses no assistive device. He is independent. He drives. Smoking Status: Never smoker Past Alcohol Use History: Occasional Past Drug Use History: None Reported - Past Family History Father Family Medical History: No Reported History Additional Family Medical History / Comment(s): Father was healthy. He at the age of 82yrs. Mother Family Medical History: Cancer Additional Family Medical History / Comment(s): Mother had lymphoma. She of throat cancer at the age of 83yrs. Medications and Allergies Home Medications Medication Instructions Recorded Confirmed Type Aspirin 81 mg PO DAILY 12/21/16 08/01/17 History Atorvastatin [Lipitor] 40 mg PO HS 12/21/16 08/01/17 History Cholecalciferol [Vitamin D3] 5,000 unit PO DAILY 12/21/16 08/01/17 History Glucosamine Sulfate 2,000 mg PO DAILY 12/21/16 08/01/17 History Ascorbic Acid [Vitamin C] 1 tab PO DAILY 07/31/17 08/01/17 History Docusate [Colace] 100 mg PO HS 07/31/17 08/01/17 History Ferrous Sulfate [Feosol] 1 tab PO DAILY 07/31/17 08/01/17 History Loratadine 10 mg PO DAILY 07/31/17 08/01/17 History Multivitamins, Thera [Multivitamin 1 tab PO DAILY 07/31/17 08/01/17 History (formulary)] Naproxen Sodium 220 - 440 mg PO Q6HR PRN 07/31/17 08/01/17 History Vitamin B Complex 1 tab PO DAILY 07/31/17 08/01/17 History Vitamin E (Dl,Tocopheryl Acet) 400 unit PO DAILY 07/31/17 08/01/17 History [Vitamin E] amLODIPine BESYLATE/BENAZEPRIL 1 tab PO HS 07/31/17 08/01/17 History [amLODIPine BESYLATE/BENAZEPRIL 5-10 mg] l Acidophil/B Lactis/B Longum 1 tab PO DAILY 07/31/17 08/01/17 History [Florajen3 Capsule] Allergies Allergy/AdvReac Type Severity Reaction Status Date / Time amoxicillin Allergy Unknown Verified 07/31/17 09:05 Childhood Penicillins Allergy Unknown Verified 07/31/17 09:05 Childhood Surgical - Exam Vital Signs Temp Pulse Resp BP Pulse Ox 97.0 F L 66 18 129/70 96 08/01/17 07:10 08/01/17 07:10 08/01/17 07:10 08/01/17 07:10 08/01/17 07:10 Patient is a 66-year-old male. General: Alert and oriented to time, place and person. Not in acute distress . HEENT: No pallor, no icterus Abdomen: Surgical incision is clean, dry and intact. No surgical site infection . No incisional hernias . Ostomy is pink and productive. Bilateral inguinal hernias Assessment and Plan (1) Perforated viscus Current Visit: No Status: Acute Code(s): R19.8 - OTH SYMPTOMS AND SIGNS INVOLVING THE DGSTV SYS AND ABDOMEN SNOMED Code(s): 843587546 (2) Postoperative atrial fibrillation Current Visit: No Status: Acute Code(s): I97.89 - OTH POSTPROC COMP AND DISORDERS OF THE CIRC SYS, NEC; I48.91 - UNSPECIFIED ATRIAL FIBRILLATION SNOMED Code(s): 38895831 Plan: 1. Increase dietary protein 2. Cardiac clearance obtained 3. Increase physical activity as tolerated 4. Daily IS use 5. Daily mutivitamin and iron 6. Plan for colonoscopy followed by Schreiber reversal.Informed consent obtained and patient elected to undergo Xlap, colostomy reversal and all indicated procedures. The risks, benefits and potential complications including bleeding, infection, leak were discussed. NEEDS EPIDURAL PLACED IN PREOP 7. Also needs bilateral inguinal hernia repair with mesh at as different setting 8. Pulmonary embolism on xarelto , discontinued by fuel verification technician 1. Diverticulitis of colon with perforation K57.20: Diverticulitis of large intestine with perforation and abscess without bleeding 2. Abscess of peritoneum K65.1: Peritoneal abscess 3. Pulmonary embolism I26.99: Other pulmonary embolism without acute cor pulmonale
--- NOTE | 2017-08-01 08:06 | P.OP ---
Date of Procedure: 08/01/17 Preoperative Diagnosis: H/O colon perforation and Schreiber procedure H/O AFIB H/O PE Procedure(s) Performed: Colonoscopy via ostomy Implants: NA Anesthesia: MAC Surgeon: Melida Irwin Pathology: none sent Condition: stable Disposition: PACU Indications for Procedure: 66 years old male underwent exploratory laparotomy and Armani procedure for perforated sigmoid colon. He presents today for colonoscopy. No prior colonoscopy. Operative Findings: Digital rectal examination was performed and showed large amount of mucoid stool. Hence colonoscopy could not be done of the rectal stump Description of Procedure: The patient was brought to the endoscopy suite and placed in lateral decubitus position. IV sedation was given as per anesthesia team. Patient was on continuous vitals and pulse oximetry monitoring throughout the procedure. A timeout was performed to verify correct patient and correct procedure. Perianal examination did not show any external hemorrhoids. Digital rectal examination was performed. Large amount of pasty stool and mucus material. Hence no colonoscopy was performed from the distal stump A well-lubricated Olympus colonoscope was passed via ostomy and was gradually advanced beyond splenic flexure, transverse colon, hepatic flexure and cecum. The ileocecal valve was visualized . The colonoscope was gradually withdrawn inspecting all the mucosal surfaces. Bowel prep was good. No polyps, masses, AV malformations noted. Total withdrawal time was greater than 6 minutes . Patient tolerated the procedure well and was taken to post anesthesia care unit in stable condition. Recommend repeat colonoscopy in 10 years . Soap raffi enemas via rectum
[2017-08-01 08:22] VITALS: BP 119/78; PULSE 65; RESP 20
[2017-08-01] MEDS: NA PHOS,M-B/NA PHOS,DI-BA 133 ML ENEMA RECTAL ONE ×2 (08:23→08:49)
[2017-08-02] MEDS ORDERED: Pre Op ABX Message 1 EACH MISC MISCELLANE ONE (05:00)
[2017-08-02] MEDS ORDERED: Antibiotics per Pharmacy 1 EACH MISC MISCELLANE PRN (07:50)
[2017-08-02] MEDS ORDERED: ALVIMOPAN 12 MG CAPSULE PO ONE (08:30)
[2017-08-02] MEDS ORDERED: ENOXAPARIN 40 MG/0.4 ML SYRINGE SQ ONE (08:30)
== END 2017-08-01 09:25 | disposition home or self-care (01) ==
LOC: ORWHC2ENDO 06:23
PROVIDERS: ATTEND Surgery
DX: Z09 Encounter for follow-up examination after completed treatment for conditions other than malignant neoplasm (principal); I10 Essential (primary) hypertension; E78.5 Hyperlipidemia, unspecified; I48.91 Unspecified atrial fibrillation; K40.20 Bilateral inguinal hernia, without obstruction or gangrene, not specified as recurrent; Z93.3 Colostomy status; Z90.49 Acquired absence of other specified parts of digestive tract; Z88.1 Allergy status to other antibiotic agents; Z88.0 Allergy status to penicillin; Z86.711 Personal history of pulmonary embolism; Z79.82 Long term (current) use of aspirin; Z79.899 Other long term (current) drug therapy
CPT/HCPCS: 44388; J2704

== ENCOUNTER → 2017-08-01 | Outpatient (CLI) | payer MEDICARE, OTHER ==
[2017-08-01 10:17] LABS: Basophils % (A) 0 %; CH 31.7; CHCM 32.8; Eosinophils # (A) 0.1 k/uL (0-0.7); Eosinophils % (A) 1 %; HCT 42.8 % (39.0-53.0); HDW 2.56; HGB 13.8 gm/dL (13.0-17.5); Luc # (Auto) 0.19; Luc % (Auto) 2; Lymphocytes % (A) 12 %; MCH 31.5 pg (25.0-35.0); MCHC 32.3 g/dL (31.0-37.0); MCV 97.4 fL (80.0-100.0); Mean Platelet Volume 6.8; Monocytes # (A) 0.5 k/uL (0-1.0); Monocytes % (A) 6 %; Neutrophils # (A) 6.3 k/uL (1.3-7.7); Neutrophils % (A) 79 %; RBC 4.39 m/uL (4.30-5.90); RDW 13.4 % (11.5-15.5)
[2017-08-01 10:59] LABS: Potassium 4.8 mmol/L (3.5-5.1)
== END | disposition home or self-care (01) ==
LOC: LABPAT 09:33
PROVIDERS: ATTEND Surgery
DX: Z01.818 Encounter for other preprocedural examination (principal)
CPT/HCPCS: 36415; 80051; 85025

== ENCOUNTER → 2018-01-18 | Outpatient (CLI) | payer MEDICARE, OTHER ==
[2018-01-18 10:29] LABS: Basophils % (A) 0 %; Eosinophils # (A) 0.2 k/uL (0-0.7); Eosinophils % (A) 3 %; HCT 45.2 % (39.0-53.0); HGB 14.7 gm/dL (13.0-17.5); Lymphocytes # (A) 1.2 k/uL (1.0-4.8); Lymphocytes % (A) 16 %; MCH 30.5 pg (25.0-35.0); MCHC 32.6 g/dL (31.0-37.0); MCV 93.5 fL (80.0-100.0); Mean Platelet Volume 6.7; Monocytes # (A) 0.4 k/uL (0-1.0); Monocytes % (A) 5 %; Neutrophils # (A) 5.7 k/uL (1.3-7.7); Neutrophils % (A) 73 %; Platelet Count 217 k/uL (150-450); RBC 4.84 m/uL (4.30-5.90); RDW 13.9 % (11.5-15.5); WBC 7.8 k/uL (3.8-10.6)
[2018-01-18 10:54] LABS: Calcium 9.6 mg/dL (8.4-10.2); Potassium 4.8 mmol/L (3.5-5.1)
== END | disposition home or self-care (01) ==
LOC: LABPAT 09:25
PROVIDERS: ATTEND Urology
DX: Z01.818 Encounter for other preprocedural examination (principal); Z01.812 Encounter for preprocedural laboratory examination; C61 Malignant neoplasm of prostate; R35.0 Frequency of micturition; Z79.899 Other long term (current) drug therapy
CPT/HCPCS: 36415; 80048; 85025; 87086; 93005

== ENCOUNTER 2018-01-26 07:30 | Inpatient (IN) | payer MEDICARE, OTHER ==
[2018-01-17 14:39] VITALS: BMI 26.6
[~2018-01-26 07:30] MED LIST changes: +DEXAMETHASONE SOD PHOSPHATE 10 MG/ML 1 ML VIAL IV ONE; +HEPARIN SODIUM,PORCINE 5,000 UNIT/ML 1 ML VIAL SQ ONE; -LACTATED RINGERS 1,000 ML IV SCH; +LEVOFLOXACIN 500MG-D5W PMX 500 MG in DEXTROSE/WATER 1 100ML.BAG IVPB ONE; +MIDAZOLAM 2 MG/2 ML VIAL IV PRN; +ONDANSETRON 4 MG/2 ML VIAL IVP ONE; +fentaNYL (PF) 50 MCG/ML 2 ML AMP IV PRN
[2018-01-26] MEDS: LACTATED RINGERS 1,000 ML IV SCH (09:59)
[2018-01-26] MEDS ORDERED: LIDOCAINE 1% 20 ML VIAL (10MG/ML) FOR IV START INTRADERMA ONE (10:00)
[2018-01-26] MEDS ORDERED: LIDOCAINE 1% INJ 10MG/ML (20 ML MDV) ONE (11:56)
[2018-01-26] MEDS ORDERED: MIDAZOLAM 2 MG/2 ML VIAL ONE (11:56)
[2018-01-26] MEDS ORDERED: ePHEDrine SULFATE/0.9% NACL/PF 50 MG/5 ML SYRINGE IV ONE (11:56)
[2018-01-26] MEDS ORDERED: fentaNYL (PF) 50 MCG/ML 2 ML AMP ONE (11:56)
[2018-01-26] MEDS ORDERED: ROCURONIUM BROMIDE 10 MG/ML 10 ML VIAL IV ONE (11:56)
[2018-01-26] MEDS ORDERED: SUCCINYLCHOLINE CHLORIDE 100 MG/5 ML SYR IV ONE (11:56)
[2018-01-26] MEDS ORDERED: PROPOFOL 10 MG/ML 20 ML VIAL IV ONE (11:56)
[2018-01-26] MEDS ORDERED: BUPIVACAINE (PF) 0.5% 30 ML VIAL SQ ONE (12:40)
[2018-01-26] MEDS ORDERED: ONDANSETRON 4 MG/2 ML VIAL IVP PRN (14:26)
[2018-01-26] MEDS ORDERED: ACETAMINOPHEN TAB 325 MG TAB PO PRN (14:26)
[2018-01-26] MEDS ORDERED: HYDROmorphone 0.5 MG/0.5 ML SYRINGE IVP PRN (14:26)
--- NOTE | 2018-01-26 14:43 | P.OP ---
Date of Procedure: 01/26/18 Preoperative Diagnosis: Adenocarcinoma of the Prostate, Extensive Intra-Abdominal Adhesions Postoperative Diagnosis: Same Procedure(s) Performed: Extensive robotic-assisted laparoscopic lysis of adhesions Anesthesia: MAGDALENA Surgeon: Jayne Archer Estimated Blood Loss (ml): 25 IV fluids (ml): 1,000 Pathology: none sent Condition: stable Disposition: PACU Indications for Procedure: The patient is a 67-year-old male with high-volume Klarissa 7 adenocarcinoma of the prostate. His disease is predominantly left-sided. He has elected to undergo an RALP, with the understanding that this may require conversion to an open procedure if there are extensive intra-abdominal adhesions. Operative Findings: Upon entering the abdomen, extensive adhesions were noted between the small and large intestine and the entire anterolateral abdominal wall. Blunt and sharp dissection using the laparoscope was initiated to separate the adhesions enough to place a gel point. Using sharp and blunt dissection with lap scissor and kitner, the small bowel adhesions were lysed over the right lateral anterior and left lateral quadrants. At this point our robotic ports were placed and the robot was docked. Using robotic scissors and bipolar forceps additional lysis of adhesions were performed where the small intestine was extracted from the left inguinal hernia and adhesions between the bladder and the small intestine were lysed. Attention was then directed to the right lower quadrant where the cecum and ascending colon and small intestine was seen entering the right inguinal hernia. An attempt was made to lyse these adhesions using the robotic instruments as well. After 90 minutes of lysis of adhesions, it was obvious that a complete lysis of adhesions was impossible and risky and a decision was made to stop the procedure. A complete discussion was held with the patient's and all risks and potential complications of continual lysis of adhesions and the procedure were discussed. The agreed with the plan to abort the procedure and discuss other options such as radiation, cryotherapy , hormonal treatment. The robot was de-docked and all the ports removed and the midline incision was closed with interrupted [id number] sutures using 0 Vicryl. The patient was taken to recovery in stable condition with a Chavez catheter. Description of Procedure: The patient was taken to the operating room placed in supine position with Trendelenburg tilt and he was strapped to the bed securely. Since he had had multiple prior abdominal surgeries are dictated was made to perform an open technique, and a 2 inch midline incision was made and a gel point was placed. A 12 mm port was placed through the gel point and upon entering the abdomen extensive adhesions were noted between the small and large intestine and the entire anterolateral abdominal wall. Blunt and sharp dissection using the laparoscope was initiated to separate the adhesions enough to place a gel point. Using sharp and blunt dissection with lap scissor and kitner, the small bowel adhesions were lysed over the right lateral anterior and left lateral quadrants. At this point our robotic ports were placed and the robot was docked. Using robotic scissors and bipolar forceps additional lysis of adhesions were performed where the small intestine was extracted from the left inguinal hernia and adhesions between the bladder and the small intestine were lysed. Attention was then directed to the right lower quadrant where the cecum and ascending colon and small intestine was seen entering the right inguinal hernia. An attempt was made to lyse these adhesions using the robotic instruments as well. After 90 minutes of lysis of adhesions, it was obvious that a complete lysis of adhesions was impossible and risky and a decision was made to stop the procedure. A complete discussion was held with the patient's and all risks and potential complications of continual lysis of adhesions and the procedure were discussed. The agreed with the plan to abort the procedure and discuss other options such as radiation, cryotherapy, hormonal treatment. The robot was de-docked and all the ports removed and the midline incision was closed with interrupted [id number] sutures using 0 Vicryl. The patient was taken to recovery in stable condition with a Chavez catheter.
[2018-01-26] MEDS ORDERED: LACTATED RINGERS 1,000 ML IV ONE (14:48)
[2018-01-26 14:55] VITALS: RESP 16
[2018-01-26] MEDS: HEPARIN SODIUM,PORCINE 5,000 UNIT/ML 1 ML VIAL SQ SCH (19:44)
[2018-01-26] MEDS: DEXTROSE 5%-0.45% NACL 1,000 ML IV SCH ×2 (19:45→21:11)
[2018-01-26] MEDS: KETOROLAC 30 MG/ML 1 ML VIAL IVP PRN (22:17)
[2018-01-27] MEDS: LACTATED RINGERS 1,000 ML IV SCH (02:58)
[2018-01-27] MEDS: KETOROLAC 30 MG/ML 1 ML VIAL IVP PRN ×2 (03:46→11:11)
--- NOTE | 2018-01-27 06:49 | P.DS ---
Providers Date of admission: 01/26/18 09:03 Attending physician: Jayne Archer Primary care physician: [facility] Course: The patient was admitted to the hospital yesterday 01/26/2018. He underwent a robotic exploration for prostate carcinoma the due to severe amount of adhesion bilateral inguinal hernias Dr. broussard and Suzi felt the surgery both robotic and open would be too risky and they terminate the procedure. They felt he be best served with radiation therapy with adjuvant LHRH therapy for his prostate cancer. He will also needing all hernia repairs a later date. His morning he feels well. He is tolerated food. His pain is under control. His catheter will be removed. If he voids okay she'll be discharged home. He'll follow-up in the office in one week to see Dr. Araujo Patient Condition at Discharge: Good Plan - Discharge Summary Discharge Rx Participant: Yes New Discharge Prescriptions: New HYDROcodone/APAP 5-325MG [[place] 5-325] 1 tab PO Q4HR PRN #14 tab PRN Reason: Pain Control No Action Cholecalciferol [Vitamin D3] 5,000 unit PO DAILY Atorvastatin [Lipitor] 40 mg PO HS Glucosamine Sulfate 2,000 mg PO DAILY Aspirin 81 mg PO DAILY Multivitamins, Thera [Multivitamin (formulary)] 1 tab PO DAILY amLODIPine BESYLATE/BENAZEPRIL [amLODIPine BESYLATE/BENAZEPRIL 5-10 mg] 1 cap PO HS Ferrous Sulfate [Feosol] 325 mg PO DAILY l Acidophil/B Lactis/B Longum [Florajen3 Capsule] 460 mg PO DAILY Loratadine 10 mg PO DAILY Docusate [Colace] 100 mg PO HS Ascorbic Acid [Vitamin C] 1,000 mg PO DAILY Discharge Medication List Aspirin 81 mg PO DAILY 12/21/16 [History] Atorvastatin [Lipitor] 40 mg PO HS 12/21/16 [History] Cholecalciferol [Vitamin D3] 5,000 unit PO DAILY 12/21/16 [History] Glucosamine Sulfate 2,000 mg PO DAILY 12/21/16 [History] Ascorbic Acid [Vitamin C] 1,000 mg PO DAILY 07/31/17 [History] Docusate [Colace] 100 mg PO HS 07/31/17 [History] Ferrous Sulfate [Feosol] 325 mg PO DAILY 07/31/17 [History] Loratadine 10 mg PO DAILY 07/31/17 [History] Multivitamins, Thera [Multivitamin (formulary)] 1 tab PO DAILY 07/31/17 [History ] amLODIPine BESYLATE/BENAZEPRIL [amLODIPine BESYLATE/BENAZEPRIL 5-10 mg] 1 cap PO HS 07/31/17 [History] l Acidophil/B Lactis/B Longum [Florajen3 Capsule] 460 mg PO DAILY 07/31/17 [ History] HYDROcodone/APAP 5-325MG [[place] 5-325] 1 tab PO Q4HR PRN #14 tab 01/27/18 [Rx] Follow up Appointment(s)/Referral(s): Riaz Broussard MD [STAFF PHYSICIAN] - 1 Week Discharge Disposition: HOME SELF-CARE
[2018-01-27] MEDS: DEXTROSE 5%-0.45% NACL 1,000 ML IV SCH (07:00)
[2018-01-27 08:51] VITALS: BP 120/66; PULSE 63; TEMP 97.9
[2018-01-27] MEDS: HEPARIN SODIUM,PORCINE 5,000 UNIT/ML 1 ML VIAL SQ SCH (09:57)
== END 2018-01-27 11:50 | disposition home or self-care (01) | DRG 716 ==
LOC: 2ORMAIN 09:03 → 3SUR 14:43
PROVIDERS: ADMIT Urology; ATTEND Urology
PROC: 0DN84ZZ Release Small Intestine, Percutaneous Endoscopic Approach (ICD-10-PCS; 2018-01-26)
PROC: 0DNK4ZZ Release Ascending Colon, Percutaneous Endoscopic Approach (ICD-10-PCS; 2018-01-26)
PROC: 0DNH4ZZ Release Cecum, Percutaneous Endoscopic Approach (ICD-10-PCS; 2018-01-26)
PROC: 8E0W4CZ Robotic Assisted Procedure of Trunk Region, Percutaneous Endoscopic Approach (ICD-10-PCS; 2018-01-26)
PROC: 0TNB4ZZ Release Bladder, Percutaneous Endoscopic Approach (ICD-10-PCS; principal; 2018-01-26 10:55)
DX: C61 Malignant neoplasm of prostate (principal); E78.00 Pure hypercholesterolemia, unspecified; Z53.8 Procedure and treatment not carried out for other reasons; K66.0 Peritoneal adhesions (postprocedural) (postinfection); I10 Essential (primary) hypertension; R00.1 Bradycardia, unspecified; N40.0 Benign prostatic hyperplasia without lower urinary tract symptoms; K40.20 Bilateral inguinal hernia, without obstruction or gangrene, not specified as recurrent; E78.5 Hyperlipidemia, unspecified; J30.9 Allergic rhinitis, unspecified; N52.9 Male erectile dysfunction, unspecified; M19.91 Primary osteoarthritis, unspecified site; Z79.82 Long term (current) use of aspirin; Z79.899 Other long term (current) drug therapy; Z90.49 Acquired absence of other specified parts of digestive tract; Z96.643 Presence of artificial hip joint, bilateral; Z86.718 Personal history of other venous thrombosis and embolism; Z88.0 Allergy status to penicillin
CPT/HCPCS: 86850; 86900; 86901

== ENCOUNTER → 2018-12-07 | Outpatient (CLI) | payer MEDICARE, OTHER ==
--- NOTE | 2018-12-07 18:02 | CT ---
EXAMINATION TYPE: CT abdomen pelvis wo con DATE OF EXAM: 12/07/2018 COMPARISON: 01/19/2017 INDICATION: Incisional hernia and bowel obstruction. DLP: 793 mGycm, Automated exposure control for dose reduction was used. CONTRAST: 0 mL of Isovue 300. Study performed without Oral Contrast TECHNIQUE: Axial images were obtained from above the diaphragm to the pubic rami in the axial plane a t 5 mm thick sections. Reconstructed images are reviewed on the computer in the coronal plane. FINDINGS: Limited CT sections are obtained the lung bases. The lung bases are clear. Mild coronary artery delphine cification is present. CT ABDOMEN: Anterior abdominal wall hernias containing mesenteric fat are in the supraumbilical regio n with at least 2 with the openings measuring 2.3 cm 1.8 cm. Liver: Normal Spleen: Normal Pancreas: Normal Adrenal glands: The adrenal glands are normal. Gallbladder: Normal Kidneys: No masses are evident. No hydronephrosis is present. There is a 1.8 cm cyst on the posteri or lateral left mid kidney measuring -4 Hounsfield units. No renal stones are identified. Aorta: Vascular calcification is within the aorta. Inferior vena cava: Normal. CT PELVIS: Within the left anterior lateral abdominal wall at the level the pelvis there is a hernia containing loops of nonobstructed small bowel with an opening of 6.9 cm. Bilateral inguinal hernias a re present. On the right this contains a loop of bowel. This may contain portion of the urinary bladd er on the left. This is somewhat limited due to the beam hardening artifact. Post surgical changes are within the mid sigmoid colon region. Fecal debris is in the colon. Appendix: The appendix is not clearly identified. What may be the appendix is a normal caliber. No martínez spicious tubular structures no suspicious inflammatory changes are evident. Urinary bladder: Limited evaluation due to the beam hardening artifact from the bilateral hip prosthe ses. This may herniated into the left inguinal sac. Genitourinary structures: Prostate contains calcification. Osseous structures: No suspicious lytic or sclerotic lesions. Facet hypertrophy is contributing to L4 -5 lateral canal stenosis. Some disc bulging may also contribute stenosis. Facet degenerative changes are within the mid lumbar spine. IMPRESSIONS: 1. Anterior abdominal wall hernias containing mesenteric fat. 2. Left anterior abdominal wall hernia containing multiple small bowel without evidence of obstructio n. 3. Bilateral inguinal hernias. This contains loops of bowel on the right and may contain a portion of the urinary bladder on the left. 4. No suspicious changes for obstruction evident at this time.
== END | disposition home or self-care (01) ==
LOC: RADCTMAIN 16:01
PROVIDERS: ATTEND Surgery Plastic and Reconstructive Surgery
DX: K43.9 Ventral hernia without obstruction or gangrene (principal); K40.20 Bilateral inguinal hernia, without obstruction or gangrene, not specified as recurrent; Z88.0 Allergy status to penicillin; Z88.5 Allergy status to narcotic agent
CPT/HCPCS: 74176

== ENCOUNTER 2019-02-22 05:55 | Inpatient (IN) | payer MEDICARE, OTHER ==
--- NOTE | 2019-02-22 06:21 | ED ---
General Adult HPI - General Chief complaint: GI Bleed Stated complaint: GI Bleed Time Seen by Provider: 02/22/19 05:58 Source: patient, EMS Mode of arrival: EMS Limitations: no limitations - History of Present Illness Initial comments: Dictation was produced using Xyle[employer] dictation software. please excuse any grammatical, word or spelling errors. Chief Complaint: 68-year-old male presents with bright red blood per rectum. History of Present Illness: A 68-year-old male with past medical history of dyslipidemia, prostate disease and pulmonary embolus. He presents today with bright red blood per rectum. Patient has been having on and off symptoms for the last month. Patient hasn't had this bleeding evaluated by his primary care physician or any other medical professional. Patient states he is on toilet today and has been having multiple bouts of bright red blood per rectum. Patient states that the amount of blood is traumatic. Patient states he feels slightly lightheaded. Denies any abdominal pain. Patient has no pain complaints. He does have the feeling of rectal fullness. The ROS documented in this emergency department record has been reviewed and confirmed by me. Those systems with pertinent positive or negative responses have been documented in the HPI. All other systems are other negative and/or noncontributory. PHYSICAL EXAM: General Impression: Alert and oriented x3, not in acute distress, pale HEENT: Normocephalic atraumatic, extra-ocular movements intact, pupils equal and reactive to light bilaterally, mucous membranes moist. Cardiovascular: Heart regular rate and rhythm, S1&S2 audible, no murmurs, rubs or gallops Chest: Lungs clear to auscultation bilaterally, no rhonchi, no wheeze, no rales Abdomen: Bowel sounds present, abdomen soft, non-tender, non-distended, no organomegaly Musculoskeletal: Pulses present and equal in all extremities, no peripheral edema Motor: no focal deficits noted Neurological: CN II-XII grossly intact, no focal motor or sensory deficits noted Skin: Intact with no visualized rashes Psych: Normal affect and mood Rectal exam: No signs of anal fissure or hemorrhoids on digital rectal exam does not reveal any palpable masses. ED course: 68-year-old male presents with bright red blood per rectum. All signs upon arrival are within acceptable limits.Laboratory evaluation obtained. Mild occipital septal 0.1 likely secondary to stress. Hemoglobin is 10.9 which is severely depressed since most previous lab last year. Rest of CBC is unrema rkable. Coag panel unremarkable. Metabolic panel is negative. Stool occult blood is positive. Given degree of bleeding that was described and at bedside patient be admitted with GI consultation. Discussed patient case with Dr. Barreto was willing to accept care for the patient. - Related Data Home Medications Medication Instructions Recorded Confirmed Aspirin 81 mg PO DAILY 12/21/16 01/26/18 Atorvastatin [Lipitor] 40 mg PO HS 12/21/16 01/26/18 Cholecalciferol [Vitamin D3 (25 5,000 unit PO DAILY 12/21/16 01/26/18 Mcg = 1000 Iu)] Glucosamine Sulfate 2,000 mg PO DAILY 12/21/16 01/26/18 Ascorbic Acid [Vitamin C] 1,000 mg PO DAILY 07/31/17 01/26/18 Docusate [Colace] 100 mg PO HS 07/31/17 01/26/18 Ferrous Sulfate [Feosol] 325 mg PO DAILY 07/31/17 01/26/18 Loratadine 10 mg PO DAILY 07/31/17 01/26/18 Multivitamins, Thera [Multivitamin 1 tab PO DAILY 07/31/17 01/26/18 (formulary)] amLODIPine BESYLATE/BENAZEPRIL 1 cap PO HS 07/31/17 01/26/18 [amLODIPine BESYLATE/BENAZEPRIL 5-10 mg] l Acidophil/B Lactis/B Longum 460 mg PO DAILY 07/31/17 01/26/18 [Florajen3 Capsule] Previous Rx's Medication Instructions Recorded HYDROcodone/APAP 5-325MG [[place] 1 tab PO Q4HR PRN #14 tab 01/27/18 5-325] Allergies Allergy/AdvReac Type Severity Reaction Status Date / Time amoxicillin Allergy Unknown Verified 02/22/19 06:04 Childhood Penicillins Allergy Unknown Verified 02/22/19 06:04 Childhood Review of Systems ROS Statement: Those systems with pertinent positive or pertinent negative responses have been documented in the HPI. ROS Other: All systems not noted in ROS Statement are negative. Past Medical History Past Medical History: GI Bleed, Hyperlipidemia, Hypertension, Osteoarthritis (OA), Prostate Disorder, Pulmonary Embolus (PE) Additional Past Medical History / Comment(s): arthritis bilateral hips/hands, bilateral inguinal hernias History of Any Multi-Drug Resistant Organisms: None Reported Past Surgical History: Bowel Resection, Joint Replacement, Orthopedic Surgery Additional Past Surgical History / Comment(s): 12/22/16 Exploratory lapartomy for perforated hollow viscus, diffuse abdominal peritonitis/sepsis secondary to this-abdominal washout/atwood's procedure with colectomy and end ostomy. Other hx: Bilateral total hips, colonoscopies, L knee arthroscopy, R shoulder had Ecoli infection-surgery to clean it out.REVERSAL OF COLOSTOMY Past Anesthesia/Blood Transfusion Reactions: No Reported Reaction Past Psychological History: No Psychological Hx Reported Smoking Status: Never smoker Past Alcohol Use History: Occasional Past Drug Use History: None Reported - Past Family History Mother Family Medical History: Cancer Additional Family Medical History / Comment(s): Mother had lymphoma. General Exam Limitations: no limitations Course Vital Signs 02/22/19 06:01 Temperature 97.5 F L Pulse Rate 77 Respiratory 20 Rate Blood Pressure 115/81 O2 Sat by Pulse 97 Oximetry Medical Decision Making - Lab Data Result diagrams: 02/22/19 06:03 02/22/19 06:03 Lab Results 02/22/19 02/22/19 02/22/19 Range/Units 06:03 06:03 06:03 WBC 12.1 H (3.8-10.6) k/uL RBC 3.56 L (4.30-5.90) m/uL Hgb 10.9 L (13.0-17.5) gm/dL Hct 33.4 L (39.0-53.0) % MCV 93.6 (80.0-100.0) fL MCH 30.6 (25.0-35.0) pg MCHC 32.7 (31.0-37.0) g/dL RDW 14.5 (11.5-15.5) % Plt Count 241 (150-450) k/uL Neutrophils % 92 % Lymphocytes % 4 % Monocytes % 3 % Eosinophils % 1 % Basophils % 0 % Neutrophils # 11.1 H (1.3-7.7) k/uL Lymphocytes # 0.4 L (1.0-4.8) k/uL Monocytes # 0.4 (0-1.0) k/uL Eosinophils # 0.1 (0-0.7) k/uL Basophils # 0.0 (0-0.2) k/uL PT 10.2 (9.0-12.0) sec INR 0.9 (<1.2) Sodium 138 (137-145) mmol/L Potassium 4.4 (3.5-5.1) mmol/L Chloride 105 (98-107) mmol/L Carbon Dioxide 25 (22-30) mmol/L Anion Gap 8 mmol/L BUN 25 H (9-20) mg/dL Creatinine 1.24 (0.66-1.25) mg/dL Est GFR (CKD-EPI)AfAm 70 (>60 ml/min/1.73 sqM) Est GFR (CKD-EPI)NonAf 60 (>60 ml/min/1.73 sqM) Glucose 141 H (74-99) mg/dL Calcium 9.4 (8.4-10.2) mg/dL Total Bilirubin 0.6 (0.2-1.3) mg/dL AST 24 (17-59) U/L ALT 24 (21-72) U/L Alkaline Phosphatase 78 (38-126) U/L Total Protein 6.8 (6.3-8.2) g/dL Albumin 4.1 (3.5-5.0) g/dL Stool Occult Blood (Negative) 02/22/19 Range/Units 06:03 WBC (3.8-10.6) k/uL RBC (4.30-5.90) m/uL Hgb (13.0-17.5) gm/dL Hct (39.0-53.0) % MCV (80.0-100.0) fL MCH (25.0-35.0) pg MCHC (31.0-37.0) g/dL RDW (11.5-15.5) % Plt Count (150-450) k/uL Neutrophils % % Lymphocytes % % Monocytes % % Eosinophils % % Basophils % % Neutrophils # (1.3-7.7) k/uL Lymphocytes # (1.0-4.8) k/uL Monocytes # (0-1.0) k/uL Eosinophils # (0-0.7) k/uL Basophils # (0-0.2) k/uL PT (9.0-12.0) sec INR (<1.2) Sodium (137-145) mmol/L Potassium (3.5-5.1) mmol/L Chloride (98-107) mmol/L Carbon Dioxide (22-30) mmol/L Anion Gap mmol/L BUN (9-20) mg/dL Creatinine (0.66-1.25) mg/dL Est GFR (CKD-EPI)AfAm (>60 ml/min/1.73 sqM) Est GFR (CKD-EPI)NonAf (>60 ml/min/1.73 sqM) Glucose (74-99) mg/dL Calcium (8.4-10.2) mg/dL Total Bilirubin (0.2-1.3) mg/dL AST (17-59) U/L ALT (21-72) U/L Alkaline Phosphatase (38-126) U/L Total Protein (6.3-8.2) g/dL Albumin (3.5-5.0) g/dL Stool Occult Blood Positive (Negative) Disposition Clinical Impression: GI bleed Disposition: ADMITTED IP TO THIS [facility] Condition: Fair Referrals: Nonstaff,Physician [Primary Care Provider] - 1-2 days Time of Disposition: 07:02
[2019-02-22 06:30] LABS: Basophils % (A) 0 %; Eosinophils # (A) 0.1 k/uL (0-0.7); Eosinophils % (A) 1 %; HCT 33.4 % (39.0-53.0); HGB 10.9 gm/dL (13.0-17.5); Lymphocytes # (A) 0.4 k/uL (1.0-4.8); Lymphocytes % (A) 4 %; MCH 30.6 pg (25.0-35.0); MCHC 32.7 g/dL (31.0-37.0); MCV 93.6 fL (80.0-100.0); Monocytes # (A) 0.4 k/uL (0-1.0); Monocytes % (A) 3 %; Neutrophils # (A) 11.1 k/uL (1.3-7.7); Neutrophils % (A) 92 %; Platelet Count 241 k/uL (150-450); RBC 3.56 m/uL (4.30-5.90); RDW 14.5 % (11.5-15.5); WBC 12.1 k/uL (3.8-10.6)
[2019-02-22 06:40] LABS: INR 0.9 (<1.2); Prothrombin Time 10.2 sec (9.0-12.0)
[2019-02-22 06:42] LABS: Albumin 4.1 g/dL (3.5-5.0); Calcium 9.4 mg/dL (8.4-10.2); Potassium 4.4 mmol/L (3.5-5.1); Total Bilirubin 0.6 mg/dL (0.2-1.3); Total Protein 6.8 g/dL (6.3-8.2)
[2019-02-22] MEDS ORDERED: NALOXONE 0.4 MG/ML 1 ML VIAL IV PRN (07:03)
[2019-02-22] MEDS ORDERED: PANTOPRAZOLE 40 MG/10 ML VIAL IVP ONE (07:03)
[2019-02-22] MEDS: SODIUM CHLORIDE 0.9% 1,000 ML IV SCH ×2 (07:32→17:50)
[2019-02-22] MEDS: ACETAMINOPHEN TAB 325 MG TAB PO PRN ×2 (07:48→14:18)
[2019-02-22] MEDS ORDERED: SODIUM CHLORIDE 0.9% 1,000 ML IV STA ×2 (08:03→09:50)
[2019-02-22 08:18] LABS: Appearance,Urine Clear (Clear); Bilirubin,Urine Negative (Negative); Blood,Urine Negative (Negative); Color,Urine Light Yellow; Glucose,Urine (UA) Negative (Negative); Ketones,Urine Negative (Negative); Leukocyte Esterase,Urine Negative (Negative); Nitrite,Urine Negative (Negative); PH, Urine 5.5 (5.0-8.0); Protein,Urine Negative (Negative); Specific Gravity,Urine 1.008 (1.001-1.035); Urobilinogen,Urine <2.0 mg/dL (<2.0)
--- NOTE | 2019-02-22 08:33 | XR ---
EXAMINATION TYPE: XR chest 2V DATE OF EXAM: 02/22/2019 COMPARISON: 01/06/2017 HISTORY: Chest pain TECHNIQUE: Frontal and lateral views of the chest are obtained. FINDINGS: The lungs are slightly hypoventilatory There is no focal air space opacity, pleural effusio n, or pneumothorax seen. The cardiac silhouette size is upper limits of normal. The osseous struct ures are intact. Mild multilevel degenerative changes are seen in the visualized thoracolumbar spine. Degenerative changes are also seen of the acromioclavicular joints. IMPRESSION: No acute cardiopulmonary process.
[2019-02-22] MEDS ORDERED: metroNIDAZOLE-NS PMX 500 MG in SALINE 1 100ML.BAG IVPB STA (08:44)
--- NOTE | 2019-02-22 09:05 | P.HPIM ---
History of Present Illness H&P Date: 02/22/19 Chief Complaint: bright red blood per rectum 68-year-old male with PMH of hypertension, hyperlipidemia, prostate disease, history of bowel obstruction and perforation in 2017 due to hernia complicated with abscess presents to the ED for bright red blood per rectum. Patient states that he has been spotting in his stool over the past month. He describes the blood as bright red blood, mixed in with his stool. He denies any melena. Spotting does not occur with every bowel movement. However, last night he had 5-6 bowel movements with a lot of bright red blood that was filling the toilet. He denies any abdominal pain with bowel movements. He denies any constipation or diarrhea. He denies any changes in appetite. Patient denies any headaches, lower extremity edema, nausea or vomiting, fever or chills, cough, chest pain, shortness of breath, palpitations. He denies any dizziness, numbness/weakness/tingling of the extremities. He does complain of some difficul ty urinating and mild burning with urination. Review of previous records show that patient was admitted in 2017 for peritonitis from perforation due to sigmoid diverticulitis. This was complicated with an abscess. Patient underwent colostomy at that time. In the ED, vital signs showed a fever with T-maxof 102.8 Fahrenheit. His blood pressure was as low as 95/45. Pulse and O2 saturation was within normal limits. CBC showed a leukocytosis of 12.1 and hemoglobin of 10.9. CMP showed a BUN of 2 5 and glucose of 141. Lactic acid was negative. Urinalysis was negative. Stool for occult blood was positive. Chest x-ray was negative. Patient is admitted for bright red blood per rectum, kept nothing by mouth for possible intervention, gastroenterology is consulted. Also septic workup is underway due to positive SIRS, infectious diseases consulted. Review of Systems Pertinent positives and negatives as discussed in HPI, a complete review of sys tems was performed and all other systems are negative. Past Medical History Past Medical History: GI Bleed, Hyperlipidemia, Hypertension, Osteoarthritis (OA), Prostate Disorder, Pulmonary Embolus (PE) Additional Past Medical History / Comment(s): arthritis bilateral hips/hands, bilateral inguinal hernias History of Any Multi-Drug Resistant Organisms: None Reported Past Surgical History: Bowel Resection, Joint Replacement, Orthopedic Surgery Additional Past Surgical History / Comment(s): 12/22/16 Exploratory lapartomy for perforated hollow viscus, diffuse abdominal peritonitis/sepsis secondary to this-abdominal washout/atwood's procedure with colectomy and end ostomy. Other hx: Bilateral total hips, colonoscopies, L knee arthroscopy, R shoulder had Ecoli infection-surgery to clean it out.REVERSAL OF COLOSTOMY Past Anesthesia/Blood Transfusion Reactions: No Reported Reaction Past Psychological History: No Psychological Hx Reported Smoking Status: Never smoker Past Alcohol Use History: Occasional Past Drug Use History: None Reported - Past Family History Mother Family Medical History: Cancer Additional Family Medical History / Comment(s): Mother had lymphoma. Medications and Allergies Home Medications Medication Instructions Recorded Confirmed Type Aspirin 81 mg PO DAILY 12/21/16 01/26/18 History Atorvastatin [Lipitor] 40 mg PO HS 12/21/16 01/26/18 History Cholecalciferol [Vitamin D3 (25 5,000 unit PO DAILY 12/21/16 01/26/18 History Mcg = 1000 Iu)] Glucosamine Sulfate 2,000 mg PO DAILY 12/21/16 01/26/18 History Ascorbic Acid [Vitamin C] 1,000 mg PO DAILY 07/31/17 01/26/18 History Docusate [Colace] 100 mg PO HS 07/31/17 01/26/18 History Ferrous Sulfate [Feosol] 325 mg PO DAILY 07/31/17 01/26/18 History Loratadine 10 mg PO DAILY 07/31/17 01/26/18 History Multivitamins, Thera [Multivitamin 1 tab PO DAILY 07/31/17 01/26/18 History (formulary)] amLODIPine BESYLATE/BENAZEPRIL 1 cap PO HS 07/31/17 01/26/18 History [amLODIPine BESYLATE/BENAZEPRIL 5-10 mg] l Acidophil/B Lactis/B Longum 460 mg PO DAILY 07/31/17 01/26/18 History [Florajen3 Capsule] HYDROcodone/APAP 5-325MG [[place] 1 tab PO Q4HR PRN #14 tab 01/27/18 Rx 5-325] Allergies Allergy/AdvReac Type Severity Reaction Status Date / Time amoxicillin Allergy Unknown Verified 02/22/19 06:04 Childhood Penicillins Allergy Unknown Verified 02/22/19 06:04 Childhood Physical Exam Vitals: Vital Signs Temp Pulse Resp BP Pulse Ox 02/22/19 08:24 89 18 124/62 95 02/22/19 07:40 102.8 F H 88 18 95/45 97 02/22/19 07:00 88 18 121/67 97 02/22/19 06:01 97.5 F L 77 20 115/81 97 Intake and Output 02/21/19 02/22/19 02/22/19 22:59 06:59 14:59 Output Total 600 Balance -600 Output: Urine 600 Uretheral (Chavez) 600 Other: Weight 83.915 kg General: [non toxic], [no distress], [appears at stated age] Derm: [warm], [dry] Head: [atraumatic], [normocephalic], [symmetric] Eyes: [EOMI], [no lid lag], [anicteric sclera] Mouth: [no lip lesion], [mucus membranes moist] Cardiovascular: [S1S2 reg], [no murmur], [positive DP pulse bilateral], Lungs: [CTA bilateral], [no rhonchi, no rales] , [no accessory muscle use] Abdominal: [soft], [tenderness to palpation of the left upper quadrant, bilateral lower quadrants with deep palpation and no rebound], [no guarding], [no appreciable organomegaly] Ext: [no gross muscle atrophy], [no edema], [no contractures] Neuro: [ CN II-XI grossly intact], [no focal neuro deficits] Psych: [Alert], [oriented], [appropriate affect] Results CBC & Chem 7: 02/22/19 06:03 02/22/19 06:03 Labs: Abnormal Lab Results - Last 24 Hours (Table) 02/22/19 02/22/19 Range/Units 06:03 06:03 WBC 12.1 H (3.8-10.6) k/uL RBC 3.56 L (4.30-5.90) m/uL Hgb 10.9 L (13.0-17.5) gm/dL Hct 33.4 L (39.0-53.0) % Neutrophils # 11.1 H (1.3-7.7) k/uL Lymphocytes # 0.4 L (1.0-4.8) k/uL BUN 25 H (9-20) mg/dL Glucose 141 H (74-99) mg/dL Thrombosis Risk Factor Assmnt - Choose All That Apply Each Factor Represents 1 point: Obesity (BMI >25) Each Risk Factor Represents 2 Points: Age 61-74 years Thrombosis Risk Factor Assessment Total Risk Factor Score: 3 Thrombosis Risk Factor Assessment Level: Moderate Risk Assessment and Plan Assessment: Assessment and Plan Bright red blood per rectum, possible hemorrhoids or diverticular bleed SIRS Anemia from acute blood loss Elevated BUN Hypertension Hyperlipidemia Ongoing for the past month, worsened since last night. Bright red blood per rectum, patient denies melena. Hemoglobin 10.9, 14.7 in January 2018. Stool for occult blood positive in ED. Plans: Monitor H&H every 8 hours. Start Protonix 40 mg IV daily. Transfuse if hemoglobin is less than 7. Continue normal saline at 100 cc/hour. NPO for possible intervention. Follow GI consultation. Patient with fever of 102.8, hypotensive to a SBP 95, leukocytosis of 12.1. Patient meets SIRS criteria. Urinalysis is negative. Patient with history of bowel abscess. Plans: Obtain blood culture. Bolus 1 L normal saline. Obtain lactic acid. Obtain chest x-ray. Will order CT abdomen and pelvis for concerns of abscess or diverticulitis. Start ceftriaxone and Flagyl for coverage of gram- negative and anaerobe. Tylenol as needed for fever. Follow GI consultation. Plans: Management as above. BUN 25. Possibly dehydration or due to acute blood loss. Plans: Continue IVF as above. Daily BMP. BP 124/62. On amlodipine and ZULAY inhibitor at home. Plans: Monitor vitals, adjust medications as necessary. Stable. Plans: Hold aspirin. Continue Lipitor 40 milligrams by mouth at bedtime. Patient was admitted for BRBPR, gastroenterology consulted. Nothing by mouth for possible intervention. Found to have fever, started on IV antibiotics and ID consulted. Patient is pending clinical improvement. Patient names his Kenna decision-maker in the case that he can't make decisions for himself. Patient reiterates wanting to remain full code at this time.
--- NOTE | 2019-02-22 09:13 | CT ---
EXAMINATION TYPE: CT abdomen pelvis w con DATE OF EXAM: 02/22/2019 COMPARISON: Prior CT 12/07/2018 HISTORY: rectal bleeding, fever, history of colon resection CT DLP: 1056.1 mGycm Automated exposure control for dose reduction was used. TECHNIQUE: Helical acquisition of images from the lung bases through the pelvis have been completed. CONTRAST: Performed without Oral Contrast and with IV Contrast, patient injected with 100 mL of Isovue 300. FINDINGS: Multiple abdominal wall hernias are present, again seen. Within left inguinal hernia, small bowel suspected within the right inguinal hernia. Small bowel loops are present within the left abdo mary wall hernia in the lower quadrant. There is fat present within the paramidline and midline abdo mary wall hernias in the upper abdomen. LUNG BASES: Minimal dependent atelectatic changes are present.. AORTA: No significant abnormality is appreciated. LIVER/GB: No significant abnormality is appreciated. PANCREAS: No significant abnormality is seen. SPLEEN: No significant abnormality is seen. ADRENALS: No significant abnormality is seen. KIDNEYS: Cystic focus at the lower pole the right kidney measures only approximately 12 mm in size. C ystic focus at the upper pole the left kidney measures 2.4 cm. Left-sided hydronephrosis, hydroureter is present. Distal ureter is obscured due to streak artifact from patient's hip prostheses. The uret er runs through the inflammatory change, retroperitoneal fluid but is thought to show a prominent delphine iber more distally. REPRODUCTIVE ORGANS: No significant abnormality is seen BOWEL: Postop changes are noted at the sigmoid colon level. The distal sigmoid, rectosigmoid colon s hows abnormal wall thickening, probable edematous change with low attenuation. FREE AIR: No Free Air visible. ASCITES: There is some free fluid present within the retroperitoneum, presacral regions. PELVIC ADENOPATHY: None visualized. RETROPERITONEAL ADENOPATHY: No Retroperitoneal Adenopathy visible. URINARY BLADDER: Chavez catheter is in place. OSSEOUS STRUCTURES: Postop changes are noted to the lower lumbar spine, multilevel laminectomies are present, there is degenerative disc change as well as spinal curvature. Postop changes are noted to the bilateral hips.. IMPRESSION: CORRELATE FOR COLITIS, ISCHEMIA IS NOT EXCLUDED. CORRELATE, THERE IS FLUID PRESENT WITHIN THE RETROPE RITONEUM. MULTIPLE ABDOMINAL WALL HERNIAS ARE PRESENT. LIMITATIONS DESCRIBED. LEFT-SIDED HYDRONEPH ROSIS AND HYDROURETER IS AN INTERVAL FINDING, ADDITIONAL FINDINGS ABOVE.
[2019-02-22 10:44] LABS: HCT 29.9 % (39.0-53.0); HGB 9.9 gm/dL (13.0-17.5); MCH 30.7 pg (25.0-35.0); MCV 92.9 fL (80.0-100.0); Mean Platelet Volume 6.9; Platelet Count 171 k/uL (150-450); RBC 3.22 m/uL (4.30-5.90); RDW 14.9 % (11.5-15.5); WBC 11.5 k/uL (3.8-10.6)
[2019-02-22 11:15] LABS: Band Neutrophils % 10 %; Lymphocytes # (M) 0.12 k/uL (1.0-4.8); Monocytes # (M) 0.92 k/uL (0-1.0); Neutrophils % (M) 81 %; Nucleated Red Blood Cells 0 /100 WBC (0-0); Total Cells Counted 100
[2019-02-22 12:58] VITALS: BMI 27.3
[2019-02-22 15:19] LABS: Glucose,Whole Blood 106 mg/dL (75-99)
[2019-02-22] MEDS ORDERED: LEVOFLOXACIN 500MG-D5W PMX 500 MG in DEXTROSE/WATER 1 100ML.BAG IVPB SCH (17:00)
--- NOTE | 2019-02-22 17:08 | P.CNPUL ---
History of Present Illness Consult date: 02/22/19 Reason for consult: other (ICU management) Chief complaint: bright red blood per rectum History of present illness: this is a 73-year-old white male with history of hypertension, hyperlipidemia, history of bowel obstruction and perforation back in 2017, underwent colostomy at the time and eventually revision of his colostomy. Back then the patient had ruptured diverticulitis. And diverticular abscess. This time the patient presented with 1 month history of intermittent episodes of bloody stools and bright red blood per rectum. Patient has been spotting blood in his stools for the past 1 month. Last night the patient had significant amount of blood/bright red blood filling basically the toilet with his bowel movement. He had no abdominal pain, no nausea no vomiting, no fever no chills, no chest pain, no palpitations. Hence the patient was brought into the ER and his blood pressure was noted to be low requiring fluid boluses about 2 L were given responded to fluid boluses and did not require any pressors. Patient had also a temp of 102.8. And he was noted to have a bit of leukocytosis, but relatively normal lactic acid, and normal urinalysis. Chest x-ray was unremarkable. However his CT of the abdomen and pelvis showedpossible ischemic colitis, abnormal wall thickening of the rectosigmoid colon. fluid was present in the retroperitoneum multiple abdominal wall hernias were noted. There was also evidence of left sided hydronephrosis and hydroureter. Considering the hypotension, the fever, and the bright red blood per rectum, patient was admitted to the ICU, and this consult was initiated. During my evaluation, patient had basically no nausea no vomiting no abdominal pain, and he was basically asymptomatic. Review of Systems Constitutional: Denies weight loss, no fever, no chills, denies weakness or fatigue. HEENT: Denies earache, sore throat, denies diplopia. Cardiac: Denies chest pain, palpitations, syncope, or diaphoresis. Respiratory: Denies shortness of breath cough or wheezing. Gastrointestinal: As noted in HPI.mostly bright red blood per rectum over 1 month period of time worse over the last 24 hours. Genitourinary: symptoms of prostatism. Musculoskeletal: Denies arthralgia or myalgia. Neurologic: Denies headache blurred vision dizziness syncope Endocrine: Denies heat or cold intolerance denies polyuria polyphagia polydipsia Skin: Denies itching or rashes.. Psychiatric: Denies any active symptoms of depression. Past Medical History Past Medical History: Cancer, Hyperlipidemia, Hypertension, Osteoarthritis (OA), Prostate Disorder, Pulmonary Embolus (PE) Additional Past Medical History / Comment(s): 12/2016 bowel perforated hollow viscus/infection with surgery/colostomy then reversal, diverticular dx, pulmonary embolism post op, prostate cancer with radiation tx-gone now, anemia, bradycardia, arthrites hands, bilateral inguinal hernias, allergic rhinitis. History of Any Multi-Drug Resistant Organisms: None Reported Past Surgical History: Bowel Resection, Joint Replacement, Orthopedic Surgery Additional Past Surgical History / Comment(s): 12/22/16 Exploratory lapartomy for perforated hollow viscus, diffuse abdominal peritonitis/sepsis secondary to this-abdominal washout/atwood's procedure with colectomy and end ostomy with eventual colostomy reversal, colonoscopies, bilateral total hips, L knee arthroscopy, R shoulder had Ecoli infection-surgery to clean it out, procedure/radiation for prostate cancer. Past Anesthesia/Blood Transfusion Reactions: No Reported Reaction Smoking Status: Never smoker - Past Family History Mother Family Medical History: Cancer Additional Family Medical History / Comment(s): Mother had lymphoma. She of throat cancer at the age of 83 yrs. Father Additional Family Medical History / Comment(s): Father had a colostomy Medications and Allergies Home Medications Medication Instructions Recorded Confirmed Type Aspirin 81 mg PO HS 12/21/16 02/22/19 History Atorvastatin [Lipitor] 40 mg PO HS 12/21/16 02/22/19 History Cholecalciferol [Vitamin D3 (25 5,000 unit PO DAILY 12/21/16 02/22/19 History Mcg = 1000 Iu)] Glucosamine Sulfate 2,000 mg PO DAILY 12/21/16 02/22/19 History Docusate [Colace] 100 mg PO HS 07/31/17 02/22/19 History Loratadine 10 mg PO DAILY 07/31/17 02/22/19 History Multivitamins, Thera [Multivitamin 1 tab PO DAILY 07/31/17 02/22/19 History (formulary)] amLODIPine BESYLATE/BENAZEPRIL 1 cap PO HS 07/31/17 02/22/19 History [amLODIPine BESYLATE/BENAZEPRIL 5-10 mg] l Acidophil/B Lactis/B Longum 460 mg PO DAILY 07/31/17 02/22/19 History [Florajen3 Capsule] Ferrous Gluconate 324 mg PO DAILY 02/22/19 02/22/19 History Naproxen Sodium [Aleve] 220 mg PO DAILY 02/22/19 02/22/19 History Vitamin B Complex 1 cap PO HS 02/22/19 02/22/19 History Allergies Allergy/AdvReac Type Severity Reaction Status Date / Time amoxicillin Allergy Unknown Verified 02/22/19 09:01 Childhood Penicillins Allergy Unknown Verified 02/22/19 09:01 Childhood Physical Exam Vitals: Vital Signs Temp Pulse Resp BP Pulse Ox 02/22/19 16:50 70 24 110/63 98 02/22/19 16:40 71 14 110/63 97 02/22/19 16:30 73 20 106/63 97 02/22/19 16:20 71 16 96 02/22/19 16:10 75 18 106/63 97 02/22/19 16:00 100.4 F H 68 22 105/61 96 02/22/19 15:50 77 15 96 02/22/19 15:40 68 18 96 02/22/19 15:30 72 16 97 02/22/19 15:20 70 14 97 02/22/19 15:10 83 16 105/61 97 02/22/19 15:04 82 H 02/22/19 14:11 102.8 F H 67 18 84/48 100 02/22/19 12:57 100.4 F H 80 18 108/67 100 02/22/19 12:07 80 18 108/68 99 02/22/19 11:40 71 18 103/67 100 02/22/19 11:04 101 F H 94 18 107/68 97 02/22/19 10:49 78 18 95/56 100 02/22/19 10:31 100.9 F H 82 18 98/53 100 02/22/19 10:11 83 18 96/55 99 02/22/19 09:55 98 02/22/19 09:51 101.6 F H 86 18 87/44 93 L 02/22/19 09:00 103 F H 91 18 112/69 95 02/22/19 08:24 89 18 124/62 95 02/22/19 07:40 102.8 F H 88 18 95/45 97 02/22/19 07:00 88 18 121/67 97 02/22/19 06:01 97.5 F L 77 20 115/81 97 Intake and Output 02/22/19 02/22/19 02/22/19 06:59 14:59 22:59 Intake Total 100 Output Total 600 1850 30 Balance -600 -1850 70 Intake: IV 100 Sodium Chloride 0.9% 1, 100 000 ml @ 100 mls/hr IV . Q10H [facility] Rx#:[id number] Output: Urine 600 1850 30 Uretheral (Chavez) 600 Other: Voiding Method Indwelling Catheter Weight 83.915 kg Physical Exam: Revealed a 68-year-old white male in no distress, very pleasant. Head: Atraumatic normocephalic. HEENT:[Neck is supple.] [No neck masses.] [No thyromegaly.] [No JVD.] Chest: [Clear throughout, no crackles, no rhonchi, no wheezes.] Cardiac Exam: [Normal S1 and S2, no S3 gallop, no murmur.] Abdomen: [flat, soft, nontender, abdominal wall hernias were noted.] Extremities: [No clubbing, no edema, no cyanosis.] Neurological Exam: [No focal neurologic deficit.]alert and oriented 3. Lymphatics: No lymphadenopathy. Skin: No rashes. Psychiatric: Normal mood affect and mental status examination. Results - Laboratory Findings CBC and BMP: 02/22/19 10:00 02/22/19 06:03 PT/INR, D-dimer PT 10.2 sec (9.0-12.0) 02/22/19 06:03 INR 0.9 (<1.2) 02/22/19 06:03 Abnormal lab findings: Abnormal Labs 02/22/19 02/22/19 02/22/19 06:03 06:03 10:00 WBC 12.1 H 11.5 H RBC 3.56 L 3.22 L Hgb 10.9 L 9.9 L Hct 33.4 L 29.9 L Neutrophils # 11.1 H Neutrophils # (Manual) 10.40 H Lymphocytes # 0.4 L Lymphocytes # (Manual) 0.12 L BUN 25 H Glucose 141 H POC Glucose (mg/dL) 02/22/19 15:06 WBC RBC Hgb Hct Neutrophils # Neutrophils # (Manual) Lymphocytes # Lymphocytes # (Manual) BUN Glucose POC Glucose (mg/dL) 106 H - Diagnostic Findings Additional studies: CT of the abdomen and pelvis as noted in HPI. Assessment and Plan Assessment: impression: 1 acute lower GI bleeding, most likely diverticular in nature unless proven otherwise. 2 possible ischemic colitis, patient will be evaluated by gastroenterology and by general surgery. His previous abdominal surgery has been performed by Dr. Irwin and Dr. Sierra hence Dr. Sierra will be consulted. 3 acute anemia secondary to GI blood losses 4 fever and hypotension, possible abdominal sepsis 5acute hydronephrosis hence urology will be consulted. 6 hypotension secondary to GI blood losses, possible abdominal sepsis and colitis, patient responded well to fluid boluses, did not require pressors. Presently on antibiotics empirically including Flagyl and Rocephin. 7history of benign essential hypertension, history of hyperlipidemia, being addressed by admitting physician, patient is back on his home meds. However blood pressure medications will be on hold temporarily since the patient presented with hypotension. Recommendation: Fully agree with the present treatment plan, agree with antibiotics, close monitoring and serial CBC, transfuse for any hemoglobin below 7. Multiple consultants including gastroenterology general surgery and urology were consulted. Patient will be monitored for the next 24 hours in the intensive care unit, and will follow closely. Time with Patient: Greater than 30
[2019-02-22] MEDS: metroNIDAZOLE-NS PMX 500 MG in SALINE 1 100ML.BAG IVPB SCH (17:50)
[2019-02-22 18:34] LABS: Basophils # (A) 0.1 k/uL (0-0.2); Basophils % (A) 1 %; Eosinophils # (A) 0.1 k/uL (0-0.7); Eosinophils % (A) 0 %; HCT 32.8 % (39.0-53.0); HGB 10.6 gm/dL (13.0-17.5); Lymphocytes # (A) 0.4 k/uL (1.0-4.8); Lymphocytes % (A) 2 %; MCH 30.4 pg (25.0-35.0); MCHC 32.3 g/dL (31.0-37.0); MCV 94.1 fL (80.0-100.0); Mean Platelet Volume 7.4; Monocytes # (A) 1.1 k/uL (0-1.0); Monocytes % (A) 6 %; Neutrophils # (A) 16.2 k/uL (1.3-7.7); Neutrophils % (A) 88 %; Platelet Count 176 k/uL (150-450); RBC 3.49 m/uL (4.30-5.90); RDW 15.2 % (11.5-15.5); WBC 18.5 k/uL (3.8-10.6)
[2019-02-22 18:47] LABS: Toxic Granulation Present
[2019-02-23] MEDS: metroNIDAZOLE-NS PMX 500 MG in SALINE 1 100ML.BAG IVPB SCH ×4 (00:25→23:13)
--- NOTE | 2019-02-23 01:19 | P.CONS ---
History of Present Illness - Reason for Consult Consult date: 02/22/19 Blood per rectum Requesting physician: Matt Barreto - Chief Complaint Blood per rectum - History of Present Illness 73-year-old male with a medical history significant for hypertension, hyperlipidemia and prior bowel obstruction and perforation in 2017 status post resection and colostomy formation which was subsequently reversed who presented with complaints of bright red blood per rectum. The patient reports that he has intermittently been seen small amounts of blood per rectum over the past month. However prior to presentation he reports having 5-6 painless bloody bowel movements. Since arriving at the hospital the patient has had 2 maroon-colored bowel movements. The patient reports weakness and fatigue in association with the bloody bowel movements. He denies any associated nausea, vomiting, fevers or chills. He does report urinary retention prior to presentation. After arriving at the hospital the patient was found to have a WBC of 11.5, hemoglobin 10.9 which subsequently fell to 9.9 and had stool testing which was positive for blood. Computed tomography scan of the abdomen did show findings of wall thickening in the sigmoid and rectosigmoid suggestive of possible ischemic colitis with other findings also noted. Currently the patient is seen lying in bed reporting that he is feeling better overall, but still weak. Review of Systems REVIEW OF SYSTEMS: CONSTITUTIONAL: Denies any fevers, chills, weight change does report fatigue. CARDIOVASCULAR: Denies any chest pain, palpitations high or low blood pressures RESPIRATORY: Denies any shortness of breath, hemoptysis or cough. GENITOURINARY: No dysuria or hematuria but he did complain of urinary retention prior to presentation and Chavez catheter placement. MUSCULOSKELETAL: No focal muscular weakness reported. SKIN: Denies any new rashes or lesions, jaundice or pallor. PSYCHIATRIC: Denies any depression or anxiety. NEUROLOGY: Denies headache, denies any new focal deficits. EARS/NOSE/THROAT: No recent hearing change, congestion, nasal discharge or sore throat. EYES: No pain in eyes, discharge or change in vision. GASTROINTESTINAL: As per HPI. Past Medical History Past Medical History: Cancer, Hyperlipidemia, Hypertension, Osteoarthritis (OA), Prostate Disorder, Pulmonary Embolus (PE) Additional Past Medical History / Comment(s): 12/2016 bowel perforated hollow viscus/infection with surgery/colostomy then reversal, diverticular dx, pulmo nary embolism post op, prostate cancer with radiation tx-gone now, anemia, bradycardia, arthrites hands, bilateral inguinal hernias, allergic rhinitis. History of Any Multi-Drug Resistant Organisms: None Reported Past Surgical History: Bowel Resection, Joint Replacement, Orthopedic Surgery Additional Past Surgical History / Comment(s): 12/22/16 Exploratory lapartomy for perforated hollow viscus, diffuse abdominal peritonitis/sepsis secondary to this-abdominal washout/atwood's procedure with colectomy and end ostomy with eventual colostomy reversal, colonoscopies, bilateral total hips, L knee arthroscopy, R shoulder had Ecoli infection-surgery to clean it out, procedure/radiation for prostate cancer. Past Anesthesia/Blood Transfusion Reactions: No Reported Reaction Smoking Status: Never smoker - Past Family History Mother Family Medical History: Cancer Additional Family Medical History / Comment(s): Mother had lymphoma. She of throat cancer at the age of 83 yrs. Father Additional Family Medical History / Comment(s): Father had a colostomy Medications and Allergies Home Medications Medication Instructions Recorded Confirmed Type Aspirin 81 mg PO HS 12/21/16 02/22/19 History Atorvastatin [Lipitor] 40 mg PO HS 12/21/16 02/22/19 History Cholecalciferol [Vitamin D3 (25 5,000 unit PO DAILY 12/21/16 02/22/19 History Mcg = 1000 Iu)] Glucosamine Sulfate 2,000 mg PO DAILY 12/21/16 02/22/19 History Docusate [Colace] 100 mg PO HS 07/31/17 02/22/19 History Loratadine 10 mg PO DAILY 07/31/17 02/22/19 History Multivitamins, Thera [Multivitamin 1 tab PO DAILY 07/31/17 02/22/19 History (formulary)] amLODIPine BESYLATE/BENAZEPRIL 1 cap PO HS 07/31/17 02/22/19 History [amLODIPine BESYLATE/BENAZEPRIL 5-10 mg] l Acidophil/B Lactis/B Longum 460 mg PO DAILY 07/31/17 02/22/19 History [Florajen3 Capsule] Ferrous Gluconate 324 mg PO DAILY 02/22/19 02/22/19 History Naproxen Sodium [Aleve] 220 mg PO DAILY 02/22/19 02/22/19 History Vitamin B Complex 1 cap PO HS 02/22/19 02/22/19 History Allergies Allergy/AdvReac Type Severity Reaction Status Date / Time amoxicillin Allergy Unknown Verified 02/22/19 09:01 Childhood Penicillins Allergy Unknown Verified 02/22/19 09:01 Childhood Physical Exam Vitals: Vital Signs Temp Pulse Resp BP Pulse Ox 02/22/19 12:57 100.4 F H 80 18 108/67 100 02/22/19 12:07 80 18 108/68 99 02/22/19 11:40 71 18 103/67 100 02/22/19 11:04 101 F H 94 18 107/68 97 02/22/19 10:49 78 18 95/56 100 02/22/19 10:31 100.9 F H 82 18 98/53 100 02/22/19 10:11 83 18 96/55 99 02/22/19 09:55 98 02/22/19 09:51 101.6 F H 86 18 87/44 93 L 02/22/19 09:00 103 F H 91 18 112/69 95 02/22/19 08:24 89 18 124/62 95 02/22/19 07:40 102.8 F H 88 18 95/45 97 02/22/19 07:00 88 18 121/67 97 02/22/19 06:01 97.5 F L 77 20 115/81 97 Intake and Output 02/21/19 02/22/19 02/22/19 22:59 06:59 14:59 Output Total 600 1550 Balance -600 -1550 Output: Urine 600 1550 Uretheral (Chavez) 600 Other: Weight 83.915 kg On physical examination, patient appears comfortable in no apparent distress. HEAD: Normocephalic, atraumatic. EYES: No scleral icterus. No conjunctival injection. MOUTH: No lesions, tongue midline. NECK: Trachea midline, no gross abnormalities. CHEST: Clear to auscultation with no wheezing or rhonchi appreciated. HEART: Regular rate and rhythm. ABDOMEN: Soft, obese. Bowel sounds are positive. No organomegaly. No guarding or rigidity. EXTREMITIES: No pedal edema. SKIN: No rashes, no jaundice. NEUROLOGIC: Alert and oriented x3. No focal deficits. Results CBC & Chem 7: 02/22/19 18:00 02/22/19 06:03 Labs: Abnormal Lab Results - Last 24 Hours (Table) 02/22/19 02/22/19 02/22/19 Range/Units 06:03 06:03 10:00 WBC 12.1 H 11.5 H (3.8-10.6) k/uL RBC 3.56 L 3.22 L (4.30-5.90) m/uL Hgb 10.9 L 9.9 L (13.0-17.5) gm/dL Hct 33.4 L 29.9 L (39.0-53.0) % Neutrophils # 11.1 H (1.3-7.7) k/uL Neutrophils # (Manual) 10.40 H (1.3-7.7) k/uL Lymphocytes # 0.4 L (1.0-4.8) k/uL Lymphocytes # (Manual) 0.12 L (1.0-4.8) k/uL BUN 25 H (9-20) mg/dL Glucose 141 H (74-99) mg/dL CT scan - abdomen: report reviewed (Computed tomography scan of the abdomen did show findings of wall thickening in the sigmoid and rectosigmoid suggestive of possible ischemic colitis with other findings also noted.) Assessment and Plan (1) GI bleed Narrative/Plan: 68-year-old male with multiple medical comorbidities including prior colonic perforation secondary to diverticulitis with abscess formation for which he underwent partial colectomy with subsequent reversal of ostomy presented to the hospital with multiple episodes of painless bright red blood per rectum. Computed tomography scan of the abdomen did show findings suggestive of possible colitis in the distal sigmoid and rectum. Differential includes ischemic colitis, diverticular bleed, anastomotic site ulcer, AVM or other etiology. Current Visit: Yes Status: Acute Code(s): K92.2 - GASTROINTESTINAL HEMORRHAGE, UNSPECIFIED SNOMED Code(s): 85508335 (2) History of colostomy reversal Current Visit: No Status: Acute Code(s): GDX6252 - SNOMED Code(s): 613169988 Plan: Supportive care Nothing by mouth Okay to advance to liquid diet tomorrow if symptoms continue to improve and patient shows hemodynamic and lab stability Continue to monitor hemoglobin and transfuse as needed Agree with antibiotic therapy is ischemia cannot be ruled out with computed tomography scan suggesting possible inflammation in the sigmoid and rectum Monitor stool output No plans for endoscopic evaluation at this time, however if patient has further fall in hemoglobin or worsening of symptoms we'll consider further evaluation Thank you for allowing us to participate in the care of the patient we will continue to follow
[2019-02-23 04:03] LABS: HCT 29.4 % (39.0-53.0); HGB 9.6 gm/dL (13.0-17.5); MCH 30.9 pg (25.0-35.0); MCHC 32.7 g/dL (31.0-37.0); MCV 94.4 fL (80.0-100.0); Mean Platelet Volume 6.7; Platelet Count 171 k/uL (150-450); RBC 3.11 m/uL (4.30-5.90); RDW 14.8 % (11.5-15.5); WBC 17.1 k/uL (3.8-10.6)
[2019-02-23 04:13] LABS: Calcium 8.1 mg/dL (8.4-10.2); Potassium 3.6 mmol/L (3.5-5.1)
[2019-02-23] MEDS: SODIUM CHLORIDE 0.9% 1,000 ML IV SCH ×3 (06:26→23:15)
[2019-02-23] MEDS ORDERED: Potassium Replacement Protocol 1 EACH MISC MISCELLANE PRN (06:28)
[2019-02-23] MEDS: POTASSIUM CHLORIDE 10 MEQ in WATER FOR INJECTION 1 100ML.BAG IVPB SCH ×2 (07:18→08:39)
[2019-02-23] MEDS: PANTOPRAZOLE 40 MG/10 ML VIAL IV SCH (07:19)
--- NOTE | 2019-02-23 10:21 | P.GSCN ---
History of Present Illness Consult date: 02/23/19 Reason for Consult: Colitis History of present illness: This is a 68-year-old male who was admitted to the hospital with abdominal pain. Patient's found have some evidence of GI bleed. He states he had a bloody bowel movement. Patient had a CAT scan performed which showed evidence of colitis. It is unsure of this is due to ischemic colitis. Past Medical History Past Medical History: Cancer, Hyperlipidemia, Hypertension, Osteoarthritis (OA), Prostate Disorder, Pulmonary Embolus (PE) Additional Past Medical History / Comment(s): 12/2016 bowel perforated hollow viscus/infection with surgery/colostomy then reversal, diverticular dx, pulmonary embolism post op, prostate cancer with radiation tx-gone now, anemia, bradycardia, arthrites hands, bilateral inguinal hernias, allergic rhinitis. History of Any Multi-Drug Resistant Organisms: None Reported Past Surgical History: Bowel Resection, Joint Replacement, Orthopedic Surgery Additional Past Surgical History / Comment(s): 12/22/16 Exploratory lapartomy for perforated hollow viscus, diffuse abdominal peritonitis/sepsis secondary to this-abdominal washout/atwood's procedure with colectomy and end ostomy with eventual colostomy reversal, colonoscopies, bilateral total hips, L knee arthroscopy, R shoulder had Ecoli infection-surgery to clean it out, procedure/radiation for prostate cancer. Past Anesthesia/Blood Transfusion Reactions: No Reported Reaction Smoking Status: Never smoker - Past Family History Mother Family Medical History: Cancer Additional Family Medical History / Comment(s): Mother had lymphoma. She of throat cancer at the age of 83 yrs. Father Additional Family Medical History / Comment(s): Father had a colostomy Medications and Allergies Home Medications Medication Instructions Recorded Confirmed Type Aspirin 81 mg PO HS 12/21/16 02/22/19 History Atorvastatin [Lipitor] 40 mg PO HS 12/21/16 02/22/19 History Cholecalciferol [Vitamin D3 (25 5,000 unit PO DAILY 12/21/16 02/22/19 History Mcg = 1000 Iu)] Glucosamine Sulfate 2,000 mg PO DAILY 12/21/16 02/22/19 History Docusate [Colace] 100 mg PO HS 07/31/17 02/22/19 History Loratadine 10 mg PO DAILY 07/31/17 02/22/19 History Multivitamins, Thera [Multivitamin 1 tab PO DAILY 07/31/17 02/22/19 History (formulary)] amLODIPine BESYLATE/BENAZEPRIL 1 cap PO HS 07/31/17 02/22/19 History [amLODIPine BESYLATE/BENAZEPRIL 5-10 mg] l Acidophil/B Lactis/B Longum 460 mg PO DAILY 07/31/17 02/22/19 History [Florajen3 Capsule] Ferrous Gluconate 324 mg PO DAILY 02/22/19 02/22/19 History Naproxen Sodium [Aleve] 220 mg PO DAILY 02/22/19 02/22/19 History Vitamin B Complex 1 cap PO HS 02/22/19 02/22/19 History Allergies Allergy/AdvReac Type Severity Reaction Status Date / Time amoxicillin Allergy Unknown Verified 02/22/19 09:01 Childhood Penicillins Allergy Unknown Verified 02/22/19 09:01 Childhood Surgical - Exam Vital Signs Temp Pulse Resp BP Pulse Ox 97.5 F L 77 20 115/81 97 02/22/19 06:01 02/22/19 06:01 02/22/19 06:01 02/22/19 06:01 02/22/19 06:01 - General well developed, well nourished, no distress - Eyes PERRL - ENT normal pinna - Neck no masses - Respiratory normal expansion - Cardiovascular Rhythm: regular - Abdomen Abdomen is mildly distended. There is some tenderness throughout. There is no rebound or guarding. Abdomen: soft Results - Labs 02/23/19 03:28 02/23/19 03:28 Abnormal Lab Results - Last 24 Hours (Table) 02/22/19 02/22/19 02/22/19 Range/Units 10:00 15:06 18:00 WBC 11.5 H 18.5 H (3.8-10.6) k/uL RBC 3.22 L 3.49 L (4.30-5.90) m/uL Hgb 9.9 L 10.6 L (13.0-17.5) gm/dL Hct 29.9 L 32.8 L (39.0-53.0) % Neutrophils # 16.2 H (1.3-7.7) k/uL Neutrophils # (Manual) 10.40 H (1.3-7.7) k/uL Lymphocytes # 0.4 L (1.0-4.8) k/uL Lymphocytes # (Manual) 0.12 L (1.0-4.8) k/uL Monocytes # 1.1 H (0-1.0) k/uL Glucose (74-99) mg/dL POC Glucose (mg/dL) 106 H (75-99) mg/dL Calcium (8.4-10.2) mg/dL 02/23/19 02/23/19 Range/Units 03:28 03:28 WBC 17.1 H (3.8-10.6) k/uL RBC 3.11 L (4.30-5.90) m/uL Hgb 9.6 L (13.0-17.5) gm/dL Hct 29.4 L (39.0-53.0) % Neutrophils # (1.3-7.7) k/uL Neutrophils # (Manual) (1.3-7.7) k/uL Lymphocytes # (1.0-4.8) k/uL Lymphocytes # (Manual) (1.0-4.8) k/uL Monocytes # (0-1.0) k/uL Glucose 101 H (74-99) mg/dL POC Glucose (mg/dL) (75-99) mg/dL Calcium 8.1 L (8.4-10.2) mg/dL Microbiology - Last 24 Hours (Table) 02/22/19 08:00 Blood Culture Gram Stain - Preliminary Blood 02/22/19 08:00 Blood Culture - Final Blood 02/22/19 18:20 Urine Culture - Preliminary Urine,Catheterized Diabetes panel 02/23/19 Range/Units 03:28 Sodium 137 (137-145) mmol/L Potassium 3.6 (3.5-5.1) mmol/L Chloride 107 (98-107) mmol/L Carbon Dioxide 22 (22-30) mmol/L BUN 18 (9-20) mg/dL Creatinine 1.11 (0.66-1.25) mg/dL Glucose 101 H (74-99) mg/dL Calcium 8.1 L (8.4-10.2) mg/dL Calcium panel 02/23/19 Range/Units 03:28 Calcium 8.1 L (8.4-10.2) mg/dL Pituitary panel 02/23/19 Range/Units 03:28 Sodium 137 (137-145) mmol/L Potassium 3.6 (3.5-5.1) mmol/L Chloride 107 (98-107) mmol/L Carbon Dioxide 22 (22-30) mmol/L BUN 18 (9-20) mg/dL Creatinine 1.11 (0.66-1.25) mg/dL Glucose 101 H (74-99) mg/dL Calcium 8.1 L (8.4-10.2) mg/dL Adrenal panel 02/23/19 Range/Units 03:28 Sodium 137 (137-145) mmol/L Potassium 3.6 (3.5-5.1) mmol/L Chloride 107 (98-107) mmol/L Carbon Dioxide 22 (22-30) mmol/L BUN 18 (9-20) mg/dL Creatinine 1.11 (0.66-1.25) mg/dL Glucose 101 H (74-99) mg/dL Calcium 8.1 L (8.4-10.2) mg/dL Assessment and Plan Assessment: GI bleed Possible ischemic colitis Patient will be observed. Once his clinical condition improves we will perform colonoscopy.
--- NOTE | 2019-02-23 10:25 | P.PN ---
Subjective Progress Note Date: 02/23/19 Principal diagnosis: Bright red blood per rectum Patient was seen and examined. No acute events overnight. Patient reports significant improvement in his symptoms this morning. No bowel movement overnight but he is wearing a diaper. Per nurse, some mucus with specks of blood noted. He denies any fever or chills. No nausea or vomiting. Patient denies any chest pain, shortness of breath or palpitations. Objective - Vital Signs Vital signs: Vital Signs Temp 98.8 F 02/23/19 08:00 Pulse 72 02/23/19 09:30 Resp 27 H 02/23/19 09:30 BP 120/68 02/23/19 09:30 Pulse Ox 94 L 02/23/19 09:30 Intake & Output 02/22/19 02/23/19 02/23/19 18:59 06:59 18:59 Intake Total 510 1550 440 Output Total 2080 1225 95 Balance -1570 325 345 Weight 88.6 kg Intake: IV 410 1310 200 Sodium Chloride 0.9% 1, 310 1210 200 000 ml @ 100 mls/hr IV . Q10H [facility] Rx#:[id number] cefTRIAXone 1 gm In 100 Sodium Chloride 0.9% 50 ml @ 100 mls/hr IVPB ONCE STA Rx#:[id number] metroNIDAZOLE-NS PMX 500 100 mg In Saline 1 100ml.bag @ 100 mls/hr IVPB Q8HR [facility] Rx#:[id number] Intake, IV Titration 100 Amount metroNIDAZOLE-NS PMX 500 100 mg In Saline 1 100ml.bag @ 100 mls/hr IVPB Q8HR [facility] Rx#:[id number] Oral 240 240 Output: Urine 2080 1225 95 Other: Voiding Method Indwelling Catheter Indwelling Catheter Indwelling Catheter # Bowel Movements 1 1 - Exam General: [non toxic], [no distress], [appears at stated age] Derm: [warm], [dry] Head: [atraumatic], [normocephalic], [symmetric] Eyes: [EOMI], [no lid lag], [anicteric sclera] Mouth: [no lip lesion], [mucus membranes moist] Cardiovascular: [S1S2 reg], [no murmur], [positive DP pulse bilateral], Lungs: [CTA bilateral], [no rhonchi, no rales] , [no accessory muscle use] Abdominal: [soft], [tenderness to palpation of the left upper quadrant, bilateral lower quadrants with deep palpation and no rebound], [no guarding], [no appreciable organomegaly] Ext: [no gross muscle atrophy], [no edema], [no contractures] Neuro: [no focal neuro deficits] Psych: [Alert], [oriented], [appropriate affect] - Labs CBC & Chem 7: 02/23/19 03:28 02/23/19 03:28 Labs: Abnormal Lab Results - Last 24 Hours (Table) 02/22/19 02/22/19 02/22/19 Range/Units 10:00 15:06 18:00 WBC 11.5 H 18.5 H (3.8-10.6) k/uL RBC 3.22 L 3.49 L (4.30-5.90) m/uL Hgb 9.9 L 10.6 L (13.0-17.5) gm/dL Hct 29.9 L 32.8 L (39.0-53.0) % Neutrophils # 16.2 H (1.3-7.7) k/uL Neutrophils # (Manual) 10.40 H (1.3-7.7) k/uL Lymphocytes # 0.4 L (1.0-4.8) k/uL Lymphocytes # (Manual) 0.12 L (1.0-4.8) k/uL Monocytes # 1.1 H (0-1.0) k/uL Glucose (74-99) mg/dL POC Glucose (mg/dL) 106 H (75-99) mg/dL Calcium (8.4-10.2) mg/dL 02/23/19 02/23/19 Range/Units 03:28 03:28 WBC 17.1 H (3.8-10.6) k/uL RBC 3.11 L (4.30-5.90) m/uL Hgb 9.6 L (13.0-17.5) gm/dL Hct 29.4 L (39.0-53.0) % Neutrophils # (1.3-7.7) k/uL Neutrophils # (Manual) (1.3-7.7) k/uL Lymphocytes # (1.0-4.8) k/uL Lymphocytes # (Manual) (1.0-4.8) k/uL Monocytes # (0-1.0) k/uL Glucose 101 H (74-99) mg/dL POC Glucose (mg/dL) (75-99) mg/dL Calcium 8.1 L (8.4-10.2) mg/dL Microbiology - Last 24 Hours (Table) 02/22/19 08:00 Blood Culture Gram Stain - Preliminary Blood 02/22/19 08:00 Blood Culture - Final Blood 02/22/19 18:20 Urine Culture - Preliminary Urine,Catheterized Assessment and Plan Assessment: Assessment and Plan Bright red blood per rectum, possible hemorrhoids, diverticular bleed, infectious versus ischemic colitis Sepsis likely secondary to colitis, rule out ischemic colitis Anemia from acute blood loss Hydroureter Elevated BUN Hypertension Hyperlipidemia Ongoing for the past month, worsened since last night. Bright red blood per rectum, patient denies melena. Hemoglobin 10.9-9.9-10.6-9.6, 14.7 in January 2018. Stool for occult blood positive in ED. Discussed with Dr. Nelson, no procedures planned at this point. Plans: Monitor H&H every 8 hours. Continue Protonix 40 mg IV daily. Transfuse if hemoglobin is less than 7. Continue normal saline at 100 cc/hour. General surgery consulted due to history of diverticulitis induced bowel perforation complicated with abscess formation. Continue IV antibiotics for colitis. Follow GI recommendations. Patient with fever of 102.8, hypotensive to a SBP 95, leukocytosis of 12.1, positive source of infection on CT. Urinalysis is negative. Patient with history of bowel abscess. CT abdomen and pelvis showing signs of colitis, possible ischemic. Lactic acid within normal limits. Chest x-ray within normal limits. Blood cultures prelim positive for gram-positive bacilli. Plans: Follow blood culture. Continue normal saline at 100 mL per hour. Continue ceftriaxone and Flagyl for coverage of gram-negative and anaerobe. Tylenol as needed for fever. Follow infectious disease consultation. Plans: Management as above. As seen on CT abdomen and pelvis. Patient reports no urinary symptoms. Plans: Urology consultation. BUN 25-within normal limits. Possibly dehydration or due to acute blood loss. Plans: Resolved. BP 120/68. On amlodipine and ZULAY inhibitor at home. Plans: Monitor vitals, adjust medications as necessary. Stable. Plans: Hold aspirin. Continue Lipitor 40 milligrams by mouth at bedtime. Patient was admitted for BRBPR, gastroenterology and general surgery consulted, CT showing colitis. Nothing by mouth for possible intervention. Found to have fever, started on IV antibiotics and ID consulted. Urology consulted for hydronephrosis. Patient is pending clinical improvement. Can probably be moved out of ICU depending on ICU attending recommendations. He is pending clinical improvement. Patient names his Kenna decision-maker in the case that he can't make decisions for himself. Patient reiterates wanting to remain full code at this time.
--- NOTE | 2019-02-23 10:50 | P.GSCN ---
History of Present Illness Consult date: 02/23/19 Reason for Consult: Hydronephrosis Requesting physician: Sharon Morales History of present illness: The patient is a 68-year-old white male well known to our service. He has known extensive intra-abdominal adhesions. He was diagnosed with prostate cancer and chose to undergo a robotic-assisted laparoscopic prostatectomy. However, this was attempted in January 2018 but could not be performed due to the extensive adhesions. He was subsequently treated with radiation therapy and androgen deprivation therapy. His PSA level on 01/30/2019 was undetectable. He is now admitted with abdominal pain and bleeding per rectum. He experienced difficulty voiding at the time of admission, and 600 mL of urine was obtained upon Chavez catheter insertion. Review of Systems - Constitutional Denies chills, Denies fever - Respiratory Denies dyspnea - Gastrointestinal Reports abdominal pain, Reports hematochezia - Genitourinary Denies dysuria, Denies hematuria Past Medical History Past Medical History: Cancer, Hyperlipidemia, Hypertension, Osteoarthritis (OA), Prostate Disorder, Pulmonary Embolus (PE) Additional Past Medical History / Comment(s): 12/2016 bowel perforated hollow viscus/infection with surgery/colostomy then reversal, diverticular dx, pulmonary embolism post op, prostate cancer with radiation tx-gone now, anemia, bradycardia, arthrites hands, bilateral inguinal hernias, allergic rhinitis. History of Any Multi-Drug Resistant Organisms: None Reported Past Surgical History: Bowel Resection, Joint Replacement, Orthopedic Surgery Additional Past Surgical History / Comment(s): 12/22/16 Exploratory lapartomy for perforated hollow viscus, diffuse abdominal peritonitis/sepsis secondary to this-abdominal washout/atwood's procedure with colectomy and end ostomy with eventual colostomy reversal, colonoscopies, bilateral total hips, L knee arthroscopy, R shoulder had Ecoli infection-surgery to clean it out, procedure/radiation for prostate cancer. Past Anesthesia/Blood Transfusion Reactions: No Reported Reaction Smoking Status: Never smoker - Past Family History Mother Family Medical History: Cancer Additional Family Medical History / Comment(s): Mother had lymphoma. She of throat cancer at the age of 83 yrs. Father Additional Family Medical History / Comment(s): Father had a colostomy Medications and Allergies Home Medications Medication Instructions Recorded Confirmed Type Aspirin 81 mg PO HS 12/21/16 02/22/19 History Atorvastatin [Lipitor] 40 mg PO HS 12/21/16 02/22/19 History Cholecalciferol [Vitamin D3 (25 5,000 unit PO DAILY 12/21/16 02/22/19 History Mcg = 1000 Iu)] Glucosamine Sulfate 2,000 mg PO DAILY 12/21/16 02/22/19 History Docusate [Colace] 100 mg PO HS 07/31/17 02/22/19 History Loratadine 10 mg PO DAILY 07/31/17 02/22/19 History Multivitamins, Thera [Multivitamin 1 tab PO DAILY 07/31/17 02/22/19 History (formulary)] amLODIPine BESYLATE/BENAZEPRIL 1 cap PO HS 07/31/17 02/22/19 History [amLODIPine BESYLATE/BENAZEPRIL 5-10 mg] l Acidophil/B Lactis/B Longum 460 mg PO DAILY 07/31/17 02/22/19 History [Florajen3 Capsule] Ferrous Gluconate 324 mg PO DAILY 02/22/19 02/22/19 History Naproxen Sodium [Aleve] 220 mg PO DAILY 02/22/19 02/22/19 History Vitamin B Complex 1 cap PO HS 02/22/19 02/22/19 History Allergies Allergy/AdvReac Type Severity Reaction Status Date / Time amoxicillin Allergy Unknown Verified 02/22/19 09:01 Childhood Penicillins Allergy Unknown Verified 02/22/19 09:01 Childhood Surgical - Exam Vital Signs Temp Pulse Resp BP Pulse Ox 97.5 F L 77 20 115/81 97 02/22/19 06:01 02/22/19 06:01 02/22/19 06:01 02/22/19 06:01 02/22/19 06:01 - General well developed, well nourished, no distress - Abdomen Abdomen: soft, tender (Mild lower abdominal tenderness), no guarding, no rigid, no rebound - Genitourinary normal penis with no external lesions, testicles non-tender - Psychiatric oriented to time, oriented to person, oriented to place, speech is normal, memory intact Results - Labs 02/23/19 03:28 02/23/19 03:28 Abnormal Lab Results - Last 24 Hours (Table) 02/22/19 02/22/19 02/22/19 Range/Units 10:00 15:06 18:00 WBC 11.5 H 18.5 H (3.8-10.6) k/uL RBC 3.22 L 3.49 L (4.30-5.90) m/uL Hgb 9.9 L 10.6 L (13.0-17.5) gm/dL Hct 29.9 L 32.8 L (39.0-53.0) % Neutrophils # 16.2 H (1.3-7.7) k/uL Neutrophils # (Manual) 10.40 H (1.3-7.7) k/uL Lymphocytes # 0.4 L (1.0-4.8) k/uL Lymphocytes # (Manual) 0.12 L (1.0-4.8) k/uL Monocytes # 1.1 H (0-1.0) k/uL Glucose (74-99) mg/dL POC Glucose (mg/dL) 106 H (75-99) mg/dL Calcium (8.4-10.2) mg/dL 02/23/19 02/23/19 Range/Units 03:28 03:28 WBC 17.1 H (3.8-10.6) k/uL RBC 3.11 L (4.30-5.90) m/uL Hgb 9.6 L (13.0-17.5) gm/dL Hct 29.4 L (39.0-53.0) % Neutrophils # (1.3-7.7) k/uL Neutrophils # (Manual) (1.3-7.7) k/uL Lymphocytes # (1.0-4.8) k/uL Lymphocytes # (Manual) (1.0-4.8) k/uL Monocytes # (0-1.0) k/uL Glucose 101 H (74-99) mg/dL POC Glucose (mg/dL) (75-99) mg/dL Calcium 8.1 L (8.4-10.2) mg/dL Microbiology - Last 24 Hours (Table) 02/22/19 08:00 Blood Culture Gram Stain - Preliminary Blood 02/22/19 08:00 Blood Culture - Final Blood 02/22/19 18:20 Urine Culture - Preliminary Urine,Catheterized Diabetes panel 02/23/19 Range/Units 03:28 Sodium 137 (137-145) mmol/L Potassium 3.6 (3.5-5.1) mmol/L Chloride 107 (98-107) mmol/L Carbon Dioxide 22 (22-30) mmol/L BUN 18 (9-20) mg/dL Creatinine 1.11 (0.66-1.25) mg/dL Glucose 101 H (74-99) mg/dL Calcium 8.1 L (8.4-10.2) mg/dL Calcium panel 02/23/19 Range/Units 03:28 Calcium 8.1 L (8.4-10.2) mg/dL Pituitary panel 02/23/19 Range/Units 03:28 Sodium 137 (137-145) mmol/L Potassium 3.6 (3.5-5.1) mmol/L Chloride 107 (98-107) mmol/L Carbon Dioxide 22 (22-30) mmol/L BUN 18 (9-20) mg/dL Creatinine 1.11 (0.66-1.25) mg/dL Glucose 101 H (74-99) mg/dL Calcium 8.1 L (8.4-10.2) mg/dL Adrenal panel 02/23/19 Range/Units 03:28 Sodium 137 (137-145) mmol/L Potassium 3.6 (3.5-5.1) mmol/L Chloride 107 (98-107) mmol/L Carbon Dioxide 22 (22-30) mmol/L BUN 18 (9-20) mg/dL Creatinine 1.11 (0.66-1.25) mg/dL Glucose 101 H (74-99) mg/dL Calcium 8.1 L (8.4-10.2) mg/dL - Imaging CT scan - abdomen: report reviewed, image reviewed Assessment and Plan (1) Hydronephrosis Current Visit: Yes Status: Acute Code(s): N13.30 - UNSPECIFIED HYDRONEPHROSIS SNOMED Code(s): 45356537 (2) Urinary retention Current Visit: Yes Status: Acute Code(s): R33.9 - RETENTION OF URINE, UNSPECIFIED SNOMED Code(s): 324503730 (3) Adenocarcinoma of prostate Current Visit: Yes Status: Acute Code(s): C61 - MALIGNANT NEOPLASM OF PROSTATE SNOMED Code(s): 463937130 Plan: The computed tomography scan shows evidence of mild left hydroureteronephrosis, the etiology of which is unclear. The patient denies left flank pain, and has no CVA tenderness on examination. His renal function is normal. The computed tomography scan shows evidence of rectosigmoid wall thickening, suggestive of colitis. This may be the cause of the hydronephrosis. I do not feel that further evaluation of the hydronephrosis is warranted at this time, though if it persists he may benefit from cystoscopy and retrograde pyelograms. I have pre scribed tamsulosin, with the hopes that this will allow Mr. Ren to empty his bladder more easily upon Chavez catheter removal. Time with Patient: Greater than 30
--- NOTE | 2019-02-23 11:28 | P.PN ---
Subjective Progress Note Date: 02/23/19 Principal diagnosis: Acute GI bleeding this is a 73-year-old white male with history of hypertension, hyperlipidemia, history of bowel obstruction and perforation back in 2017, underwent colostomy at the time and eventually revision of his colostomy. Back then the patient had ruptured diverticulitis. And diverticular abscess. This time the patient presented with 1 month history of intermittent episodes of bloody stools and bright red blood per rectum. Patient has been spotting blood in his stools for the past 1 month. Last night the patient had significant amount of blood/bright red blood filling basically the toilet with his bowel movement. He had no abdominal pain, no nausea no vomiting, no fever no chills, no chest pain, no palpitations. Hence the patient was brought into the ER and his blood pressure was noted to be low requiring fluid boluses about 2 L were given responded to fluid boluses and did not require any pressors. Patient had also a temp of 10 2.8. And he was noted to have a bit of leukocytosis, but relatively normal lactic acid, and normal urinalysis. Chest x-ray was unremarkable. However his CT of the abdomen and pelvis showedpossible ischemic colitis, abnormal wall thickening of the rectosigmoid colon. fluid was present in the retroperitoneum multiple abdominal wall hernias were noted. There was also evidence of left sided hydronephrosis and hydroureter. Considering the hypotension, the fever, and the bright red blood per rectum, patient was admitted to the ICU, and this consult was initiated. During my evaluation, patient had basically no nausea no vomiting no abdominal pain, and he was basically asymptomatic. Reevaluated today on 02/23/2019, patient is feeling better, less abdominal pain, and no evidence of active bleeding. Seen by general surgery on consultation, not certain whether the patient truly has ischemic colitis. However felt it would be best to treat the patient conservatively. He was also seen by n ephrology, and felt that the patient does have hydronephrosis and again the recommendation was to treat conservatively. If persists may consider cystoscopy or retrograde pyelogram. Patient was placed on tamsulosin. Hoping that will help empty his bladder fully. Patient is known to have history of adenocarcinoma of the prostate. Patient's hemoglobin today is 9.6. Left lites are normal. He was seen by gastroenterology for GI bleeding, again I recommended mostly supportive care, and advancing the diet gradually as tolerated. No need for immediate endoscopy. Objective - Vital Signs Vital signs: Vital Signs Temp 98.8 F 02/23/19 08:00 Pulse 78 02/23/19 10:30 Resp 20 02/23/19 10:30 BP 126/73 02/23/19 10:30 Pulse Ox 90 L 02/23/19 10:30 Intake & Output 02/22/19 02/23/19 02/23/19 18:59 06:59 18:59 Intake Total 510 1550 440 Output Total 2080 1225 95 Balance -1570 325 345 Weight 88.6 kg Intake: IV 410 1310 200 Sodium Chloride 0.9% 1, 310 1210 200 000 ml @ 100 mls/hr IV . Q10H [facility] Rx#:[id number] cefTRIAXone 1 gm In 100 Sodium Chloride 0.9% 50 ml @ 100 mls/hr IVPB ONCE STA Rx#:[id number] metroNIDAZOLE-NS PMX 500 100 mg In Saline 1 100ml.bag @ 100 mls/hr IVPB Q8HR [facility] Rx#:[id number] Intake, IV Titration 100 Amount metroNIDAZOLE-NS PMX 500 100 mg In Saline 1 100ml.bag @ 100 mls/hr IVPB Q8HR [facility] Rx#:[id number] Oral 240 240 Output: Urine 2080 1225 95 Other: Voiding Method Indwelling Catheter Indwelling Catheter Indwelling Catheter # Bowel Movements 1 1 - Exam Physical Exam: Revealed a 68-year-old white male in no distress, very pleasant. Head: Atraumatic normocephalic. HEENT:[Neck is supple.] [No neck masses.] [No thyromegaly.] [No JVD.] Chest: [Clear throughout, no crackles, no rhonchi, no wheezes.] Cardiac Exam: [Normal S1 and S2, no S3 gallop, no murmur.] Abdomen: [flat, soft, nontender, abdominal wall hernias were noted.] Extremities: [No clubbing, no edema, no cyanosis.] Neurological Exam: [No focal neurologic deficit.]alert and oriented 3. Lymphatics: No lymphadenopathy. Skin: No rashes. Psychiatric: Normal mood affect and mental status examination. - Labs CBC & Chem 7: 02/23/19 03:28 02/23/19 03:28 Labs: Abnormal Lab Results - Last 24 Hours (Table) 02/22/19 02/22/19 02/23/19 Range/Units 15:06 18:00 03:28 WBC 18.5 H (3.8-10.6) k/uL RBC 3.49 L (4.30-5.90) m/uL Hgb 10.6 L (13.0-17.5) gm/dL Hct 32.8 L (39.0-53.0) % Neutrophils # 16.2 H (1.3-7.7) k/uL Lymphocytes # 0.4 L (1.0-4.8) k/uL Monocytes # 1.1 H (0-1.0) k/uL Glucose 101 H (74-99) mg/dL POC Glucose (mg/dL) 106 H (75-99) mg/dL Calcium 8.1 L (8.4-10.2) mg/dL 02/23/19 Range/Units 03:28 WBC 17.1 H (3.8-10.6) k/uL RBC 3.11 L (4.30-5.90) m/uL Hgb 9.6 L (13.0-17.5) gm/dL Hct 29.4 L (39.0-53.0) % Neutrophils # (1.3-7.7) k/uL Lymphocytes # (1.0-4.8) k/uL Monocytes # (0-1.0) k/uL Glucose (74-99) mg/dL POC Glucose (mg/dL) (75-99) mg/dL Calcium (8.4-10.2) mg/dL Microbiology - Last 24 Hours (Table) 02/22/19 08:00 Blood Culture Gram Stain - Preliminary Blood 02/22/19 08:00 Blood Culture - Final Blood 02/22/19 18:20 Urine Culture - Preliminary Urine,Catheterized Assessment and Plan Assessment: impression: 1 acute lower GI bleeding, most likely diverticular in nature unless proven otherwise. 2 possible ischemic colitis, seen by gastroenterology and general surgery, recommended mostly conservative measures and supportive care. 3 acute anemia secondary to GI blood losses 4 fever and hypotension, resolved, could very well be related to his colitis, and GI bleeding. doubt sepsis. 5acute hydronephrosis, seen by nephrology and recommended conservative measures. 6 hypotension secondary to GI blood losses, possible abdominal sepsis and colitis, patient responded well to fluid boluses, did not require pressors. Presently on antibiotics empirically including Flagyl and Rocephin. 7history of benign essential hypertension, history of hyperlipidemia, being addressed by admitting physician, patient is back on his home meds. However blood pressure medications will be on hold temporarily since the patient presented with hypotension. 8 history of adenocarcinoma of the prostate. Recommendation: Continue supportive care measures, patient could be transferred out of the ICU to a regular medical floor, no active bleeding noted, no hypotensive episodes noted today, continue antibiotics, consider discharge planning in the next 48 hours. Patient has been seen by many consultants, and the recommendations have been noted. Time with Patient: Less than 30
[2019-02-23 11:35] LABS: HCT 33.2 % (39.0-53.0); HGB 10.8 gm/dL (13.0-17.5); MCH 30.8 pg (25.0-35.0); MCHC 32.4 g/dL (31.0-37.0); MCV 94.8 fL (80.0-100.0); Mean Platelet Volume 7.7; Platelet Count 140 k/uL (150-450); RDW 14.7 % (11.5-15.5); WBC 17.6 k/uL (3.8-10.6)
[2019-02-23] MEDS: TAMSULOSIN 0.4 MG CAP.ER.24H PO SCH (13:00)
[2019-02-23] MEDS: CEFEPIME 2 GM in SODIUM CHLORIDE 0.9% 100 ML IVPB SCH ×2 (14:43→20:37)
[2019-02-23] MEDS: ONDANSETRON 4 MG/2 ML VIAL IVP PRN (17:23)
[2019-02-23 18:25] LABS: MCH 30.5 pg (25.0-35.0); MCHC 32.2 g/dL (31.0-37.0); MCV 94.8 fL (80.0-100.0); Mean Platelet Volume 7.5; Platelet Count 189 k/uL (150-450); RBC 3.59 m/uL (4.30-5.90); RDW 14.8 % (11.5-15.5); WBC 19.7 k/uL (3.8-10.6)
--- NOTE | 2019-02-23 19:38 | P.PN ---
Subjective Progress Note Date: 02/23/19 Principal diagnosis: GI bleed, blood per rectum, anemia of acute blood loss Patient seen sitting bedside today. He reports that he is feeling better. No abdominal pain but does report some tenderness. Did pass some nonbloody mucus this morning. Objective - Vital Signs Vital signs: Vital Signs Temp 99.9 F H 02/23/19 16:00 Pulse 89 02/23/19 19:00 Resp 24 02/23/19 19:00 BP 140/84 02/23/19 17:00 Pulse Ox 92 L 02/23/19 19:00 Intake & Output 02/23/19 02/23/19 02/24/19 06:59 18:59 06:59 Intake Total 1550 1900 200 Output Total 1225 620 460 Balance 325 1280 -260 Weight 88.6 kg Intake: IV 1310 1300 200 Cefepime 2 gm In Sodium 100 Chloride 0.9% 100 ml @ 200 mls/hr IVPB Q12HR [facility] Rx#:[id number] Sodium Chloride 0.9% 1, 1210 1100 200 000 ml @ 100 mls/hr IV . Q10H [facility] Rx#:[id number] metroNIDAZOLE-NS PMX 500 100 100 mg In Saline 1 100ml.bag @ 100 mls/hr IVPB Q8HR [facility] Rx#:[id number] Oral 240 240 Blood Product 360 Output: Urine 1225 620 100 Emesis 360 Other: Voiding Method Indwelling Catheter Indwelling Catheter # Bowel Movements 1 1 - Exam On physical examination, patient appears comfortable in no apparent distress. HEAD: Normocephalic, atraumatic. EYES: No scleral icterus. No conjunctival injection. MOUTH: No lesions, tongue midline. NECK: Trachea midline, no gross abnormalities. CHEST: Clear to auscultation with no wheezing or rhonchi appreciated. HEART: Regular rate and rhythm. ABDOMEN: Soft, tender to palpation worse in the left lower quadrant. Bowel sounds are positive. No organomegaly. No guarding or rigidity. EXTREMITIES: No pedal edema. SKIN: No rashes, no jaundice. NEUROLOGIC: Alert and oriented x3. No focal deficits. - Labs CBC & Chem 7: 02/23/19 17:27 02/23/19 03:28 Labs: Abnormal Lab Results - Last 24 Hours (Table) 02/23/19 02/23/19 02/23/19 Range/Units 03:28 03:28 11:05 WBC 17.1 H 17.6 H (3.8-10.6) k/uL RBC 3.11 L 3.50 L (4.30-5.90) m/uL Hgb 9.6 L 10.8 L (13.0-17.5) gm/dL Hct 29.4 L 33.2 L (39.0-53.0) % Plt Count 140 L (150-450) k/uL Glucose 101 H (74-99) mg/dL Calcium 8.1 L (8.4-10.2) mg/dL 02/23/19 Range/Units 17:27 WBC 19.7 H (3.8-10.6) k/uL RBC 3.59 L (4.30-5.90) m/uL Hgb 11.0 L (13.0-17.5) gm/dL Hct 34.0 L (39.0-53.0) % Plt Count (150-450) k/uL Glucose (74-99) mg/dL Calcium (8.4-10.2) mg/dL Microbiology - Last 24 Hours (Table) 02/22/19 08:00 Blood Culture Gram Stain - Preliminary Blood 02/22/19 08:00 Blood Culture - Final Blood 02/22/19 18:20 Urine Culture - Preliminary Urine,Catheterized Assessment and Plan (1) GI bleed Narrative/Plan: 68-year-old male with multiple medical comorbidities including prior colonic perforation secondary to diverticulitis with abscess formation for which he underwent partial colectomy with subsequent reversal of ostomy presented to the hospital with multiple episodes of painless bright red blood per rectum. Computed tomography scan of the abdomen did show findings suggestive of possible colitis in the distal sigmoid and rectum. Differential includes ischemic colitis, diverticular bleed, anastomotic site ulcer, AVM or other etiology. Current Visit: Yes Status: Acute Code(s): K92.2 - GASTROINTESTINAL HEMORRHAGE, UNSPECIFIED SNOMED Code(s): 20224619 (2) History of colostomy reversal Current Visit: No Status: Acute Code(s): FRW3463 - SNOMED Code(s): 078068511 Plan: Supportive care Clear liquid diet Continue to monitor hemoglobin and transfuse as needed Agree with antibiotic therapy is ischemia cannot be ruled out with computed tomography scan suggesting possible inflammation in the sigmoid and rectum Monitor stool output No plans for endoscopic evaluation at this time, however if patient has further fall in hemoglobin or worsening of symptoms we'll consider further evaluation Thank you for allowing us to participate in the care of the patient we will cont inue to follow
[2019-02-23] MEDS ORDERED: MORPHINE SULFATE 4 MG/ML SYRINGE IVP PRN (20:02)
[2019-02-23] MEDS: ATORVASTATIN 40 MG TAB PO SCH (20:35)
--- NOTE | 2019-02-23 23:09 | P.CONS ---
History of Present Illness - Reason for Consult Consult date: 02/23/19 Fever Requesting physician: Matt Barreto - Chief Complaint Bleeding per rectum 1 day - History of Present Illness Patient is a 68-year-old male with a past medical history significant for perforated sigmoid diverticulitis back in 2016 for which I took care of the patient at that time, patient did well however presenting now to the hospital with extensive bleeding per rectum that he presented to hospital patient did have a bright red blood mixed in the stool the patient did have mild lower abdominal discomfort more of a dull aching pain at times colicky 2-3 out of 10 and no radiation the patient was felt nauseated but no vomiting the symptoms the patient presented to the hospital on presentation the patient did have fever of [address] of abdominal pelvis evidence of colitis with a question of possible ischemic versus infectious patient has been started on Levaquin and Flagyl because of his penicillin and amoxacillin ALLERGY as a child infectious disease was consulted because of his persistent fever Review of Systems Positive points has been mentioned in HPI rest of the systems negative Past Medical History Past Medical History: Cancer, Hyperlipidemia, Hypertension, Osteoarthritis (OA), Prostate Disorder, Pulmonary Embolus (PE) Additional Past Medical History / Comment(s): 12/2016 bowel perforated hollow viscus/infection with surgery/colostomy then reversal, diverticular dx, pulmonary embolism post op, prostate cancer with radiation tx-gone now, anemia, bradycardia, arthrites hands, bilateral inguinal hernias, allergic rhinitis. History of Any Multi-Drug Resistant Organisms: None Reported Past Surgical History: Bowel Resection, Joint Replacement, Orthopedic Surgery Additional Past Surgical History / Comment(s): 12/22/16 Exploratory lapartomy for perforated hollow viscus, diffuse abdominal peritonitis/sepsis secondary to this-abdominal washout/atwood's procedure with colectomy and end ostomy with eventual colostomy reversal, colonoscopies, bilateral total hips, L knee arthroscopy, R shoulder had Ecoli infection-surgery to clean it out, procedure/radiation for prostate cancer. Past Anesthesia/Blood Transfusion Reactions: No Reported Reaction Smoking Status: Never smoker - Past Family History Mother Family Medical History: Cancer Additional Family Medical History / Comment(s): Mother had lymphoma. She of throat cancer at the age of 83 yrs. Father Additional Family Medical History / Comment(s): Father had a colostomy Medications and Allergies Home Medications Medication Instructions Recorded Confirmed Type Aspirin 81 mg PO HS 12/21/16 02/22/19 History Atorvastatin [Lipitor] 40 mg PO HS 12/21/16 02/22/19 History Cholecalciferol [Vitamin D3 (25 5,000 unit PO DAILY 12/21/16 02/22/19 History Mcg = 1000 Iu)] Glucosamine Sulfate 2,000 mg PO DAILY 12/21/16 02/22/19 History Docusate [Colace] 100 mg PO HS 07/31/17 02/22/19 History Loratadine 10 mg PO DAILY 07/31/17 02/22/19 History Multivitamins, Thera [Multivitamin 1 tab PO DAILY 07/31/17 02/22/19 History (formulary)] amLODIPine BESYLATE/BENAZEPRIL 1 cap PO HS 07/31/17 02/22/19 History [amLODIPine BESYLATE/BENAZEPRIL 5-10 mg] l Acidophil/B Lactis/B Longum 460 mg PO DAILY 07/31/17 02/22/19 History [Florajen3 Capsule] Ferrous Gluconate 324 mg PO DAILY 02/22/19 02/22/19 History Naproxen Sodium [Aleve] 220 mg PO DAILY 02/22/19 02/22/19 History Vitamin B Complex 1 cap PO HS 02/22/19 02/22/19 History Allergies Allergy/AdvReac Type Severity Reaction Status Date / Time amoxicillin Allergy Unknown Verified 02/22/19 09:01 Childhood Penicillins Allergy Unknown Verified 02/22/19 09:01 Childhood Physical Exam Vitals: Vital Signs Temp Pulse Resp BP Pulse Ox 02/23/19 13:00 86 22 128/83 92 L 02/23/19 12:30 74 24 129/78 92 L 02/23/19 12:00 98.6 F 67 24 130/75 92 L 02/23/19 11:30 81 21 126/73 92 L 02/23/19 11:00 78 20 128/75 92 L 02/23/19 10:30 78 20 126/73 90 L 02/23/19 10:00 76 22 127/76 93 L 02/23/19 09:30 72 27 H 120/68 94 L 02/23/19 09:00 76 29 H 109/56 94 L 02/23/19 08:30 76 24 118/68 93 L 02/23/19 08:00 98.8 F 81 28 H 118/63 95 02/23/19 07:30 77 23 115/65 93 L 02/23/19 07:00 67 21 108/55 96 02/23/19 06:30 76 25 H 126/68 94 L 02/23/19 06:00 68 23 121/68 95 02/23/19 05:30 64 24 120/66 96 02/23/19 05:00 74 26 H 109/65 95 02/23/19 04:30 75 20 107/70 95 02/23/19 04:00 98.9 F 67 24 105/63 95 02/23/19 03:30 78 12 107/60 95 02/23/19 03:00 74 7 L 112/64 95 02/23/19 02:30 66 23 105/64 97 02/23/19 02:00 67 23 106/60 97 02/23/19 01:00 99.4 F 75 25 H 101/61 94 L 02/23/19 00:19 72 26 H 99/55 94 L 02/23/19 00:00 98.9 F 73 8 L 100/62 97 02/22/19 23:30 67 7 L 101/65 02/22/19 23:00 80 18 105/64 95 02/22/19 22:30 67 20 100/66 96 02/22/19 22:00 66 26 H 100/63 97 02/22/19 21:30 64 20 101/64 93 L 02/22/19 21:00 69 28 H 105/63 95 02/22/19 20:30 66 19 103/65 95 02/22/19 20:00 99.1 F 65 22 104/66 95 02/22/19 19:30 69 26 H 105/55 96 02/22/19 19:20 73 7 L 105/55 96 02/22/19 19:10 74 18 105/55 96 02/22/19 19:00 78 31 H 97 02/22/19 18:50 70 21 97 02/22/19 18:40 67 12 96 02/22/19 18:30 68 18 98 02/22/19 18:20 66 15 106/60 98 02/22/19 18:10 67 16 106/60 98 02/22/19 18:00 98.6 F 70 16 96 02/22/19 17:50 71 12 96 02/22/19 17:40 64 24 95/51 98 02/22/19 17:30 66 25 H 97 02/22/19 17:20 66 24 98 02/22/19 17:10 68 23 94/50 98 02/22/19 17:00 67 24 110/63 98 02/22/19 16:50 70 24 110/63 98 02/22/19 16:40 71 14 110/63 97 02/22/19 16:30 73 20 106/63 97 02/22/19 16:20 71 16 96 02/22/19 16:10 75 18 106/63 97 02/22/19 16:00 100.4 F H 68 22 105/61 96 02/22/19 15:50 77 15 96 02/22/19 15:40 68 18 96 02/22/19 15:30 72 16 97 02/22/19 15:20 70 14 97 02/22/19 15:10 83 16 105/61 97 02/22/19 15:04 82 H 02/22/19 14:11 102.8 F H 67 18 84/48 100 Intake and Output 02/22/19 02/23/19 02/23/19 22:59 06:59 14:59 Intake Total 920 1140 940 Output Total 735 720 370 Balance 185 420 570 Intake: IV 820 900 700 Sodium Chloride 0.9% 1, 720 800 700 000 ml @ 100 mls/hr IV . Q10H [facility] Rx#:[id number] cefTRIAXone 1 gm In 100 Sodium Chloride 0.9% 50 ml @ 100 mls/hr IVPB ONCE STA Rx#:[id number] metroNIDAZOLE-NS PMX 500 100 mg In Saline 1 100ml.bag @ 100 mls/hr IVPB Q8HR [facility] Rx#:[id number] Intake, IV Titration 100 Amount metroNIDAZOLE-NS PMX 500 100 mg In Saline 1 100ml.bag @ 100 mls/hr IVPB Q8HR [facility] Rx#:[id number] Oral 240 240 Output: Urine 735 720 370 Other: Voiding Method Indwelling Catheter Indwelling Catheter Indwelling Catheter # Bowel Movements 1 1 Weight 88.6 kg GENERAL DESCRIPTION: An elderly male lying in bed, no distress. No tachypnea or accessory muscle of respiration use. HEENT: Shows Pallor , no scleral icterus. Oral mucous membrane is dry. No pharyngeal erythema or thrush NECK: Trachea central, no thyromegaly. LUNGS: Unlabored breathing. Clear to auscultation anteriorly. No wheeze or crackle. HEART: S1, S2, regular rate and rhythm. No loud murmur ABDOMEN: Soft, no tenderness , no guarding or rigidity, no organomegaly EXTREMITIES: No edema of feet. SKIN: No rash, no masses palpable. NEUROLOGICAL: The patient is awake, alert, oriented x3, mood and affect normal Results CBC & Chem 7: 02/23/19 17:27 02/23/19 03:28 Labs: Abnormal Lab Results - Last 24 Hours (Table) 02/22/19 02/22/19 02/23/19 Range/Units 15:06 18:00 03:28 WBC 18.5 H (3.8-10.6) k/uL RBC 3.49 L (4.30-5.90) m/uL Hgb 10.6 L (13.0-17.5) gm/dL Hct 32.8 L (39.0-53.0) % Plt Count (150-450) k/uL Neutrophils # 16.2 H (1.3-7.7) k/uL Lymphocytes # 0.4 L (1.0-4.8) k/uL Monocytes # 1.1 H (0-1.0) k/uL Glucose 101 H (74-99) mg/dL POC Glucose (mg/dL) 106 H (75-99) mg/dL Calcium 8.1 L (8.4-10.2) mg/dL 02/23/19 02/23/19 Range/Units 03:28 11:05 WBC 17.1 H 17.6 H (3.8-10.6) k/uL RBC 3.11 L 3.50 L (4.30-5.90) m/uL Hgb 9.6 L 10.8 L (13.0-17.5) gm/dL Hct 29.4 L 33.2 L (39.0-53.0) % Plt Count 140 L (150-450) k/uL Neutrophils # (1.3-7.7) k/uL Lymphocytes # (1.0-4.8) k/uL Monocytes # (0-1.0) k/uL Glucose (74-99) mg/dL POC Glucose (mg/dL) (75-99) mg/dL Calcium (8.4-10.2) mg/dL Microbiology - Last 24 Hours (Table) 02/22/19 08:00 Blood Culture Gram Stain - Preliminary Blood 02/22/19 08:00 Blood Culture - Final Blood 02/22/19 18:20 Urine Culture - Preliminary Urine,Catheterized Assessment and Plan Assessment: 1-patient presented to the hospital with bleeding per rectum in this patient who did have evidence of fever and elevated white count with a seat abdominal pelvis which is evidence of colitis likely ischemic colitis underlying infectious colitis not entirely Excluded though less likely, will need to cover for enteric gram-negative both anaerobes and anaerobes, stool for C. diff is negative 2-patient with the amoxicillin and penicillin ALLERGY as a child limiting the number of antibiotic therapy to be safe to use however has tolerated Rocephin (1) Sepsis Current Visit: Yes Status: Acute Code(s): A41.9 - SEPSIS, UNSPECIFIED OR GANISM SNOMED Code(s): 66110698 (2) Ischemic colitis Current Visit: Yes Status: Acute Code(s): K55.9 - VASCULAR DISORDER OF INTESTINE, UNSPECIFIED SNOMED Code(s): 67907022 Plan: 1-we will start the patient on cefepime 2 g every 12 hours and continue with the Flagyl however discontinue the Levaquin 2-IV fluids 3-stool studies we will follow up on clinical condition and cultures to further adjust medication if needed Thank you for this consultation will follow this patient along with you Time with Patient: Greater than 30
[2019-02-24 02:44] LABS: Basophils % (A) 0 %; Eosinophils # (A) 0.1 k/uL (0-0.7); Eosinophils % (A) 0 %; HCT 29.5 % (39.0-53.0); HGB 10.1 gm/dL (13.0-17.5); Lymphocytes # (A) 0.3 k/uL (1.0-4.8); Lymphocytes % (A) 2 %; MCH 32.7 pg (25.0-35.0); MCHC 34.3 g/dL (31.0-37.0); MCV 95.3 fL (80.0-100.0); Mean Platelet Volume 7.1; Monocytes # (A) 0.5 k/uL (0-1.0); Monocytes % (A) 3 %; Neutrophils # (A) 15.9 k/uL (1.3-7.7); Neutrophils % (A) 93 %; Platelet Count 157 k/uL (150-450); RBC 3.09 m/uL (4.30-5.90); RDW 15.1 % (11.5-15.5)
[2019-02-24 02:48] LABS: Potassium 3.8 mmol/L (3.5-5.1)
[2019-02-24] MEDS: ONDANSETRON 4 MG/2 ML VIAL IVP PRN (07:38)
[2019-02-24] MEDS: PANTOPRAZOLE 40 MG/10 ML VIAL IV SCH (07:44)
[2019-02-24] MEDS: metroNIDAZOLE-NS PMX 500 MG in SALINE 1 100ML.BAG IVPB SCH ×3 (08:35→23:02)
[2019-02-24 09:33] LABS: HCT 31.7 % (39.0-53.0); HGB 10.2 gm/dL (13.0-17.5); MCH 30.6 pg (25.0-35.0); MCHC 32.2 g/dL (31.0-37.0); MCV 94.8 fL (80.0-100.0); Mean Platelet Volume 7.3; Platelet Count 176 k/uL (150-450); RBC 3.35 m/uL (4.30-5.90); RDW 14.8 % (11.5-15.5); WBC 18.2 k/uL (3.8-10.6)
--- NOTE | 2019-02-24 10:25 | XR ---
EXAMINATION TYPE: XR chest 2V DATE OF EXAM: 02/24/2019 HISTORY: SOB. REFERENCE: Previous study dated 02/22/2019. FINDINGS: The heart is mildly enlarged. There is bibasilar airspace disease either representing atele ctasis or early infiltrate. There are small, bilateral lateral effusions. IMPRESSION: 1. MILD CARDIOMEGALY. 2. BIBASILAR INFILTRATES. 3. SMALL, BILATERAL EFFUSIONS.
--- NOTE | 2019-02-24 12:40 | PN ---
PROGRESS NOTE DATE OF SERVICE: 02/24/2019. REASON FOR FOLLOW UP: Fever, likely ischemic colitis, INTERVAL HISTORY: The patient is currently afebrile. However, the patient did have an episode of vomiting last night and today. It is not very clear if he still has any blood in the stool or not. However, did have some epigastric abdominal discomfort. No chest pain, shortness of breath or cough. PHYSICAL EXAMINATION: Blood pressure is 119/70 with a pulse of 72, temperature 98. He is 92% on 3 L. General description is an elderly male up in the bed in no distress. Respiratory system unlabored breathing, clear to auscultation anteriorly. Heart S1, S2. Regular rate and rhythm. Abdomen soft. . No guarding or rigidity. Extremities: No edema of the feet. LABS: Hemoglobin is 10.2, white count 18.2. Blood culture with gram-positive bacilli. DIAGNOSTIC IMPRESSION/PLAN: 1. Patient with fever, source likely ischemic colitis, infectious colitis not entirely excluded. Stool cultures requested. Patient to continue cefepime and Flagyl. 2. Positive blood cultures with gram-positive bacilli. More likely skin contaminant. 3. Repeat blood culture has been ordered. Culture will be followed. 4. Continue supportive care. MMODL / IJN: [id number] /
--- NOTE | 2019-02-24 12:51 | P.PN ---
Progress Note - Text Progress Note Date: 02/24/19 The patient's had some complaints of nausea. His abdominal pain is improved. On exam his vital signs are stable. His abdomen is soft. There is some mild distention. The patient most likely has a mild ileus related to his colitis. He'll receive supportive care. We will plan for outpatient colonoscopy once his condition is improved.
[2019-02-24] MEDS: MULTIVITAMINS, THERA 1 EACH TAB PO SCH (13:06)
[2019-02-24] MEDS: LORATADINE 10 MG TAB PO SCH (13:06)
[2019-02-24] MEDS: CHOLECALCIFEROL 1,000 UNIT TAB PO SCH (13:06)
[2019-02-24] MEDS: FERROUS SULFATE 325 MG TAB PO SCH (13:06)
[2019-02-24] MEDS: TAMSULOSIN 0.4 MG CAP.ER.24H PO SCH (13:06)
[2019-02-24] MEDS: CEFEPIME 2 GM in SODIUM CHLORIDE 0.9% 100 ML IVPB SCH ×2 (13:07→20:01)
[2019-02-24] MEDS: SODIUM CHLORIDE 0.9% 1,000 ML IV SCH ×2 (13:08→19:31)
--- NOTE | 2019-02-24 14:08 | P.PN ---
Subjective Progress Note Date: 02/24/19 Principal diagnosis: Acute GI bleeding this is a 73-year-old white male with history of hypertension, hyperlipidemia, history of bowel obstruction and perforation back in 2017, underwent colostomy at the time and eventually revision of his colostomy. Back then the patient had ruptured diverticulitis. And diverticular abscess. This time the patient presented with 1 month history of intermittent episodes of bloody stools and bright red blood per rectum. Patient has been spotting blood in his stools for the past 1 month. Last night the patient had significant amount of blood/bright red blood filling basically the toilet with his bowel movement. He had no abdominal pain, no nausea no vomiting, no fever no chills, no chest pain, no palpitations. Hence the patient was brought into the ER and his blood pressure was noted to be low requiring fluid boluses about 2 L were given responded to fluid boluses and did not require any pressors. Patient had also a temp of 10 2.8. And he was noted to have a bit of leukocytosis, but relatively normal lactic acid, and normal urinalysis. Chest x-ray was unremarkable. However his CT of the abdomen and pelvis showedpossible ischemic colitis, abnormal wall thickening of the rectosigmoid colon. fluid was present in the retroperitoneum multiple abdominal wall hernias were noted. There was also evidence of left sided hydronephrosis and hydroureter. Considering the hypotension, the fever, and the bright red blood per rectum, patient was admitted to the ICU, and this consult was initiated. During my evaluation, patient had basically no nausea no vomiting no abdominal pain, and he was basically asymptomatic. Reevaluated today on 02/23/2019, patient is feeling better, less abdominal pain, and no evidence of active bleeding. Seen by general surgery on consultation, not certain whether the patient truly has ischemic colitis. However felt it would be best to treat the patient conservatively. He was also seen by n ephrology, and felt that the patient does have hydronephrosis and again the recommendation was to treat conservatively. If persists may consider cystoscopy or retrograde pyelogram. Patient was placed on tamsulosin. Hoping that will help empty his bladder fully. Patient is known to have history of adenocarcinoma of the prostate. Patient's hemoglobin today is 9.6. Left lites are normal. He was seen by gastroenterology for GI bleeding, again I recommended mostly supportive care, and advancing the diet gradually as tolerated. No need for immediate endoscopy. Reevaluated today on 02/24/2019, patient is feeling better, however has been complaining of some intermittent episodes of nausea, no vomiting, his abdominal pain is significantly improved. Patient denies any fever or chills or hem optysis, he was seen by surgery today, and he felt that the patient may have a mild ileus, with his colitis. WBC count is 18.2 today hemoglobin is 10.2 lites are normal renal profile is normal no evidence of any active or ongoing GI bleeding at this point. Objective - Vital Signs Vital signs: Vital Signs Temp 98.0 F 02/24/19 05:55 Pulse 72 02/24/19 05:55 Resp 16 02/24/19 05:55 BP 119/70 02/24/19 05:55 Pulse Ox 90 L 02/24/19 05:55 Intake & Output 02/23/19 02/24/19 02/24/19 18:59 06:59 18:59 Intake Total 1900 500 320 Output Total 620 1255 Balance 1280 -755 320 Intake: IV 1300 500 Cefepime 2 gm In Sodium 100 Chloride 0.9% 100 ml @ 200 mls/hr IVPB Q12HR [facility] Rx#:[id number] Sodium Chloride 0.9% 1, 1100 500 000 ml @ 100 mls/hr IV . Q10H [facility] Rx#:[id number] metroNIDAZOLE-NS PMX 500 100 mg In Saline 1 100ml.bag @ 100 mls/hr IVPB Q8HR [facility] Rx#:[id number] Oral 240 320 Blood Product 360 Output: Urine 620 895 Emesis 360 Other: Voiding Method Indwelling Catheter Indwelling Catheter Indwelling Catheter # Bowel Movements 1 1 - Exam Physical Exam: Revealed a 68-year-old white male in no distress, very pleasant. Head: Atraumatic normocephalic. HEENT:[Neck is supple.] [No neck masses.] [No thyromegaly.] [No JVD.] Chest: [Clear throughout, no crackles, no rhonchi, no wheezes.] Cardiac Exam: [Normal S1 and S2, no S3 gallop, no murmur.] Abdomen: [flat, soft, nontender, abdominal wall hernias were noted.] Extremities: [No clubbing, no edema, no cyanosis.] Neurological Exam: [No focal neurologic deficit.]alert and oriented 3. Lymphatics: No lymphadenopathy. Skin: No rashes. Psychiatric: Normal mood affect and mental status examination. - Labs CBC & Chem 7: 02/24/19 08:27 02/24/19 02:14 Labs: Abnormal Lab Results - Last 24 Hours (Table) 02/23/19 02/24/19 02/24/19 Range/Units 17:27 02:14 02:14 WBC 19.7 H 17.0 H (3.8-10.6) k/uL RBC 3.59 L 3.09 L (4.30-5.90) m/uL Hgb 11.0 L 10.1 L (13.0-17.5) gm/dL Hct 34.0 L 29.5 L (39.0-53.0) % Neutrophils # 15.9 H (1.3-7.7) k/uL Lymphocytes # 0.3 L (1.0-4.8) k/uL Chloride 110 H (98-107) mmol/L Glucose 106 H (74-99) mg/dL Calcium 8.0 L (8.4-10.2) mg/dL 02/24/19 Range/Units 08:27 WBC 18.2 H (3.8-10.6) k/uL RBC 3.35 L (4.30-5.90) m/uL Hgb 10.2 L (13.0-17.5) gm/dL Hct 31.7 L (39.0-53.0) % Neutrophils # (1.3-7.7) k/uL Lymphocytes # (1.0-4.8) k/uL Chloride (98-107) mmol/L Glucose (74-99) mg/dL Calcium (8.4-10.2) mg/dL Microbiology - Last 24 Hours (Table) 02/23/19 11:05 Blood Culture - Preliminary Blood No Growth after 24 hours 02/22/19 18:20 Urine Culture - Final Urine,Catheterized 02/22/19 08:00 Blood Culture Gram Stain - Preliminary Blood Assessment and Plan Assessment: impression: 1 acute lower GI bleeding, most likely diverticular in nature unless proven otherwise. 2 possible ischemic colitis, seen by gastroenterology and general surgery, recommended mostly conservative measures and supportive care. 3 acute anemia secondary to GI blood losses 4 fever and hypotension, resolved, could very well be related to his colitis, and GI bleeding. doubt sepsis. 5acute hydronephrosis, seen by nephrology and recommended conservative measures. 6 hypotension secondary to GI blood losses, possible abdominal sepsis and colitis, patient responded well to fluid boluses, did not require pressors. Remains on antibiotics. For his colitis. 7history of benign essential hypertension, history of hyperlipidemia, being addressed by admitting physician, patient is back on his home meds. However blood pressure medications will be on hold temporarily since the patient prese nted with hypotension. 8 history of adenocarcinoma of the prostate. Recommendation: Continue supportive care measures, continue antibiotics, continue to monitor for any GI blood losses, will follow. Time with Patient: Less than 30
[2019-02-24] MEDS ORDERED: FUROSEMIDE 10 MG/ML 2 ML VIAL IV ONE (15:31)
[2019-02-24] MEDS ORDERED: FUROSEMIDE 10 MG/ML 4 ML VIAL IV STA (15:34)
--- NOTE | 2019-02-24 15:51 | P.PN ---
Subjective Progress Note Date: 02/24/19 Principal diagnosis: Colitis Patient was seen and examined. No acute events overnight. Patient reports considerable improvement in his symptoms. He did have an episode of nausea and vomiting overnight without any blood or bile. Patient currently tolerating his clear liquid diet well. He denies any chest pain, shortness breath or palpitations. No current nausea or vomiting. No fever or chills. Objective - Vital Signs Vital signs: Vital Signs Temp 98.0 F 02/24/19 14:20 Pulse 83 02/24/19 14:20 Resp 16 02/24/19 14:20 BP 134/85 02/24/19 14:20 Pulse Ox 95 02/24/19 14:20 Intake & Output 02/23/19 02/24/19 02/24/19 18:59 06:59 18:59 Intake Total 5617 144 1031 Output Total 620 1255 1000 Balance 1280 -755 320 Intake: IV 2299 309 6889 Cefepime 2 gm In Sodium 100 100 Chloride 0.9% 100 ml @ 200 mls/hr IVPB Q12HR [facility] Rx#:[id number] Sodium Chloride 0.9% 1, 1100 500 800 000 ml @ 100 mls/hr IV . Q10H [facility] Rx#:[id number] metroNIDAZOLE-NS PMX 500 100 100 mg In Saline 1 100ml.bag @ 100 mls/hr IVPB Q8HR [facility] Rx#:[id number] Oral 240 320 Blood Product 360 Output: Urine 620 895 400 Emesis 360 600 Other: Voiding Method Indwelling Catheter Indwelling Catheter Indwelling Catheter # Bowel Movements 1 1 - Exam General: [non toxic], [no distress], [appears at stated age] Derm: [warm], [dry] Head: [atraumatic], [normocephalic], [symmetric] Eyes: [EOMI], [no lid lag], [anicteric sclera] Mouth: [no lip lesion], [mucus membranes moist] Cardiovascular: [S1S2 reg], [no murmur], [positive DP pulse bilateral], Lungs: [CTA bilateral], [no rhonchi, no rales] , [no accessory muscle use] Abdominal: [soft], [tenderness to palpation of the left upper quadrant, bilateral lower quadrants with deep palpation and no rebound, improved], [no guarding], [no appreciable organomegaly] Ext: [no gross muscle atrophy], [no edema], [no contractures] Neuro: [no focal neuro deficits] Psych: [Alert], [oriented], [appropriate affect] - Labs CBC & Chem 7: 02/24/19 08:27 02/24/19 02:14 Labs: Abnormal Lab Results - Last 24 Hours (Table) 02/23/19 02/24/19 02/24/19 Range/Units 17:27 02:14 02:14 WBC 19.7 H 17.0 H (3.8-10.6) k/uL RBC 3.59 L 3.09 L (4.30-5.90) m/uL Hgb 11.0 L 10.1 L (13.0-17.5) gm/dL Hct 34.0 L 29.5 L (39.0-53.0) % Neutrophils # 15.9 H (1.3-7.7) k/uL Lymphocytes # 0.3 L (1.0-4.8) k/uL Chloride 110 H (98-107) mmol/L Glucose 106 H (74-99) mg/dL Calcium 8.0 L (8.4-10.2) mg/dL 02/24/19 Range/Units 08:27 WBC 18.2 H (3.8-10.6) k/uL RBC 3.35 L (4.30-5.90) m/uL Hgb 10.2 L (13.0-17.5) gm/dL Hct 31.7 L (39.0-53.0) % Neutrophils # (1.3-7.7) k/uL Lymphocytes # (1.0-4.8) k/uL Chloride (98-107) mmol/L Glucose (74-99) mg/dL Calcium (8.4-10.2) mg/dL Microbiology - Last 24 Hours (Table) 02/23/19 11:05 Blood Culture - Preliminary Blood No Growth after 24 hours 02/22/19 18:20 Urine Culture - Final Urine,Catheterized Assessment and Plan Assessment: Assessment and Plan Bright red blood per rectum, possible hemorrhoids, diverticular bleed, infectious versus ischemic colitis Sepsis likely secondary to colitis, rule out ischemic colitis Gram-positive bacteremia Pleural effusion Anemia from acute blood loss Hydroureter Elevated BUN Hypertension Hyperlipidemia Ongoing for the past month, worsened since last night. Bright red blood per rectum, patient denies melena. Hemoglobin 9.6 to 10.9, 14.7 in January 2018. Stool for occult blood positive in ED. Discussed with Dr. Nelson, no procedures planned at this point. Plans: Monitor H&H every 8 hours. Continue Protonix 40 mg IV daily. Transfuse if hemoglobin is less than 7. Continue normal saline at 50 cc/h (decreased from 100). General surgery consulted due to history of diverticulitis induced bowel perforation complicated with abscess formation, sug gests mild ileus and recommends colonoscopy at a later time. Continue IV antibiotics for colitis. Follow GI recommendations. Patient with fever of 102.8, hypotensive to a SBP 95, leukocytosis of 12.1, positive source of infection on CT. Urinalysis is negative. Patient with history of bowel abscess. CT abdomen and pelvis showing signs of colitis, possible ischemic. Lactic acid within normal limits. Chest x-ray within normal limits. Blood cultures prelim positive for gram-positive bacilli. Plans: Follow blood culture. Continue normal saline at 50 mL per hour (decreased from 100). Discontinue ceftriaxone and start cefepime as per ID recommendations and Flagyl for coverage of gram-negative and anaerobe. Tylenol as needed for fever. Follow infectious disease consultation. Gram-positive bacteria seen on initial blood culture. Plans: Repeat blood culture. Follow ID consultation. As seen on chest x-ray. Saturating low 90s on 2 L NC. Likely secondary to infuse IVF. Plans: Decreased IVF from 100 mL to 50. One time Lasix 40 mg IV. Plans: Management as above. As seen on CT abdomen and pelvis. Patient reports no urinary symptoms. Started on Flomax by urology. Plans: Urology consultation. BUN 25-within normal limits. Possibly dehydration or due to acute blood loss. Plans: Resolved. BP 134/85. On amlodipine and ZULAY inhibitor at home. Plans: Monitor vitals, adjust medications as necessary. Stable. Plans: Hold aspirin. Continue Lipitor 40 milligrams by mouth at bedtime. Patient was admitted for BRBPR, gastroenterology and general surgery consulted, CT showing colitis. Clear liquid diet and advance. Found to have fever, started on IV antibiotics and ID consulted, stool and repeat blood culture pending. Patient is pending clinical improvement. Likely DC in 2-3 days. Patient names his Kenna decision-maker in the case that he can't make decisions for himself. Patient reiterates wanting to remain full code at this time.
--- NOTE | 2019-02-24 19:48 | P.PN ---
Subjective Progress Note Date: 02/24/19 Principal diagnosis: GI bleed, blood per rectum, anemia of acute blood loss Patient seen sitting bedside today. He reports normal bowel movement today. Tolerating diet. Abdominal tenderness improved. Objective - Vital Signs Vital signs: Vital Signs Temp 98.0 F 02/24/19 14:20 Pulse 83 02/24/19 14:20 Resp 16 02/24/19 14:20 BP 134/85 02/24/19 14:20 Pulse Ox 95 02/24/19 14:20 Intake & Output 02/24/19 02/24/19 02/25/19 06:59 18:59 06:59 Intake Total 500 1320 Output Total 1255 2450 Balance -755 -1130 Intake: IV 500 1000 Cefepime 2 gm In Sodium 100 Chloride 0.9% 100 ml @ 200 mls/hr IVPB Q12HR [facility] Rx#:[id number] Sodium Chloride 0.9% 1, 500 800 000 ml @ 50 mls/hr IV . Q20H [facility] Rx#:[id number] metroNIDAZOLE-NS PMX 500 100 mg In Saline 1 100ml.bag @ 100 mls/hr IVPB Q8HR [facility] Rx#:[id number] Oral 320 Output: Urine 895 1850 Emesis 360 600 Other: Voiding Method Indwelling Catheter Indwelling Catheter # Bowel Movements 1 - Exam On physical examination, patient appears comfortable in no apparent distress. HEAD: Normocephalic, atraumatic. EYES: No scleral icterus. No conjunctival injection. MOUTH: No lesions, tongue midline. NECK: Trachea midline, no gross abnormalities. CHEST: Clear to auscultation with no wheezing or rhonchi appreciated. HEART: Regular rate and rhythm. ABDOMEN: Soft, tender to palpation worse in the left lower quadrant. Bowel sounds are positive. No organomegaly. No guarding or rigidity. EXTREMITIES: No pedal edema. SKIN: No rashes, no jaundice. NEUROLOGIC: Alert and oriented x3. No focal deficits. - Labs CBC & Chem 7: 02/24/19 08:27 02/24/19 02:14 Labs: Abnormal Lab Results - Last 24 Hours (Table) 02/24/19 02/24/19 02/24/19 Range/Units 02:14 02:14 08:27 WBC 17.0 H 18.2 H (3.8-10.6) k/uL RBC 3.09 L 3.35 L (4.30-5.90) m/uL Hgb 10.1 L 10.2 L (13.0-17.5) gm/dL Hct 29.5 L 31.7 L (39.0-53.0) % Neutrophils # 15.9 H (1.3-7.7) k/uL Lymphocytes # 0.3 L (1.0-4.8) k/uL Chloride 110 H (98-107) mmol/L Glucose 106 H (74-99) mg/dL Calcium 8.0 L (8.4-10.2) mg/dL Microbiology - Last 24 Hours (Table) 02/23/19 11:05 Blood Culture - Preliminary Blood No Growth after 24 hours 02/22/19 18:20 Urine Culture - Final Urine,Catheterized Assessment and Plan (1) GI bleed Narrative/Plan: 68-year-old male with multiple medical comorbidities including prior colonic perforation secondary to diverticulitis with abscess formation for which he underwent partial colectomy with subsequent reversal of ostomy presented to the hospital with multiple episodes of painless bright red blood per rectum. Computed tomography scan of the abdomen did show findings suggestive of possible colitis in the distal sigmoid and rectum. Differential includes ischemic colitis, diverticular bleed, anastomotic site ulcer, AVM or other etiology. Current Visit: Yes Status: Acute Code(s): K92.2 - GASTROINTESTINAL HEMORRHAGE, UNSPECIFIED SNOMED Code(s): 45984521 (2) History of colostomy reversal Current Visit: No Status: Acute Code(s): TPM6077 - SNOMED Code(s): 087574630 Plan: Supportive care Okay for low fiber diet Continue to monitor hemoglobin and transfuse as needed Agree with antibiotic therapy as ischemia cannot be ruled out with computed tomography scan suggesting possible inflammation in the sigmoid and rectum Monitor stool output No plans for endoscopic evaluation at this time, however if patient has further fall in hemoglobin or worsening of symptoms we'll consider further evaluation Discussion with the patient and he will need a colonoscopy 4-6 weeks after discharge Thank you for allowing us to participate in the care of the patient we will continue to follow
[2019-02-24] MEDS: ATORVASTATIN 40 MG TAB PO SCH (20:01)
[2019-02-24] MEDS: ACETAMINOPHEN TAB 325 MG TAB PO PRN (22:11)
[2019-02-25] MEDS: ACETAMINOPHEN TAB 325 MG TAB PO PRN (04:02)
[2019-02-25] MEDS: metroNIDAZOLE-NS PMX 500 MG in SALINE 1 100ML.BAG IVPB SCH ×3 (07:18→23:27)
[2019-02-25] MEDS: CHOLECALCIFEROL 1,000 UNIT TAB PO SCH (08:25)
[2019-02-25] MEDS: PANTOPRAZOLE 40 MG/10 ML VIAL IV SCH (08:25)
[2019-02-25] MEDS: CEFEPIME 2 GM in SODIUM CHLORIDE 0.9% 100 ML IVPB SCH ×2 (08:25→21:36)
[2019-02-25] MEDS: TAMSULOSIN 0.4 MG CAP.ER.24H PO SCH (08:25)
[2019-02-25] MEDS: MULTIVITAMINS, THERA 1 EACH TAB PO SCH (08:26)
[2019-02-25] MEDS: LORATADINE 10 MG TAB PO SCH (08:26)
[2019-02-25] MEDS: FERROUS SULFATE 325 MG TAB PO SCH (08:26)
--- NOTE | 2019-02-25 10:41 | P.PN ---
<Aretha Coronel - Last Filed: 02/25/19 10:34> Subjective Progress Note Date: 02/25/19 CHIEF COMPLAINT: Colitis HISTORY OF PRESENT ILLNESS: Patient seen and examined at the bedside. Patient reports minimal abdominal pain this morning. He is tolerating liquid diet. He denies nausea this morning but has a basin at the bedside because he states he was nauseous and had an episode of vomiting over the weekend. He reports normal bowel movement yesterday. He states this morning he went to the bathroom and when he was passing flatus he had a very small amount of bright red blood with some mucus. Most recent hemoglobin 10.2. No repeat ordered this morning. PHYSICAL EXAM: VITAL SIGNS: Reviewed. GENERAL: Well-developed in no acute distress. HEENT: No sclera icterus. Extraocular movements grossly intact. Moist buccal mucosa. Head is atraumatic, normocephalic. ABDOMEN: Soft. Mildly distended. Tenderness upon palpation of right lower quadrant. NEUROLOGIC: Alert and oriented. Cranial nerves II through XII grossly intact. ASSESSMENT: 1. Possible ischemic colitis 2. Possible mild ileus, improving 3. Bright red blood per rectum PLAN: 1. Advance diet to full liquid. Advance as tolerated to low fiber. 2. Monitor stools 3. Monitor CBC 4. GI also following. No plans for endoscopic studies from their standpoint Nurse practitioner note has been reviewed by physician. Signing provider agrees with the documented findings, assessment, and plan of care. Objective - Vital Signs Vital signs: Vital Signs Temp 98.7 F 02/25/19 05:15 Pulse 74 02/25/19 05:15 Resp 18 02/25/19 05:15 BP 109/68 02/25/19 05:15 Pulse Ox 93 L 02/25/19 05:15 Intake & Output 02/24/19 02/25/19 02/25/19 18:59 06:59 18:59 Intake Total 1320 500 250 Output Total 2450 2800 500 Balance -1130 -2300 -250 Intake: IV 1000 Cefepime 2 gm In Sodium 100 Chloride 0.9% 100 ml @ 200 mls/hr IVPB Q12HR [facility] Rx#:[id number] Sodium Chloride 0.9% 1, 800 000 ml @ 50 mls/hr IV . Q20H [facility] Rx#:[id number] metroNIDAZOLE-NS PMX 500 100 mg In Saline 1 100ml.bag @ 100 mls/hr IVPB Q8HR [facility] Rx#:[id number] Oral 320 500 250 Output: Urine 1850 2800 500 Uretheral (Chavez) 500 Emesis 600 Other: Voiding Method Indwelling Catheter Indwelling Catheter Indwelling Catheter - Labs CBC & Chem 7: 02/24/19 08:27 02/24/19 02:14 Labs: Microbiology - Last 24 Hours (Table) 02/22/19 08:00 Blood Culture Gram Stain - Final Blood Blood Culture - Final Clostridium septicum 02/23/19 11:05 Blood Culture - Preliminary Blood No Growth after 24 hours <Edgar Molina - Last Filed: 02/25/19 17:26> Subjective As above. Patient feels better today. Small bowel movement earlier today which was mucousy and a small amount of blood. He is tolerating regular diet. Repeat labs tomorrow morning. Objective - Vital Signs Vital signs: Vital Signs Temp 98.6 F 02/25/19 13:10 Pulse 73 02/25/19 13:10 Resp 18 02/25/19 13:10 BP 114/68 02/25/19 13:10 Pulse Ox 95 02/25/19 13:10 Intake & Output 02/24/19 02/25/19 02/25/19 18:59 06:59 18:59 Intake Total 1320 500 250 Output Total 2450 2800 1100 Balance -1130 -2300 -850 Intake: IV 1000 Cefepime 2 gm In Sodium 100 Chloride 0.9% 100 ml @ 200 mls/hr IVPB Q12HR [facility] Rx#:[id number] Sodium Chloride 0.9% 1, 800 000 ml @ 50 mls/hr IV . Q20H [facility] Rx#:[id number] metroNIDAZOLE-NS PMX 500 100 mg In Saline 1 100ml.bag @ 100 mls/hr IVPB Q8HR [facility] Rx#:[id number] Oral 320 500 250 Output: Urine 1850 2800 1100 Uretheral (Chavez) 500 Emesis 600 Other: Voiding Method Indwelling Catheter Indwelling Catheter Indwelling Catheter - Labs CBC & Chem 7: 02/25/19 10:46 02/24/19 02:14 Labs: Abnormal Lab Results - Last 24 Hours (Table) 02/25/19 Range/Units 10:46 WBC 12.3 H (3.8-10.6) k/uL RBC 3.13 L (4.30-5.90) m/uL Hgb 9.7 L (13.0-17.5) gm/dL Hct 29.6 L (39.0-53.0) % Neutrophils # 11.2 H (1.3-7.7) k/uL Lymphocytes # 0.3 L (1.0-4.8) k/uL Microbiology - Last 24 Hours (Table) 02/25/19 08:00 Stool Culture - Preliminary Stool 02/23/19 11:05 Blood Culture - Preliminary Blood No Growth after 48 hours 02/22/19 08:00 Blood Culture Gram Stain - Final Blood Blood Culture - Final Clostridium septicum
[2019-02-25 11:07] LABS: Basophils % (A) 0 %; Eosinophils # (A) 0.1 k/uL (0-0.7); Eosinophils % (A) 1 %; HCT 29.6 % (39.0-53.0); HGB 9.7 gm/dL (13.0-17.5); Lymphocytes # (A) 0.3 k/uL (1.0-4.8); Lymphocytes % (A) 2 %; MCH 30.9 pg (25.0-35.0); MCHC 32.7 g/dL (31.0-37.0); MCV 94.6 fL (80.0-100.0); Mean Platelet Volume 7.7; Monocytes # (A) 0.4 k/uL (0-1.0); Monocytes % (A) 4 %; Neutrophils # (A) 11.2 k/uL (1.3-7.7); Neutrophils % (A) 92 %; Platelet Count 197 k/uL (150-450); RBC 3.13 m/uL (4.30-5.90); RDW 15.3 % (11.5-15.5); WBC 12.3 k/uL (3.8-10.6)
--- NOTE | 2019-02-25 13:23 | P.PN ---
Subjective Progress Note Date: 02/25/19 Principal diagnosis: this is a 73-year-old white male with history of hypertension, hyperlipidemia, history of bowel obstruction and perforation back in 2017, underwent colostomy a t the time and eventually revision of his colostomy. Back then the patient had ruptured diverticulitis. And diverticular abscess. This time the patient presented with 1 month history of intermittent episodes of bloody stools and bright red blood per rectum. Patient has been spotting blood in his stools for the past 1 month. Last night the patient had significant amount of blood/bright red blood filling basically the toilet with his bowel movement. He had no abdominal pain, no nausea no vomiting, no fever no chills, no chest pain, no palpitations. Hence the patient was brought into the ER and his blood pressure was noted to be low requiring fluid boluses about 2 L were given responded to fluid boluses and did not require any pressors. Patient had also a temp of 102.8. And he was noted to have a bit of leukocytosis, but relatively normal lactic acid, and normal urinalysis. Chest x-ray was unremarkable. However his CT of the abdomen and pelvis showedpossible ischemic colitis, abnormal wall thickening of the rectosigmoid colon. fluid was present in the retroperitoneum multiple abdominal wall hernias were noted. There was also evidence of left sided hydronephrosis and hydroureter. Considering the hypotension, the fever, and the bright red blood per rectum, patient was admitted to the ICU, and this consult was initiated. During my evaluation, patient had basically no nausea no vomiting no abdominal pain, and he was basically asymptomatic. Reevaluated today on 02/23/2019, patient is feeling better, less abdominal pain, and no evidence of active bleeding. Seen by general surgery on consultation, not certain whether the patient truly has ischemic colitis. However felt it would be best to treat the patient conservatively. He was also seen by nephrology, and felt that the patient does have hydronephrosis and again the recommendation was to treat conservatively. If persists may consider cystoscopy or retrograde pyelogram. Patient was placed on tamsulosin. Hoping that will help empty his bladder fully. Patient is known to have history of adenocarcinoma of the prostate. Patient's hemoglobin today is 9.6. Left lites are normal. He was seen by gastroenterology for GI bleeding, again I recommended mostly supportive care, and advancing the diet gradually as tolerated. No need for immediate endoscopy. Reevaluated today on 02/24/2019, patient is feeling better, however has been complaining of some intermittent episodes of nausea, no vomiting, his abdominal pain is significantly improved. Patient denies any fever or chills or hemoptysis, he was seen by surgery today, and he felt that the patient may have a mild ileus, with his colitis. WBC count is 18.2 today hemoglobin is 10.2 lites are normal renal profile is normal no evidence of any active or ongoing GI bleeding at this point. On 02/25/2019 patient seen in follow-up on medical surgical floor. He is awake and alert, oriented 3, in no acute distress, hemodynamically stable, O2 sat is 93% on 3 L of oxygen, afebrile, respirations are even and nonlabored, no couplets or chest pain, today's labs have been reviewed, showing hemoglobin of 9.7, white blood cell count is 12.3. She states she had a very small stool with some mucous, and small amount of blood. No abdominal pain, no vomiting. Patient has been evaluated by GI service, no plans for immediate endoscopy at this time, patient is on antibiotics for possible mild ileus, and colitis. Evidence of ongoing GI bleeding. No pulmonary complaints. Blood culture from 02/22/2019 was positive for Clostridium septicum, follow blood cultures were negative, urine culture showed no growth, ID service is following, and antibiotic coverage in the form of cefepime and Flagyl. Objective - Vital Signs Vital signs: Vital Signs Temp 98.7 F 02/25/19 05:15 Pulse 74 02/25/19 05:15 Resp 18 02/25/19 05:15 BP 109/68 02/25/19 05:15 Pulse Ox 93 L 02/25/19 05:15 Intake & Output 02/24/19 02/25/19 02/25/19 18:59 06:59 18:59 Intake Total 1320 500 250 Output Total 2450 2800 500 Balance -1130 -2300 -250 Intake: IV 1000 Cefepime 2 gm In Sodium 100 Chloride 0.9% 100 ml @ 200 mls/hr IVPB Q12HR [facility] Rx#:[id number] Sodium Chloride 0.9% 1, 800 000 ml @ 50 mls/hr IV . Q20H [facility] Rx#:[id number] metroNIDAZOLE-NS PMX 500 100 mg In Saline 1 100ml.bag @ 100 mls/hr IVPB Q8HR [facility] Rx#:[id number] Oral 320 500 250 Output: Urine 1850 2800 500 Uretheral (Chavez) 500 Emesis 600 Other: Voiding Method Indwelling Catheter Indwelling Catheter Indwelling Catheter - Exam GENERAL EXAM: Alert, pleasant, 68 -year-old white male, on 3 L of oxygen comfortable in no apparent distress. HEAD: Normocephalic/atraumatic. EYES: Normal reaction of pupils, equal size. Conjunctiva pink, sclera white. NOSE: Clear with pink turbinates. THROAT: No erythema or exudates. NECK: No masses, no JVD, no thyroid enlargement, no adenopathy. CHEST: No chest wall deformity. Symmetrical expansion. LUNGS: Equal air entry with no crackles, wheeze, rhonchi or dullness. CVS: Regular rate and rhythm, normal S1 and S2, no gallops, no murmurs, no rubs ABDOMEN: Soft, nontender. No hepatosplenomegaly, normal bowel sounds, no guarding or rigidity. EXTREMITIES: No clubbing, no edema, no cyanosis, 2+ pulses and upper and lower extremities. MUSCULOSKELETAL: Muscle strength and tone normal. SPINE: No scoliosis or deformity SKIN: No rashes CENTRAL NERVOUS SYSTEM: Alert and oriented -3. No focal deficits, tone is normal in all 4 extremities. PSYCHIATRIC: Alert and oriented -3. Appropriate affect. Intact judgment and insight. - Labs CBC & Chem 7: 02/25/19 10:46 02/24/19 02:14 Labs: Abnormal Lab Results - Last 24 Hours (Table) 02/25/19 Range/Units 10:46 WBC 12.3 H (3.8-10.6) k/uL RBC 3.13 L (4.30-5.90) m/uL Hgb 9.7 L (13.0-17.5) gm/dL Hct 29.6 L (39.0-53.0) % Neutrophils # 11.2 H (1.3-7.7) k/uL Lymphocytes # 0.3 L (1.0-4.8) k/uL Microbiology - Last 24 Hours (Table) 02/23/19 11:05 Blood Culture - Preliminary Blood No Growth after 48 hours 02/22/19 08:00 Blood Culture Gram Stain - Final Blood Blood Culture - Final Clostridium septicum Assessment and Plan Plan: 1 acute lower GI bleeding, most likely diverticular in nature unless proven otherwise. 2 possible ischemic colitis, seen by gastroenterology and general surgery, recommended mostly conservative measures and supportive care. 3 acute anemia secondary to GI blood losses 4 fever and hypotension, resolved, could very well be related to his colitis, and GI bleeding. doubt sepsis. 5acute hydronephrosis, seen by nephrology and recommended conservative measures. 6 hypotension secondary to GI blood losses, possible abdominal sepsis and colitis, patient responded well to fluid boluses, did not require pressors. Remains on antibiotics. For his colitis. 7history of benign essential hypertension, history of hyperlipidemia, being addressed by admitting physician, patient is back on his home meds. However blood pressure medications will be on hold temporarily since the patient presented with hypotension. 8 history of adenocarcinoma of the prostate. Plan: Patient is clinically stable, no evidence of acute or ongoing GI bleeding, last signs are stable, no pulmonary complaints, and pulmonary/critical care service will sign off, and follow on as-needed basis I performed a history & physical examination of the patient and discussed their management with my nurse practitioner, Emi Spain. I reviewed the nurse pr actitioner's note and agree with the documented findings and plan of care. Lung sounds are positive for clear breath sounds. The findings and the impression was discussed with the patient. I attest to the documentation by the nurse practitioner. Time with Patient: Less than 30
[2019-02-25] MEDS: SODIUM CHLORIDE 0.9% 1,000 ML IV SCH (15:44)
--- NOTE | 2019-02-25 16:06 | P.PN ---
Subjective Progress Note Date: 02/25/19 Principal diagnosis: GI bleed, blood per rectum, anemia of acute blood loss Patient seen sitting bedside today. Reports passage of mucus and a small amount of blood today per rectum. Abdominal tenderness continues to improve. Has tolerated liquids. Objective - Vital Signs Vital signs: Vital Signs Temp 98.6 F 02/25/19 13:10 Pulse 73 02/25/19 13:10 Resp 18 02/25/19 13:10 BP 114/68 02/25/19 13:10 Pulse Ox 95 02/25/19 13:10 Intake & Output 02/24/19 02/25/19 02/25/19 18:59 06:59 18:59 Intake Total 1320 500 250 Output Total 2450 2800 1100 Balance -1130 -2300 -850 Intake: IV 1000 Cefepime 2 gm In Sodium 100 Chloride 0.9% 100 ml @ 200 mls/hr IVPB Q12HR [facility] Rx#:[id number] Sodium Chloride 0.9% 1, 800 000 ml @ 50 mls/hr IV . Q20H [facility] Rx#:[id number] metroNIDAZOLE-NS PMX 500 100 mg In Saline 1 100ml.bag @ 100 mls/hr IVPB Q8HR [facility] Rx#:[id number] Oral 320 500 250 Output: Urine 1850 2800 1100 Uretheral (Chavez) 500 Emesis 600 Other: Voiding Method Indwelling Catheter Indwelling Catheter Indwelling Catheter - Exam On physical examination, patient appears comfortable in no apparent distress. HEAD: Normocephalic, atraumatic. EYES: No scleral icterus. No conjunctival injection. MOUTH: No lesions, tongue midline. NECK: Trachea midline, no gross abnormalities. CHEST: Clear to auscultation with no wheezing or rhonchi appreciated. HEART: Regular rate and rhythm. ABDOMEN: Soft, tender to palpation worse in the left lower quadrant. Bowel sounds are positive. No organomegaly. No guarding or rigidity. EXTREMITIES: No pedal edema. SKIN: No rashes, no jaundice. NEUROLOGIC: Alert and oriented x3. No focal deficits. - Labs CBC & Chem 7: 02/25/19 10:46 02/24/19 02:14 Labs: Abnormal Lab Results - Last 24 Hours (Table) 02/25/19 Range/Units 10:46 WBC 12.3 H (3.8-10.6) k/uL RBC 3.13 L (4.30-5.90) m/uL Hgb 9.7 L (13.0-17.5) gm/dL Hct 29.6 L (39.0-53.0) % Neutrophils # 11.2 H (1.3-7.7) k/uL Lymphocytes # 0.3 L (1.0-4.8) k/uL Microbiology - Last 24 Hours (Table) 02/23/19 11:05 Blood Culture - Preliminary Blood No Growth after 48 hours 02/22/19 08:00 Blood Culture Gram Stain - Final Blood Blood Culture - Final Clostridium septicum Assessment and Plan (1) GI bleed Narrative/Plan: 68-year-old male with multiple medical comorbidities including prior colonic perforation secondary to diverticulitis with abscess formation for which he underwent partial colectomy with subsequent reversal of ostomy presented to the hospital with multiple episodes of painless bright red blood per rectum. Computed tomography scan of the abdomen did show findings suggestive of possible colitis in the distal sigmoid and rectum. Differential includes ischemic colitis, diverticular bleed, anastomotic site ulcer, AVM or other etiology. Current Visit: Yes Status: Acute Code(s): K92.2 - GASTROINTESTINAL HEMORRHAGE, UNSPECIFIED SNOMED Code(s): 01093287 (2) History of colostomy reversal Current Visit: No Status: Acute Code(s): GTY4676 - SNOMED Code(s): 554909872 Plan: Supportive care Diet advance to low fiber today Continue to monitor hemoglobin and transfuse as needed Agree with antibiotic therapy as ischemia cannot be ruled out with computed tomography scan suggesting possible inflammation in the sigmoid and rectum Monitor stool output No plans for endoscopic evaluation at this time, however if patient has further fall in hemoglobin or worsening of symptoms we'll consider further evaluation Discussion with the patient and he will need a colonoscopy 4-6 weeks after discharge Thank you for allowing us to participate in the care of the patient we will continue to follow
--- NOTE | 2019-02-25 16:21 | P.PN ---
Subjective Progress Note Date: 02/25/19 Principal diagnosis: Bright red blood per rectum Patient was seen and examined. No acute events overnight. Diet is advanced today, enjoyed hamburger for lunch. He denies any nausea or vomiting. No fever or chills. Has not had a bowel movement today. He denies any chest pain, shortness of breath or palpitations. Objective - Vital Signs Vital signs: Vital Signs Temp 98.6 F 02/25/19 13:10 Pulse 73 02/25/19 13:10 Resp 18 02/25/19 13:10 BP 114/68 02/25/19 13:10 Pulse Ox 95 02/25/19 13:10 Intake & Output 02/24/19 02/25/19 02/25/19 18:59 06:59 18:59 Intake Total 1320 500 250 Output Total 2450 2800 1100 Balance -1130 -2300 -850 Intake: IV 1000 Cefepime 2 gm In Sodium 100 Chloride 0.9% 100 ml @ 200 mls/hr IVPB Q12HR [facility] Rx#:[id number] Sodium Chloride 0.9% 1, 800 000 ml @ 50 mls/hr IV . Q20H [facility] Rx#:[id number] metroNIDAZOLE-NS PMX 500 100 mg In Saline 1 100ml.bag @ 100 mls/hr IVPB Q8HR [facility] Rx#:[id number] Oral 320 500 250 Output: Urine 1850 2800 1100 Uretheral (Chavez) 500 Emesis 600 Other: Voiding Method Indwelling Catheter Indwelling Catheter Indwelling Catheter - Exam General: [non toxic], [no distress], [appears at stated age] Derm: [warm], [dry] Head: [atraumatic], [normocephalic], [symmetric] Eyes: [EOMI], [no lid lag], [anicteric sclera] Mouth: [no lip lesion], [mucus membranes moist] Cardiovascular: [S1S2 reg], [no murmur], [positive DP pulse bilateral], Lungs: [CTA bilateral], [no rhonchi, no rales] , [no accessory muscle use] Abdominal: [soft], [tenderness palpation over the left quadrant, positive bowel sounds], [no guarding], [no appreciable organomegaly] Ext: [no gross muscle atrophy], [no edema], [no contractures] Neuro: [no focal neuro deficits] Psych: [Alert], [oriented], [appropriate affect] - Labs CBC & Chem 7: 02/25/19 10:46 02/24/19 02:14 Labs: Abnormal Lab Results - Last 24 Hours (Table) 02/25/19 Range/Units 10:46 WBC 12.3 H (3.8-10.6) k/uL RBC 3.13 L (4.30-5.90) m/uL Hgb 9.7 L (13.0-17.5) gm/dL Hct 29.6 L (39.0-53.0) % Neutrophils # 11.2 H (1.3-7.7) k/uL Lymphocytes # 0.3 L (1.0-4.8) k/uL Microbiology - Last 24 Hours (Table) 02/25/19 08:00 Stool Culture - Preliminary Stool 02/23/19 11:05 Blood Culture - Preliminary Blood No Growth after 48 hours 02/22/19 08:00 Blood Culture Gram Stain - Final Blood Blood Culture - Final Clostridium septicum Assessment and Plan Assessment: Assessment and Plan Bright red blood per rectum, possible hemorrhoids, diverticular bleed, infectious versus ischemic colitis Sepsis likely secondary to colitis, rule out ischemic colitis Gram-positive bacteremia Pleural effusion Anemia from acute blood loss Hydroureter Elevated BUN Hypertension Hyperlipidemia Ongoing for the past month, worsened since last night. Bright red blood per rectum, patient denies melena. Hemoglobin 9.6 to 10.9, 14.7 in January 2018. Stool for occult blood positive in ED. Discussed with Dr. Nelson, no procedures planned at this point. Plans: Monitor H&H. Continue Protonix 40 mg IV daily. Transfuse if hemoglobin is less than 7. Continue normal saline at 50 cc/h (decreased from 100). General surgery consulted due to history of diverticulitis induced bowel perforation complicated with abscess formation, suggests mild ileus and recommends colonoscopy at a later time. Continue IV antibiotics for colitis. Follow GI recommendations. Patient with fever of 102.8, hypotensive to a SBP 95, leukocytosis of 12.1, positive source of infection on CT. Urinalysis is negative. Patient with history of bowel abscess. CT abdomen and pelvis showing signs of colitis, possible ischemic. Lactic acid within normal limits. Chest x-ray within normal limits. Blood cultures prelim positive for gram-positive bacilli. Plans: Follow blood culture. Continue normal saline at 50 mL per hour (decreased from 100). Discontinue ceftriaxone and start cefepime as per ID recommendations and Flagyl for coverage of gram-negative and anaerobe. Tylenol as needed for fever. Follow infectious disease consultation. Gram-positive bacteria seen on initial blood culture. Positive for Clostridium. Repeat blood cultures negative at 48 hours. Plans: Repeat blood culture. Follow ID consultation. As seen on chest x-ray. Saturating low 90s on 2 L NC. Likely secondary to infuse IVF. Plans: Decreased IVF from 100 mL to 50. We'll continue to monitor. Plans: Management as above. As seen on CT abdomen and pelvis. Patient reports no urinary symptoms. Started on Flomax by urology. Plans: Urology consultation. BUN 25-within normal limits. Possibly dehydration or due to acute blood loss. Plans: Resolved. BP 114/60.. On amlodipine and ZULAY inhibitor at home. Plans: Monitor vitals, adjust medications as necessary. Stable. Plans: Hold aspirin. Continue Lipitor 40 milligrams by mouth at bedtime. Patient was admitted for [facility], gastroenterology and general surgery consulted, CT showing colitis. Diet advance to low fiber. Blood culture positive for Clostridium. Found to have fever, started on IV antibiotics and ID consulted, stool and repeat blood culture pending. Patient is pending clinical improvement. Likely DC in 1-2 days.
[2019-02-25] MEDS: ATORVASTATIN 40 MG TAB PO SCH (21:36)
[2019-02-26] MEDS: PANTOPRAZOLE 40 MG/10 ML VIAL IV SCH (07:07)
[2019-02-26] MEDS: LORATADINE 10 MG TAB PO SCH (07:07)
[2019-02-26] MEDS: MULTIVITAMINS, THERA 1 EACH TAB PO SCH (07:07)
[2019-02-26] MEDS: TAMSULOSIN 0.4 MG CAP.ER.24H PO SCH (07:07)
[2019-02-26] MEDS: CHOLECALCIFEROL 1,000 UNIT TAB PO SCH (07:07)
[2019-02-26] MEDS: FERROUS SULFATE 325 MG TAB PO SCH (07:07)
[2019-02-26] MEDS: CEFEPIME 2 GM in SODIUM CHLORIDE 0.9% 100 ML IVPB SCH ×2 (07:08→20:35)
[2019-02-26] MEDS: metroNIDAZOLE-NS PMX 500 MG in SALINE 1 100ML.BAG IVPB SCH ×2 (07:08→15:08)
[2019-02-26 10:06] LABS: Basophils % (A) 0 %; Eosinophils # (A) 0.1 k/uL (0-0.7); Eosinophils % (A) 1 %; HCT 28.7 % (39.0-53.0); HGB 9.1 gm/dL (13.0-17.5); Lymphocytes # (A) 0.3 k/uL (1.0-4.8); Lymphocytes % (A) 3 %; MCHC 31.8 g/dL (31.0-37.0); MCV 94.3 fL (80.0-100.0); Mean Platelet Volume 6.9; Monocytes # (A) 0.5 k/uL (0-1.0); Monocytes % (A) 6 %; Neutrophils # (A) 7.5 k/uL (1.3-7.7); Neutrophils % (A) 88 %; Platelet Count 220 k/uL (150-450); RBC 3.05 m/uL (4.30-5.90); RDW 14.8 % (11.5-15.5); WBC 8.6 k/uL (3.8-10.6)
[2019-02-26] MEDS: SODIUM CHLORIDE 0.9% 1,000 ML IV SCH (10:11)
--- NOTE | 2019-02-26 12:54 | P.PN ---
Subjective Progress Note Date: 02/26/19 Principal diagnosis: Rectal bleeding anemia Passing mucoid bright red blood tinged bowel movements today. Hemoglobin slightly down today 9.1. Hemoglobin yesterday 9.7. Abdominal pain unchanged from yesterday still present but mild. Objective - Vital Signs Vital signs: Vital Signs Temp 99.3 F 02/26/19 05:00 Pulse 74 02/26/19 05:00 Resp 18 02/26/19 05:00 BP 114/68 02/26/19 05:00 Pulse Ox 92 L 02/26/19 05:00 Intake & Output 02/25/19 02/26/19 02/26/19 18:59 06:59 18:59 Intake Total 250 550 Output Total 1800 1750 470 Balance -1550 -1200 -470 Intake: Intake, IV Titration 350 Amount Sodium Chloride 0.9% 1, 350 000 ml @ 50 mls/hr IV . Q20H [facility] Rx#:[id number] Oral 250 200 Output: Urine 1800 1750 470 Uretheral (Chavez) 350 Other: Voiding Method Indwelling Catheter Indwelling Catheter Indwelling Catheter # Voids 0 - Exam General appearance: The patient is alert, oriented, in no acute distress. HET: Head is normocephalic and atraumatic. Pupils are equal and reactive. Oropharynx is clear without lesions. Neck: Supple without lymphadenopathy. Trachea midline. Heart: S1 S2. Regular rate and rhythm. Lungs: No crackles or wheezes are heard. Abdomen: Soft, mild tenderness across the bilateral lower abdomen, nondistended with bowel sounds. No peritoneal signs. No palpable organomegaly or masses. Extremities: Normal skin color and turgor. No cyanosis, rash, ulceration, clubbing, or edema. Radial and pedal pulses are 2/4 bilaterally. Neurological: No focal deficits. Strength and sensation are grossly intact. - Labs CBC & Chem 7: 02/26/19 09:29 02/24/19 02:14 Labs: Abnormal Lab Results - Last 24 Hours (Table) 02/26/19 Range/Units 09:29 RBC 3.05 L (4.30-5.90) m/uL Hgb 9.1 L (13.0-17.5) gm/dL Hct 28.7 L (39.0-53.0) % Lymphocytes # 0.3 L (1.0-4.8) k/uL Microbiology - Last 24 Hours (Table) 02/25/19 08:00 Stool Culture - Preliminary Stool 02/23/19 11:05 Blood Culture - Preliminary Blood No Growth after 48 hours Assessment and Plan (1) GI bleed Current Visit: Yes Status: Acute Code(s): K92.2 - GASTROINTESTINAL HEMORRHAGE, UNSPECIFIED SNOMED Code(s): 44088681 (2) Anemia associated with acute blood loss Current Visit: Yes Status: Acute Code(s): D62 - ACUTE POSTHEMORRHAGIC ANEMIA SNOMED Code(s): 838865860 (3) History of colostomy reversal Current Visit: No Status: Acute Code(s): KPP2086 - SNOMED Code(s): 324925593 Plan: 1. Continue with present medical therapy. CBC monitoring. Possible inpatient colonoscopy GI specialist will advise. Assessment plan a care discussed with Dr. Nelson
--- NOTE | 2019-02-26 13:22 | P.PN ---
<Aretha Coronel - Last Filed: 02/26/19 13:16> Subjective Progress Note Date: 02/26/19 CHIEF COMPLAINT: Colitis HISTORY OF PRESENT ILLNESS: Patient seen and examined at the bedside this morning. Patient states he ate breakfast and tolerated well. Denies nausea or vomiting. Denies abdominal pain. Patient passing flatus. Patient denies bowel movement today but states "I think one is coming today". WBC 8.6. Hemoglobin 9.1, down from 9.7. PHYSICAL EXAM: VITAL SIGNS: Reviewed. GENERAL: Well-developed in no acute distress. HEENT: No sclera icterus. Extraocular movements grossly intact. Moist buccal mucosa. Head is atraumatic, normocephalic. ABDOMEN: Soft. Nondistended. Minimal tenderness upon palpation. Positive bowel sounds. NEUROLOGIC: Alert and oriented. Cranial nerves II through XII grossly intact. ASSESSMENT: 1. Bright red blood per rectum 2. Acute blood loss anemia, secondary to above 3. Possible ischemic colitis 4. Possible mild ileus, improving PLAN: 1. Continue current diet 2. Monitor stools for bleeding 3. Monitor CBC 4. GI also following. Will defer any endoscopic studies to their service Nurse practitioner note has been reviewed by physician. Signing provider agrees with the documented findings, assessment, and plan of care. Objective - Vital Signs Vital signs: Vital Signs Temp 99.3 F 02/26/19 05:00 Pulse 74 02/26/19 05:00 Resp 18 02/26/19 05:00 BP 114/68 02/26/19 05:00 Pulse Ox 92 L 02/26/19 05:00 Intake & Output 02/25/19 02/26/19 02/26/19 18:59 06:59 18:59 Intake Total 250 550 Output Total 1800 1750 470 Balance -1550 -1200 -470 Intake: Intake, IV Titration 350 Amount Sodium Chloride 0.9% 1, 350 000 ml @ 50 mls/hr IV . Q20H [facility] Rx#:[id number] Oral 250 200 Output: Urine 1800 1750 470 Uretheral (Chavez) 350 Other: Voiding Method Indwelling Catheter Indwelling Catheter Indwelling Catheter # Voids 0 - Labs CBC & Chem 7: 02/26/19 09:29 02/24/19 02:14 Labs: Abnormal Lab Results - Last 24 Hours (Table) 06/25/19 Range/Units 09:29 RBC 3.05 L (4.30-5.90) m/uL Hgb 9.1 L (13.0-17.5) gm/dL Hct 28.7 L (39.0-53.0) % Lymphocytes # 0.3 L (1.0-4.8) k/uL Microbiology - Last 24 Hours (Table) 02/23/19 11:05 Blood Culture - Preliminary Blood No Growth after 72 hours 02/25/19 08:00 Stool Culture - Preliminary Stool <MegaSara N - Last Filed: 02/26/19 19:18> Subjective Patient is well known to me from prior history of intra-abdominal sepsis 2 years ago. Last colonoscopy was July [address] Irwin. He was about to go home today however his discharge was held as now both upper and lower endoscopies are being entertained by GI team. Patient reports no bowel movement despite taking 2-16 ounces of GoLYTELY prep. ROS: No reports of nausea and vomiting. No bowel movements from bowel prep. No fevers or chills. No new chest pain. No productive sputum PHYSICAL EXAM: VITAL SIGNS: Reviewed CONSTITUTIONAL: Well developed and in no acute distress. EYES: Conjuctivae without sclera icterus. Extraocular movements grossly intact. HEAD, EARS, NOSE, THROAT: Moist buccal mucosa. Head is atraumatic, normocephalic. Hears conversational speech. No nasal drainage. NECK: Supple. No thyroidomegaly. RESPIRATORY: Non-labored respirations and equal bilateral excursions. CARDIOVASCULAR: Palpable 2+ radial pulses. Regular rate. Regular rhythm. ABDOMEN: Soft. No peritonitis. Palpable hernias along the right abdominal wall including left lower abdominal wall from previous ostomy site. No skin changes or strangulation. MUSCULOSKELETAL: No gross deformity of the lower extremities noted. No clubbing. No cyanosis. SKIN: Good skin turgor. Well perfused. NEUROLOGIC: Cranial nerves I through XII grossly intact. No focal or lateralizing signs. PSYCH: Appropriate affect. Alert and oriented to person, place and time. CLINCAL LABS: Hemoglobin down to 9.1. White blood cell count normal. ASSESSMENT: 1. Colitis. 2. Multiple incarcerated incisional hernias PLAN: 1. Will work with GI team regarding both upper and lower endoscopy. 2. Potential outpatient management of multiple incarcerated incisional hernias Objective - Vital Signs Vital signs: Vital Signs Temp 99.8 F H 02/26/19 15:00 Pulse 81 02/26/19 15:00 Resp 16 02/26/19 15:00 BP 124/76 02/26/19 15:00 Pulse Ox 92 L 02/26/19 15:00 Intake & Output 02/26/19 02/26/19 02/27/19 06:59 18:59 06:59 Intake Total 550 Output Total 1750 470 Balance -1200 -470 Intake: Intake, IV Titration 350 Amount Sodium Chloride 0.9% 1, 350 000 ml @ 50 mls/hr IV . Q20H [facility] Rx#:[id number] Oral 200 Output: Urine 1750 470 Uretheral (Chavez) 350 Other: Voiding Method Indwelling Catheter Urinal # Voids 0 - Labs CBC & Chem 7: 02/26/19 09:29 02/24/19 02:14 Labs: Abnormal Lab Results - Last 24 Hours (Table) 02/26/19 Range/Units 09:29 RBC 3.05 L (4.30-5.90) m/uL Hgb 9.1 L (13.0-17.5) gm/dL Hct 28.7 L (39.0-53.0) % Lymphocytes # 0.3 L (1.0-4.8) k/uL Microbiology - Last 24 Hours (Table) 02/23/19 11:05 Blood Culture - Preliminary Blood No Growth after 72 hours 02/25/19 08:00 Stool Culture - Preliminary Stool
--- NOTE | 2019-02-26 13:32 | PN ---
PROGRESS NOTE DATE OF SERVICE: 02/26/2019. REASON FOR FOLLOWUP: 1. Possible ischemic colitis. 2. Clostridium septicum bacteremia, source is abdominal. Followup blood culture negative. INTERVAL HISTORY: The patient is currently afebrile. Patient has been feeling better. Breathing comfortably. The patient been tolerating his diet with no nausea, no vomiting. Abdominal pain has much improved. Still has very minimal streak of blood in the stools. PHYSICAL EXAMINATION: On examination, blood pressure is 114/68 with a pulse of 74, temperature 99.3. He is 92% on room air. General description is an elderly male lying in bed in no distress. RESPIRATORY SYSTEM: Unlabored breathing, clear to auscultation anteriorly. HEART: S1, S2. Regular rate and rhythm. ABDOMEN: Soft, no tenderness. LABS: Hemoglobin is 9.1, white count 8.6, creatinine 1.03. Blood culture repeat, 02/23, has been negative. DIAGNOSTIC IMPRESSION AND PLAN: Patient admitted to the hospital with bleeding per rectum with evidence of colitis and with concern for possible ischemic colitis with evidence of Clostridium septicum bacteremia. The patient does have a PENICILLIN allergy. Did well on cefepime and Flagyl. The patient is feeling better and wants to go home. Antibiotic will be switched over to Cipro 500 mg twice a day and Flagyl 500 mg 3 times a day for 10 days and close outpatient followup. Prescription has been sent to the pharmacy. Continue supportive care. HILLARYL / NIKKI: [id number] / MTDD
[2019-02-26] MEDS ORDERED: PEG 3350-NA SULF,BICARB,CL/KCL 4,000 ML BOTTLE PO ONE (15:58)
[2019-02-26] MEDS ORDERED: BISACODYL 5 MG TABLET.DR PO STA (15:59)
--- NOTE | 2019-02-26 19:43 | P.PN ---
Progress Note - Text Progress Note Date: 02/26/19 Patient seen and reevaluated this evening. I personally discussed with GI team about upper and lower endoscopy. Patient wishes to proceed with upper and lower endoscopy with surgical team. Additionally, patient high risk for developing small bowel obstruction with history of incarcerated incisional hernia. We'll proceed cautiously with any endoscopies.
[2019-02-26] MEDS: ATORVASTATIN 40 MG TAB PO SCH (20:35)
[2019-02-26] MEDS ORDERED: ACETAMINOPHEN TAB 325 MG TAB ONE ×2 (23:20)
[2019-02-26] MEDS ORDERED: metroNIDAZOLE-NS PMX 500 MG/100 ML BAG ONE ×2 (23:20)
[2019-02-27] MEDS: metroNIDAZOLE-NS PMX 500 MG in SALINE 1 100ML.BAG IVPB SCH ×2 (06:29→07:22)
--- NOTE | 2019-02-27 07:04 | P.DS ---
Providers Date of admission: 02/22/19 14:23 Expected date of discharge: 02/26/19 Attending physician: Matt Barreto MD Consults: 02/22/19 07:03 Consult Physician Routine Consulting Provider: Sukhi Nelson Consult Reason/Comments: BRBPR Do you want consulting provider notified?: Yes 02/22/19 08:55 Consult Physician Routine Consulting Provider: Merlin Hannon Consult Reason/Comments: Fever Do you want consulting provider notified?: Yes 02/22/19 09:58 Consult Physician Stat Consulting Provider: Matt Barreto Consult Reason/Comments: hypotension Do you want consulting provider notified?: Yes 02/22/19 14:19 Consult Physician Stat Consulting Provider: Sharon Morales Consult Reason/Comments: GI bleed, hypotension Do you want consulting provider notified?: Yes 02/22/19 16:27 Consult Physician Routine Consulting Provider: Sara Ayoub Consult Reason/Comments: Ischemic Colitis Do you want consulting provider notified?: Already Contacted 02/22/19 16:28 Consult Physician Routine Consulting Provider: Riaz Broussard Consult Reason/Comments: Hydronephrosis Do you want consulting provider notified?: Already Contacted Primary care physician: Physician Nonstaff Hospital Course: 68-year-old male with PMH of hypertension, hyperlipidemia, prostate disease, history of bowel obstruction and perforation in 2017 due to hernia complicated with abscess presents to the ED for bright red blood per rectum. Patient states that he has been spotting in his stool over the past month. He describes the blood as bright red blood, mixed in with his stool. He denies any melena. Spotting does not occur with every bowel movement. However, last night he had 5-6 bowel movements with a lot of bright red blood that was filling the toilet. He denies any abdominal pain with bowel movements. He denies any constipation or diarrhea. He denies any changes in appetite. Patient denies any headaches, lower extremity edema, nausea or vomiting, fever or chills, cough, chest pain, shortness of breath, palpitations. He denies any dizziness, numbness/weakness/tingling of the extremities. He does complain of some difficulty urinating and mild burning with urination. Review of previous records show that patient was admitted in 2017 for peritonitis from perforation due to sigmoid diverticulitis. This was complicated with an abscess. Patient underwent colostomy at that time. In the ED, vital signs showed a fever with T-maxof 102.8 Fahrenheit. His blood pressure was as low as 95/45. Pulse and O2 saturation was within normal limits. CBC showed a leukocytosis of 12.1 and hemoglobin of 10.9. CMP showed a BUN of 25 and glucose of 141. Lactic acid was negative. Urinalysis was negative. Stool for occult blood was positive. Chest x-ray was negative. Patient is admitted for bright red blood per rectum, kept nothing by mouth for possible intervention, gastroenterology is consulted. Also septic workup is underway due to positive SIRS, infectious diseases consulted. With regard to his bright red blood per rectum saw to be secondary to infectious versus ischemic colitis. His hemoglobin ranged from 9.6-10.9 admission. Stool for occult blood was positive. Gastroenterology was consulted and recommended no planned procedures. CT of the abdomen and pelvis showed signs of colitis which is possibly ischemic. Patient spiked a fever on admission of 102.8, hypotensive to SBP 95 with leukocytosis of 12.1. He met sepsis criteria. Patient was initially started on ceftriaxone and Flagyl which was changed to cefepime and Flagyl by infectious disease. Blood cultures were obtained which were positive for clostridium. Repeat blood cultures are negative at 48 hours. Patient was hydrated with normal saline at 100 mL/h. Patient was noted to be slightly hypoxemic during his admission. Chest x-ray showed small pleural effusion thought to be secondary to volume resuscitation. He was given 1 dose of Lasix. Patient was seen and examined. No acute events overnight. Patient reports no bowel movement yet. He denies any chest pain, shortness of breath or palpitations. No nausea or vomiting. No fever or chills. Tolerating diet well. Urinating freely at this point. Looking forward to going home. General: [non toxic], [no distress], [appears at stated age] Derm: [warm], [dry] Head: [atraumatic], [normocephalic], [symmetric] Eyes: [EOMI], [no lid lag], [anicteric sclera] Mouth: [no lip lesion], [mucus membranes moist] Cardiovascular: [S1S2 reg], [no murmur], [positive DP pulse bilateral], Lungs: [CTA bilateral], [no rhonchi, no rales] , [no accessory muscle use] Abdominal: [soft], [tenderness palpation over the left quadrant, positive bowel sounds, improved], [no guarding], [no appreciable organomegaly] Ext: [no gross muscle atrophy], [no edema], [no contractures] Neuro: [no focal neuro deficits] Psych: [Alert], [oriented], [appropriate affect] Assessment and Plan Bright red blood per rectum, possible hemorrhoids, diverticular bleed, infectious versus ischemic colitis Sepsis likely secondary to colitis, rule out ischemic colitis Gram-positive bacteremia Pleural effusion Anemia from acute blood loss Hydroureter Elevated BUN Hypertension Hyperlipidemia Ongoing for the past month, worsened since last night. Bright red blood per rectum, patient denies melena. Hemoglobin 9.6 to 10.9, 14.7 in January 2018. Stool for occult blood positive in ED. Discussed with Dr. Nelson, no procedures planned at this point. Plans: Monitor H&H. Continue Protonix 40 mg IV daily. Transfuse if hemoglobin is less than 7. Continue normal saline at 50 cc/h (decreased from 100). General surgery consulted due to history of diverticulitis induced bowel perforation complicated with abscess formation, suggests mild ileus and recommends colonoscopy at a later time. Continue IV antibiotics for colitis. Follow GI recommendations. Patient with fever of 102.8, hypotensive to a SBP 95, leukocytosis of 12.1, positive source of infection on CT. Urinalysis is negative. Patient with history of bowel abscess. CT abdomen and pelvis showing signs of colitis, possible ischemic. Lactic acid within normal limits. Chest x-ray within normal limits. Blood cultures prelim positive for gram-positive bacilli. repeat blood cultures negative at 72 hours. Plans: Follow blood culture. Continue normal saline at 50 mL per hour (decreased from 100). Discontinue ceftriaxone and start cefepime as per ID recommendations and Flagyl for coverage of gram- negative and anaerobe. Tylenol as needed for fever. Follow infectious disease consultation. Gram-positive bacteria seen on initial blood culture. Positive for Clostridium. Repeat blood cultures negative at 72 hours. Plans: Repeat blood culture. Follow ID consultation. As seen on chest x-ray. Saturating low 90s on 2 L NC. Likely secondary to infuse IVF. Plans: Decreased IVF from 100 mL to 50. We'll continue to monitor. Plans: Management as above. As seen on CT abdomen and pelvis. Patient reports no urinary symptoms. Started on Flomax by urology. Plans: Urology consultation. BUN 25-within normal limits. Possibly dehydration or due to acute blood loss. Plans: Resolved. BP 114/68.. On amlodipine and ZULAY inhibitor at home. Plans: Monitor vitals, adjust medications as necessary. Stable. Plans: Hold aspirin. Continue Lipitor 40 milligrams by mouth at bedtime. Patient was admitted for BRBPR, gastroenterology and general surgery consulted, CT showing colitis. Diet advance to low fiber. Blood culture positive for Clostridium. ID recommended ciprofloxacin and Flagyl. DC pending GI clearance, possible scope in house. Pertinent Studies: CT abdomen and pelvis, chest x-ray Patient Condition at Discharge: Stable Plan - Discharge Summary Discharge Rx Participant: No New Discharge Prescriptions: New Ciprofloxacin HCl [Cipro] 500 mg PO Q12HR #20 tablet metroNIDAZOLE [Flagyl] 500 mg PO TID #30 tab Continue Cholecalciferol [Vitamin D3 (25 Mcg = 1000 Iu)] 5,000 unit PO DAILY Atorvastatin [Lipitor] 40 mg PO HS Glucosamine Sulfate 2,000 mg PO DAILY Aspirin 81 mg PO HS Multivitamins, Thera [Multivitamin (formulary)] 1 tab PO DAILY amLODIPine BESYLATE/BENAZEPRIL [amLODIPine BESYLATE/BENAZEPRIL 5-10 MG] 1 cap PO HS l Acidophil/B Lactis/B Longum [Florajen3 Capsule] 460 mg PO DAILY Loratadine 10 mg PO DAILY Docusate [Colace] 100 mg PO HS Ferrous Gluconate 324 mg PO DAILY Vitamin B Complex 1 cap PO HS Discontinued Naproxen Sodium [Aleve] 220 mg PO DAILY Discharge Medication List Aspirin 81 mg PO HS 12/21/16 [History] Atorvastatin [Lipitor] 40 mg PO HS 12/21/16 [History] Cholecalciferol [Vitamin D3 (25 Mcg = 1000 Iu)] 5,000 unit PO DAILY 12/21/16 [History] Glucosamine Sulfate 2,000 mg PO DAILY 12/21/16 [History] Docusate [Colace] 100 mg PO HS 07/31/17 [History] Loratadine 10 mg PO DAILY 07/31/17 [History] Multivitamins, Thera [Multivitamin (formulary)] 1 tab PO DAILY 11/27/17 [History] amLODIPine BESYLATE/BENAZEPRIL [amLODIPine BESYLATE/BENAZEPRIL 5-10 MG] 1 cap PO HS 07/31/17 [History] l Acidophil/B Lactis/B Longum [Florajen3 Capsule] 460 mg PO DAILY 07/31/17 [History] Ferrous Gluconate 324 mg PO DAILY 02/22/19 [History] Vitamin B Complex 1 cap PO HS 02/22/19 [History] Ciprofloxacin HCl [Cipro] 500 mg PO Q12HR #20 tablet 02/26/19 [Rx] metroNIDAZOLE [Flagyl] 500 mg PO TID #30 tab 02/26/19 [Rx] Follow up Appointment(s)/Referral(s): Nonstaff,Physician [Primary Care Provider] - 1-2 days Nadege Caraballo MD [STAFF PHYSICIAN] - 03/05/19 3:15 pm Sukhi Nelson MD [STAFF PHYSICIAN] - 03/14/19 (Hospital will call with time of colonscopy stop Iron for 5 days prior and Asprin for 2 days prior) César Gu MD [STAFF PHYSICIAN] - 03/06/19 9:00 am Patient Instructions/Handouts: Rectal Bleeding (DC) Activity/Diet/Wound Care/Special Instructions: Diet: High-fiber Follow-up PCP within 1-2 days of discharge. Follow-up with general surgery within 1 week of discharge. Follow-up with GI within 1 week of discharge. Follow-up with ID within 1 week of discharge. Take all medications as advised. Discharge Disposition: HOME SELF-CARE
[2019-02-27] MEDS: PANTOPRAZOLE 40 MG/10 ML VIAL IV SCH (07:21)
[2019-02-27] MEDS: SODIUM CHLORIDE 0.9% 1,000 ML IV SCH (07:22)
[2019-02-27] MEDS: CEFEPIME 2 GM in SODIUM CHLORIDE 0.9% 100 ML IVPB SCH (08:45)
[2019-02-27] MEDS: CHOLECALCIFEROL 1,000 UNIT TAB PO SCH (10:07)
[2019-02-27] MEDS: FERROUS SULFATE 325 MG TAB PO SCH (10:08)
[2019-02-27] MEDS: MULTIVITAMINS, THERA 1 EACH TAB PO SCH (10:08)
[2019-02-27] MEDS: LORATADINE 10 MG TAB PO SCH (10:08)
[2019-02-27] MEDS: TAMSULOSIN 0.4 MG CAP.ER.24H PO SCH (11:36)
--- NOTE | 2019-02-27 12:00 | XR ---
EXAMINATION TYPE: XR abdomen acute w cxr DATE OF EXAM: 02/27/2019 COMPARISON: Prior chest x-ray 02/24/2019, CT 02/22/2019 HISTORY: Abdominal distention and pain TECHNIQUE: Supine, upright, and frontal chest views of the abdomen and chest are obtained. FINDINGS: Subsegmental basilar atelectatic changes are present, there is persistent elevation of the right hemidiaphragm. No pneumothorax. Aorta is dense. Bilateral hip arthroplasties with extensive dy strophic calcification is present. Suspect postop changes in the lumbar spine status post multilevel laminectomies, degenerative disc changes are present. Vascular calcifications present in the pelvis. There are some distended loops of small bowel present with air fluid levels. There is no evidence for pneumoperitoneum. No unusual calcifications. IMPRESSION: Correlate for small bowel obstruction.
[2019-02-27] MEDS ORDERED: LIDOCAINE 1% INJ 10MG/ML (20 ML MDV) ONE (12:03)
[2019-02-27] MEDS ORDERED: PROPOFOL 10 MG/ML 20 ML VIAL IV ONE (12:03)
[2019-02-27] MEDS ORDERED: IV FLUID CONTINUATION 1,000 ML IV ONE ×2 (12:08)
--- NOTE | 2019-02-27 12:19 | P.PCN ---
Date of Procedure: 02/27/19 Description of Procedure: PREOPERATIVE DIAGNOSIS: History of gastrointestinal bleed Acute blood loss anemia POSTOPERATIVE DIAGNOSIS: History of gastrointestinal bleed Acute blood loss anemia Diaphragmatic hiatal hernia OPERATION: Esophagogastroduodenoscopy SURGEON: Sara Ayoub MD ANESTHESIA: MAC. INDICATIONS: The patient is a 68-year-old male who presents with a history of anemia and gastrointestinal bleed. Benefits and risks of the procedure were described. Informed consent was obtained. DESCRIPTION: The patient was brought into the endoscopy suite and laid in the left lateral decubitus position. An Olympus gastroscope was passed along the posterior oropharynx down to the distal esophagus where the squamocolumnar junction was encountered at 36 cm from the incisors. The stomach was entered and no bile reflux was found. Additional findings are listed below. Biopsies with cold forceps were obtained of the antrum. The first through third portion of the duodenum was examined and unremarkable. Retroflexion of the scope confirmed Hill grade 4 lower esophageal valve. The squamocolumnar junction demonstrated LA grade B erosive esophagitis. The stomach was desufflated. The patient tolerated the procedure well. FINDINGS: Squamocolumnar junction 36 cm from the incisors. Diaphragmatic hiatus at 41 cm. Hiatal hernia, 5 cm Hill grade 4 lower esophageal valve. LA grade B erosive esophagitis. No active duodenitis. Chronic gastritis RECOMMENDATIONS: Upper endoscopy as needed.
--- NOTE | 2019-02-27 12:29 | P.PCN ---
Date of Procedure: 02/27/19 Description of Procedure: PREOPERATIVE DIAGNOSIS: Gastrointestinal bleed Acute blood loss anemia POSTOPERATIVE DIAGNOSIS: Gastrointestinal bleed Acute blood loss anemia Proctitis with active inflammation OPERATION: Colonoscopy to the ileocecal valve and appendiceal orifice. Colonoscopy with cold biopsies rectum SURGEON: Sara Ayoub MD. ANESTHESIA: MAC. INDICATIONS: The patient is a 68-year-old male who presents with rectal bleeding including diagnosis of ischemic colitis per computed tomography scan. Benefits and risks were described and informed consent was obtained. DESCRIPTION OF PROCEDURE: The patient had undergone Golytely prep. He had been brought into the operating room and laid in the left lateral decubitus position. After adequate intravenous sedation, the rectum was examined with 2% lidocaine jelly. No external hemorrhoids were encountered. The rectal tone was within normal limits. No lesions were palpated in the rectal vault. Moderate to severe inflammation of the rectum from 10 cm to anal verge was identified with ischemic changes. An Olympus colonoscope was advanced until the ileocecal valve and appendiceal orifice were clearly viewed. The prep was excellent with clear visualization of the mucosal folds. The scope was removed with visualization of each mucosal fold. No scattered diverticulosis was encountered. No colonic polyps were found. The rest of the colon was completely unremarkable. The colon was desufflated. The patient had tolerated the procedure well. Withdrawal time was over 6 minutes. FINDINGS: Aronchick preparation quality scale 1 (1-5) Internal hemorrhoids, grade 1 No external prolapsed hemorrhoids. No arteriovenous malformations. No adenomatous polyps. Moderate to severe proctitis with inflammation of the rectum RECOMMENDATIONS: Lower endoscopy in 5 years, 2023 Plan - Discharge Summary Discharge Rx Participant: No New Discharge Prescriptions: New Ciprofloxacin HCl [Cipro] 500 mg PO Q12HR #20 tablet metroNIDAZOLE [Flagyl] 500 mg PO TID #30 tab Continue Cholecalciferol [Vitamin D3 (25 Mcg = 1000 Iu)] 5,000 unit PO DAILY Atorvastatin [Lipitor] 40 mg PO HS Glucosamine Sulfate 2,000 mg PO DAILY Aspirin 81 mg PO HS Multivitamins, Thera [Multivitamin (formulary)] 1 tab PO DAILY amLODIPine BESYLATE/BENAZEPRIL [amLODIPine BESYLATE/BENAZEPRIL 5-10 MG] 1 cap PO HS l Acidophil/B Lactis/B Longum [Florajen3 Capsule] 460 mg PO DAILY Loratadine 10 mg PO DAILY Docusate [Colace] 100 mg PO HS Ferrous Gluconate 324 mg PO DAILY Vitamin B Complex 1 cap PO HS Discontinued Naproxen Sodium [Aleve] 220 mg PO DAILY Discharge Medication List Aspirin 81 mg PO HS 12/21/16 [History] Atorvastatin [Lipitor] 40 mg PO HS 12/21/16 [History] Cholecalciferol [Vitamin D3 (25 Mcg = 1000 Iu)] 5,000 unit PO DAILY 12/21/16 [History] Glucosamine Sulfate 2,000 mg PO DAILY 12/21/16 [History] Docusate [Colace] 100 mg PO HS 07/31/17 [History] Loratadine 10 mg PO DAILY 07/31/17 [History] Multivitamins, Thera [Multivitamin (formulary)] 1 tab PO DAILY 07/31/17 [History] amLODIPine BESYLATE/BENAZEPRIL [amLODIPine BESYLATE/BENAZEPRIL 5-10 MG] 1 cap PO HS 07/31/17 [History] l Acidophil/B Lactis/B Longum [Florajen3 Capsule] 460 mg PO DAILY 07/31/17 [History] Ferrous Gluconate 324 mg PO DAILY 02/22/19 [History] Vitamin B Complex 1 cap PO HS 02/22/19 [History] Ciprofloxacin HCl [Cipro] 500 mg PO Q12HR #20 tablet 02/26/19 [Rx] metroNIDAZOLE [Flagyl] 500 mg PO TID #30 tab 02/26/19 [Rx] Follow up Appointment(s)/Referral(s): Nonstaff,Physician [Primary Care Provider] - 1-2 days Nadege Caraballo MD [STAFF PHYSICIAN] - 03/05/19 3:15 pm Sukhi Nelson MD [STAFF PHYSICIAN] - 03/14/19 (Hospital will call with time of colonscopy stop Iron for 5 days prior and Asprin for 2 days prior) César Gu MD [STAFF PHYSICIAN] - 03/06/19 9:00 am Patient Instructions/Handouts: Rectal Bleeding (DC) Activity/Diet/Wound Care/Special Instructions: Diet: High-fiber Follow-up PCP within 1-2 days of discharge. Follow-up with general surgery within 1 week of discharge. Follow-up with GI within 1 week of discharge. Follow-up with ID within 1 week of discharge. Take all medications as advised. Discharge Disposition: HOME SELF-CARE
[2019-02-27 14:16] VITALS: RESP 16; TEMP 99.1
--- NOTE | 2019-02-27 14:27 | P.PN ---
Progress Note - Text Progress Note Date: 02/27/19 Findings discussed with both hospitalist, patient and his . Focal area of moderate inflammation along the rectum. Rest of the colon completely unremarkable. Recommend Flagyl at least 3 times daily. Patient to avoid constipation. Follow-up in the office in 2 weeks.
--- NOTE | 2019-02-27 14:32 | P.PN ---
Subjective Progress Note Date: 02/27/19 Principal diagnosis: Bright red blood per rectum Patient was seen and examined. No acute events overnight. Underwent colonoscopy and EGD this morning. Able to tolerate clear liquid diet after his procedure. He denies any chest pain, shortness of breath or palpitations. No f ever or chills. No nausea or vomiting. is at bedside, looking forward to going home. Objective - Vital Signs Vital signs: Vital Signs Temp 99.1 F 02/27/19 12:40 Pulse 60 02/27/19 12:40 Resp 16 02/27/19 12:40 BP 149/82 02/27/19 12:40 Pulse Ox 95 02/27/19 12:40 Intake & Output 02/26/19 02/27/19 02/27/19 18:59 06:59 18:59 Intake Total 640 Output Total 470 300 Balance -470 -300 640 Intake: IV 100 Oral 540 Output: Urine 470 300 Uretheral (Chavez) 350 Other: Voiding Method Urinal Urinal Urinal # Voids 0 3 4 # Bowel Movements 2 - Exam General: [non toxic], [no distress], [appears at stated age] Derm: [warm], [dry] Head: [atraumatic], [normocephalic], [symmetric] Eyes: [EOMI], [no lid lag], [anicteric sclera] Mouth: [no lip lesion], [mucus membranes moist] Cardiovascular: [S1S2 reg], [no murmur], [positive DP pulse bilateral], Lungs: [CTA bilateral], [no rhonchi, no rales] , [no accessory muscle use] Abdominal: [soft], [tenderness palpation over the left quadrant, positive bowel sounds, improved], [no guarding], [no appreciable organomegaly] Ext: [no gross muscle atrophy], [no edema], [no contractures] Neuro: [no focal neuro deficits] Psych: [Alert], [oriented], [appropriate affect] - Labs CBC & Chem 7: 02/26/19 09:29 02/24/19 02:14 Labs: Microbiology - Last 24 Hours (Table) 02/23/19 11:05 Blood Culture - Preliminary Blood No Growth after 96 hours Assessment and Plan Assessment: Assessment and Plan Bright red blood per rectum, possible hemorrhoids, diverticular bleed, infectious versus ischemic colitis Sepsis likely secondary to colitis, rule out ischemic colitis Gram-positive bacteremia Pleural effusion Anemia from acute blood loss Hydroureter Elevated BUN Hypertension Hyperlipidemia Ongoing for the past month, worsened since last night. Bright red blood per rectum, patient denies melena. Hemoglobin 9.6 to 10.9, 14.7 in January 2018. Stool for occult blood positive in ED. Discussed with Dr. Nelson, no procedures planned at this point. Underwent EGD and colonoscopy, EGD shows hiatal hernia, erosive esophagitis and chronic gastritis. Colonoscopy shows internal hemorrhoids, moderate to severe proctitis. Plans: Monitor H&H. Continue Protonix 40 mg IV daily. Transfuse if hemoglobin is less than 7. Continue normal saline at 50 cc/h (decreased from 100). General surgery consulted due to history of diverticulitis induced bowel perforation complicated with abscess formation, suggests mild ileus and recommends colonoscopy at a later time. Continue IV antibiotics for colitis. Follow GI recommendations. Patient with fever of 102.8, hypotensive to a SBP 95, leukocytosis of 12.1, positive source of infection on CT. Urinalysis is negative. Patient with history of bowel abscess. CT abdomen and pelvis showing signs of colitis, possible ischemic. Lactic acid within normal limits. Chest x-ray within normal limits. Blood cultures prelim positive for gram-positive bacilli. repeat blood cultures negative at 72 hours. Plans: Follow blood culture. Continue normal saline at 50 mL per hour (decreased from 100). Discontinue ceftriaxone and start cefepime as per ID recommendations and Flagyl for coverage of gram- negative and anaerobe. Tylenol as needed for fever. Follow infectious disease consultation. Gram-positive bacteria seen on initial blood culture. Positive for Clostridium. Repeat blood cultures negative at 96 hours. Plans: Repeat blood culture. Follow ID consultation. As seen on chest x-ray. Saturating low 90s on 2 L NC. Likely secondary to infuse IVF. Plans: Resolved Plans: Management as above. As seen on CT abdomen and pelvis. Patient reports no urinary symptoms. Started on Flomax by urology. Plans: Urology consultation. BUN 25-within normal limits. Possibly dehydration or due to acute blood loss. Plans: Resolved. BP 149/82. On amlodipine and ZULAY inhibitor at home. Plans: Monitor vitals, adjust medications as necessary. Stable. Plans: Hold aspirin. Continue Lipitor 40 milligrams by mouth at bedtime. We'll discharge home today. Close follow-up with general surgery, GI, ID and PCP.
[2019-02-27 15:05] VITALS: BP 136/81; PULSE 73
--- NOTE | 2019-03-02 22:53 | P.PN ---
Progress Note - Text Progress Note Date: 02/25/19 REASON FOR FOLLOWUP: 1. Possible ischemic colitis. 2. Clostridium septicum bacteremia, source is abdominal. INTERVAL HISTORY: The patient remians to be afebrile. Patient has been feeling better. Pt is Breathing comfortably. The patient been tolerating his diet with no nausea, no vomiting. Abdominal pain has much improved. PHYSICAL EXAMINATION: On examination, blood pressure is 120/68 with a pulse of 70, temperature 99.3. He is 92% on room air. General description is an elderly male lying in bed in no distress. RESPIRATORY SYSTEM: Unlabored breathing, clear to auscultation anteriorly. HEART: S1, S2. Regular rate and rhythm. ABDOMEN: Soft, no tenderness. LABS: Initial blood cultures with Clostridium Septicum Blood culture repeat, 02/23, has been negative. DIAGNOSTIC IMPRESSION AND PLAN: Patient admitted to the hospital with bleeding per rectum with evidence of colitis and with concern for possible ischemic colitis with evidence of Clostridium septicum bacteremia likely abdominal source. The patient does have a PENICILLIN allergy. Pt responded to cefepime and Flagyl. , which will be continued and follow up repeat blood cultures
== END 2019-02-27 15:39 | disposition home or self-care (01) | DRG 871 ==
LOC: EC 05:55 → SUPCPDRO 05:55 → 3SCARD 11:21 → OBSVTOIN 14:23 → 2SICU 14:34 → 4MS4W 02-24 02:04
PROVIDERS: ADMIT Family Medicine; ATTEND Family Medicine
PROC: 0DB78ZX Excision of Stomach, Pylorus, Via Natural or Artificial Opening Endoscopic, Diagnostic (ICD-10-PCS; principal; 2019-02-27 08:00)
PROC: 0DBP8ZX Excision of Rectum, Via Natural or Artificial Opening Endoscopic, Diagnostic (ICD-10-PCS; 2019-02-27 08:00)
DX: A41.4 Sepsis due to anaerobes (principal); K57.91 Diverticulosis of intestine, part unspecified, without perforation or abscess with bleeding; K55.9 Vascular disorder of intestine, unspecified; J90 Pleural effusion, not elsewhere classified; D62 Acute posthemorrhagic anemia; N13.30 Unspecified hydronephrosis; K43.0 Incisional hernia with obstruction, without gangrene; K22.10 Ulcer of esophagus without bleeding; R09.02 Hypoxemia; E86.0 Dehydration; K62.89 Other specified diseases of anus and rectum; K44.9 Diaphragmatic hernia without obstruction or gangrene; K64.8 Other hemorrhoids; K29.50 Unspecified chronic gastritis without bleeding; N42.9 Disorder of prostate, unspecified; E78.5 Hyperlipidemia, unspecified; I10 Essential (primary) hypertension; R33.9 Retention of urine, unspecified; J30.9 Allergic rhinitis, unspecified; M19.042 Primary osteoarthritis, left hand; M19.041 Primary osteoarthritis, right hand; Z79.82 Long term (current) use of aspirin; Z79.1 Long term (current) use of non-steroidal anti-inflammatories (NSAID); Z79.899 Other long term (current) drug therapy; Z90.49 Acquired absence of other specified parts of digestive tract; Z86.711 Personal history of pulmonary embolism; Z96.643 Presence of artificial hip joint, bilateral; Z85.46 Personal history of malignant neoplasm of prostate; Z92.3 Personal history of irradiation; Z88.0 Allergy status to penicillin; Z80.7 Family history of other malignant neoplasms of lymphoid, hematopoietic and related tissues; Z80.0 Family history of malignant neoplasm of digestive organs; Z83.79 Family history of other diseases of the digestive system
CPT/HCPCS: 36415; 43235; 45380; 51702; 51798; 71046; 74022; 74177; 80048; 80053; 81003; 82272; 83605; 85025; 85027; 85610; 86850; 86900; 86901; 87040; 87045; 87046; 87086; 87324; 88305; 96361; 96365; 96367; 96375; 99285